=== PATIENT | male | born 1950 | race Caucasian/White ===

== ENCOUNTER 2020-08-08 08:16 | Outpatient (REF) | payer MEDICARE, OTHER, SELFPAY ==
[2020-08-08 09:15] LABS: MANUAL DIFF FLAG NO
[2020-08-08 09:27] LABS: Basophils Absolute Auto 0.1 X10*3/uL (0.0-0.2); Eosinophils Absolute Auto 0.3 X10*3/uL (0.0-0.4); Eosinophils Percent Auto 3.4 % (0-4); Hematocrit 45.5 % (42-52); Hemoglobin 15.2 g/dl (14.0-18.0); Imm Gran Abs Auto 0.03 X10*3/uL (0.00-0.03); Imm Gran Pct Auto 0.4 % (0.0-0.4); Lymphocytes Absolute Auto 1.8 X10*3/uL (1.2-4.9); Lymphocytes Percent Auto 24.3 % (20-40); Mean Corpuscular HGB Conc 33.4 g/dl (31.0-36.0); Mean Corpuscular Hemoglobin 30.3 pg (27.0-33.0); Mean Corpuscular Volume 90.6 fL (80-98); Mean Platelet Volume 10.9 fL (9.4-12.4); Monocytes Absolute Auto 0.7 X10*3/uL (0.1-1.2); Monocytes Percent Auto 9.9 % (2-11); Neutrophils Absolute Auto 4.4 X10*3/uL (2.0-8.3); Platelet Count 177 X10*3/uL (160-400); Red Blood Count 5.02 X10*6/uL (4.60-5.80); Red Cell Distribution Width 13.1 % (11.0-16.0); White Blood Count 7.3 X10*3/uL (4.8-10.8)
[2020-08-08 09:38] LABS: INTERNATIONAL NORM RATIO 1.3 (0.9-1.1); Prothrombin Time 15.1 SEC (10.8-13.0)
[2020-08-08 09:54] LABS: Alanine Aminotransferase 31 U/L (0-40); Albumin Level 4.6 g/dL (3.5-5.0); Alkaline Phosphatase 77 U/L (39-117); Anion Gap 12 (12-20); Aspartate Amino Transferase 18 U/L (5-37); Bilirubin Total 0.7 mg/dL (0.0-1.0); Blood Urea Nitrogen 14 mg/dL (9-16); Calcium 9.5 mg/dL (8.4-10.2); Carbon Dioxide 28 mmol/L (22-29); Chloride 104 mmol/L (96-108); Cholesterol 110 mg/dL; Estimated Glomerular Filt Rate > 60; Glucose Fasting 127 mg/dL (60-99); HDL Cholesterol 33 mg/dL; LDL Cholesterol Calculated 47 mg/dl; Potassium 4.3 mmol/l (3.3-5.1); Sodium 140 mmol/L (135-145); Total Protein 6.9 g/dL (6.5-8.0); Triglycerides 153 mg/dL
[2020-08-08 10:16] LABS: Prostate Specific Antigen 1.14 ng/mL (<0.05-4.0); Thyroid Stimulating Hormone 0.68 mIU/mL (0.32-4.0)
[2020-08-08 10:21] LABS: Microalbum/Creatinine Ratio Ur 39.1 ug/mg cr
[2020-08-08 10:35] LABS: T4 Thyroxine 6.5 ug/dL (4.5-12.0)
[2020-08-08 10:44] LABS: Folate 15.3 ng/mL (> or = 4.0); Vitamin B12 1207 pg/mL (200-900)
== END 2020-08-08 08:17 | disposition home or self-care (01) ==
LOC: HO.LAB 08:16
PROVIDERS: PCP Internal Medicine; Referring Provider Urology; Visit Provider Internal Medicine
DX: I48.19 Other persistent atrial fibrillation (principal); E11.65 Type 2 diabetes mellitus with hyperglycemia; I25.10 Atherosclerotic heart disease of native coronary artery without angina pectoris; R35.1 Nocturia; E66.01 Morbid (severe) obesity due to excess calories; M50.30 Other cervical disc degeneration, unspecified cervical region; K21.9 Gastro-esophageal reflux disease without esophagitis; E78.00 Pure hypercholesterolemia, unspecified; I10 Essential (primary) hypertension; N32.81 Overactive bladder; M48.02 Spinal stenosis, cervical region; Z12.5 Encounter for screening for malignant neoplasm of prostate
CPT/HCPCS: 36415; 80053; 80061; 82043; 82607; 82746; 84153; 84436; 84443; 85025; 85610

== ENCOUNTER → 2020-08-17 09:26 | Outpatient (REF) | payer MEDICARE, OTHER, SELFPAY ==
--- NOTE | 2020-08-17 09:31 | CA_ITS ---
Transthoracic Echocardiogram Amended Patient (Last, First, Middle): Arnie Springer, Gender: Male Date of : 1950 Age: 70 Procedure Date: 08/17/2020 Procedure Type: Transthoracic Echocardiogram Location: OP Height: 175.26 cm Weight: 119.75 kg BSA: 2.32 m2 Heart Rate: bpm BP: 130 / 81 mmHg Purse Seiner: DSDeondre Referring MD: Onesimo Kulkarni MD Symptoms: Z95.5 Stented coronary artery, 148.19 Persistent Atrial Fibrillation Study Quality: Good ECG Rhythm: Atrial Fibrillation Conclusions: - The left ventricular systolic function is normal. The visually estimated ejection fraction is between 65-70%. - No obvious valvular pathology seen on this study. Findings Left Ventricle Normal left ventricular cavity size. There is mildly increased left ventricular wall thickness. The left ventricular systolic function is normal. The visually estimated ejection fraction is between 65-70%. There is no evidence of regional wall motion abnormalities. Diastolic function is indeterminate on the basis of available data. Right Ventricle Normal right ventricular cavity size and systolic function. Atria Both atria are normal in size. Aortic Valve There is a normal trileaflet aortic valve. There is no aortic valve stenosis. There is no aortic valve regurgitation. Mitral Valve The mitral valve appears normal. There is trace mitral valve regurgitation. There is no mitral valve stenosis. Pulmonic Valve The pulmonic valve was not well visualized. Tricuspid Valve Normal tricuspid valve structure. There is trace tricuspid valve regurgitation. The pulmonary artery systolic pressure is normal. Great Vessels The aortic annulus, sinuses of valsalva, and asc aorta are normal in size. Venous The inferior vena cava is normal in size and collapses greater than 50% with inspiration. Pericardium/Pleural There is no evidence of pericardial effusion. Prior Study Comparison No significant change compared to prior study dated: 04/16/2018. Recommendations, Care & Conclusions No obvious valvular pathology seen on this study. Measurements 2D Linear Measurements IVSd: 1.42 0.6-0.9/0.6-1.0 cm LVIDd: 4.83 3.9-5.3/4.2-5.9 cm LVIDs: 3.43 2.0-3.6 cm LVPWd: 1.37 0.7-1.1 cm Ao Root: 3.75 2.1-3.5 cm LV Mass: 341.72 67-162/88-224 g LVOT Diam: 2.45 3.0+(-)1.3 cm 2D Volumes LA Vol: 31.54 2D Systolic Function EF 4C: 61.00 >55% Mitral Valve MV Decel Time: 138.29 Aortic Valve AoV Pk Evangelista: 1.35 AoV Pk Grad: 7.48 LVOT LVOT Pk Evangelista: 1.01 LVOT Mn Evangelista: 0.63 LVOT VTI: 0.17 LVOT Pk Grad: 4.06 LVOT Mn Grad: 1.94 LVOT Diam: 2.45 LVOT Area: 4.70 Tricuspid Valve TR Pk Evangelista: 2.41 TR Pk Grad: 23.27 RA Press: 3.00 RVSP: 26.00 Great Vessels Aorta Ao Root-2D: 3.75 2.0-3.7 cm Ao Asc: 3.49 2.1-3.4 cm Updated in Other Vendor System with Status of Final Onesimo Kulkarni MD electronically signed on 08/18/2020 1:11:33 PM with status of Final
--- NOTE | 2020-08-17 10:30 | ECG_ITS ---
Hook-up date: 2020-08-17 10:32:00 Duration: 25:13:00 Test Indications: PERSISTANT AFIB Medications: 013850 QRS complexes 91 Ventricular ectopics which represent <1 % of total QRS comp. * Supraventricular ectopics which represent % of total QRS comp. * Paced QRS complexs which represent % of total QRS comp. VENTRICULAR ECTOPY 87 Isolated 0 Bigeminal Cycles 2 Couplets 0 Runs 0 Beats in Runs * Beats LONGEST at * BPM at :: -- * Beats FASTEST at * BPM at :: -- SUPRAVENTRICULAR ECTOPY * Isolated * Couplets * Runs * Beats in Runs * Beats LONGEST at * BPM at :: -- * Beats FASTEST at * BPM at :: -- HEART RATES 38 MIN at 03:40:37 2020-08-18 100 AVG 198 MAX at 16:17:24 2020-08-17 LONGEST RR 2.5440 secs at 03:40:32 2020-08-18 S-T LEVELS Channel 1 - 128 mm at 10:32:00 2020-08-17 - 128 mm at 10:32:00 2020-08-17 Channel 2 - 128 mm at 10:32:00 2020-08-17 - 128 mm at 10:32:00 2020-08-17 Channel 3 - 128 mm at 02:95:11 -- - 128 mm at 02:95:11 Underlying rhythm is atrial fibrillation; Average ventricular rate 100/min; range 38-198/min; About 55% of the time, ventricular rate >100/min; nocturnal bradycardia noted; 'shortness of breath' in diary possibly related to atrial fibrillation; other symptoms noted including neck pain, back pain seems unrelated. Referred By: Ida Gaspar Overread By: IDA GASPAR
== END ==
LOC: HO.CARD 09:26
PROVIDERS: PCP Internal Medicine; Visit Provider Internal Medicine
DX: I25.10 Atherosclerotic heart disease of native coronary artery without angina pectoris (principal); I48.19 Other persistent atrial fibrillation; Z95.5 Presence of coronary angioplasty implant and graft
CPT/HCPCS: 93225; 93226; 93306

== ENCOUNTER → 2020-08-31 09:03 | Outpatient (BNVA) | payer MEDICARE, SELFPAY | PROVIDERS: PCP Internal Medicine; Referring Provider Internal Medicine; Visit Provider Internal Medicine | DX: I48.19 Other persistent atrial fibrillation (principal); Z79.01 Long term (current) use of anticoagulants; Z51.81 Encounter for therapeutic drug level monitoring | CPT/HCPCS: 85610; 99211 ==

== ENCOUNTER → 2020-09-05 08:06 | Outpatient (BNVA) | payer MEDICARE, SELFPAY | PROVIDERS: PCP Internal Medicine; Visit Provider Internal Medicine | DX: I25.10 Atherosclerotic heart disease of native coronary artery without angina pectoris (principal); I48.19 Other persistent atrial fibrillation; I10 Essential (primary) hypertension; E11.8 Type 2 diabetes mellitus with unspecified complications; E78.5 Hyperlipidemia, unspecified; G47.33 Obstructive sleep apnea (adult) (pediatric); Z79.01 Long term (current) use of anticoagulants; Z99.89 Dependence on other enabling machines and devices | CPT/HCPCS: 85610; 93005; 99212 ==

== ENCOUNTER → 2020-09-08 08:11 | Outpatient (BNVA) | payer MEDICARE, SELFPAY | PROVIDERS: PCP Internal Medicine; Visit Provider Internal Medicine | DX: I48.19 Other persistent atrial fibrillation (principal); Z51.81 Encounter for therapeutic drug level monitoring; Z79.01 Long term (current) use of anticoagulants | CPT/HCPCS: 85610; 99212 ==

== ENCOUNTER 2020-09-09 06:29 | Outpatient (REF) | payer MEDICARE, SELFPAY ==
[2020-09-09 13:18] LABS: MANUAL DIFF FLAG NO
[2020-09-09 13:28] LABS: Basophils Absolute Auto 0.1 X10*3/uL (0.0-0.2); Basophils Percent Auto 1.3 % (0-2); Eosinophils Absolute Auto 0.4 X10*3/uL (0.0-0.4); Eosinophils Percent Auto 6.6 % (0-4); Hematocrit 44.1 % (42-52); Hemoglobin 14.4 g/dl (14.0-18.0); Imm Gran Abs Auto 0.02 X10*3/uL (0.00-0.03); Imm Gran Pct Auto 0.3 % (0.0-0.4); Lymphocytes Absolute Auto 2.1 X10*3/uL (1.2-4.9); Lymphocytes Percent Auto 34.3 % (20-40); Mean Corpuscular HGB Conc 32.7 g/dl (31.0-36.0); Mean Corpuscular Hemoglobin 30.2 pg (27.0-33.0); Mean Corpuscular Volume 92.5 fL (80-98); Mean Platelet Volume 11.5 fL (9.4-12.4); Monocytes Absolute Auto 0.7 X10*3/uL (0.1-1.2); Monocytes Percent Auto 10.8 % (2-11); Neutrophils Absolute Auto 2.9 X10*3/uL (2.0-8.3); Neutrophils Percent Auto 46.7 % (45-73); Platelet Count 178 X10*3/uL (160-400); Red Blood Count 4.77 X10*6/uL (4.60-5.80); Red Cell Distribution Width 13.1 % (11.0-16.0); White Blood Count 6.2 X10*3/uL (4.8-10.8)
== END 2020-09-09 06:30 | disposition home or self-care (01) ==
LOC: HO.HMGCLDS 06:29
PROVIDERS: PCP Internal Medicine; Visit Provider Internal Medicine
DX: Z20.828 Contact with and (suspected) exposure to other viral communicable diseases (principal); Z79.01 Long term (current) use of anticoagulants
CPT/HCPCS: 36415; 85025; U0003

== ENCOUNTER → 2020-09-12 08:06 | Outpatient (BNVA) | payer MEDICARE, SELFPAY | PROVIDERS: PCP Internal Medicine; Visit Provider Internal Medicine | DX: I48.19 Other persistent atrial fibrillation (principal); Z51.81 Encounter for therapeutic drug level monitoring; Z79.01 Long term (current) use of anticoagulants | CPT/HCPCS: 85610; 99211 ==

== ENCOUNTER → 2020-09-19 08:31 | Outpatient (BNVA) | payer MEDICARE, SELFPAY | PROVIDERS: PCP Internal Medicine; Visit Provider Internal Medicine | DX: I48.19 Other persistent atrial fibrillation (principal); Z51.81 Encounter for therapeutic drug level monitoring; Z79.01 Long term (current) use of anticoagulants | CPT/HCPCS: 85610; 99211 ==

== ENCOUNTER → 2020-09-28 10:23 | Outpatient (BNVA) | payer MEDICARE, SELFPAY | PROVIDERS: PCP Internal Medicine; Referring Provider Internal Medicine; Visit Provider Internal Medicine | DX: I48.19 Other persistent atrial fibrillation (principal); Z51.81 Encounter for therapeutic drug level monitoring; Z79.01 Long term (current) use of anticoagulants | CPT/HCPCS: 85610; 99211 ==

== ENCOUNTER 2020-11-18 10:17 | Outpatient (REF) | payer MEDICARE, SELFPAY ==
--- NOTE | 2020-11-18 10:23 | XR_ITS ---
EXAMINATION: XR CHEST CLINICAL INFORMATION: Covid 19. Shortness of breath. COMPARISON: Chest 02/24/2019 TECHNIQUE: 2 views of the chest were obtained. FINDINGS: The lungs are well-expanded but clear of acute process. The heart size is enlarged with pulmonary vascularity is normal. There is mild spondylosis dorsal spine. No lytic process. XR/XR chest 2V IMPRESSION: Unremarkable chest exam.
== END 2020-11-18 10:18 | disposition home or self-care (01) ==
LOC: HO.HMGCX 10:17
PROVIDERS: PCP Internal Medicine; Visit Provider Internal Medicine
DX: U07.1 COVID-19 (principal); R06.02 Shortness of breath
CPT/HCPCS: 71046

== ENCOUNTER → 2020-12-07 08:07 | Outpatient (BNVA) | payer MEDICARE, OTHER, SELFPAY | PROVIDERS: PCP Internal Medicine; Visit Provider Internal Medicine | DX: I48.19 Other persistent atrial fibrillation (principal); I25.10 Atherosclerotic heart disease of native coronary artery without angina pectoris; I10 Essential (primary) hypertension; E11.8 Type 2 diabetes mellitus with unspecified complications; E78.5 Hyperlipidemia, unspecified; G47.33 Obstructive sleep apnea (adult) (pediatric); Z99.89 Dependence on other enabling machines and devices | CPT/HCPCS: 99212 ==

== ENCOUNTER 2020-12-15 09:57 | Outpatient (REF) | payer MEDICARE, SELFPAY ==
[2020-12-15 11:19] LABS: MANUAL DIFF FLAG NO
[2020-12-15 11:34] LABS: Basophils Absolute Auto 0.1 X10*3/uL (0.0-0.2); Basophils Percent Auto 0.7 % (0-2); Eosinophils Absolute Auto 0.4 X10*3/uL (0.0-0.4); Eosinophils Percent Auto 5.4 % (0-4); Hematocrit 43.7 % (42-52); Hemoglobin 14.7 g/dl (14.0-18.0); Imm Gran Abs Auto 0.02 X10*3/uL (0.00-0.03); Imm Gran Pct Auto 0.3 % (0.0-0.4); Lymphocytes Absolute Auto 1.6 X10*3/uL (1.2-4.9); Lymphocytes Percent Auto 22.7 % (20-40); Mean Corpuscular HGB Conc 33.6 g/dl (31.0-36.0); Mean Corpuscular Hemoglobin 30.2 pg (27.0-33.0); Mean Corpuscular Volume 89.9 fL (80-98); Mean Platelet Volume 11.6 fL (9.4-12.4); Monocytes Absolute Auto 0.8 X10*3/uL (0.1-1.2); Monocytes Percent Auto 11.6 % (2-11); Neutrophils Absolute Auto 4.1 X10*3/uL (2.0-8.3); Neutrophils Percent Auto 59.3 % (45-73); Platelet Count 183 X10*3/uL (160-400); Red Blood Count 4.86 X10*6/uL (4.60-5.80); Red Cell Distribution Width 13.7 % (11.0-16.0); White Blood Count 6.9 X10*3/uL (4.8-10.8)
[2020-12-15 11:36] LABS: Estimated Average Glucose 143 mg/dL; Hemoglobin A1c % 6.6 %
[2020-12-15 12:01] LABS: Alanine Aminotransferase 30 U/L (0-40); Albumin Level 4.4 g/dL (3.5-5.0); Alkaline Phosphatase 88 U/L (39-117); Anion Gap 14 (12-20); Aspartate Amino Transferase 18 U/L (5-37); Bilirubin Total 0.5 mg/dL (0.0-1.0); Blood Urea Nitrogen 15 mg/dL (9-16); Calcium 9.5 mg/dL (8.4-10.2); Carbon Dioxide 28 mmol/L (22-29); Chloride 104 mmol/L (96-108); Estimated Glomerular Filt Rate > 60; Glucose Random 104 mg/dL (60-115); Potassium 4.4 mmol/L (3.3-5.1); Sodium 142 mmol/L (135-145); Total Protein 6.8 g/dL (6.5-8.0)
[2020-12-15 12:24] LABS: Thyroid Stimulating Hormone 0.86 uIU/mL (0.32-4.0)
[2020-12-15 13:31] LABS: Erythrocyte Sedimentation Rate 6 MM/HR (0-15)
== END 2020-12-15 09:58 | disposition home or self-care (01) ==
LOC: HO.HMGCLDS 09:57
PROVIDERS: PCP Internal Medicine; Visit Provider Internal Medicine
DX: I10 Essential (primary) hypertension (principal); R51.9 Headache, unspecified; E11.8 Type 2 diabetes mellitus with unspecified complications
CPT/HCPCS: 36415; 80053; 83036; 84443; 85025; 85652

== ENCOUNTER → 2021-01-09 07:57 | Outpatient (REF) | payer MEDICARE, SELFPAY ==
--- NOTE | ~2021-01-09 | NM_ITS ---
Myocardial perfusion study Indication: Chest pain with prior CAD to evaluate for myocardial ischemia Technique: The patient was brought in for a Lexiscan perfusion study on 01/09/2021. Patient performed low-level exercise and was injected 0.4 mg of Lexiscan intravenously. Within a minute of injection, 40 mCi of sestamibi was given intravenously. Images were obtained using the SPECT gamma camera interlaced with the gating device. Images were obtained in supine position. Resting perfusion study was performed on 01/10/2021. Patient was administered 40 mCi of sestamibi intravenously at rest. Images were then obtained in supine position. Images obtained with and without CT attenuation. Total DLP 128 mGy-cm. Images were processed with the software and compared side to side in short axis, horizontal long axis and vertical long axis views. Findings: The stress perfusion study showed non attenuated images show minimally reduced uptake in the basal inferolateral wall of the LV myocardium. Remainder of the LV myocardium is normally perfused. Attenuation corrected images show normal uptake of radiotracer in all segments of LV myocardium. The gated study shows normal LV systolic function with calculated LVEF of 65%. LV cavity is normal in size. The gated study shows normal systolic wall thickening and contraction of segments. Resting study shows no change in perfusion pattern compared to stress perfusion study. Gating at rest reveals normal systolic wall motion with ejection fraction at 70%. The findings are consistent with normal myocardial perfusion. NM/NM lev perf SPECT rest & str Impression: 1. Myocardial perfusion imaging study shows normal myocardial perfusion 2. Gated LVEF is 65% 3. Transient ischemic dilatation not present EKG is nondiagnostic for ischemia
--- NOTE | 2021-01-09 08:01 | CA_ITS ---
Acquisition Time: 2021-01-09 08:21:27 Total Exercise Time: 00:02:00 Test Indications: Dyspnea Medications: AMLODIPINE ELIQUIS GABAPENTIN METOPROLOL OMEPRAZOLE GLIPIZIDE Protocol: LEXISCAN Max HR: 166 BPM 109% of Pred: 152 BPM Max BP: 136/072 mmHG Max Work Load: 1.0 METS Pharmacological stress test using Pharmacological stress test using Lexiscan while sitting. Chest tightness after Lexiscan 4/10 improved in recovery. Feeling of SOB reversed with Aminophyline 75 mg IV. Nuclear images to follow. Normotensive response to test. Test reviewed with Dr. Krishnamurthy. Referred By: Padmini Hill Overread By: ALIYA
== END ==
LOC: HO.CARD 07:57
PROVIDERS: Visit Provider Nurse Practitioner Family
DX: R07.9 Chest pain, unspecified (principal); I25.10 Atherosclerotic heart disease of native coronary artery without angina pectoris
CPT/HCPCS: 78452; 93017; A9500; J0280; J2785

== ENCOUNTER → 2021-02-09 09:38 | Outpatient (BNVA) | payer MEDICARE, SELFPAY | PROVIDERS: PCP Internal Medicine; Referring Provider Internal Medicine; Visit Provider Student in an Organized Health Care Education/Training Program | DX: M47.815 Spondylosis without myelopathy or radiculopathy, thoracolumbar region (principal) | CPT/HCPCS: 99212 ==

== ENCOUNTER 2021-02-20 11:57 | Outpatient (REF) | payer MEDICARE, SELFPAY ==
--- NOTE | ~2021-02-20 | XR_ITS ---
EXAMINATION: XR KNEE, RIGHT XR KNEE, LEFT CLINICAL INFORMATION: Osteoarthritis. COMPARISON: Right and left knee radiographs dated 10/03/2015. TECHNIQUE: AP and lateral views of the right and left knee. FINDINGS: Right Knee: Severe medial compartment joint space narrowing with mild bony remodeling and subchondral sclerosis. Prominent tricompartmental marginal osteophytes. No fracture or dislocation. Small joint effusion. Left Knee: Severe medial compartment joint space narrowing with mild bony remodeling and subchondral sclerosis. Tricompartmental marginal osteophytes. No fracture or dislocation. Small joint effusion. XR/XR knee LT 2V IMPRESSION: RIGHT KNEE: Prominent tricompartmental osteoarthritis, most severe within the medial compartment. Small joint effusion. Findings have slightly progressed when compared to the prior examination. LEFT KNEE: Prominent tricompartmental osteophytes, most severe within the medial compartment. Small joint effusion. Findings have slightly progressed when compared to the prior examination.
--- NOTE | ~2021-02-20 | XR_ITS ---
EXAMINATION: XR KNEE, RIGHT XR KNEE, LEFT CLINICAL INFORMATION: Osteoarthritis. COMPARISON: Right and left knee radiographs dated 10/03/2015. TECHNIQUE: AP and lateral views of the right and left knee. FINDINGS: Right Knee: Severe medial compartment joint space narrowing with mild bony remodeling and subchondral sclerosis. Prominent tricompartmental marginal osteophytes. No fracture or dislocation. Small joint effusion. Left Knee: Severe medial compartment joint space narrowing with mild bony remodeling and subchondral sclerosis. Tricompartmental marginal osteophytes. No fracture or dislocation. Small joint effusion. XR/XR knee RT 2V IMPRESSION: RIGHT KNEE: Prominent tricompartmental osteoarthritis, most severe within the medial compartment. Small joint effusion. Findings have slightly progressed when compared to the prior examination. LEFT KNEE: Prominent tricompartmental osteophytes, most severe within the medial compartment. Small joint effusion. Findings have slightly progressed when compared to the prior examination.
== END 2021-02-20 11:58 | disposition home or self-care (01) ==
LOC: HO.XRAY 11:57
PROVIDERS: PCP Internal Medicine; Visit Provider Internal Medicine
DX: M17.11 Unilateral primary osteoarthritis, right knee (principal); M17.12 Unilateral primary osteoarthritis, left knee
CPT/HCPCS: 73560

== ENCOUNTER 2021-02-24 09:04 | Outpatient (REF) | payer MEDICARE, SELFPAY ==
--- NOTE | ~2021-02-24 | XR_ITS ---
EXAMINATION: XR KNEE AP STANDING CLINICAL INFORMATION: Knee pain. COMPARISON: None TECHNIQUE: AP bilateral standing view of the knees was obtained. FINDINGS: RIGHT KNEE LIMITED UPRIGHT: Again noted is severe joint space narrowing with a jlsa-pf-arfa appearance in the medial compartment with marginal osteophytes. Widened lateral compartment with marginal osteophytes indicative of a genu varus deformity related to the narrowed medial compartment as well as concomitant arthrosis. LEFT KNEE LIMITED UPRIGHT: Severe joint space narrowing in the medial compartment with subchondral cystic change. Slightly widened lateral compartment likely due to the narrowed medial compartment and genu varus. XR/XR knee standing BI IMPRESSION: Limited AP upright of both knees demonstrate advanced osteoarthritis in both knees as seen previously.
== END 2021-02-24 09:05 | disposition home or self-care (01) ==
LOC: HO.HOSX 09:04
PROVIDERS: Visit Provider Orthopaedic Surgery
DX: M17.0 Bilateral primary osteoarthritis of knee (principal); E66.9 Obesity, unspecified; E11.22 Type 2 diabetes mellitus with diabetic chronic kidney disease; I12.9 Hypertensive chronic kidney disease with stage 1 through stage 4 chronic kidney disease, or unspecified chronic kidney disease; N18.9 Chronic kidney disease, unspecified; Z88.8 Allergy status to other drugs, medicaments and biological substances; Z68.39 Body mass index [BMI] 39.0-39.9, adult; Z79.01 Long term (current) use of anticoagulants
CPT/HCPCS: 20610; 73565; 99202; J1100

== ENCOUNTER → 2021-03-06 08:29 | Outpatient (REF) | payer MEDICARE, SELFPAY ==
--- NOTE | 2021-03-06 09:30 | ECG_ITS ---
Hook-up date: 2021-03-06 08:40:00 Duration: 47:59:00 Test Indications: PERSISTANT AFIB Medications: [id number] QRS complexes 91 Ventricular ectopics which represent <1 % of total QRS comp. * Supraventricular ectopics which represent % of total QRS comp. * Paced QRS complexs which represent % of total QRS comp. VENTRICULAR ECTOPY 89 Isolated 0 Bigeminal Cycles 1 Couplets 0 Runs 0 Beats in Runs * Beats LONGEST at * BPM at :: -- * Beats FASTEST at * BPM at :: -- SUPRAVENTRICULAR ECTOPY * Isolated * Couplets * Runs * Beats in Runs * Beats LONGEST at * BPM at :: -- * Beats FASTEST at * BPM at :: -- HEART RATES 32 MIN at 05:43:01 2021-03-07 73 AVG 151 MAX at 08:51:06 2021-03-06 LONGEST RR 2.5840 secs at 02:29:30 2021-03-07 S-T LEVELS Channel 1 - 128 mm at 08:40:00 2021-03-06 - 128 mm at 08:40:00 2021-03-06 Channel 2 - 128 mm at 08:40:00 2021-03-06 - 128 mm at 08:40:00 2021-03-06 Channel 3 - 128 mm at 02:75:91 -- - 128 mm at 02:75:91 Underlying rhythm is atrial fibrillation; Averge rate 73/min; range 32-151/min; About 14% of the time, rate <100/min; 5% of time, rate>100/min; Rare PVCs; Overall, atrial fibrillation appears reasonably controlled. Referred By: Ida Gaspar Overread By: IDA GASPAR
== END ==
LOC: HO.CARD 08:29
PROVIDERS: PCP Internal Medicine; Visit Provider Internal Medicine
DX: I48.19 Other persistent atrial fibrillation (principal)
CPT/HCPCS: 93226

== ENCOUNTER → 2021-03-10 09:28 | Outpatient (BNVA) | payer MEDICARE, SELFPAY | PROVIDERS: Visit Provider Urology | DX: R35.1 Nocturia (principal) | CPT/HCPCS: 51798; 99212 ==

== ENCOUNTER → 2021-03-20 08:09 | Outpatient (BNVA) | payer MEDICARE, SELFPAY | PROVIDERS: PCP Internal Medicine; Referring Provider Internal Medicine; Visit Provider Internal Medicine | DX: I48.19 Other persistent atrial fibrillation (principal); I25.10 Atherosclerotic heart disease of native coronary artery without angina pectoris; I10 Essential (primary) hypertension; E11.8 Type 2 diabetes mellitus with unspecified complications | CPT/HCPCS: 99212 ==

== ENCOUNTER → 2021-06-01 08:14 | Outpatient (BNVA) | payer MEDICARE, SELFPAY | PROVIDERS: Visit Provider Orthopaedic Surgery | DX: M17.10 Unilateral primary osteoarthritis, unspecified knee (principal); E66.01 Morbid (severe) obesity due to excess calories; E11.8 Type 2 diabetes mellitus with unspecified complications; Z68.36 Body mass index [BMI] 36.0-36.9, adult | CPT/HCPCS: 99212 ==

== ENCOUNTER → 2021-06-22 08:26 | Outpatient (BNVA) | payer MEDICARE, SELFPAY | PROVIDERS: PCP Internal Medicine; Visit Provider Urology | DX: N40.1 Benign prostatic hyperplasia with lower urinary tract symptoms (principal); N13.8 Other obstructive and reflux uropathy; R35.1 Nocturia; R68.82 Decreased libido | CPT/HCPCS: 51798; 99212 ==

== ENCOUNTER → 2021-06-23 09:26 | Outpatient (BNVA) | payer MEDICARE, SELFPAY | PROVIDERS: Visit Provider Orthopaedic Surgery | DX: M17.0 Bilateral primary osteoarthritis of knee (principal) | CPT/HCPCS: 20610; 99212; J7318 ==

== ENCOUNTER 2021-07-14 09:23 | Outpatient (REF) | payer MEDICARE, SELFPAY ==
[2021-07-14 11:13] LABS: MANUAL DIFF FLAG NO
[2021-07-14 11:37] LABS: Basophils Percent Auto 0.5 % (0-2); Eosinophils Absolute Auto 0.2 X10*3/uL (0.0-0.4); Eosinophils Percent Auto 2.8 % (0-4); Hematocrit 45.4 % (42-52); Hemoglobin 15.3 g/dl (14.0-18.0); Imm Gran Abs Auto 0.02 X10*3/uL (0.00-0.03); Imm Gran Pct Auto 0.3 % (0.0-0.4); Lymphocytes Absolute Auto 1.6 X10*3/uL (1.2-4.9); Lymphocytes Percent Auto 22.1 % (20-40); Mean Corpuscular HGB Conc 33.7 g/dl (31.0-36.0); Mean Corpuscular Hemoglobin 30.4 pg (27.0-33.0); Mean Corpuscular Volume 90.1 fL (80-98); Mean Platelet Volume 11.5 fL (9.4-12.4); Monocytes Absolute Auto 0.7 X10*3/uL (0.1-1.2); Monocytes Percent Auto 8.9 % (2-11); Neutrophils Absolute Auto 4.8 X10*3/uL (2.0-8.3); Neutrophils Percent Auto 65.4 % (45-73); Platelet Count 186 X10*3/uL (160-400); Red Blood Count 5.04 X10*6/uL (4.60-5.80); White Blood Count 7.4 X10*3/uL (4.8-10.8)
[2021-07-14 12:03] LABS: Alanine Aminotransferase 26 U/L (0-40); Albumin Level 4.4 g/dL (3.5-5.0); Alkaline Phosphatase 78 U/L (39-117); Anion Gap 14 (12-20); Aspartate Amino Transferase 17 U/L (5-37); Bilirubin Total 0.8 mg/dL (0.0-1.0); Blood Urea Nitrogen 17 mg/dL (9-16); Calcium 9.8 mg/dL (8.4-10.2); Carbon Dioxide 26 mmol/L (22-29); Chloride 103 mmol/L (96-108); Cholesterol 123 mg/dL; Estimated Glomerular Filt Rate > 60; Glucose Random 145 mg/dL (60-115); HDL Cholesterol 37 mg/dL; LDL Cholesterol Calculated 51 mg/dl; Potassium 4.6 mmol/L (3.3-5.1); Sodium 138 mmol/L (135-145); Total Protein 6.6 g/dL (6.5-8.0); Triglycerides 178 mg/dL
[2021-07-14 12:14] LABS: Free T4 (Free Thyroxine) 0.98 ng/dL (0.71-1.85); Prostate Specific Antigen Scr 1.13 ng/mL (<0.05-4.0)
[2021-07-14 12:24] LABS: Creatinine Urine 256.02 mg/dL; Microalbum/Creatinine Ratio Ur 29.2 ug/mg cr
[2021-07-14 12:26] LABS: Prostate Specific Antigen 1.11 ng/mL (<0.05-4.0); Thyroid Stimulating Hormone 0.74 uIU/mL (0.32-4.0)
[2021-07-14 12:30] LABS: Folate 11.8 ng/mL (> or = 4.0); Vitamin B12 341 pg/mL (200-900)
[2021-07-19 15:11] LABS: Testosterone, Total 296 ng/dL (250-1100)
== END 2021-07-14 09:24 | disposition home or self-care (01) ==
LOC: HO.HMGCLDS 09:23
PROVIDERS: PCP Internal Medicine; Visit Provider Urology
DX: Z12.5 Encounter for screening for malignant neoplasm of prostate (principal); N13.8 Other obstructive and reflux uropathy; N40.1 Benign prostatic hyperplasia with lower urinary tract symptoms; R35.1 Nocturia; E11.65 Type 2 diabetes mellitus with hyperglycemia; E78.00 Pure hypercholesterolemia, unspecified; I10 Essential (primary) hypertension
CPT/HCPCS: 36415; 80053; 80061; 82043; 82607; 82746; 84153; 84403; 84439; 84443; 85025

== ENCOUNTER → 2021-07-31 13:32 | Outpatient (BNVA) | payer MEDICARE, SELFPAY | PROVIDERS: PCP Internal Medicine; Referring Provider Internal Medicine; Visit Provider Nurse Practitioner Family | DX: I25.10 Atherosclerotic heart disease of native coronary artery without angina pectoris (principal); I48.19 Other persistent atrial fibrillation; I10 Essential (primary) hypertension; E78.00 Pure hypercholesterolemia, unspecified; R61 Generalized hyperhidrosis; Z79.01 Long term (current) use of anticoagulants | CPT/HCPCS: 99212 ==

== ENCOUNTER 2021-09-08 11:35 | Outpatient (REF) | payer MEDICARE, SELFPAY ==
[2021-09-08 12:25] LABS: Appearance Urine CLEAR; Color Urine YELLOW; Glucose Urine UA NEG (NEG); Leukocyte Esterase Urine NEG (NEG); Nitrite Urine NEG (NEG); PH 5.5 (5.0-8.0); Specific Gravity - Urine >= 1.030 (1.005-1.025); Urine Blood NEG (NEG); Urine Ketones 5 MG/DL (NEG); Urine Protein TRACE MG/DL (NEG-TRACE)
[2021-09-08 12:30] LABS: Mucus Urine 1+ /LPF; RBC Urine 0 /HPF (0); Squamous Epithelial Cell Urine 1+ /LPF; WBC Urine 0 /HPF (0-4)
== END 2021-09-08 11:36 | disposition home or self-care (01) ==
LOC: HO.LAB 11:35
PROVIDERS: PCP Internal Medicine; Visit Provider Urology
DX: N13.8 Other obstructive and reflux uropathy (principal); N40.1 Benign prostatic hyperplasia with lower urinary tract symptoms
CPT/HCPCS: 81001; 87086

== ENCOUNTER → 2021-09-11 09:01 | Outpatient (BNVA) | payer MEDICARE, SELFPAY | PROVIDERS: Visit Provider Orthopaedic Surgery | DX: M17.10 Unilateral primary osteoarthritis, unspecified knee (principal); E11.65 Type 2 diabetes mellitus with hyperglycemia; G47.33 Obstructive sleep apnea (adult) (pediatric); Z79.01 Long term (current) use of anticoagulants | CPT/HCPCS: 99212 ==

== ENCOUNTER → 2021-09-19 08:33 | Outpatient (BNVA) | payer MEDICARE, SELFPAY | PROVIDERS: PCP Internal Medicine; Referring Provider Internal Medicine; Visit Provider Internal Medicine | DX: I48.19 Other persistent atrial fibrillation (principal); I25.10 Atherosclerotic heart disease of native coronary artery without angina pectoris; I10 Essential (primary) hypertension; E11.8 Type 2 diabetes mellitus with unspecified complications | CPT/HCPCS: 93005; 99212 ==

== ENCOUNTER → 2021-10-04 08:20 | Outpatient (BNVA) | payer MEDICARE, SELFPAY | PROVIDERS: PCP Internal Medicine; Visit Provider Internal Medicine | DX: I48.19 Other persistent atrial fibrillation (principal); Z51.81 Encounter for therapeutic drug level monitoring; Z79.01 Long term (current) use of anticoagulants | CPT/HCPCS: 85610; 99211 ==

== ENCOUNTER → 2021-10-06 10:49 | Outpatient (BNVA) | payer MEDICARE, SELFPAY | PROVIDERS: PCP Internal Medicine; Visit Provider Internal Medicine | DX: I48.19 Other persistent atrial fibrillation (principal); Z51.81 Encounter for therapeutic drug level monitoring; Z79.01 Long term (current) use of anticoagulants | CPT/HCPCS: 85610; 99211 ==

== ENCOUNTER 2021-10-11 09:07 | Outpatient (REF) | payer MEDICARE, SELFPAY ==
--- NOTE | ~2021-10-11 | XR_ITS ---
EXAMINATION: XR CERVICAL SPINE CLINICAL INFORMATION: Cervicalgia COMPARISON: 06/15/2020 TECHNIQUE: 3 views of the cervical spine were obtained. FINDINGS: The craniocervical junction is normal. The dens and atlantodental articulation are intact. The cervical vertebra have normal height. Alignment is normal with exception of 0.2 cm degenerative retrolisthesis at C5-C6 and 0.2 cm degenerative anterolisthesis at C7-T1. No fracture or prevertebral soft tissue swelling. There appears to be generally mild multilevel facet arthropathy, including involvement of C2-C3. Mild disc space narrowing and anterior osteophyte formation at C4-C5. Chronic opmhsjlv-pe-sezzxk disc space loss, endplate sclerosis and osteophytosis at C5-C6. Chronic bilateral uncovertebral joint hypertrophy (left worse than right) at C5-C6. Moderate discovertebral degenerative changes are noted at C6-C7 and C7-T1. Chronic mild reversal of lordosis of the degenerated spine. The visualized lung apices are normal. XR/XR cervical spine 2V IMPRESSION: The findings within the degenerated cervical spine are unchanged compared to 06/15/2020. Findings include chronic degenerative disc disease and uncovertebral joint hypertrophy at C5-C6 with 0.2 cm of retrolisthesis of C5 on C6. There is chronic mild reversal of lordosis of the degenerated spine.
== END 2021-10-11 09:08 | disposition home or self-care (01) ==
LOC: HO.LAB 09:07
PROVIDERS: PCP Internal Medicine; Visit Provider Nurse Practitioner Family
DX: M47.815 Spondylosis without myelopathy or radiculopathy, thoracolumbar region (principal); M54.2 Cervicalgia
CPT/HCPCS: 72040; 99212

== ENCOUNTER → 2021-10-13 14:20 | Outpatient (BNVA) | payer MEDICARE, SELFPAY | PROVIDERS: PCP Internal Medicine | DX: N40.1 Benign prostatic hyperplasia with lower urinary tract symptoms (principal); N13.8 Other obstructive and reflux uropathy; R35.1 Nocturia | CPT/HCPCS: 51798; 99212 ==

== ENCOUNTER → 2021-11-16 10:55 | Outpatient (BNVA) | payer MEDICARE, SELFPAY | PROVIDERS: PCP Internal Medicine; Visit Provider Internal Medicine | DX: M17.10 Unilateral primary osteoarthritis, unspecified knee (principal); M47.812 Spondylosis without myelopathy or radiculopathy, cervical region; M54.81 Occipital neuralgia; Z79.01 Long term (current) use of anticoagulants | CPT/HCPCS: 99212 ==

== ENCOUNTER 2022-01-18 11:34 | Outpatient (REF) | payer MEDICARE, SELFPAY ==
[2022-01-18 12:41] LABS: Prothrombin Time 11.5 SEC (9.9-13.0)
== END 2022-01-18 11:35 | disposition home or self-care (01) ==
LOC: HO.LAB 11:34
PROVIDERS: PCP Internal Medicine; Visit Provider Urology
DX: I48.19 Other persistent atrial fibrillation (principal)
CPT/HCPCS: 36415; 85610

== ENCOUNTER 2022-01-22 14:06 | Outpatient (REF) | payer MEDICARE, SELFPAY ==
[2022-01-22 15:41] LABS: Prostate Specific Antigen 1.19 ng/mL (<0.05-4.0)
== END 2022-01-22 14:07 | disposition home or self-care (01) ==
LOC: HO.LAB 14:06
PROVIDERS: Visit Provider Urology
DX: N40.1 Benign prostatic hyperplasia with lower urinary tract symptoms (principal); N13.8 Other obstructive and reflux uropathy; Z12.5 Encounter for screening for malignant neoplasm of prostate
CPT/HCPCS: 36415; 84153

== ENCOUNTER 2022-01-26 10:21 | Outpatient (AMB) | payer MEDICARE, SELFPAY ==
--- NOTE | 2022-01-26 10:24 | A.OFFVIS_ITS ---
Intake Intake Visit Reasons: PSA Follow Up (SET) Intake Note: patient is present for psa follow up Seam Stayer Required: No Accompanied by: Self / Same As Patient Allergies warfarin Allergy (Intermediate, Verified 01/09/24 09:33) sweats, dry mouth,elevated BP naproxen Allergy (Unknown, Verified 01/09/24 09:33) face got red nifedipine [NIFEDIPINE] Allergy (Unknown, Verified 01/09/24 09:33) GI SIDE EFFECTS, stomach upset, GI HPI HPI Comments History of Present Illness Details Arnie BECK is a very pleasant male. They are a patient of Dr Allan. They are seen in the office today for the following urologic conditions. - lower urinary tract symptoms - nocturia Imipramine cause urologic tingling in hands Does have polyuria Plan for 3 day bladder diary Continue with Flomax May benefit from Botox in bladder since previously failed overactive bladder medications Lower Urinary Tract Symptoms: Baseline has diabetic urgency and frequency Reduced stream Cant use Viagra for erections since on isosorbide. Current visit is for further evaluation of, lower urinary tract symptoms, predominate irritative symptoms. Current treatment includes Flomax and imipramine Prior treatments include medication, alpha blockers, flomax/tamsulosin - .Stopped when he came off blood pressure medications - away be meds with dry mouth Prostate Symptom Score Moderate (9-19), Bother 3. Symptoms include 08/20 , incomplete emptying, nocturia (>2), and are progressing 03/21 , incomplete emptying, nocturia (>2), , and are stable. Results from testing include cystoscopy no abnormality seen 09/20 uroflow was performed No transrectal ultrasound No renal/bladder us Yes date 09/10/2017 PVR 20 prostate size 25 PSA 09/21 0.7 08/22 1.0, 07/25 T 300, 1.1 Prostate volume 30-50gm. Associated conditions elevated PSA No renal insufficiency No urge incontinence No diabetes No urinary retention No erectile dysfunction No urinary tract infection No CVA No CAD No hematuria No psychiatric diagnosis No Testing at next visit will include bladder scan [facility] Medical History (Updated 01/09/24 @ 10:04 by Victor M Allan MD) Fibromyalgia Rheumatoid factor positive Knee pain, bilateral Bilateral carpal tunnel syndrome Pancreatic cyst Cervico-occipital neuralgia Cervical spondylosis without myelopathy Obstructive sleep apnea hypopnea, severe Carpal tunnel syndrome Obesity Degenerative disc disease, cervical GERD (gastroesophageal reflux disease) Hypercholesterolemia CKD (chronic kidney disease) Overactive bladder Hypogonadism Pancreatic mass Essential hypertension Atherosclerotic cardiovascular disease Persistent atrial fibrillation Surgical History History of cataract surgery Optional surgery Hx of tonsillectomy H/O lumbar discectomy History of heart artery stent (~04/2018) Family History Father Cancer Mother Diabetes Cardiovascular disease Social History Housing: House Alcohol intake: never Patient Tobacco Use Status: Never used Tobacco e-Cigarette/Vaping Use: Never Used Second Hand Smoke Exposure: No service: No Current occupational status: retired 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 Cognitive needs: No Hearing needs: No Vision needs: Yes Review of Systems Const Denies chills and Denies fever(s) Card Reports no additional complaints and Denies syncope Resp Denies cough GI Denies abdominal pain and Denies heartburn Reports as per HPI and Denies change in libido Neuro Denies syncope Psych Denies change in libido Endo Denies change in libido Physical Exam Const General: cooperative, healthy appearing, comfortable and no acute distress Orientation/consciousness: patient oriented x3 HEENT Face and sinus: Yes normal facial exam Mouth: moist mucous membranes Neck Neck: Yes normal visual inspection, Yes full ROM and Yes trachea midline Chest Chest palpation & inspection: normal inspection of the chest Resp Effort & Inspection: normal respiratory effort, able to speak in complete sentences and no respiratory distress GI Inspection: Yes normal to inspection Back/Spine/Pelvis Cervical Spine: normal cervical lordosis Thoracic/Lumbar Spine: thoracic and lumbar spine normal to inspection Skin General skin exam: no rashes or lesions noted Neuro General: patient oriented x3, gait normal, tone normal and moves all extremities Extrem General: Yes normal to inspection and Yes capillary refill normal Assessment & Plan Assessment & Plan (1) Overactive bladder: Code(s): N32.81 - Overactive bladder Plan Trial Myrbetriq Medications: New mirabegron ER 25 mg PO DAILY 30 tabs 1RF 30 days N3.81 - Overactive bladder Patient Instructions: Imaging studies, laboratory and physical exam results were discussed and reviewed in detail. No major barriers to patient understanding were identified. An opportunity to ask questions regarding the treatment plan was provided. All questions were answered. The patient expressed understanding and agreement with the above treatment plan. The patient is aware they should contact our office by phone for worsening of their current condition or the appearance of new urologic symptoms. Compliance is encouraged with any medications and followup testing that is ordered. It is a privilege to participate in the urologic care of your patient. If you have any questions or concerns regarding treatment for the above conditions, or other urologic issues, please do not hesitate to contact me. The office telephone contact is [phone]. This note is constructed using voice recognition software. While every effort has been made to ensure accuracy manual training teacher errors may have been included. Yours sincerely, Dr Benton Chao MD, J[facility] - Urology Providers of Expert, Compassionate Care for the Genitourinary System Coding Level of Care Code Est Pt Level 3 (40805) Diagnoses Overactive bladder N32.81
== END 2022-01-26 11:16 | disposition home or self-care (01) ==
PROVIDERS: PCP Internal Medicine; Visit Provider Urology
DX: N32.81 Overactive bladder (principal)
CPT/HCPCS: 99499

== ENCOUNTER → 2022-01-26 10:21 | Outpatient (BNVA) | payer MEDICARE, SELFPAY | PROVIDERS: PCP Internal Medicine; Visit Provider Urology | DX: Z13.89 Encounter for screening for other disorder (principal) ==

== ENCOUNTER 2022-02-13 11:19 | Outpatient (REF) | payer MEDICARE, SELFPAY ==
--- NOTE | ~2022-02-13 | US_ITS ---
EXAMINATION: US ABDOMEN COMPLETE CLINICAL INFORMATION: Abdominal pain. COMPARISON: Previous abdominal ultrasound post recent February 2019, CT of the abdomen and pelvis August 2013 and MRI of the abdomen January 2012 TECHNIQUE: Real-time imaging of the abdominal viscera. FINDINGS: PANCREAS: There is a slightly complex cyst seen in the body the pancreas. This measures 3.7 x 3.1 x 3.6 cm and is increased in size from 3.4 x 2.3 x 3.1 cm on most recent abdominal ultrasound February 2019. This is slightly complex with several septations. The remainder of the pancreas is not well visualized. ABDOMINAL AORTA: The proximal abdominal aorta is normal in caliber. The mid and distal abdominal aorta are non-well visualized due to bowel gas. INFERIOR VENA CAVA: Visualized portions are normal. LIVER: Liver echotexture is slightly increased. The liver contour is normal. Parenchymal echogenicity is normal. There are areas of focal fatty sparing. No other focal hepatic lesion. There is no intrahepatic biliary duct dilatation seen. GALLBLADDER: Gallbladder is normal in size. There is ring down artifact suggestive of adenomyomatosis of the gallbladder wall. No gallstones are seen. Gallbladder wall is otherwise normal. COMMON BILE DUCT: Normal in caliber measuring 0.5 cm in diameter. RIGHT KIDNEY: There is a 1.3 x 1.8 x 1.5 cm cyst in the mid to lower pole.. No hydronephrosis. No renal calculi. The kidney measures 13.8 cm in maximum dimension. LEFT KIDNEY: There is a 6 x 3 mm stone in the lower pole. There is an 8.3 x 4.7 x 5.8 cm complex cyst in the upper pole with several septations. This measured 4.4 x 6.3 x 5.1 cm on most recent ultrasound from 2018 and is increased in size. No hydronephrosis. The kidney measures 14.5 cm in maximum dimension. SPLEEN: Normal. The spleen measures 12.2 cm in maximum dimension. FREE FLUID: None. US/US abdomen complete IMPRESSION: Interval increase in size in the complex cyst in the body of the pancreas and upper pole of the left kidney compared to previous exams, most recent February 2019. Follow-up by CT or MRI with and without contrast should be considered. Small left renal stone. Fatty infiltration of the liver. Adenomyomatosis of the gallbladder wall.
== END 2022-02-13 11:20 | disposition home or self-care (01) ==
LOC: HO.US 11:19
PROVIDERS: Visit Provider Nurse Practitioner Acute Care
DX: R10.11 Right upper quadrant pain (principal)
CPT/HCPCS: 76700

== ENCOUNTER → 2022-03-27 08:18 | Outpatient (BNVA) | payer MEDICARE, SELFPAY | PROVIDERS: PCP Internal Medicine; Referring Provider Internal Medicine; Visit Provider Internal Medicine | DX: I48.19 Other persistent atrial fibrillation (principal); I25.10 Atherosclerotic heart disease of native coronary artery without angina pectoris; I10 Essential (primary) hypertension; E11.8 Type 2 diabetes mellitus with unspecified complications | CPT/HCPCS: 93005; 99212 ==

== ENCOUNTER → 2022-04-09 08:46 | Outpatient (BNVA) | payer MEDICARE, SELFPAY | PROVIDERS: PCP Internal Medicine; Visit Provider Surgery | DX: K86.2 Cyst of pancreas (principal) | CPT/HCPCS: 99202 ==

== ENCOUNTER 2022-06-13 11:43 | Outpatient (REF) | payer MEDICARE, SELFPAY ==
--- NOTE | ~2022-06-13 | XR_ITS ---
EXAMINATION: XR CHEST CLINICAL INFORMATION: Shortness of breath COMPARISON: None TECHNIQUE: 2 views of the chest were obtained. FINDINGS: There is mild cardiomegaly with prominent pulmonary vascularity question early mild congestion. No pleural effusion or consolidation seen. Lungs are in moderate inspiration. No gross bony abnormality. XR/XR chest 2V IMPRESSION: Cardiomegaly with suspicion for mild early pulmonary vascular congestion.
--- NOTE | 2022-06-13 11:50 | ECG_ITS ---
Test Reason : sob Blood Pressure : / mmHG Vent. Rate : 090 BPM Atrial Rate : 000 BPM P-R Int : 000 ms QRS Dur : 072 ms QT Int : 346 ms P-R-T Axes : 000 063 024 degrees QTc Int : 423 ms Atrial fibrillation Abnormal ECG When compared with ECG of 07-OCT-2019 11:04, Atrial fibrillation has replaced Sinus rhythm Referred By: Victor M Allan Electronically Signed By:IDA GASPAR
[2022-06-13 12:16] LABS: MANUAL DIFF FLAG NO
[2022-06-13 13:34] LABS: Basophils Absolute Auto 0.1 X10*3/uL (0.0-0.2); Basophils Percent Auto 0.7 % (0-2); Eosinophils Absolute Auto 0.4 X10*3/uL (0.0-0.4); Eosinophils Percent Auto 4.8 % (0-4); Hematocrit 40.4 % (42.0-52.0); Hemoglobin 13.5 g/dl (14.0-18.0); Imm Gran Abs Auto 0.04 X10*3/uL (0.00-0.03); Imm Gran Pct Auto 0.5 % (0.0-0.4); Lymphocytes Absolute Auto 1.5 X10*3/uL (1.2-4.9); Lymphocytes Percent Auto 20.4 % (20-40); Mean Corpuscular HGB Conc 33.4 g/dl (31.0-36.0); Mean Corpuscular Hemoglobin 30.5 pg (27.0-33.0); Mean Corpuscular Volume 91.2 fL (80.0-98.0); Mean Platelet Volume 11.8 fL (9.4-12.4); Monocytes Absolute Auto 0.8 X10*3/uL (0.1-1.2); Monocytes Percent Auto 10.8 % (2-11); Neutrophils Absolute Auto 4.8 x10*3/uL (2.0-8.3); Neutrophils Percent Auto 62.8 % (45-73); Platelet Count 170 X10*3/uL (160-400); Red Blood Count 4.43 X10*6/uL (4.60-5.80); Red Cell Distribution Width 13.1 % (11.0-16.0); White Blood Count 7.6 X10*3/uL (4.8-10.8)
[2022-06-13 14:10] LABS: Estimated Average Glucose 169 mg/dL; Hemoglobin A1c % 7.5 %
[2022-06-13 14:13] LABS: Alanine Aminotransferase 21 U/L (0-40); Albumin Level 4.2 g/dL (3.5-5.0); Alkaline Phosphatase 93 U/L (39-117); Anion Gap 14 (12-20); Aspartate Amino Transferase 14 U/L (5-37); Bilirubin Total 0.4 mg/dL (0.0-1.0); Blood Urea Nitrogen 16 mg/dL (9-16); Calcium 9.5 mg/dL (8.4-10.2); Carbon Dioxide 28 mmol/L (22-29); Chloride 102 mmol/L (96-108); Cholesterol 117 mg/dL; Estimated Glomerular Filt Rate > 60; Glucose Random 129 mg/dL (60-115); HDL Cholesterol 35 mg/dL; LDL Cholesterol Calculated 50 mg/dl; Potassium 4.4 mmol/L (3.3-5.1); Sodium 140 mmol/L (135-145); Total Protein 6.7 g/dL (6.5-8.0); Triglycerides 160 mg/dL
[2022-06-13 14:31] LABS: Creatinine Urine 147.43 mg/dL; Microalbum/Creatinine Ratio Ur 50.8 ug/mg cr
[2022-06-13 14:39] LABS: Prostate Specific Antigen Scr 0.87 ng/mL (<0.05-4.0); Thyroid Stimulating Hormone 0.89 uIU/mL (0.32-4.0)
[2022-06-13 14:47] LABS: Vitamin B12 330 pg/mL (200-900)
[2022-06-13 16:35] LABS: Folate 9.3 ng/mL (> or = 4.0)
== END 2022-06-13 11:44 | disposition home or self-care (01) ==
LOC: HO.LAB 11:43
PROVIDERS: PCP Internal Medicine; Visit Provider Internal Medicine
DX: Z12.5 Encounter for screening for malignant neoplasm of prostate (principal); R06.02 Shortness of breath; E11.65 Type 2 diabetes mellitus with hyperglycemia; E78.00 Pure hypercholesterolemia, unspecified
CPT/HCPCS: 36415; 71046; 80053; 80061; 82043; 82607; 82746; 83036; 84153; 84439; 84443; 85025; 93005

== ENCOUNTER → 2022-06-18 07:48 | Outpatient (BNVA) | payer MEDICARE, OTHER, SELFPAY | PROVIDERS: PCP Internal Medicine; Visit Provider Nurse Practitioner Family | DX: M17.0 Bilateral primary osteoarthritis of knee (principal); M47.815 Spondylosis without myelopathy or radiculopathy, thoracolumbar region; M47.812 Spondylosis without myelopathy or radiculopathy, cervical region; M79.641 Pain in right hand; M79.642 Pain in left hand; Z79.899 Other long term (current) drug therapy; Z79.84 Long term (current) use of oral hypoglycemic drugs; Z79.01 Long term (current) use of anticoagulants | CPT/HCPCS: 99212 ==

== ENCOUNTER → 2022-06-29 10:27 | Outpatient (BNVA) | payer MEDICARE, SELFPAY | PROVIDERS: PCP Internal Medicine; Visit Provider Urology | DX: N32.81 Overactive bladder (principal); N20.0 Calculus of kidney | CPT/HCPCS: Q3014 ==

== ENCOUNTER → 2022-07-02 08:50 | Outpatient (BNVA) | payer MEDICARE, SELFPAY | PROVIDERS: PCP Internal Medicine; Referring Provider Internal Medicine; Visit Provider Internal Medicine | DX: I11.0 Hypertensive heart disease with heart failure (principal); I50.32 Chronic diastolic (congestive) heart failure; I48.19 Other persistent atrial fibrillation; I25.10 Atherosclerotic heart disease of native coronary artery without angina pectoris; G47.33 Obstructive sleep apnea (adult) (pediatric) | CPT/HCPCS: 99212 ==

== ENCOUNTER → 2022-07-19 08:14 | Outpatient (REF) | payer MEDICARE, SELFPAY ==
--- NOTE | ~2022-07-19 | XR_ITS ---
EXAMINATION: XR HAND, RIGHT CLINICAL INFORMATION: Pain COMPARISON: Right hand radiograph 11/01/2017 TECHNIQUE: PA, lateral, and oblique views of the right hand. FINDINGS: No acute fracture or dislocation. Similar chronic deformity of the tuft of the third distal phalanx. Mild to moderate degenerative changes of the distal interphalangeal joints similar to prior. Stable osseous fragment noted dorsal to the third DIP joint may reflect sequelae of degenerative change or remote trauma. XR/XR hand RT min 3V IMPRESSION: Mild to moderate degenerative changes of the distal interphalangeal joints similar to prior. Similar chronic deformity of the tuft of the third distal phalanx.
--- NOTE | ~2022-07-19 | XR_ITS ---
EXAMINATION: XR HAND, LEFT CLINICAL INFORMATION: Pain COMPARISON: None TECHNIQUE: PA, lateral, and oblique views of the left hand. FINDINGS: Mild to moderate degenerative changes of the distal interphalangeal joints and first carpometacarpal joint progressed from prior. Punctate osseous fragment noted dorsal to the third and fifth distal interphalangeal joints may reflect sequelae of degenerative change or age indeterminate avulsion injuries. Soft tissues are unremarkable. XR/XR hand LT min 3V IMPRESSION: Mild to moderate degenerative changes of the hand and wrist slightly progressed from prior. Punctate osseous fragment noted dorsal to the third and fifth distal interphalangeal joints may reflect sequelae of degenerative change or age indeterminate avulsion injuries.
--- NOTE | 2022-07-19 08:21 | CA_ITS ---
Transthoracic Echocardiogram Patient (Last, First, Middle): Arnie Springer, Gender: Male Date of : 1950 Age: 71 Procedure Date: 07/19/2022 Procedure Type: Transthoracic Echocardiogram Location: OP Height: 172.72 cm Weight: 119.75 kg BSA: 2.30 m2 Heart Rate: bpm BP: 132 / 82 mmHg Traffic Rate Computer: SB Referring MD: Onesimo Kulkarni MD Business Operations Consultant: John Krishnamurthy MD Symptoms: I50.32 - Chronic diastolic (congestive) heart failure Study Quality: Adequate ECG Rhythm: Atrial Fibrillation Conclusions: - 1. Low normal LV systolic function with LVEF of 50-55% 2. Mildly dilated left atrium 3. Normal cardiac valvular Doppler with mild mitral calcification 4. Normal RV systolic pressure 5. Trivial pericardial effusion Findings Left Ventricle Normal left ventricular cavity size. There is normal left ventricular wall thickness. The left ventricular systolic function is low normal. The visually estimated ejection fraction is between 50-55%. E/E prime ratio is between 8 and 15 consistent with indeterminate filling pressures. Right Ventricle Normal right ventricular cavity size. There is mildly decreased right ventricular systolic function. Atria The left atrium is mildly dilated. There is no evidence of interatrial shunt. The right atrium is likely dilated. Aortic Valve Normal aortic valve structure and function. There is no aortic valve stenosis. There is no aortic valve regurgitation. Mitral Valve There is mild anterior and posterior mitral leaflet thickening. There is mild mitral annular calcification. There is trace mitral valve regurgitation. There is no mitral valve stenosis. Pulmonic Valve The pulmonic valve was not well visualized. Tricuspid Valve Likely normal tricuspid valve structure and function. There is mild tricuspid valve regurgitation. The right ventricular systolic pressure is normal. The right ventricular systolic pressure is 34 mmHg. Normal right atrial pressure. There is no evidence of pulmonary hypertension. Great Vessels All visible segments of the aorta are normal in size. The pulmonary artery was not well visualized. Venous The inferior vena cava is normal in size and collapses greater than 50% with inspiration. Pericardium/Pleural There is a trivial pericardial effusion. Prior Study Comparison Changes noted compared to prior study dated: 08/17/2020. LV systolic function is low normal on this study Measurements 2D Linear Measurements IVSd: 1.05 0.6-0.9/0.6-1.0 cm LVIDd: 4.89 3.9-5.3/4.2-5.9 cm LVIDd Index: 2.13 2.4-3.2/2.2-3.1 cm/m2 LVIDs: 3.90 2.0-3.6 cm LVPWd: 0.95 0.7-1.1 cm Ao Root: 3.80 2.1-3.5 cm LA Diam: 5.70 2.7-3.8/3.0-4.0 cm LAIDs Index: 2.48 1.5-2.3 cm/m2 LV Mass: 244.52 67-162/88-224 g LV Mass Index: 106.31 43-95/49-115 g/m2 LVOT Diam: 2.30 3.0+(-)1.3 cm 2D Systolic Function EF 4C: 41.50 >55% EF 2C: 56.80 >55% Mitral Valve MV Pk E: 1.09 E'Lateral: 8.85 E'Medial: 7.18 E/E' Med: 15.20 E/E' Lat: 12.30 Aortic Valve AoV Pk Evangelista: 1.20 AoV Mn Evangelista: 0.85 AoV VTI: 0.22 AoV Pk Grad: 6.00 Aov Mn Grad: 3.00 GARCÍA Cont.VTI: 2.82 LVOT LVOT Pk Evangelista: 0.80 LVOT Mn Evangelista: 0.54 LVOT VTI: 0.15 LVOT Pk Grad: 3.00 LVOT Mn Grad: 1.00 LVOT Diam: 2.30 LVOT Area: 4.15 Diastolic Function MV Pk E: 1.09 E'Medial: 7.18 E/E' Med: 15.20 E' Laterial: 8.85 E/E' Lat: 12.30 Right Ventricle TAPSE (mm): 15.20 TVS' Evangelista: 11.20 Tricuspid Valve TR Pk Evangelista: 2.53 TR Pk Grad: 26.00 RA Press: 8.00 RVSP: 34.00 Great Vessels Aorta Ao Root-2D: 3.80 2.0-3.7 cm Sinus of Valsalva: 3.80 2.0-3.5 cm Ao Asc: 3.90 2.1-3.4 cm Pulmonary Valve PV Pk Evangelista: 0.69 Peak PV Grad: 2.00 Updated in Other Vendor System with Status of Final John Krishnamurthy MD electronically signed on 07/20/2022 9:30:38 AM with status of Final
[2022-07-19 09:37] LABS: MANUAL DIFF FLAG NO
[2022-07-19 10:19] LABS: Basophils Absolute Auto 0.1 X10*3/uL (0.0-0.2); Basophils Percent Auto 0.8 % (0-2); Eosinophils Absolute Auto 0.5 X10*3/uL (0.0-0.4); Eosinophils Percent Auto 7.3 % (0-4); Hematocrit 42.4 % (42.0-52.0); Hemoglobin 14.2 g/dl (14.0-18.0); Imm Gran Abs Auto 0.02 X10*3/uL (0.00-0.03); Imm Gran Pct Auto 0.3 % (0.0-0.4); Lymphocytes Absolute Auto 1.5 X10*3/uL (1.2-4.9); Lymphocytes Percent Auto 23.6 % (20-40); Mean Corpuscular HGB Conc 33.5 g/dl (31.0-36.0); Mean Corpuscular Hemoglobin 30.1 pg (27.0-33.0); Mean Corpuscular Volume 89.8 fL (80.0-98.0); Mean Platelet Volume 11.5 fL (9.4-12.4); Monocytes Absolute Auto 0.7 X10*3/uL (0.1-1.2); Monocytes Percent Auto 11.7 % (2-11); Neutrophils Absolute Auto 3.5 x10*3/uL (2.0-8.3); Neutrophils Percent Auto 56.3 % (45-73); Platelet Count 160 X10*3/uL (160-400); Red Blood Count 4.72 X10*6/uL (4.60-5.80); Red Cell Distribution Width 13.2 % (11.0-16.0); White Blood Count 6.2 X10*3/uL (4.8-10.8)
[2022-07-19 10:48] LABS: Alanine Aminotransferase 28 U/L (0-40); Albumin Level 4.6 g/dL (3.5-5.0); Alkaline Phosphatase 96 U/L (39-117); Anion Gap 19 (12-20); Aspartate Amino Transferase 20 U/L (5-37); Bilirubin Total 0.7 mg/dL (0.0-1.0); Blood Urea Nitrogen 17 mg/dL (9-16); Calcium 9.8 mg/dL (8.4-10.2); Carbon Dioxide 25 mmol/L (22-29); Chloride 102 mmol/L (96-108); Estimated Glomerular Filt Rate > 60; Glucose Random 135 mg/dL (60-115); Potassium 4.5 mmol/L (3.3-5.1); Sodium 141 mmol/L (135-145); Total Protein 6.9 g/dL (6.5-8.0)
[2022-07-19 10:49] LABS: B Type Natriuretic Peptide 286 pg/mL (<100)
== END ==
LOC: HO.CARD 08:14
PROVIDERS: Absent Provider Nurse Practitioner Family; PCP Internal Medicine; Visit Provider Internal Medicine
DX: I50.32 Chronic diastolic (congestive) heart failure (principal); R06.02 Shortness of breath; M79.641 Pain in right hand; M79.642 Pain in left hand
CPT/HCPCS: 36415; 73130; 80053; 83880; 85025; 93306

== ENCOUNTER → 2022-09-20 08:22 | Outpatient (BNVA) | payer MEDICARE, SELFPAY | PROVIDERS: PCP Internal Medicine; Referring Provider Internal Medicine; Visit Provider Internal Medicine | DX: I11.0 Hypertensive heart disease with heart failure (principal); I50.32 Chronic diastolic (congestive) heart failure; I48.19 Other persistent atrial fibrillation; I25.10 Atherosclerotic heart disease of native coronary artery without angina pectoris; I10 Essential (primary) hypertension; G47.33 Obstructive sleep apnea (adult) (pediatric) | CPT/HCPCS: 99212 ==

== ENCOUNTER 2022-09-25 08:30 | Outpatient (RCR) | payer MEDICARE, SELFPAY ==
--- NOTE | 2022-08-29 13:33 | MHC.OT.EP ---
[address] [phone] Occupational Therapy Plan of Care Date of Evaluation: 08/29/22 Diagnosis: Bilateral hand osteoarthritis Left 4th digit trigger finger Assessment: Pt. was referred to OT for bilateral hand osteoarthritis. Pt. reports >2 month history of worsening pain, stiffness, and numbness in all fingertips. Additionally, Arnie presents with triggering of left ring finger. Pt. is experiencing difficulty with opening jars, carrying grocery bags, and feels limited in his ADLs/IADL's due to joint pain and generalized weakness in bilateral hands. A 52.3% limitation is reported per the Quick DASH assessment. Pt. was educated in trigger finger condition, tendon glide exercises, and management of symptoms for OA and tenosynovitis. Arnie would benefit from skilled OT services to address noted barriers and assist in return to PLOF. Frequency and Duration: The patient will be seen 2x/wk for 6 weeks Short Term Goals: Decrease bilateral hand pain to <4/10 IND with joint protection techniques and activity modification IND with orthosis wear IND with HEP for stretching/AROM Care Home Goals: Pain free w/ BADL's/IADL's IND with progression of HEP Improve bilateral gross grasp by 10# Quick DASH <20% Treatment Plan: Therapeutic Exercise Therapeutic Activity Home Exercise Program Patient Education ADL Training Paraffin Fluidotherapy MHP Soft Tissue Mobilization Electronically Signed By: Mariza Macdonald MS OTR/L Please Sign and return to therapist. Thank you once again for your referral.
== END 2022-09-25 13:43 | disposition home or self-care (01) ==
LOC: HO.OT 08:30
PROVIDERS: PCP Internal Medicine; Visit Provider Nurse Practitioner Family
DX: M19.041 Primary osteoarthritis, right hand (principal); M19.042 Primary osteoarthritis, left hand
CPT/HCPCS: 29130; 97035; 97110; 97165; 97760

== ENCOUNTER → 2023-01-02 15:22 | Outpatient (BNVA) | payer MEDICARE, SELFPAY | PROVIDERS: PCP Internal Medicine; Visit Provider Nurse Practitioner Family | DX: M47.815 Spondylosis without myelopathy or radiculopathy, thoracolumbar region (principal); M17.0 Bilateral primary osteoarthritis of knee; M47.812 Spondylosis without myelopathy or radiculopathy, cervical region; M79.642 Pain in left hand; M79.641 Pain in right hand; M65.9 Synovitis and tenosynovitis, unspecified; M19.041 Primary osteoarthritis, right hand; M19.042 Primary osteoarthritis, left hand; G56.03 Carpal tunnel syndrome, bilateral upper limbs | CPT/HCPCS: 99212 ==

== ENCOUNTER 2023-01-04 11:37 | Outpatient (REF) | payer MEDICARE, SELFPAY ==
[2023-01-04 14:11] LABS: B Type Natriuretic Peptide 235 pg/mL (<100)
[2023-01-04 14:15] LABS: Alanine Aminotransferase 25 U/L (0-40); Albumin Level 4.7 g/dL (3.5-5.0); Alkaline Phosphatase 91 U/L (39-117); Anion Gap 13 (12-20); Aspartate Amino Transferase 17 U/L (5-37); Bilirubin Total 0.7 mg/dL (0.0-1.0); Blood Urea Nitrogen 19 mg/dL (9-16); Calcium 9.8 mg/dL (8.4-10.2); Carbon Dioxide 31 mmol/L (22-29); Chloride 104 mmol/L (96-108); Estimated Glomerular Filt Rate > 60; Glucose Random 86 mg/dL (60-115); Potassium 4.2 mmol/L (3.3-5.1); Sodium 144 mmol/L (135-145); Total Protein 7.1 g/dL (6.5-8.0)
[2023-01-04 14:26] LABS: Erythrocyte Sedimentation Rate 6 MM/HR (0-15)
== END 2023-01-04 11:38 | disposition home or self-care (01) ==
LOC: HO.LAB 11:37
PROVIDERS: Nurse Practitioner Family; Absent Provider Internal Medicine; PCP Internal Medicine; Visit Provider Urology
DX: I50.32 Chronic diastolic (congestive) heart failure (principal); R76.8 Other specified abnormal immunological findings in serum
CPT/HCPCS: 36415; 51798; 80053; 83880; 85652; 86140; 99212

== ENCOUNTER → 2023-02-12 09:07 | Outpatient (BNVA) | payer MEDICARE, SELFPAY | PROVIDERS: PCP Internal Medicine; Visit Provider Orthopaedic Surgery | DX: M65.342 Trigger finger, left ring finger (principal); G56.03 Carpal tunnel syndrome, bilateral upper limbs | CPT/HCPCS: 99202 ==

== ENCOUNTER 2023-05-23 14:57 | Outpatient (AMB) | payer MEDICARE, SELFPAY ==
[2023-05-23 15:00] VITALS: BP 136/88; PULSE 93; BMI 40.2
--- NOTE | 2023-05-23 15:00 | MHC.OFFVIS ---
Intake Vital Signs 05/23/23 15:00 Height 5 ft 8 in Weight 264 lb 8.875 oz BMI 40.2 BP 136/88 Blood Pressure Location Lt brachial Position Sitting Pulse 93 Intake Visit Reasons: 6 mth f/up Intake Note: 6 month follow up w/ EKG Digital Content Marketing Manager Required: No Accompanied by: Self / Same As Patient Allergies warfarin Allergy (Intermediate, Verified 05/23/23 15:02) sweats, dry mouth,elevated BP naproxen Allergy (Unknown, Verified 05/23/23 15:02) face got red nifedipine [NIFEDIPINE] Allergy (Unknown, Verified 05/23/23 15:02) GI SIDE EFFECTS, stomach upset, GI Medication List - Last Reconciled 05/23/23 by Onesimo Kulkarni MD alprazolam 0.25 mg PO DAILY PRN 30 days amlodipine 10 mg PO DAILY benzonatate 100 mg PO BID-TID PRN betamethasone valerate 0.1% 1 appl topical BID blood sugar diagnostic As directed ciclopirox 1% 5 mL topical 2XW clonidine HCl 0.2 mg PO BID diclofenac sodium 1% (Voltaren Arthritis Pain) 2 grams topical QID empagliflozin 10 mg PO DAILY fluocinonide 0.05% 0 appl topical furosemide 20 mg PO .PRN gabapentin 300 mg PO DAILY glipizide ER Take 2 tablets in the morning and 2 tablet in the evening PO; imipramine HCl 25 mg PO BEDTIME 90 days isosorbide mononitrate ER 60 mg PO QAM ketoconazole 2% topical DAILY lisinopril 40 mg PO DAILY metformin 850 mg PO BID metoprolol succinate ER take 50 mg in am and 100 mg QPM PO; 90 days nitroglycerin 0.4 mg sublingual Q5M PRN 90 days omeprazole 20 mg PO DAILY pramoxine 1% (Sarna Sensitive) 1 appl topical BID pravastatin 40 mg PO DAILY rivaroxaban (Xarelto) 20 mg PO DAILY spironolactone 25 mg PO DAILY tamsulosin (Flomax) 0.4 mg PO BEDTIME 30 days topiramate 25 mg PO DAILY triamcinolone acetonide 0.1% 1 appl topical BID HPI HPI Comments History of Present Illness Details Arnie returns for follow-up regarding coronary disease, hypertension and atrial fibrillation. Overall, no new complaints, but feels somewhat similar to before. Off and on shortness of breath. However, does not take diuretics as he states he urinates too much and too frequently. No clear angina. Otherwise, mostly getting along fine in spite of all his comorbidities. [facility] Medical History Atherosclerotic cardiovascular disease Bilateral carpal tunnel syndrome Carpal tunnel syndrome Cervical spondylosis without myelopathy Cervico-occipital neuralgia CKD (chronic kidney disease) Degenerative disc disease, cervical Essential hypertension GERD (gastroesophageal reflux disease) Hypercholesterolemia Hypogonadism Obesity Obstructive sleep apnea hypopnea, severe Overactive bladder Pancreatic cyst Pancreatic mass Persistent atrial fibrillation Surgical History H/O lumbar discectomy History of cataract surgery History of heart artery stent (~04/2018) Hx of tonsillectomy Optional surgery Family History Father Cancer Mother Diabetes Cardiovascular disease Social History Housing: House Alcohol intake: never Patient Tobacco Use Status: Never used Tobacco e-Cigarette/Vaping Use: Never Used Second Hand Smoke Exposure: No service: No Current occupational status: retired 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 Cognitive needs: No Hearing needs: No Vision needs: Yes Review of Systems Const Denies weakness ENT Denies dizziness Card Denies chest pain, Denies chest pain with activity, Denies syncope, Denies rapid heart rate, Denies pedal edema, Denies edema, Denies leg edema, Denies lightheadedness, Denies palpitations, Denies dyspnea, Denies dyspnea on exertion and Denies orthopnea Resp Denies cough, Denies dyspnea and Denies dyspnea on exertion GI Denies hematochezia and Denies change in stool character Musc Denies abnormal gait, Denies muscle cramps, Denies muscle weakness, Denies numbness, Denies radiating pain into limb and Denies tingling Neuro Denies abnormal gait, Denies dizziness, Denies syncope, Denies numbness, Denies tingling and Denies weakness Endo Denies palpitations Physical Exam Vital Signs: Last Vital Signs Pulse 93 05/23/23 15:00 BP 136/88 05/23/23 15:00 BMI result Body Mass Index 40.2 Const General: comfortable and no acute distress Orientation/consciousness: patient oriented x3 HEENT Other: Unremarkable Head: Yes normal to inspection Neck Neck: Yes normal visual inspection Chest Chest palpation & inspection: normal inspection of the chest Resp Auscultation: clear to auscultation bilaterally Cardio Palpation: normal PMI Heart sounds: S1 normal heart sound present, S2 normal heart sound present, no gallops, no murmurs and no rubs GI Palpation (GI): Soft to palpation Back/Spine/Pelvis Other: unremarkable Skin General skin exam: no rashes or lesions noted Neuro General: patient oriented x3 Extrem General: Yes normal to inspection Psych Mental Status: mental status grossly normal Office Procedures EKG Details: EKG with atrial fibrillation at 93/Min. [id number], Complete Assessment & Plan Assessment & Plan (1) Chronic diastolic (congestive) heart failure: Code(s): I50.32 - Chronic diastolic (congestive) heart failure Plan: In the most recent echocardiogram, LVEF 50-55%. He wants to take diuretics only as needed as he urinates too much. Likely has diastolic heart failure related to obesity, coronary disease, hypertension, untreated sleep apnea. (2) Persistent atrial fibrillation: Code(s): I48.19 - Other persistent atrial fibrillation Plan: Continue metoprolol for rate control. Continue Xarelto. Stable renal function. (3) Atherosclerotic cardiovascular disease: Code(s): I25.10 - Atherosclerotic heart disease of douglas coronary artery without angina pectoris Plan: Last cardiac catheterization with disease in the circumflex, when he underwent drug-eluting stent to 2nd obtuse marginal. Mild disease in the left main. No significant disease in the LAD. About 70% stenosis in the right coronary artery but not intervened. Not willing to take high-dose statins as his had side effects from the same. Hence on lower dose pravastatin. Last LDL 50 mg/dL. Last stress test from January/2021 without any significant perfusion defects. Clinically, no angina or any symptoms in this regard. (4) Essential hypertension: Code(s): I10 - Essential (primary) hypertension Plan: Several medication changes in the past. No changes made today. He also adjusts his medications by himself almost daily. (5) Obstructive sleep apnea hypopnea, severe: Comment: cannot tolerate CPAP Code(s): G47.33 - Obstructive sleep apnea (adult) (pediatric) Plan: Sleep study from 2017-moderately severe obstructive sleep apnea. However he does not want use CPAP. Orders: Orders CA echo transthoracic complete 6 Months I50.32 - Chronic diastolic (congestive) heart failure ECG 3 day holter monitor 6 Months I48.19 - Other persistent atrial fibrillation Medications: Changed From empagliflozin 10 mg PO DAILY 30 tabs 3RF E11.65 - Type 2 diabetes mellitus with hyperglycemia To empagliflozin 10 mg PO DAILY E11.65 - Type 2 diabetes mellitus with hyperglycemia From amlodipine 10 mg PO DAILY 90 tabs 2RF To amlodipine 10 mg PO DAILY From topiramate 25 mg PO DAILY 30 tabs 0RF I50.32 - Chronic diastolic (congestive) heart failure To topiramate 25 mg PO DAILY I50.32 - Chronic diastolic (congestive) heart failure Coding Level of Care Code Est Pt Level 4 (51799) Diagnoses Chronic diastolic (congestive) heart failure I50.32 Persistent atrial fibrillation I48.19 Atherosclerotic cardiovascular disease I25.10 Essential hypertension I10 Obstructive sleep apnea hypopnea, severe G47.33 CPT Codes EKG - CPT: [id number], Complete ([id number])
== END 2023-05-23 15:24 | disposition home or self-care (01) ==
PROVIDERS: Visit Provider Internal Medicine
DX: I50.32 Chronic diastolic (congestive) heart failure (principal); I48.19 Other persistent atrial fibrillation; I25.10 Atherosclerotic heart disease of native coronary artery without angina pectoris; I10 Essential (primary) hypertension; G47.33 Obstructive sleep apnea (adult) (pediatric)
CPT/HCPCS: 93010; 99214

== ENCOUNTER → 2023-05-23 14:57 | Outpatient (BNVA) | payer MEDICARE, SELFPAY | PROVIDERS: Visit Provider Internal Medicine | DX: I11.0 Hypertensive heart disease with heart failure (principal); I50.32 Chronic diastolic (congestive) heart failure; I48.19 Other persistent atrial fibrillation; I25.10 Atherosclerotic heart disease of native coronary artery without angina pectoris; G47.33 Obstructive sleep apnea (adult) (pediatric); Z79.01 Long term (current) use of anticoagulants; Z79.899 Other long term (current) drug therapy | CPT/HCPCS: 93005; 99212 ==

== ENCOUNTER 2023-06-13 13:56 | Outpatient (AMB) | payer MEDICARE, SELFPAY ==
--- NOTE | 2023-06-13 14:00 | A.OFFPC_ITS ---
Vital Signs 06/13/23 14:04 Height 5 ft 8 in Weight 267 lb BMI 40.6 BP 140/76 H Blood Pressure Location Lt brachial Position Sitting Pulse 84 Pulse Source Pulse Oximeter Pulse Oximetry (%) 98 Oxygen Delivery Method Room Air Intake Visit Reasons: Med review Allergies warfarin Allergy (Intermediate, Verified 06/13/23 14:04) sweats, dry mouth,elevated BP naproxen Allergy (Unknown, Verified 06/13/23 14:04) face got red nifedipine [NIFEDIPINE] Allergy (Unknown, Verified 06/13/23 14:04) GI SIDE EFFECTS, stomach upset, GI Tobacco use date assessed: 02/25/23 Fall risk assessment: No Falls in past year Last assessed Fall Risk: 06/13/23 Dental Screening Dental Screen Date: 06/13/23 Did you have a dental visit in the last 12 months?: Yes Did you have a dental problem in the last 6 months where you did not have access to dental care?: No Was dental information given to patient?: Patient has dentist HPI Med review HPI Details 72-year-old obese male with diabetes mellitus hypertension hypercholesterolemia coronary artery disease atrial fibrillation obstructive sleep apnea BPH and congestive heart failure last seen in December 2022. Review of the notes follows up with cardiology 05/23/2023 diuretics being taken as needed last echocardiogram low normal ejection fraction 50-55% diastolic heart failure patient has obstructive sleep apnea but cannot tolerate CPAP. February was seen by the nurse practitioner started on Jardiance patient did see Orthopedics diagnosis of bilateral carpal tunnel syndrome and trigger finger left ring finger which improved on occupational therapy.. Patient did see Urology also on imipramine in tamsulosin. for the CTS- and trigger finger= cannot due procedure due to DM uncotrolled- was advised by neurology to not do anything. cannot(jardiance) buy due financial, [facility] Medical History (Reviewed 02/12/23 @ 09:31 by Rebecca Vaughn [facility]) Atherosclerotic cardiovascular disease Bilateral carpal tunnel syndrome Carpal tunnel syndrome Cervical spondylosis without myelopathy Cervico-occipital neuralgia CKD (chronic kidney disease) Degenerative disc disease, cervical Essential hypertension GERD (gastroesophageal reflux disease) Hypercholesterolemia Hypogonadism Obesity Obstructive sleep apnea hypopnea, severe Overactive bladder Pancreatic cyst Pancreatic mass Persistent atrial fibrillation Surgical History H/O lumbar discectomy History of cataract surgery History of heart artery stent (~04/2018) Hx of tonsillectomy Optional surgery Family History Father Cancer Mother Diabetes Cardiovascular disease Social History Housing: House Alcohol intake: never Patient Tobacco Use Status: Never used Tobacco e-Cigarette/Vaping Use: Never Used Second Hand Smoke Exposure: No service: No Current occupational status: retired 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 Cognitive needs: No Hearing needs: No Vision needs: Yes Questionnaire PHQ-9 Over the last 2 weeks, how often have you been bothered by any of the following problems? 1. Little interest or pleasure in doing things: not at all 2. Feeling down, depressed, or hopeless: not at all 3. Trouble falling or staying asleep, or sleeping too much: not at all 4. Feeling tired or having little energy: not at all 5. Poor appetite or overeating: not at all 6. Feeling bad about yourself - or that you are a failure or have let yourself or your family down: not at all 7. Trouble concentrating on things, such as reading the newspaper or watching television: not at all 8. Moving or speaking so slowly that other people could have noticed. Or the opposite - being so fidgety or restless that you have been moving around a lot more than usual: not at all 9. Thoughts that you would be better off or of hurting yourself in some way: not at all Total score: 0 Depression Screening Interpretation: Negative Source: Developed by Drs. Karan Davidson, Crista Nguyen, Sunday Ashley and colleagues, with an educational sukhi from [email or web address]. Thrive Questionnaire Date Thrive assessed: 02/25/23 AUDIT C Alcohol Use Questionnaire (AUDIT-C) 1. How often do you have a drink containing alcohol?: Never 3. How often do you have six or more drinks on one occasion?: Never Total Score: 0 AYAN-7 AMB Questionnaire AYAN-7 Date AYAN - 7 assessed: 02/25/23 Source: Developed by Drs. Karan Davidson, Crista Nguyen, Sunday Ashley and colleagues, with an educational sukhi from [email or web address]. Physical exam (Primary Care) Vital Signs: Last Vital Signs Pulse 84 06/13/23 14:04 BP 140/76 H 06/13/23 14:04 Pulse Ox 98 06/13/23 14:04 Oxygen Delivery Method Room Air 06/13/23 14:04 BMI result Body Mass Index 40.6 Tobacco/Smoking Status: Tobacco use Status Tobacco use date assessed 02/25/23 06/13/23 14:00 Patient Tobacco Use Status Never used Tobacco 06/13/23 14:00 e-Cigarette/Vaping Use Never Used 06/13/23 14:00 PHQ-9: PHQ-9 Score PHQ-9: Total score 0 06/13/23 14:17 Depression Screening Interpretation: Negative Thrive Assessment: Date of Thrive Assessment Date Thrive assessed 02/25/23 06/13/23 14:00 Const General: alert; No acute distress Eyes Conjunctivae: conjunctivae normal Resp Auscultation: clear to auscultation bilaterally Cardio Rate: regular rate Rhythm: regular rhythm GI Inspection: Yes normal to inspection Extrem General: Yes normal to inspection and No edema Results AMB Hemoglobin A1c AMB Hemoglobin A1c 7.5 % Last Edit by Jennie Boykin CMA on 06/13/23 14 :20 Results Reviewed Results Reviewed: Laboratory Last Values Hgb A1c (Clinic) 7.5 % (4.0-6.0) H 06/13/23 14:03 Assessment and Plan Assessment & Plan (1) Type 2 diabetes mellitus with hyperglycemia: Comment: EYE Dr. ARMANDO (2021) Code(s): E11.65 - Type 2 diabetes mellitus with hyperglycemia Plan: Decrease the amount of carbohydrate intake, pasta, bread, rice and potatoes are all sugar and that is aside from all the sweet stuff, remember that fruits are good but they are Sweet also. Hemoglobin A1c goal of less than 7.0 (2) Bilateral carpal tunnel syndrome: Code(s): G56.03 - Carpal tunnel syndrome, bilateral upper limbs Plan: Patient has followed up with Orthopedics (3) Osteoarthritis of hands, bilateral: Code(s): M19.041 - Primary osteoarthritis, right hand; M19.042 - Primary osteoarthritis, left hand Plan: Patient follows up with Rheumatology (4) Chronic diastolic (congestive) heart failure: Code(s): I50.32 - Chronic diastolic (congestive) heart failure Plan: Weigh daily and diuretic as per patient (5) BPH w urinary obs/LUTS: Code(s): N40.1 - Benign prostatic hyperplasia with lower urinary tract symptoms; N13.8 - Other obstructive and reflux uropathy Plan: Continue to follow-up with urology and continue with imipramine and tamsulosin (6) Obstructive sleep apnea hypopnea, severe: Comment: cannot tolerate CPAP Code(s): G47.33 - Obstructive sleep apnea (adult) (pediatric) Plan: Discussed importance of treating obstructive sleep apnea (7) Obesity: Code(s): E66.9 - Obesity, unspecified Qualifiers: Obesity type: due to excess calories Obesity classification: adult class 2 (BMI 35 - 39.9) Serious obesity comorbidity presence: with serious comorbidity Body mass index: BMI 36.0-36.9 Qualified Code(s): E66.01 - Morbid (severe) obesity due to excess calories; Z68.36 - Body mass index [BMI] 36.0- 36.9, adult Plan: Diet and exercise (8) Hypercholesterolemia: Code(s): E78.00 - Pure hypercholesterolemia, unspecified Plan: Avoid fried foods, chicken skin, eggs, butter margarine, pastries and meat. Be it pork or beef they have a lot of cholesterol LDL goal of less than 70 and triglyceride of less than 150 (9) Essential hypertension: Code(s): I10 - Essential (primary) hypertension Plan: Continue with blood pressure medication. Decrease salt intake and exercise p atient is on lisinopril amlodipine metoprolol spironolactone Lasix (10) Atherosclerotic cardiovascular disease: Code(s): I25.10 - Atherosclerotic heart disease of [place] coronary artery without angina pectoris Plan: Control the cholesterol, weight, blood pressure, diabetes (11) Persistent atrial fibrillation: Code(s): I48.19 - Other persistent atrial fibrillation Plan: Continue with anticoagulation Xarelto Orders: Orders AMB Hemoglobin A1c Today Z13.9 - Encounter for screening, unspecified Medications: Changed From metformin 850 mg PO BID 180 tabs 2RF E11.65 - Type 2 diabetes mellitus with hyperglycemia To metformin 1,000 mg PO BID 90 days 180 tabs 2RF E11.65 - Type 2 diabetes mellitus with hyperglycemia Refilled nitroglycerin 0.4 mg sublingual Q5M 90 days PRN 25 tabs 0RF for angina Coding Level of Care Code Est Pt Level 4 (42196) Diagnoses Type 2 diabetes mellitus with hyperglycemia E11.65 Bilateral carpal tunnel syndrome G56.03 Osteoarthritis of hands, bilateral M19.041; M19.042 Chronic diastolic (congestive) heart failure I50.32 BPH w urinary obs/LUTS N40.1; N13.8 Obstructive sleep apnea hypopnea, severe G47.33 Obesity E66.01; Z68.36 Obesity type: due to excess calories Obesity classification: adult class 2 (BMI 35 - 39.9) Serious obesity comorbidity presence: with serious comorbidity Body mass index: BMI 36.0-36.9 Hypercholesterolemia E78.00 Essential hypertension I10 Atherosclerotic cardiovascular disease I25.10 Persistent atrial fibrillation I48.19
[2023-06-13 14:04] VITALS: BP 140/76; PULSE 84; O2SAT 98; BMI 40.6
== END 2023-06-13 14:53 | disposition home or self-care (01) ==
PROVIDERS: PCP Nurse Practitioner Family; Visit Provider Internal Medicine
DX: E11.65 Type 2 diabetes mellitus with hyperglycemia (principal)
CPT/HCPCS: 83036; 99214

== ENCOUNTER 2023-06-25 10:18 | Outpatient (REF) | payer MEDICARE, SELFPAY ==
--- NOTE | ~2023-06-25 | XR_ITS ---
EXAMINATION: XR ABDOMEN KUB CLINICAL INDICATION: Calculus of kidney. COMPARISON: Ultrasound abdomen 02/13/2022. X-ray abdomen 10/29/2018. TECHNIQUE: 3 AP views of the abdomen. FINDINGS: Nonobstructive bowel gas pattern. Moderate amount of stool in the colon. Visualization of the bilateral kidneys is limited due to overlying bowel. Redemonstration of scattered calcifications in the left midabdomen, some felt to possibly be related to mesenteric lymph nodes on prior exam. Dense 7 mm calcification projecting to the left of the L2-L3 level was not appreciated on prior x-ray of 10/27/2018 and may correlate with mesenteric calcifications versus possible left ureteral calcification. Possible faint 3-4 mm calcifications overlying lower pole left kidney. Degenerative changes in the lumbar spine. Tiny pelvic calcifications are likely vascular. XR/XR KUB IMPRESSION: Redemonstration of scattered calcifications in the left midabdomen, some felt to possibly be related to mesenteric lymph nodes on prior exam. Dense 7 mm calcification projecting to the left of the L2-L3 level was not appreciated on prior x-ray of 10/27/2018 and may correlate with mesenteric calcifications versus possible left ureteral calcification. Possible faint 3-4 mm calcifications overlying lower pole left kidney. CT scan should be considered for further evaluation.
[2023-06-25 11:37] LABS: PSA,Total (Free>4and<10) 1.54 ng/mL (0.00-4.00)
== END 2023-06-25 10:19 | disposition home or self-care (01) ==
LOC: HO.XRAY 10:18
PROVIDERS: PCP Internal Medicine; Visit Provider Urology
DX: Z12.5 Encounter for screening for malignant neoplasm of prostate (principal); N40.1 Benign prostatic hyperplasia with lower urinary tract symptoms; N13.8 Other obstructive and reflux uropathy; N20.0 Calculus of kidney
CPT/HCPCS: 36415; 74018; 84153

== ENCOUNTER 2023-07-01 12:52 | Outpatient (AMB) | payer MEDICARE, SELFPAY ==
--- NOTE | 2023-07-01 13:05 | MHC.OFFVIS ---
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 Intake Note: follow up Vision Rehabilitation Therapist Required: No Accompanied by: Self / Same As Patient Allergies warfarin Allergy (Intermediate, Verified 07/01/23 13:06) sweats, dry mouth,elevated BP naproxen Allergy (Unknown, Verified 07/01/23 13:06) face got red nifedipine [NIFEDIPINE] Allergy (Unknown, Verified 07/01/23 13:06) GI SIDE EFFECTS, stomach upset, GI Medication List - Last Reconciled 07/01/23 by Onesimo Kulkarni MD alprazolam 0.25 mg PO DAILY PRN 30 days amlodipine 10 mg PO DAILY benzonatate 100 mg PO BID-TID PRN blood sugar diagnostic As directed clonidine HCl 0.2 mg PO BID diclofenac sodium 1% (Voltaren Arthritis Pain) 2 grams topical QID fluocinonide 0.05% 0 appl topical gabapentin 300 mg PO DAILY glipizide ER Take 2 tablets in the morning and 2 tablet in the evening PO; hydralazine 25 mg PO TID 90 days imipramine HCl 25 mg PO BEDTIME 90 days isosorbide mononitrate ER 60 mg PO QAM lisinopril 40 mg PO DAILY metformin 1,000 mg PO BID 90 days metoprolol succinate ER take 50 mg in am and 100 mg QPM PO; 90 days nitroglycerin 0.4 mg sublingual Q5M PRN 90 days omeprazole 20 mg PO DAILY pramoxine 1% (Sarna Sensitive) 1 appl topical BID pravastatin 40 mg PO DAILY rivaroxaban (Xarelto) 20 mg PO DAILY topiramate 25 mg PO DAILY triamcinolone acetonide 0.1% 1 appl topical BID HPI HPI Comments History of Present Illness Details Arnie returns for follow-up regarding coronary disease, hypertension and atrial fibrillation. I spoke to him on Saturday by telephone. Patient stated that he was told he had a 'popped' blood was ill in his eyes leading to some redness and he also had headache. His eye doctor had told him it is all from high blood pressure. Hence we discussed about his care couple of days ago. He was already on several antihypertensives but in addition to that we also added hydralazine. He started taking 25 mg 3 times a day. After, blood pressure seems substantially improved. Today is on the higher side but other readings are only the 120s at home. Other complaints like feeling sweaty at times but not clear if it is because of blood sugar going up or down. Some back pain which could be related to kidney stones. Frequent urination type complaints but that has been longstanding. Nothing specifically cardiac otherwise. No angina. [facility] Medical History (Reviewed 02/12/23 @ 09:31 by Rebecca Vaughn [facility]) Atherosclerotic cardiovascular disease Bilateral carpal tunnel syndrome Carpal tunnel syndrome Cervical spondylosis without myelopathy Cervico-occipital neuralgia CKD (chronic kidney disease) Degenerative disc disease, cervical Essential hypertension GERD (gastroesophageal reflux disease) Hypercholesterolemia Hypogonadism Obesity Obstructive sleep apnea hypopnea, severe Overactive bladder Pancreatic cyst Pancreatic mass Persistent atrial fibrillation Surgical History H/O lumbar discectomy History of cataract surgery History of heart artery stent (~04/2018) Hx of tonsillectomy Optional surgery Family History Father Cancer Mother Diabetes Cardiovascular disease Social History Housing: House Alcohol intake: never Patient Tobacco Use Status: Never used Tobacco e-Cigarette/Vaping Use: Never Used Second Hand Smoke Exposure: No service: No Current occupational status: retired 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 Cognitive needs: No Hearing needs: No Vision needs: Yes Review of Systems Const Denies weakness ENT Denies dizziness Card Denies chest pain, Denies chest pain with activity, Denies syncope, Denies rapid heart rate, Denies pedal edema, Denies edema, Denies leg edema, Denies lightheadedness, Denies palpitations, Denies dyspnea, Denies dyspnea on exertion and Denies orthopnea Resp Denies cough, Denies dyspnea and Denies dyspnea on exertion GI Denies hematochezia and Denies change in stool character Musc Denies abnormal gait, Denies muscle cramps, Denies muscle weakness, Denies numbness, Denies radiating pain into limb and Denies tingling Neuro Denies abnormal gait, Denies dizziness, Denies syncope, Denies numbness, Denies tingling and Denies weakness Endo Denies palpitations Physical Exam Vital Signs: Last Vital Signs Pulse 77 07/01/23 13:06 BP 150/90 H 07/01/23 13:06 BMI result Body Mass Index 40.9 Const General: comfortable and no acute distress Orientation/consciousness: patient oriented x3 HEENT Other: Unremarkable Head: Yes normal to inspection Neck Neck: Yes normal visual inspection Chest Chest palpation & inspection: normal inspection of the chest Resp Auscultation: clear to auscultation bilaterally Cardio Palpation: normal PMI Heart sounds: S1 normal heart sound present, S2 normal heart sound present, no gallops, no murmurs and no rubs GI Palpation (GI): Soft to palpation Back/Spine/Pelvis Other: unremarkable Skin General skin exam: no rashes or lesions noted Neuro General: patient oriented x3 Extrem General: Yes normal to inspection Psych Mental Status: mental status grossly normal Assessment & Plan Assessment & Plan (1) Essential hypertension: Code(s): I10 - Essential (primary) hypertension Plan: Already on numerous antihypertensives including amlodipine, clonidine, isosorbide mononitrate, lisinopril, metoprolol. Most recently started hydralazine couple of days ago. Home readings are much better. Today's reading is slightly high but OK to keep the same dose as it was just started. He will continue to monitor them at home. (2) Chronic diastolic (congestive) heart failure: Code(s): I50.32 - Chronic diastolic (congestive) heart failure Plan: In the most recent echocardiogram, LVEF 50-55%. He wants to take diuretics only as needed as he urinates too much. Likely has diastolic heart failure related to obesity, coronary disease, hypertension, untreated sleep apnea. (3) Persistent atrial fibrillation: Code(s): I48.19 - Other persistent atrial fibrillation Plan: Continue metoprolol and Xarelto. No further changes. Holter before next visit. Stable renal function. (4) Atherosclerotic cardiovascular disease: Code(s): I25.10 - Atherosclerotic heart disease of [place] coronary artery without angina pectoris Plan: Last cardiac catheterization with disease in the circumflex, when he underwent drug-eluting stent to 2nd obtuse marginal. Mild disease in the left main. No significant disease in the LAD. About 70% stenosis in the right coronary artery but not intervened. Not willing to take high-dose statins as his had side effects from the same. Hence on lower dose pravastatin. Last LDL 50 mg/dL. Last stress test from January/2021 without any significant perfusion defects. He does not really have any angina. (5) Obstructive sleep apnea hypopnea, severe: Comment: cannot tolerate CPAP Code(s): G47.33 - Obstructive sleep apnea (adult) (pediatric) Plan: Sleep study from 2017-moderately severe obstructive sleep apnea. However he does not want use CPAP. Discussed today as well. Coding Level of Care Code Est Pt Level 4 (45592) Diagnoses Essential hypertension I10 Chronic diastolic (congestive) heart failure I50.32 Persistent atrial fibrillation I48.19 Atherosclerotic cardiovascular disease I25.10 Obstructive sleep apnea hypopnea, severe G47.33
[2023-07-01 13:06] VITALS: BP 150/90; PULSE 77; BMI 40.9
== END 2023-07-01 13:24 | disposition home or self-care (01) ==
PROVIDERS: PCP Internal Medicine; Referring Provider Internal Medicine; Visit Provider Internal Medicine
DX: I10 Essential (primary) hypertension (principal); I50.32 Chronic diastolic (congestive) heart failure; I48.19 Other persistent atrial fibrillation; I25.10 Atherosclerotic heart disease of native coronary artery without angina pectoris; G47.33 Obstructive sleep apnea (adult) (pediatric)
CPT/HCPCS: 99214

== ENCOUNTER → 2023-07-01 12:52 | Outpatient (BNVA) | payer MEDICARE, SELFPAY | PROVIDERS: PCP Internal Medicine; Referring Provider Internal Medicine; Visit Provider Internal Medicine | DX: I11.0 Hypertensive heart disease with heart failure (principal); I50.32 Chronic diastolic (congestive) heart failure; I48.19 Other persistent atrial fibrillation; I25.10 Atherosclerotic heart disease of native coronary artery without angina pectoris; G47.33 Obstructive sleep apnea (adult) (pediatric); Z79.01 Long term (current) use of anticoagulants; Z79.899 Other long term (current) drug therapy | CPT/HCPCS: 99212 ==

== ENCOUNTER 2023-07-10 07:41 | Outpatient (AMB) | payer MEDICARE, SELFPAY ==
--- NOTE | 2023-07-10 07:57 | A.OFFVIS_ITS ---
Intake Vital Signs 07/10/23 07:59 Height 5 ft 8 in Weight 267 lb 10.259 oz BMI 40.7 BP 124/62 Blood Pressure Location Lt brachial Position Sitting Pulse 95 Pulse Source Pulse Oximeter Temp 97.1 F Temp Source Skin Pulse Oximetry (%) 96 Oxygen Delivery Method Room Air Intake Visit Reasons: OA Intake Note: Here for OA follow up. 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 The OA has been noted in his cervical spine, lumbar spine, hands, and knees. The knees are most symptomatic for him. He has difficulty walking. He does use a cane most of the time. He has had corticosteroid injections with transient benefit. There was a trial with gel injections for both knees. This did not work out with increased pain the day after the injection and then not that much improvement a few weeks later. He says his son is a licensed physical therapist assistant has has suggested PT but the patient does not want to proceed. He has been swimming in his pool this summer so that does help. He takes gabapentin in the morning 300 mg and that seems to be somewhat helpful for pain. He is also on acetaminophen 650 twice a day and topical diclofenac gel when needed. He also had symptoms of triggering in his fingers but that improved. He has known occasional hand paresthesias that on EMG showed carpal tunnel syndrome but the numbness is not very prominent so he never push for surgery. He is on Xarelto because he has atrial fibrillation so NSAIDs are avoided. He denies any daytime sedation with the gabapentin. [facility] Medical History (Updated 07/09/23 @ 16:47 by Noel Downey MD) Atherosclerotic cardiovascular disease Bilateral carpal tunnel syndrome Carpal tunnel syndrome Cervical spondylosis without myelopathy Cervico-occipital neuralgia CKD (chronic kidney disease) Degenerative disc disease, cervical Essential hypertension GERD (gastroesophageal reflux disease) Hypercholesterolemia Hypogonadism Obesity Obstructive sleep apnea hypopnea, severe Overactive bladder Pancreatic cyst Pancreatic mass Persistent atrial fibrillation Surgical History H/O lumbar discectomy History of cataract surgery History of heart artery stent (~04/2018) Hx of tonsillectomy Optional surgery Family History Father Cancer Mother Diabetes Cardiovascular disease Social History Housing: House Alcohol intake: never Patient Tobacco Use Status: Never used Tobacco e-Cigarette/Vaping Use: Never Used Second Hand Smoke Exposure: No service: No Current occupational status: retired 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 Cognitive needs: No Hearing needs: No Vision needs: Yes Review of Systems Const Details: Some fluctuation in his weight. Negative for appetite change, fever, chills, malaise and fatigue Eyes Details: Negative for vision change, dry eyes,headaches and dizziness Card Details: Negative chest pain, edema and syncope Resp Details: Negative for SOB, cough and wheezing GI Details: Negative indigestion/heartburn, nausea, abdominal pain, bowel changes, diarrhea, constipation and bloody stool. Neuro Details: Occasional hand paresthesias. Negative for epilepsy, palsy, stroke, changes in speech, tingling and weakness Endo Details: Negative for polyuria and polydypsia Gabino/Lymph Details: Negative for excessive bruising or bleeding. Physical Exam Vital Signs: Last Vital Signs Temp 97.1 F 07/10/23 07:59 Pulse 95 07/10/23 07:59 BP 124/62 07/10/23 07:59 Pulse Ox 96 07/10/23 07:59 Oxygen Delivery Method Room Air 07/10/23 07:59 BMI result Body Mass Index 40.7 APPEARANCE: Patient in no acute distress EYES no redness, pupils equal and reactive to light, eyelids normal. No temporal artery tenderness, redness or swelling. EXTREMITIES: No edema, no calf tenderness, normal peripheral pulses. JOINT EXAM: Cervical Spine: Mild pain with lateral flexion at 10 degrees or rotation to 40 degrees. There is some slight cervical muscle tenderness. Thoracic Spine:? No scoliosis.? No tenderness on palpation. Lumbar Spine:? Alignment normal.? Mild pain with extremes of normal range of motion. No tenderness. Hands:LEFT:? Normal pain-free range of motion without soft tissue swelling or tenderness. No increased warmth or erythema.? There is minimal bony enlargement at the thumb IP and the 2nd 3rd PIP joints. Similarly there is some nontender bony enlargement at the 2nd, 3rd and 5th distal IP joints. No flexor tendon triggering or tenderness. No sensory loss or thenar atrophy. Left: Normal ken n-free range of motion with slight nontender bony enlargement at the thumb IP and the 2nd, 3rd, and 5th distal IP joints. No soft tissue swelling, flexor tendon triggering, flexor tendon tenderness, thenar atrophy or sensory loss. Wrists: Normal pain-free range of motion to 75 degrees flexion or extension. There is no tenderness, swelling, increased warmth or erythema. Elbows: Normal pain-free range of motion without tenderness, swelling, increased warmth or erythema. Shoulders:?? Full range of motion without pain. No tenderness, weakness, swelling, increased warmth or erythema. Hip bursa:? No tenderness. Knees:?? Right: Slight varus deformity, mild patellofemoral crepitus and pain at the extremes of flexion or extension. Mild medial tenderness with minimal effusion but no redness or warmth. No popliteal swelling or tenderness. Left: Mild patellofemoral crepitus and slight discomfort at full extension. There is some minimal medial tenderness without effusion, soft tissue swelling, redness or warmth. Ankles:? Normal pain-free range of motion without tenderness, swelling, increased warmth or erythema. Feet:? Normal pain-free range of motion with some slight 1st MTP bony enlargement bilaterally. The 1st toe rise over the 2nd toe in the left foot. There is no break in the skin envelope, soft tissue swelling, increased warmth or erythema. 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 Treatment options have been pursued here although we are limited because he does have diabetes and some atrial fib necessitating the use of anticoagulant and out the possibility of NSAIDs. He thinks the gabapentin is helpful in the mornings and not sedating so I think it can be continued. Presently he feels that the carpal tunnel, hand OA, and flexor tenosynovitis in the hand are not symptomatic enough to pursue a surgical treatment. He does massages neck and that seems to help with his neck pain due to cervical osteoarthritis. He wants a copy of his cervical spine x-ray reports so I did give him that. He tried a knee brace on the right knee in the past but it wore out. That brace he says was somewhat helpful but the general in recent years he has not been able to find a brace that fits his knee. I told him him to go to a surgical supply store was someone might be able to fit him with an [id number] brace. We will refill the gabapentin although if his primary doctor wants to take over that prescribing I think we would have no objection to that. Otherwise we would see him back in about 6 months. He could call us in the future if he wants to pursue a course of physical therapy for the knees. 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
[2023-07-10 07:59] VITALS: BP 124/62; PULSE 95; TEMP 36.2; O2SAT 96; BMI 40.7
== END 2023-07-10 08:30 | disposition home or self-care (01) ==
PROVIDERS: PCP Nurse Practitioner Family; Visit Provider Internal Medicine Rheumatology
DX: M17.10 Unilateral primary osteoarthritis, unspecified knee (principal); M47.815 Spondylosis without myelopathy or radiculopathy, thoracolumbar region; M50.30 Other cervical disc degeneration, unspecified cervical region
CPT/HCPCS: 99213

== ENCOUNTER → 2023-07-10 07:41 | Outpatient (BNVA) | payer MEDICARE, SELFPAY | PROVIDERS: PCP Nurse Practitioner Family; Visit Provider Internal Medicine Rheumatology | DX: M17.0 Bilateral primary osteoarthritis of knee (principal); M47.815 Spondylosis without myelopathy or radiculopathy, thoracolumbar region; M50.30 Other cervical disc degeneration, unspecified cervical region | CPT/HCPCS: 99212 ==

== ENCOUNTER 2023-08-23 08:33 | Outpatient (AMB) | payer MEDICARE, SELFPAY ==
--- NOTE | 2023-08-23 08:36 | MHC.OFFVIS ---
Intake Intake Visit Reasons: 6m follow up/PVR Intake Note: Patient is Present for Follow Up Urology Medication: Tamsulosin, Antibiotic Allergies: None Blood Thinners: Xarelto Pharmacy:[facility] PVR: 0 Compliants: Gunjan states medication is not working. He has currently kidney stones, he has strong urges with frequent urination every 15 minutes Allergies warfarin Allergy (Intermediate, Verified 08/23/23 08:46) sweats, dry mouth,elevated BP naproxen Allergy (Unknown, Verified 08/23/23 08:46) face got red nifedipine [NIFEDIPINE] Allergy (Unknown, Verified 08/23/23 08:46) GI SIDE EFFECTS, stomach upset, GI HPI HPI Comments History of Present Illness Details Arnie BECK is a very pleasant male. They are a patient of Dr Allan. They are seen in the office today for the following urologic conditions. - lower urinary tract symptoms - nocturia - nephrolithiasis Is emptying bladder Waking multiple times at night on multiple medications for blood pressure Discussed trial of Botox for bladder control Also feeling discomfort on left side KUB with possible stone Repeat ultrasound Lower Urinary Tract Symptoms: Detrusor hyperactivity with impaired contractility Baseline has diabetic urgency and frequency Reduced stream Cant use Viagra for erections since on isosorbide. Current visit is for further evaluation of, lower urinary tract symptoms, predominate irritative symptoms. Current treatment includes Flomax and imipramine Prior treatments include medication, alpha blockers, flomax/tamsulosin - .Stopped when he came off blood pressure medications - away be meds with dry mouth - imipramine caused tingling in hands Prostate Symptom Score Moderate (9-19), Bother 3. Symptoms include 08/20 , incomplete emptying, nocturia (>2), and are progressing 03/21 , incomplete emptying, nocturia (>2), , and are stable. Results from testing include cystoscopy no abnormality seen 09/20 uroflow was performed No transrectal ultrasound No renal/bladder us Yes date 09/10/2017 PVR 20 prostate size 25 PSA 09/21 0.7 08/22 1.0, 07/25 T 300, 1.1 Prostate volume 30-50gm. Testing at next visit will include bladder scan [facility] Medical History (Updated 07/09/23 @ 16:47 by Noel Downey MD) Bilateral carpal tunnel syndrome Pancreatic cyst Cervico-occipital neuralgia Cervical spondylosis without myelopathy Obstructive sleep apnea hypopnea, severe Carpal tunnel syndrome Obesity Degenerative disc disease, cervical GERD (gastroesophageal reflux disease) Hypercholesterolemia CKD (chronic kidney disease) Overactive bladder Hypogonadism Pancreatic mass Essential hypertension Atherosclerotic cardiovascular disease Persistent atrial fibrillation Surgical History H/O lumbar discectomy History of cataract surgery History of heart artery stent (~04/2018) Hx of tonsillectomy Optional surgery Family History Father Cancer Mother Diabetes Cardiovascular disease Social History Housing: House Alcohol intake: never Patient Tobacco Use Status: Never used Tobacco e-Cigarette/Vaping Use: Never Used Second Hand Smoke Exposure: No service: No Current occupational status: retired 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 Cognitive needs: No Hearing needs: No Vision needs: Yes Review of Systems Const Denies chills and Denies fever(s) Card Reports no additional complaints and Denies syncope Resp Denies cough GI Denies abdominal pain and Denies heartburn Reports as per HPI and Denies change in libido Neuro Denies syncope Psych Denies change in libido Endo Denies change in libido Physical Exam Const General: cooperative, healthy appearing, comfortable and no acute distress Orientation/consciousness: patient oriented x3 HEENT Face and sinus: Yes normal facial exam Mouth: moist mucous membranes Neck Neck: Yes normal visual inspection, Yes full ROM and Yes trachea midline Chest Chest palpation & inspection: normal inspection of the chest Resp Effort & Inspection: normal respiratory effort, able to speak in complete sentences and no respiratory distress GI Inspection: Yes normal to inspection Back/Spine/Pelvis Cervical Spine: normal cervical lordosis Thoracic/Lumbar Spine: thoracic and lumbar spine normal to inspection Skin General skin exam: no rashes or lesions noted Neuro General: patient oriented x3, gait normal, tone normal and moves all extremities Extrem General: Yes normal to inspection and Yes capillary refill normal Office Procedures Post Void Residual Post Residual Void Post Void Residual (PVR): 0 [id number] Void Residual by ultrasound Assessment & Plan Assessment & Plan (1) Left renal stone: Comment: 02/2022 US Code(s): N20.0 - Calculus of kidney (2) Overactive bladder: Code(s): N32.81 - Overactive bladder Plan Risks, benefits and alternatives to therapy were discussed. These include but are not limited to infection, bleeding, damage to local organs and tissues, need for further interventions. Anesthetic risks regarding cardiac arrhythmia, blood clots, and potential mortality were discussed. The patient understands the typical recovery time and the outpatient nature of the procedure. After consideration of these risks the patient gives full informed consent and they wish to move ahead with the procedure. Botox to bladder Orders: Orders US renal BI Today N20.0 - Calculus of kidney AMB Post Void Residual by ultrasound Today N32.81 - Overactive bladder Patient Instructions: Imaging studies, laboratory and physical exam results were discussed and reviewed in detail. No major barriers to patient understanding were identified. An opportunity to ask questions regarding the treatment plan was provided. All questions were answered. The patient expressed understanding and agreement with the above treatment plan. The patient is aware they should contact our office by phone for worsening of their current condition or the appearance of new urologic symptoms. Compliance is encouraged with any medications and followup testing that is ordered. It is a privilege to participate in the urologic care of your patient. If you have any questions or concerns regarding treatment for the above conditions, or other urologic issues, please do not hesitate to contact me. The office telephone contact is [phone]. This note is constructed using voice recognition software. While every effort has been made to ensure accuracy building guard deputy sheriff errors may have been included. Yours sincerely, Dr Benton Chao MD, [facility] - Urology Providers of Expert, Compassionate Care for the Genitourinary System Coding Level of Care Code Est Pt Level 4 (91071) Diagnoses Left renal stone N20.0 Overactive bladder N32.81 CPT Codes Post Residual Void - PVR CPT Code: 40399-Vtae Void Residual by ultrasound ([id number])
== END 2023-08-23 09:41 | disposition home or self-care (01) ==
PROVIDERS: Visit Provider Urology
DX: N20.0 Calculus of kidney (principal); N32.81 Overactive bladder
CPT/HCPCS: 99214

== ENCOUNTER → 2023-08-23 08:33 | Outpatient (BNVA) | payer MEDICARE, SELFPAY | PROVIDERS: Visit Provider Urology | DX: N40.1 Benign prostatic hyperplasia with lower urinary tract symptoms (principal); N13.8 Other obstructive and reflux uropathy; N32.81 Overactive bladder; N20.0 Calculus of kidney; E29.1 Testicular hypofunction; Z79.01 Long term (current) use of anticoagulants; Z79.899 Other long term (current) drug therapy | CPT/HCPCS: 51798; 99212 ==

== ENCOUNTER 2023-08-28 15:21 | Outpatient (REF) | payer MEDICARE, SELFPAY ==
--- NOTE | ~2023-08-28 | US_ITS ---
EXAMINATION: US RETROPERITONEAL LIMITED (RENAL ONLY) CLINICAL INFORMATION: Calculus of kidney. COMPARISON: X-ray abdomen 06/25/2023. Ultrasound abdomen complete 02/13/2022. X-ray abdomen 10/27/2018. Ultrasound retroperitoneal complete 09/03/2017. CT abdomen without and with contrast 08/04/2013. TECHNIQUE: Real-time imaging of the kidneys. FINDINGS: RIGHT KIDNEY: 13.0 x 6.2 x 6.7 cm (SAG x AP x TRV). The kidney is normal in size, contour, and echogenicity. Renal cortical thickness is normal. No renal calculi or hydronephrosis. There is an exophytic 1.6 x 1.5 x 2.0 cm cyst in lateral aspect of the interpolar cortex. LEFT KIDNEY: 13.1 x 7.3 x 5.3 cm (SAG x AP x TRV). The kidney is normal in size, contour, and echogenicity. Renal cortical thickness is normal. No hydronephrosis. There is septated upper pole, lobulated cyst measured 7.7 x 5.8 x 6.0 cm with questionable vascularity in the septum. There is nonobstructing 0.5 x 0.4 x 0.5 cm stone in interpolar cortex. US/US renal BI IMPRESSION: Complicated cyst in left kidney and nonobstructing calculus. Correlate with CT scan.
== END 2023-08-28 15:22 | disposition home or self-care (01) ==
LOC: HO.HMGCX 15:21
PROVIDERS: PCP Nurse Practitioner Family; Visit Provider Urology
DX: N20.0 Calculus of kidney (principal)
CPT/HCPCS: 76775

== ENCOUNTER 2023-09-11 09:48 | Outpatient (AMB) | payer MEDICARE, SELFPAY ==
--- NOTE | 2023-09-11 11:30 | MHC.OFFWIV ---
Intake Vital Signs 09/11/23 11:32 Height 5 ft 8 in Weight 268 lb BMI 40.7 BP 132/74 Blood Pressure Location Rt brachial Position Sitting Pulse 110 H Pulse Source Pulse Oximeter Temp 98.4 F Temp Source Temporal Artery Scan Pulse Oximetry (%) 98 Oxygen Delivery Method Room Air Intake Visit Reasons: EP,fever,knee pain, urgency with urination(masked) Intake Note: Pt is here c/o fever for the past 4 days. Pt states fever's are consistent. Pt also has c/o right knee pain. Pt states he is also having frequent urination. Patient Tobacco Use Status: Never used Tobacco Allergies warfarin Allergy (Intermediate, Verified 09/11/23 11:50) sweats, dry mouth,elevated BP naproxen Allergy (Unknown, Verified 09/11/23 11:50) face got red nifedipine [NIFEDIPINE] Allergy (Unknown, Verified 09/11/23 11:50) GI SIDE EFFECTS, stomach upset, GI Medication List - Last Reconciled 09/11/23 by Binh Mejia MD alprazolam 0.25 mg PO DAILY PRN 30 days amlodipine 10 mg PO DAILY benzonatate 100 mg PO BID-TID PRN blood sugar diagnostic As directed clonidine HCl 0.2 mg PO BID diclofenac sodium 1% (Voltaren Arthritis Pain) 2 grams topical QID gabapentin 300 mg PO DAILY glipizide ER Take 2 tablets in the morning and 2 tablet in the evening PO; hydralazine 25 mg PO TID 90 days isosorbide mononitrate ER 60 mg PO QAM lisinopril 40 mg PO DAILY metformin 1,000 mg PO BID 90 days metoprolol succinate ER take 50 mg in am and 100 mg QPM PO; 90 days nitroglycerin 0.4 mg sublingual Q5M PRN 90 days omeprazole 20 mg PO DAILY pravastatin 40 mg PO DAILY rivaroxaban (Xarelto) 20 mg PO DAILY tamsulosin 0.4 mg PO QDAY topiramate 25 mg PO DAILY Do you need a note to return to daycare/school/sports/work: No HPI EP,fever,knee pain, urgency with urination(masked) HPI Details 73-year-old male presents to the office for a sick visit. Patient was trying to mow the lawn, Saturday last when he has right knee gave out. Severe pain in the right knee and was difficult to ambulate. The pain became constant over the next few days. He is using crutches that belonged to his to finish remover own. Started having a low-grade fever last night. No chills. Increased frequency of urination that is also worsened in the past 2 days. [facility] Medical History (Updated 07/09/23 @ 16:47 by Noel Downey MD) Bilateral carpal tunnel syndrome Pancreatic cyst Cervico-occipital neuralgia Cervical spondylosis without myelopathy Obstructive sleep apnea hypopnea, severe Carpal tunnel syndrome Obesity Degenerative disc disease, cervical GERD (gastroesophageal reflux disease) Hypercholesterolemia CKD (chronic kidney disease) Overactive bladder Hypogonadism Pancreatic mass Essential hypertension Atherosclerotic cardiovascular disease Persistent atrial fibrillation Surgical History H/O lumbar discectomy History of cataract surgery History of heart artery stent (~04/2018) Hx of tonsillectomy Optional surgery Family History Father Cancer Mother Diabetes Cardiovascular disease Social History Housing: House Alcohol intake: never Patient Tobacco Use Status: Never used Tobacco e-Cigarette/Vaping Use: Never Used Second Hand Smoke Exposure: No service: No Current occupational status: retired 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 Cognitive needs: No Hearing needs: No Vision needs: Yes Physical Exam Vital Signs: Last Vital Signs Temp 98.4 F 09/11/23 11:32 Pulse 110 H 09/11/23 11:32 BP 132/74 09/11/23 11:32 Pulse Ox 98 09/11/23 11:32 Oxygen Delivery Method Room Air 09/11/23 11:32 BMI result Body Mass Index 40.7 Const General: cooperative and healthy appearing Nutritional Appearance: well nourished Orientation/consciousness: patient oriented x3 Limitations: no limitations HEENT Head: Yes normal to inspection Eyes General: appearance normal, both eyes and all related structures Neck Neck: Yes normal visual inspection Chest Chest palpation & inspection: normal palpation of entire chest wall Resp Effort & Inspection: normal respiratory effort Neuro General: patient oriented x3 Extrem Other: Right knee: Prepatellar and suprapatellar swelling. Joint line tenderness present. Crepitus on passive motion. Pain on flexion of the knee. Results AMB Urinalysis, Automated UA Leukoctes 0 Bev/uL Last Edit by Edwige Mast CMA on 09/11/23 11:40 UA Nitrite Negative Last Edit by Edwige Mast CMA on 09/11/23 11:40 UA Urobilinogen 0.2 mg/dL Last Edit by Edwige Mast CMA on 09/11/23 11:40 UA Protein 30 mg/dL Last Edit by Edwige Mast CMA on 09/11/23 11:40 UA pH 6.0 Last Edit by Edwige Mast CMA on 09/11/23 11:40 UA Blood 0 Leo/uL Last Edit by Edwige Mast CMA on 09/11/23 11:40 UA Specific [place] 1.030 Last Edit by Edwige Mast CMA on 09/11/23 11:40 UA Ketone Negative Last Edit by Edwige Mast CMA on 09/11/23 11:40 UA Bilirubin 1 mg/dL Last Edit by Edwige Mast CMA on 09/11/23 11:40 UA Glucose 0 mg/dL Last Edit by Edwige Mast CMA on 09/11/23 11:40 Results Reviewed Results Reviewed: Laboratory Last Values Urine pH (Auto) 6.0 09/11/23 11:39 Specific [place] (Auto) 1.030 09/11/23 11:39 Urine Protein (Auto) 30 mg/dL 09/11/23 11:39 Glucose (UA)(Auto) 0 mg/dL 09/11/23 11:39 Urine Ketones (Auto) Negative 09/11/23 11:39 Urine Blood (Auto) 0 Leo/uL 09/11/23 11:39 Urine Nitrite (Auto) Negative 09/11/23 11:39 Urine Bilirubin (Auto) 1 mg/dL 09/11/23 11:39 Urine Urobilinogen (Auto) 0.2 mg/dL 09/11/23 11:39 Leukocyte Esterase (Auto) 0 Bev/uL 09/11/23 11:39 Assessment & Plan Assessment & Plan (1) Sprain of right knee: Code(s): S83.91XA - Sprain of unspecified site of right knee, initial encounter Plan: Patient is on oral anticoagulant and therefore NSAIDs should be used cautiously. Patient was advised rest. Urinalysis done was unremarkable for infection. Blood work has been ordered. Will call with the results. X-rays of the knee show severe DJD with almost no joint space. (2) Fever: Code(s): R50.9 - Fever, unspecified Plan: Urinalysis is negative. Blood work will be ordered. Will call with the results. Orders: Orders AMB Urinalysis Automated Today Z13.9 - Encounter for screening, unspecified Coding Level of Care Code Est Pt Level 4 (49844) Diagnoses Sprain of right knee S83.91XA Fever R50.9
[2023-09-11 11:32] VITALS: BP 132/74; PULSE 110; TEMP 36.9; O2SAT 98; BMI 40.7
== END 2023-09-11 12:28 | disposition home or self-care (01) ==
PROVIDERS: PCP Nurse Practitioner Family; Visit Provider Internal Medicine
DX: S83.91XA Sprain of unspecified site of right knee, initial encounter (principal); R50.9 Fever, unspecified; R35.0 Frequency of micturition
CPT/HCPCS: 81003; 99214

== ENCOUNTER 2023-09-11 11:55 | Outpatient (REF) | payer MEDICARE, SELFPAY ==
--- NOTE | ~2023-09-11 | XR_ITS ---
EXAMINATION: XR KNEE, RIGHT CLINICAL INFORMATION: Sprain COMPARISON: Previous x-ray most recent February 2020 TECHNIQUE: Four views of the right knee. FINDINGS: Bone alignment is normal. No fracture or dislocation. There is arthritis at the femoral tibial and patellofemoral joints with joint space narrowing and osteophyte formation. There is a moderate to large joint effusion. XR/XR knee RT 4V IMPRESSION: Arthritis and joint effusion
== END 2023-09-11 11:56 | disposition home or self-care (01) ==
LOC: HO.HMGCX 11:55
PROVIDERS: Visit Provider Internal Medicine
DX: S83.91XA Sprain of unspecified site of right knee, initial encounter (principal); X58.XXXA Exposure to other specified factors, initial encounter; Y93.9 Activity, unspecified; Y92.9 Unspecified place or not applicable; Y99.9 Unspecified external cause status
CPT/HCPCS: 73564

== ENCOUNTER 2023-09-12 07:45 | Outpatient (REF) | payer MEDICARE, SELFPAY ==
[2023-09-12 11:41] LABS: Hematocrit 45.5 % (42.0-52.0); Hemoglobin 14.8 g/dl (14.0-18.0); Mean Corpuscular HGB Conc 32.5 g/dl (31.0-36.0); Mean Corpuscular Hemoglobin 30.3 pg (27.0-33.0); Platelet Count 211 X10*3/uL (160-400); Red Blood Count 4.89 X10*6/uL (4.60-5.80); Red Cell Distribution Width 13.4 % (11.0-16.0); White Blood Count 9.3 X10*3/uL (4.8-10.8)
[2023-09-12 12:03] LABS: Alanine Aminotransferase 183 U/L (0-40); Albumin Level 4.5 g/dL (3.5-5.0); Alkaline Phosphatase 104 U/L (39-117); Anion Gap 16 (12-20); Aspartate Amino Transferase 91 U/L (5-37); Bilirubin Direct 0.3 mg/dL (0.0-0.5); Bilirubin Total 0.9 mg/dL (0.0-1.0); Blood Urea Nitrogen 15 mg/dL (9-16); Calcium 10.1 mg/dL (8.4-10.2); Carbon Dioxide 30 mmol/L (22-29); Chloride 99 mmol/L (96-108); Cholesterol 133 mg/dL (<200); Estimated Glomerular Filt Rate > 60; Glucose Random 134 mg/dL (60-115); HDL Cholesterol 36 mg/dL (>40); LDL Cholesterol Calculated 77 mg/dL (<100); Potassium 4.1 mmol/L (3.3-5.1); Sodium 141 mmol/L (135-145); Total Protein 7.9 g/dL (6.5-8.0); Triglycerides 102 mg/dL (<150)
[2023-09-12 12:55] LABS: Erythrocyte Sedimentation Rate 54 MM/HR (0-15)
== END 2023-09-12 07:46 | disposition home or self-care (01) ==
LOC: HO.HMGCLDS 07:45
PROVIDERS: PCP Internal Medicine; Visit Provider Internal Medicine
DX: R05.9 Cough, unspecified (principal); E78.00 Pure hypercholesterolemia, unspecified
CPT/HCPCS: 36415; 80048; 80061; 80076; 84443; 85027; 85652

== ENCOUNTER 2023-10-02 08:22 | Outpatient (AMB) | payer MEDICARE, SELFPAY ==
[2023-10-02 08:24] VITALS: BP 144/76; PULSE 92; O2SAT 96; BMI 38.9
--- NOTE | 2023-10-02 08:24 | A.OFFPC_ITS ---
Vital Signs 10/02/23 08:24 Height 5 ft 8 in Weight 256 lb BMI 38.9 BP 144/76 H Blood Pressure Location Lt brachial Position Sitting Pulse 92 Pulse Source Pulse Oximeter Pulse Oximetry (%) 96 Oxygen Delivery Method Room Air Intake Visit Reasons: DM, HTN, hyperperchoelsterol Allergies warfarin Allergy (Intermediate, Verified 10/02/23 08:25) sweats, dry mouth,elevated BP naproxen Allergy (Unknown, Verified 10/02/23 08:25) face got red nifedipine [NIFEDIPINE] Allergy (Unknown, Verified 10/02/23 08:25) GI SIDE EFFECTS, stomach upset, GI Medication List - Last Reconciled 10/02/23 by Victor M Allan MD alprazolam 0.25 mg PO DAILY PRN 30 days amlodipine 10 mg PO DAILY benzonatate 100 mg PO BID-TID PRN blood sugar diagnostic As directed clonidine HCl 0.1 mg PO BID diclofenac sodium 1% (Voltaren Arthritis Pain) 2 grams topical QID gabapentin 300 mg PO DAILY glipizide ER Take 2 tablets in the morning and 2 tablet in the evening PO; isosorbide mononitrate ER 60 mg PO QAM lisinopril 40 mg PO DAILY metformin 1,000 mg PO BID 90 days metoprolol succinate ER take 50 mg in am and 100 mg QPM PO; 90 days nitroglycerin 0.4 mg sublingual Q5M PRN 90 days omeprazole 20 mg PO DAILY pravastatin 40 mg PO DAILY rivaroxaban (Xarelto) 20 mg PO DAILY tamsulosin 0.4 mg PO QDAY topiramate 25 mg PO DAILY Tobacco use date assessed: 02/25/23 Fall risk assessment: No Falls in past year Last assessed Fall Risk: 10/02/23 Dental Screening Dental Screen Date: 10/02/23 Did you have a dental visit in the last 12 months?: Yes Did you have a dental problem in the last 6 months where you did not have access to dental care?: No Was dental information given to patient?: Patient has dentist HPI DM, HTN, hyperperchoelsterol HPI Details 73-year-old obese male with multiple med ical problems diabetes mellitus diastolic heart failure BPH obstructive sleep apnea hypercholesterolemia hypertension coronary artery disease atrial fibrillation last seen in June 2023. Patient's colonoscopy is up-to-date. Review of the notes was seen by the [facility] for urgency on urination with fever had some right knee pain also. Patient also follows up with urology on tamsulosin patient had Botox to the bladder. Patient has also seen rheumatology July 2023 diagnosis of knee osteoarthritis spondylosis of the thoracolumbar region cervical degenerative disc disease uses gabapentin. Patient also has seen Cardiology for the blood pressure on amlodipine clonidine isosorbide mononitrate lisinopril metoprolol and hydralazine. recenly mowed lawn which he does not do- and the knee gave out- urgent center xray and blood work. noted elevated LFT. For the urology- was advised botox but decline and wants a second opinion - seen Dr. Gunter-workup advised.and will see Dr. Sullivan. BP med changed clonidine to 0.1 mg BID. stopped hydralazine maintained on others - was advised aspirin but was taken off due to anticoagulation. [facility] Medical History (Updated 10/02/23 @ 08:51 by Victor M Allan MD) Bilateral carpal tunnel syndrome Pancreatic cyst Cervico-occipital neuralgia Cervical spondylosis without myelopathy Obstructive sleep apnea hypopnea, severe Carpal tunnel syndrome Obesity Degenerative disc disease, cervical GERD (gastroesophageal reflux disease) Hypercholesterolemia CKD (chronic kidney disease) Overactive bladder Hypogonadism Pancreatic mass Essential hypertension Atherosclerotic cardiovascular disease Persistent atrial fibrillation Surgical History H/O lumbar discectomy History of cataract surgery History of heart artery stent (~04/2018) Hx of tonsillectomy Optional surgery Family History Father Cancer Mother Diabetes Cardiovascular disease Social History Housing: House Alcohol intake: never Patient Tobacco Use Status: Never used Tobacco e-Cigarette/Vaping Use: Never Used Second Hand Smoke Exposure: No service: No Current occupational status: retired 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 Cognitive needs: No Hearing needs: No Vision needs: Yes Questionnaire PHQ-9 Over the last 2 weeks, how often have you been bothered by any of the following problems? 1. Little interest or pleasure in doing things: not at all 2. Feeling down, depressed, or hopeless: not at all 3. Trouble falling or staying asleep, or sleeping too much: not at all 4. Feeling tired or having little energy: not at all 5. Poor appetite or overeating: not at all 6. Feeling bad about yourself - or that you are a failure or have let yourself or your family down: not at all 7. Trouble concentrating on things, such as reading the newspaper or watching television: not at all 8. Moving or speaking so slowly that other people could have noticed. Or the opposite - being so fidgety or restless that you have been moving around a lot more than usual: not at all 9. Thoughts that you would be better off or of hurting yourself in some way: not at all Total score: 0 Depression Screening Interpretation: Negative Depression Screening Done: Yes Source: Developed by Drs. Karan Davidson, Crista Nguyen, Sunday Ashley and colleagues, with an educational sukhi from [employer]. Thrive Questionnaire Date Thrive assessed: 02/25/23 AUDIT C Alcohol Use Questionnaire (AUDIT-C) 1. How often do you have a drink containing alcohol?: Never 3. How often do you have six or more drinks on one occasion?: Never Total Score: 0 AYAN-7 AMB Questionnaire AYAN-7 Date AYAN - 7 assessed: 02/25/23 Source: Developed by Drs. Karan Davidson, Crista Nguyen, Sunday Ashley and colleagues, with an educational sukhi from [employer]. Physical exam (Primary Care) Vital Signs: Last Vital Signs Pulse 92 10/02/23 08:24 BP 144/76 H 10/02/23 08:24 Pulse Ox 96 10/02/23 08:24 Oxygen Delivery Method Room Air 10/02/23 08:24 BMI result Body Mass Index 38.9 Tobacco/Smoking Status: Tobacco use Status Tobacco use date assessed 02/25/23 10/02/23 08:25 Patient Tobacco Use Status Never used Tobacco 10/02/23 08:25 e-Cigarette/Vaping Use Never Used 10/02/23 08:25 PHQ-9: PHQ-9 Score PHQ-9: Total score 0 10/02/23 08:42 Depression Screening Interpretation: Negative Thrive Assessment: Date of Thrive Assessment Date Thrive assessed 02/25/23 10/02/23 08:25 Const General: alert; No acute distress Eyes Conjunctivae: conjunctivae normal Resp Auscultation: clear to auscultation bilaterally Cardio Rate: regular rate Rhythm: regular rhythm GI Inspection: Yes normal to inspection Extrem General: Yes normal to inspection and No edema Results AMB Hemoglobin A1c AMB Hemoglobin A1c 7.4 % Last Edit by Jennie Boykin CMA on 10/02/23 08 :43 Results Reviewed Results Reviewed: Laboratory Last Values Hgb A1c (Clinic) 7.4 % (4.0-6.0) H 10/02/23 08:26 Assessment and Plan Assessment & Plan (1) Left renal stone: Comment: 02/2022 Code(s): N20.0 - Calculus of kidney Plan: Patient continues to follow-up with Urology (2) Chronic diastolic (congestive) heart failure: Code(s): I50.32 - Chronic diastolic (congestive) heart failure Plan: Continue with the diuretic and weigh daily (3) Type 2 diabetes mellitus with hyperglycemia: Comment: EYE Dr. ARMANDO (2021) Code(s): E11.65 - Type 2 diabetes mellitus with hyperglycemia Plan: Decrease the amount of carbohydrate intake, pasta, bread, rice and potatoes are all sugar and that is aside from all the sweet stuff, remember that fruits are good but they are Sweet also. Hemoglobin A1c goal of less than 7.0 patient is on glipizide from metformin (4) Knee osteoarthritis: Code(s): M17.10 - Unilateral primary osteoarthritis, unspecified knee Plan: Keep active lose the weight (5) Essential hypertension: Code(s): I10 - Essential (primary) hypertension Plan: Continue with blood pressure medication. Decrease salt intake and exercise patient on metoprolol lisinopril clonidine amlodipine (6) Atherosclerotic cardiovascular disease: Code(s): I25.10 - Atherosclerotic heart disease of [place] coronary artery without angina pectoris Plan: Control the cholesterol, weight, blood pressure, diabetes continue with anticoagulation (7) Persistent atrial fibrillation: Code(s): I48.19 - Other persistent atrial fibrillation Plan: Continue with anticoagulate (8) Hypercholesterolemia: Code(s): E78.00 - Pure hypercholesterolemia, unspecified Plan: Avoid fried foods, chicken skin, eggs, butter margarine, pastries and meat. Be it pork or beef they have a lot of cholesterol on pravastatin 40 mg once a day (9) Obesity: Code(s): E66.9 - Obesity, unspecified Qualifiers: Obesity type: due to excess calories Obesity classification: adult class 2 (BMI 35 - 39.9) Serious obesity comorbidity presence: with serious comorbidity Body mass index: BMI 36.0-36.9 Qualified Code(s): E66.01 - Morbid (severe) obesity due to excess calories; Z68.36 - Body mass index [BMI] 36.0- 36.9, adult Plan: Diet and exercise (10) Obstructive sleep apnea hypopnea, severe: Comment: cannot tolerate CPAP Code(s): G47.33 - Obstructive sleep apnea (adult) (pediatric) Plan: Patient cannot tolerate CPAP. (11) LFT elevation: Code(s): R79.89 - Other specified abnormal findings of blood chemistry Orders: Orders Liver Panel Today R79.89 - Other specified abnormal findings of blood chemistry AMB Hemoglobin A1c Today Z13.9 - Encounter for screening, unspecified US abdomen complete Today R7. - Other specified abnormal findings of blood chemistry Hepatitis B,C Profile Today R79.89 - Other specified abnormal findings of blood chemistry Medications: New blood sugar diagnostic (OneTouch Ultra Test strips) As directed check the blood sugar once a day 100 ea 3RF E11.65 - Type 2 diabetes mellitus with hyperglycemia metoprolol succinate ER 50 mg PO QAM 90 tabs 3RF I10 - Essential (primary) hypertension spironolactone (Aldactone) 25 mg PO DAILY 90 days 90 tabs 0RF I10 - Essential (primary) hypertension blood sugar diagnostic (OneTouch Ultra Test strips) As directed check the blood sugar once a day 100 ea 3RF E11.65 - Type 2 diabetes mellitus with hyperglycemia Changed From metoprolol succinate ER take 50 mg in am and 100 mg QPM PO; 90 days 135 tabs 3RF I10 - Essential (primary) hypertension To metoprolol succinate ER 100 mg PO QPM 90 days 90 tabs 3RF I10 - Essential (primary) hypertension Coding Level of Care Code Est Pt Level 4 (28561) Diagnoses Left renal stone N20.0 Chronic diastolic (congestive) heart failure I50.32 Type 2 diabetes mellitus with hyperglycemia E11.65 Knee osteoarthritis M17.10 Essential hypertension I10 Atherosclerotic cardiovascular disease I25.10 Persistent atrial fibrillation I48.19 Hypercholesterolemia E78.00 Class 2 severe obesity due to excess calories with serious comorbidity and body mass index (BMI) of 36.0 to 36.9 in adult E66.01; Z68.36 Obesity type: due to excess calories Obesity classification: adult class 2 (BMI 35 - 39.9) Serious obesity comorbidity presence: with serious comorbidity Body mass index: BMI 36.0-36.9 Obstructive sleep apnea hypopnea, severe G47.33 LFT elevation R79.89
== END 2023-10-02 09:17 | disposition home or self-care (01) ==
PROVIDERS: PCP Nurse Practitioner Family; Visit Provider Internal Medicine
DX: E11.65 Type 2 diabetes mellitus with hyperglycemia (principal)
CPT/HCPCS: 83036; 99214

== ENCOUNTER 2023-10-17 08:23 | Outpatient (REF) | payer MEDICARE, SELFPAY ==
--- NOTE | ~2023-10-17 | US_ITS ---
EXAMINATION: US ABDOMEN COMPLETE CLINICAL INFORMATION: Other specified abnormal findings of blood chemistry. COMPARISON: Renal ultrasound 08/28/2023. Ultrasound abdomen complete 02/13/2022. 01/17/2012 TECHNIQUE: Real-time imaging of the abdominal viscera. FINDINGS: PANCREAS: A 4.8 x 3.5 x 5.3 cm septated cyst in the pancreatic body. This previously measured 3.7 x 3.1 x 3.5 cm. ABDOMINAL AORTA: The proximal, mid, and distal segments are normal in caliber. INFERIOR VENA CAVA: Visualized portions are normal. LIVER: The liver is normal in size. The liver contour is normal. Increased hepatic echogenicity which can be seen in the setting of hepatic steatosis or underlying liver disease. No focal hepatic lesion. There is no intrahepatic biliary duct dilatation seen. GALLBLADDER: Foci of ringdown artifact in the fundus suggesting fundal adenomyomatosis. The gallbladder is physiologically distended without evidence of stones, sludge, polyps, wall thickening or pericholecystic fluid. COMMON BILE DUCT: Normal in caliber measuring 0.45 cm in diameter. RIGHT KIDNEY: A 1.7 cm cystic lesion in the right lower pole with a question of a possible tiny internal nodule. No hydronephrosis or renal calculi. The kidney measures 13.3 cm in maximum dimension. LEFT KIDNEY: Likely benign renal cyst measuring 7.7 cm with a single thin internal septation. Nonobstructing renal stone measuring 0.8 cm, previously 0.5 cm. No follow up imaging is recommended. No hydronephrosis. The kidney measures 14.6 cm in maximum dimension. Nonobstructing renal stone measuring 0.8 cm. SPLEEN: Normal. The spleen measures 11.5 cm in maximum dimension. FREE FLUID: None. US/US abdomen complete IMPRESSION: 1. A 5.3 cm septated cystic lesion in the pancreatic body, increased in size from prior. Given size and growth, recommend GI referral for consideration of endoscopic ultrasound and tissue sampling and MR/MRCP with and without contrast can be considered for further imaging evaluation. 2. A 1.7 cm cystic lesion in the right lower pole with a question of a possible tiny internal nodule. Recommend further characterization with contrast-enhanced CT or MR renal mass protocol. 3. Nonobstructing renal stone on the left increased in size from prior measuring 0.8 cm. 4. Increased hepatic echogenicity which can be seen in the setting of hepatic steatosis or underlying liver disease. 5. Foci of ringdown artifact in the gallbladder fundus suggesting fundal adenomyomatosis.
[2023-10-17 12:31] LABS: Alanine Aminotransferase 24 U/L (0-40); Albumin Level 4.1 g/dL (3.5-5.0); Alkaline Phosphatase 91 U/L (39-117); Aspartate Amino Transferase 17 U/L (5-37); Bilirubin Direct 0.2 mg/dL (0.0-0.5); Bilirubin Total 0.6 mg/dL (0.0-1.0); Total Protein 6.7 g/dL (6.5-8.0)
[2023-10-18 07:42] LABS: HBS Num1 0.63 mIU/mL (0-7.99); HBsAGNum1 0.26 S/CO (0.00-0.99); Hepatitis B Core Antibody Nonreactive (Nonreactive); Hepatitis B Surface Antigen Negative (Negative); ~HepC Num1 0.21 S/CO (0.00-0.79); ~Hepatitis B Surface Antibody NONREACTIVE (Nonreactive); ~Hepatitis C Antibody Nonreactive (Nonreactive)
== END 2023-10-17 08:24 | disposition home or self-care (01) ==
LOC: HO.HMGCX 08:23
PROVIDERS: PCP Internal Medicine; Visit Provider Internal Medicine
DX: R79.89 Other specified abnormal findings of blood chemistry (principal); Z11.59 Encounter for screening for other viral diseases; Z72.89 Other problems related to lifestyle
CPT/HCPCS: 36415; 76700; 80076; 86704; 86706; 86803; 87340

== ENCOUNTER → 2023-11-11 07:47 | Outpatient (REF) | payer MEDICARE, SELFPAY ==
--- NOTE | 2023-11-11 07:50 | HM_ITS ---
* Total monitoring time 3 days. * Underlying rhythm is atrial fibrillation with an average ventricular rate of 89/Min. Range 49-177/Min. * About 16% of the time, rate greater than 100/Min. * Rare ventricular ectopy. 3 couplets. * Sleep time pause about 3 seconds but otherwise, no significant pauses or AV blocks. * No patient markers or diary events. MTDD
--- NOTE | 2023-11-11 07:50 | CA_ITS ---
Transthoracic Echocardiogram Patient (Last, First, Middle): Arnie Springer, Gender: Male Date of : 1950 Age: 73 Procedure Date: 11/11/2023 Procedure Type: Transthoracic Echocardiogram Location: OP Height: 172. cm Weight: 116.12 kg BSA: 2.26 m2 Heart Rate: 88 bpm BP: 138 / 80 mmHg Engineering Teacher: DEVIN Mishra MD: Onesimo Kulkarni MD Java Software Developer: John Krishnamurthy MD Symptoms: I50.32 - Chronic diastolic (congestive) heart failure Study Quality: Fair ECG Rhythm: Atrial Fibrillation Conclusions: - 1. Normal LV ejection fraction of 60 65% with mild LVH 2. Moderately dilated left atrium 3. Normal cardiac valvular Dopplers 4. Normal RV systolic pressure Findings Left Ventricle Normal left ventricular size and systolic function. There is mildly increased left ventricular wall thickness. The visually estimated ejection fraction is between 60-65%. Regional wall motion abnormalities can not be excluded due to suboptimal endocardial definition. Diastolic function is indeterminate on the basis of available data. Right Ventricle The right ventricle was not well visualized. Atria The left atrium is moderately dilated. Interatrial shunt cannot be excluded. The right atrium is mildly dilated. Aortic Valve There is mild calcification of the aortic valve. There is no aortic valve stenosis. There is no aortic valve regurgitation. Mitral Valve The mitral valve was not well visualized. There is mild mitral annular calcification. There is trace mitral valve regurgitation. There is no mitral valve stenosis. Pulmonic Valve The pulmonic valve was not well visualized. Tricuspid Valve Likely normal tricuspid valve structure and function. There is trace tricuspid valve regurgitation. The right ventricular systolic pressure is normal. The right ventricular systolic pressure is 16 mmHg. Normal right atrial pressure. There is no evidence of pulmonary hypertension. Great Vessels The pulmonary artery was not well visualized. There is mild dilatation of the ascending aorta measuring 3.80 cm. Venous The inferior vena cava is normal in size and collapses greater than 50% with inspiration. Pericardium/Pleural The pericardium was not well visualized. Recommendations, Care & Conclusions Recommend contrast in the future to improve endocardial definition. Measurements 2D Linear Measurements IVSd: 1.31 0.6-0.9/0.6-1.0 cm LVIDd: 4.48 3.9-5.3/4.2-5.9 cm LVIDd Index: 1.98 2.4-3.2/2.2-3.1 cm/m2 LVIDs: 2.76 2.0-3.6 cm LVPWd: 1.31 0.7-1.1 cm LA Diam: 5.30 2.7-3.8/3.0-4.0 cm LAIDs Index: 2.35 1.5-2.3 cm/m2 LV Mass: 278.72 67-162/88-224 g LV Mass Index: 123.33 43-95/49-115 g/m2 LVOT Diam: 2.20 3.0+(-)1.3 cm Mitral Valve MV Pk E: 0.82 MV Decel Time: 219.00 E'Lateral: 4.46 E'Medial: 5.33 E/E' Med: 15.40 E/E' Lat: 18.50 PHT: 64.00 MVA PHT: 3.44 Decel [place]: 3.75 Aortic Valve AoV Pk Evangelista: 1.17 AoV Mn Evangelista: 0.89 AoV VTI: 0.20 AoV Pk Grad: 5.00 Aov Mn Grad: 4.00 GARCÍA Cont.VTI: 2.60 LVOT LVOT Pk Evangelista: 0.82 LVOT Mn Evangelista: 0.59 LVOT VTI: 0.14 LVOT Pk Grad: 3.00 LVOT Mn Grad: 2.00 LVOT Diam: 2.20 LVOT Area: 3.80 Diastolic Function MV Pk E: 0.82 E'Medial: 5.33 E/E' Med: 15.40 E' Laterial: 4.46 E/E' Lat: 18.50 Right Ventricle TAPSE (mm): 23.60 TVS' Evangelista: 12.10 Tricuspid Valve TR Pk Evangelista: 1.43 TR Pk Grad: 8.00 RA Press: 8.00 RVSP: 16.00 Great Vessels Aorta Sinus of Valsalva: 4.00 2.0-3.5 cm Ao Asc: 3.80 2.1-3.4 cm Pulmonary Valve PV Pk Evangelista: 0.94 Peak PV Grad: 4.00 Updated in Other Vendor System with Status of Final John Krishnamurthy MD electronically signed on 11/11/2023 5:41:04 PM with status of Final
== END ==
LOC: HO.CARD 07:47
PROVIDERS: PCP Internal Medicine; Visit Provider Internal Medicine
DX: I48.19 Other persistent atrial fibrillation (principal); I50.32 Chronic diastolic (congestive) heart failure
CPT/HCPCS: 93242; 93306

== ENCOUNTER → 2023-11-11 07:50 | Outpatient (BNV) | payer MEDICARE, SELFPAY | PROVIDERS: PCP Internal Medicine; Visit Provider Internal Medicine Cardiovascular Disease | DX: I48.19 Other persistent atrial fibrillation (principal) | CPT/HCPCS: 93244; 93306 ==

== ENCOUNTER 2023-11-28 08:51 | Outpatient (AMB) | payer MEDICARE, SELFPAY ==
[2023-11-28 09:22] VITALS: BP 140/80; PULSE 83; BMI 40.4
--- NOTE | 2023-11-28 09:22 | A.OFFVIS_ITS ---
Intake Vital Signs 11/28/23 09:22 Height 5 ft 8 in Weight 265 lb 14.04 oz BMI 40.4 BP 140/80 H Blood Pressure Location Lt brachial Position Sitting Pulse 83 Pulse Source Pulse Oximeter Intake Visit Reasons: 6 month follow up Intake Note: 6 mnth f/up pt its feeling fine having excessive sweating at night, long walk with shortness of breath. 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 Accompanied by: Self / Same As Patient Allergies warfarin Allergy (Intermediate, Verified 10/02/23 08:25) sweats, dry mouth,elevated BP naproxen Allergy (Unknown, Verified 10/02/23 08:25) face got red nifedipine [NIFEDIPINE] Allergy (Unknown, Verified 10/02/23 08:25) GI SIDE EFFECTS, stomach upset, GI Medication List - Last Reconciled 11/28/23 by Onesimo Kulkarni MD alprazolam 0.25 mg PO DAILY PRN 30 days amlodipine 10 mg PO DAILY benzonatate 100 mg PO BID-TID PRN blood sugar diagnostic As directed blood sugar diagnostic ([employer] Ultra Test strips) As directed check the blood sugar once a day clonidine HCl 0.1 mg PO BID diclofenac sodium 1% (Voltaren Arthritis Pain) 2 grams topical QID gabapentin 300 mg PO DAILY glipizide ER Take 2 tablets in the morning and 2 tablet in the evening PO; imipramine HCl 25 mg PO BEDTIME 90 days isosorbide mononitrate ER 60 mg PO QAM lisinopril 40 mg PO DAILY metoprolol succinate ER 100 mg PO QPM 90 days metoprolol succinate ER 50 mg PO QAM nitroglycerin 0.4 mg sublingual Q5M PRN 90 days omeprazole 20 mg PO DAILY pravastatin 40 mg PO DAILY rivaroxaban (Xarelto) 20 mg PO DAILY spironolactone (Aldactone) 25 mg PO DAILY 90 days tamsulosin 0.4 mg PO QDAY topiramate 25 mg PO DAILY HPI HPI Comments History of Present Illness Details Arnie returns for follow-up regarding coronary disease, hypertension and atrial fibrillation. Overall, he states he is feeling good. No new complaints. He has had night sweats which have been an ongoing issue for a long time but nothing new. No other cardiac complaints at this time. [facility] Medical History (Updated 10/02/23 @ 08:51 by Victor M Allan MD) Bilateral carpal tunnel syndrome Pancreatic cyst Cervico-occipital neuralgia Cervical spondylosis without myelopathy Obstructive sleep apnea hypopnea, severe Carpal tunnel syndrome Obesity Degenerative disc disease, cervical GERD (gastroesophageal reflux disease) Hypercholesterolemia CKD (chronic kidney disease) Overactive bladder Hypogonadism Pancreatic mass Essential hypertension Atherosclerotic cardiovascular disease Persistent atrial fibrillation Surgical History History of cataract surgery Optional surgery Hx of tonsillectomy H/O lumbar discectomy History of heart artery stent (~04/2018) Family History Father Cancer Mother Diabetes Cardiovascular disease Social History Housing: House Alcohol intake: never Patient Tobacco Use Status: Never used Tobacco e-Cigarette/Vaping Use: Never Used Second Hand Smoke Exposure: No service: No Current occupational status: retired 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 Cognitive needs: No Hearing needs: No Vision needs: Yes Review of Systems Const Reports chills, Reports fatigue, Reports fever(s), Reports frequent falls, Reports weakness, Reports weight gain and Reports weight loss ENT Reports dizziness Card Reports chest pain, Reports leg edema, Reports lightheadedness, Reports palpitations, Reports dyspnea and Reports dyspnea on exertion Resp Reports cough, Reports dyspnea and Reports dyspnea on exertion GI Reports hematochezia Musc Reports abnormal gait, Reports muscle weakness, Reports numbness, Reports radiating pain into limb and Reports tingling Neuro Reports abnormal gait, Reports dizziness, Reports frequent falls, Reports numbness, Reports tingling and Reports weakness Endo Reports fatigue and Reports palpitations Physical Exam Vital Signs: Last Vital Signs Pulse 83 11/28/23 09:22 BP 140/80 H 11/28/23 09:22 BMI result Body Mass Index 40.4 Const General: comfortable and no acute distress Orientation/consciousness: patient oriented x3 HEENT Other: Unremarkable Head: Yes normal to inspection Neck Neck: Yes normal visual inspection Chest Chest palpation & inspection: normal inspection of the chest Resp Auscultation: clear to auscultation bilaterally Cardio Palpation: normal PMI Heart sounds: S1 normal heart sound present, S2 normal heart sound present, no gallops, no murmurs and no rubs GI Palpation (GI): Soft to palpation Back/Spine/Pelvis Other: unremarkable Skin General skin exam: no rashes or lesions noted Neuro General: patient oriented x3 Extrem General: Yes normal to inspection Psych Mental Status: mental status grossly normal Assessment & Plan Assessment & Plan (1) Essential hypertension: Code(s): I10 - Essential (primary) hypertension Plan: On a big list of medications including amlodipine, clonidine, isosorbide, lisinopril, metoprolol, spironolactone. Recent side effects from hydralazine as well as in the past. No further changes at this time. (2) Chronic diastolic (congestive) heart failure: Code(s): I50.32 - Chronic diastolic (congestive) heart failure Plan: Likely has diastolic heart failure related to obesity, coronary disease, hypertension, untreated sleep apnea. Stable. He wants to take only diuretics as needed due to frequent urination. No changes. (3) Persistent atrial fibrillation: Code(s): I48.19 - Other persistent atrial fibrillation Plan: In the recent Holter, mostly controlled atrial fibrillation but with some rapid episodes. He is on beta-blockers. We discussed about increasing the dose but he states he is already on too much and hence rather not make changes. Continue anticoagulation without changes. (4) Atherosclerotic cardiovascular disease: Code(s): I25.10 - Atherosclerotic heart disease of [place] coronary artery without angina pectoris Plan: Last cardiac catheterization with disease in the circumflex, when he underwent drug-eluting stent to 2nd obtuse marginal. Mild disease in the left main. No significant disease in the LAD. About 70% stenosis in the right coronary artery but not intervened. Not willing to take high-dose statins as his had side effects from the same. Hence on lower dose pravastatin. Last LDL 77mg/dL. Last stress test from January/2021 without any significant perfusion defects. Clinically, no angina. (5) Obstructive sleep apnea hypopnea, severe: Comment: cannot tolerate CPAP Code(s): G47.33 - Obstructive sleep apnea (adult) (pediatric) Plan: Sleep study from 2017-moderately severe obstructive sleep apnea. However he does not want use CPAP. It has been discussed numerous times. Coding Level of Care Code Est Pt Level 4 (73405) Diagnoses Essential hypertension I10 Chronic diastolic (congestive) heart failure I50.32 Persistent atrial fibrillation I48.19 Atherosclerotic cardiovascular disease I25.10 Obstructive sleep apnea hypopnea, severe G47.33
== END 2023-11-28 09:51 | disposition home or self-care (01) ==
PROVIDERS: PCP Nurse Practitioner Family; Visit Provider Internal Medicine
DX: I10 Essential (primary) hypertension (principal); I50.32 Chronic diastolic (congestive) heart failure; I48.19 Other persistent atrial fibrillation; I25.10 Atherosclerotic heart disease of native coronary artery without angina pectoris; G47.33 Obstructive sleep apnea (adult) (pediatric)
CPT/HCPCS: 99214

== ENCOUNTER → 2023-11-28 08:51 | Outpatient (BNVA) | payer MEDICARE, SELFPAY | PROVIDERS: PCP Nurse Practitioner Family; Visit Provider Internal Medicine | DX: I11.0 Hypertensive heart disease with heart failure (principal); I50.32 Chronic diastolic (congestive) heart failure; I48.19 Other persistent atrial fibrillation; I25.10 Atherosclerotic heart disease of native coronary artery without angina pectoris; G47.33 Obstructive sleep apnea (adult) (pediatric) | CPT/HCPCS: 99212 ==

== ENCOUNTER 2024-01-08 08:54 | Outpatient (AMB) | payer MEDICARE, SELFPAY ==
--- NOTE | 2024-01-08 09:41 | A.OFFVIS_ITS ---
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 Downey, presents today for follow up. Would like to discuss gabapentin rx. 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 Springer 73-year-old male returns for evaluation of his osteoarthritis. The OA has been noted in his cervical spine, lumbar spine, hands, and knees. The knees are most symptomatic for him. He has difficulty walking. He does use a cane most of the time. He has had corticosteroid injections with transient benefit. There was a trial with gel injections for both knees. This did not work out with increased pain the day after the injection and then not that much improvement a few weeks later. He still does not want to do PT. He takes gabapentin in the morning 300 mg and that seems to be somewhat helpful for pain. He said he was doing better when he was getting gabapentin 300 mg b.i.d.. But was told by the pharmacy there has is a limit on how much he can get and so he said the pharmacy reduced his dosing to 300 mg a d ay. He is also on acetaminophen 650 twice a day but also had to stop taking Tylenol because of significant increases in his transaminases. He does use topical diclofenac gel when needed. He also had symptoms of triggering in his fingers but that improved. He has known occasional hand paresthesias that on EMG showed carpal tunnel syndrome but the numbness is not very prominent so he never push for surgery. He is on Xarelto because he has atrial fibrillation so NSAIDs are avoided. He denies any daytime sedation with the gabapentin. [facility] Medical History (Updated 01/09/24 @ 10:04 by Victor M Allan MD) Fibromyalgia Rheumatoid factor positive Knee pain, bilateral Bilateral carpal tunnel syndrome Pancreatic cyst Cervico-occipital neuralgia Cervical spondylosis without myelopathy Obstructive sleep apnea hypopnea, severe Carpal tunnel syndrome Obesity Degenerative disc disease, cervical GERD (gastroesophageal reflux disease) Hypercholesterolemia CKD (chronic kidney disease) Overactive bladder Hypogonadism Pancreatic mass Essential hypertension Atherosclerotic cardiovascular disease Persistent atrial fibrillation Surgical History History of cataract surgery Optional surgery Hx of tonsillectomy H/O lumbar discectomy History of heart artery stent (~04/2018) Family History Father Cancer Mother Diabetes Cardiovascular disease Social History Housing: House Alcohol intake: never Patient Tobacco Use Status: Never used Tobacco e-Cigarette/Vaping Use: Never Used Second Hand Smoke Exposure: No service: No Current occupational status: retired 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 HEART:? Regular rhythm, S1-S2 heard, no murmurs, rubs or gallops. LUNG:? Clear to percussion and auscultation EXTREMITIES: Nonpitting edema, no calf tenderness, normal peripheral pulses. JOINT EXAM: Cervical Spine: Mild pain with lateral flexion at 10 degrees or rotation to 40 degrees. There is some slight cervical muscle tenderness. Thoracic Spine:? No scoliosis.? No tenderness on palpation. Lumbar Spine:? Alignment normal.? Mild pain with extremes of normal range of motion. No tenderness. Hands:LEFT:? Normal pain-free range of motion without soft tissue swelling or tenderness. No increased warmth or erythema.? There is minimal bony enlargement at the thumb IP and the 2nd 3rd PIP joints. Similarly there is some nontender bony enlargement at the 2nd, 3rd and 5th distal IP joints. No flexor tendon triggering or tenderness. No sensory loss or thenar atrophy. Left: Normal pain-free range of motion with slight nontender bony enlargement at the thumb IP and the 2nd, 3rd, and 5th distal IP joints. No soft tissue swelling, flexor tendon triggering, flexor tendon tenderness, thenar atrophy or sensory loss. Wrists: Normal pain-free range of motion to 75 degrees flexion or extension. There is no tenderness, swelling, increased warmth or erythema. Elbows: Normal pain-free range of motion without tenderness, swelling, increased warmth or erythema. Shoulders:?? Full range of motion without pain. No tenderness, weakness, swelling, increased warmth or erythema. Hip bursa:? No tenderness. Knees:?? Right: Slight varus deformity, mild patellofemoral crepitus and pain at the extremes of flexion or extension. Mild medial tenderness with minimal effusion but no redness or warmth. No popliteal swelling or tenderness. Left: Mild patellofemoral crepitus and slight discomfort at full extension. There is some minimal medial tenderness without effusion, soft tissue swelling, redness or warmth. Ankles:? Normal pain-free range of motion without tenderness, swelling, increased warmth or erythema. Feet:? Normal pain-free range of motion with some slight 1st MTP bony enlargement bilaterally. The 1st toe rise over the 2nd toe in the left foot. There is no break in the skin envelope, soft tissue swelling, increased warmth or erythema. 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 Treatment options have been pursued here although we are limited because he does have diabetes and some atrial fib necessitating the use of anticoagulant and out the possibility of NSAIDs. He thinks the gabapentin is helpful in the mornings and not sedating so I think it can be continued. He does massages neck and that seems to help with his neck pain due to cervical osteoarthritis. The patient is also concerned about his gabapentin being reduced and think that he was better managed with his pain on 600 mg per day. I will increase his gabapentin back to 600 mg a day. We will refill the gabapentin although if his primary doctor wants to take over that prescribing I think we would have no objection to that. Otherwise we would see him back in about 6 months. He could call us in the future if he wants to pursue a course of physical therapy for the knees. 30 minute was spent evaluating physician history and documenting Follow-up in Orders: Orders Uric Acid 01/08/24 M25.561 - Pain in right knee, M25.562 - Pain in left knee, R76.8 - Other specified abnormal immunological findings in serum Rheumatoid Factor 01/08/24 M25.561 - Pain in right knee, M25.562 - Pain in left knee, R76.8 - Other specified abnormal immunological findings in serum Immunoglobulins,IgG IgA IgM 01/08/24 M25.561 - Pain in right knee, M25.562 - Pain in left knee, R76.8 - Other specified abnormal immunological findings in serum Creatine Kinase Total 01/08/24 M25.561 - Pain in right knee, M25.562 - Pain in left knee, R76.8 - Other specified abnormal immunological findings in serum C Reactive Protein 01/08/24 M25.561 - Pain in right knee, M25.562 - Pain in left knee, R76.8 - Other specified abnormal immunological findings in serum Comprehensive Met. Panel 01/08/24 M25.561 - Pain in right knee, M25.562 - Pain in left knee, R76.8 - Other specified abnormal immunological findings in serum Complete Blood Count Auto Diff 01/08/24 M25.561 - Pain in right knee, M25.562 - Pain in left knee, R76.8 - Other specified abnormal immunological findings in serum Erythrocyte Sedimentation Rate 01/08/24 M25.561 - Pain in right knee, M25.562 - Pain in left knee, R76.8 - Other specified abnormal immunological findings in serum GORDY Reflex Titer and Pattern 01/08/24 M25.561 - Pain in right knee, M25.562 - Pain in left knee, R76.8 - Other specified abnormal immunological findings in serum Cyclic Citrullinated Peptide 01/08/24 M25.561 - Pain in right knee, M25.562 - Pain in left knee, R76.8 - Other specified abnormal immunological findings in serum Medications: Changed From gabapentin 300 mg PO DAILY 30 caps 3RF M79.7 - Fibromyalgia To gabapentin 300 mg PO BID 60 caps 3RF M79.7 - Fibromyalgia Coding Level of Care Code Est Pt Level 4 (64170) Diagnoses Primary osteoarthritis of both knees M17.0 Laterality: bilateral Osteoarthritis type: primary 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
[2024-01-08 09:42] VITALS: BP 148/82; PULSE 89; TEMP 35.9; O2SAT 98; BMI 41.7
== END 2024-01-08 10:29 | disposition home or self-care (01) ==
PROVIDERS: PCP Nurse Practitioner Family; Visit Provider Nurse Practitioner Family
DX: M17.0 Bilateral primary osteoarthritis of knee (principal); M47.815 Spondylosis without myelopathy or radiculopathy, thoracolumbar region; M50.30 Other cervical disc degeneration, unspecified cervical region
CPT/HCPCS: 99214

== ENCOUNTER → 2024-01-08 08:54 | Outpatient (BNVA) | payer MEDICARE, SELFPAY | PROVIDERS: PCP Nurse Practitioner Family; Visit Provider Nurse Practitioner Family | DX: M17.0 Bilateral primary osteoarthritis of knee (principal); M47.815 Spondylosis without myelopathy or radiculopathy, thoracolumbar region; M50.30 Other cervical disc degeneration, unspecified cervical region | CPT/HCPCS: 99212 ==

== ENCOUNTER 2024-01-09 09:31 | Outpatient (AMB) | payer MEDICARE, SELFPAY ==
--- NOTE | 2024-01-09 09:32 | A.OFFPC_ITS ---
Vital Signs 01/09/24 09:33 Height 5 ft 8 in Weight 269 lb 0.6 oz BMI 40.9 BP 132/94 H Blood Pressure Location Lt brachial Position Sitting Pulse 91 Pulse Source Pulse Oximeter Pulse Oximetry (%) 96 Oxygen Delivery Method Room Air Intake Visit Reasons: Diabetes mellitus, hypertension, urgency Chemical Compounder Required: No Allergies warfarin Allergy (Intermediate, Verified 01/09/24 09:33) sweats, dry mouth,elevated BP naproxen Allergy (Unknown, Verified 01/09/24 09:33) face got red nifedipine [NIFEDIPINE] Allergy (Unknown, Verified 01/09/24 09:33) GI SIDE EFFECTS, stomach upset, GI Tobacco use date assessed: 01/09/24 Fall risk assessment: No Falls in past year Last assessed Fall Risk: 01/09/24 Dental Screening Dental Screen Date: 01/09/24 Did you have a dental visit in the last 12 months?: No Did you have a dental problem in the last 6 months where you did not have access to dental care?: No HPI Diabetes mellitus, hypertension, urgency HPI Details 73-year-old morbidly obese male with mul tiple medical problems noted weight loss of 5 lb. Has nephrolithiasis left diastolic congestive heart failure uncontrolled diabetes mellitus hypertension atherosclerotic cardiovascular disease atrial fibrillation hypercholesterolemia sleep apnea coming in for follow-up last seen in September 2023. Review of the notes follows up with Rheumatology for the osteoarthritis lumbar spondylosis cervical degenerative disc disease on gabapentin. Patient also follows up with Cardiology congestive heart failure related to obesity coronary artery disease hypertension and sleep apnea on beta blockers for atrial fibrillation declined any changes in medication last stress test January 2021 no significant perfusion defects: Echocardiogram November 2023Normal LV ejection fraction of 60 65% with mild LVH 2. Moderately dilated left atrium 3. Normal cardiac valvular Dopplers 4. Normal RV systolic pressure Holter showing atrial fibrillation. Patient also follows up with urology for the BPH on imipramine advised urodynamic testing 2 mm calculus also seen on that test is the 4 mm pancreatic cyst. patient continuously deny any work up [facility] Medical History (Updated 01/09/24 @ 10:04 by Victor M Allan MD) Fibromyalgia Rheumatoid factor positive Knee pain, bilateral Bilateral carpal tunnel syndrome Pancreatic cyst Cervico-occipital neuralgia Cervical spondylosis without myelopathy Obstructive sleep apnea hypopnea, severe Carpal tunnel syndrome Obesity Degenerative disc disease, cervical GERD (gastroesophageal reflux disease) Hypercholesterolemia CKD (chronic kidney disease) Overactive bladder Hypogonadism Pancreatic mass Essential hypertension Atherosclerotic cardiovascular disease Persistent atrial fibrillation Surgical History History of cataract surgery Optional surgery Hx of tonsillectomy H/O lumbar discectomy History of heart artery stent (~04/2018) Family History Father Cancer Mother Diabetes Cardiovascular disease Social History Housing: House Alcohol intake: never Patient Tobacco Use Status: Never used Tobacco e-Cigarette/Vaping Use: Never Used Second Hand Smoke Exposure: No service: No Current occupational status: retired 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 Cognitive needs: No Hearing needs: No Vision needs: Yes Questionnaire Thrive Questionnaire Date Thrive assessed: 01/09/24 I am a: Patient What is your living situation today?: I have a steady place to live Within the past 12 months, did the food you bought not last and you didn't have the money to get more?: Never true Within the past 12 months, did you worry whether your food would run out before you got money to buy more?: Never true Do you have trouble paying for medicines?: No Do you have trouble getting transportation to medical appointments?: No Do you have trouble paying your heating and electricity bill?: No Do you have trouble taking care of your child, family member or friend?: No Do you have trouble with day-to-day activities such as bathing, preparing meals, shopping, managing finances, etc.?: No Are you currently unemployed and looking for a job?: No Are you interested in more education?: No Please select the resources that you would like help with: None THRIVE Score: 0 AUDIT C Alcohol Use Questionnaire (AUDIT-C) 1. How often do you have a drink containing alcohol?: Never 3. How often do you have six or more drinks on one occasion?: Never Total Score: 0 AYAN-7 AMB Questionnaire AYAN-7 Date AYAN - 7 assessed: 01/09/24 Source: Developed by Drs. Karan Davidson, Crista Nguyen, Sunday Ashley and colleagues, with an educational sukhi from [employer]. Physical exam (Primary Care) Vital Signs: Last Vital Signs Pulse 91 01/09/24 09:33 BP 132/94 H 01/09/24 09:33 Pulse Ox 96 01/09/24 09:33 Oxygen Delivery Method Room Air 01/09/24 09:33 BMI result Body Mass Index 40.9 Tobacco/Smoking Status: Tobacco use Status Tobacco use date assessed 01/09/24 01/09/24 09:34 Patient Tobacco Use Status Never used Tobacco 01/09/24 09:34 e-Cigarette/Vaping Use Never Used 01/09/24 09:34 Thrive Assessment: Date of Thrive Assessment Date Thrive assessed 01/09/24 01/09/24 09:34 Const General: alert; No acute distress Eyes Conjunctivae: conjunctivae normal Resp Auscultation: clear to auscultation bilaterally Cardio Rate: regular rate Rhythm: regular rhythm GI Inspection: Yes normal to inspection Extrem General: Yes normal to inspection and No edema Results AMB Hemoglobin A1c AMB Hemoglobin A1c 8.6 % Last Edit by ROSA Levy on 01/09/24 09:47 Results Reviewed Results Reviewed: Laboratory Last Values Hgb A1c (Clinic) 8.6 % (4.0-6.0) H 01/09/24 09:34 Assessment and Plan Assessment & Plan (1) Type 2 diabetes mellitus with hyperglycemia: Comment: EYE Dr. ARMANDO (2021) Code(s): E11.65 - Type 2 diabetes mellitus with hyperglycemia Plan: Decrease the amount of carbohydrate intake, pasta, bread, rice and potatoes are all sugar and that is aside from all the sweet stuff, remember that fruits are good but they are Sweet also. Hemoglobin A1c goal of less than 7.0. Discussed with the patient that the numbers elevated on glipizide metformin (2) BPH w urinary obs/LUTS: Code(s): N40.1 - Benign prostatic hyperplasia with lower urinary tract symptoms; N13.8 - Other obstructive and reflux uropathy Plan: Patient continues to follow-up with urology aware of the left renal stone question of imipramine use. Workup advised on tamsulosin (3) Knee osteoarthritis: Code(s): M17.10 - Unilateral primary osteoarthritis, unspecified knee Qualifiers: Osteoarthritis type: primary Laterality: bilateral Qualified Code(s): M17.0 - Bilateral primary osteoarthritis of knee Plan: Keep active seen rheumatology placed on gabapentin (4) Obstructive sleep apnea hypopnea, severe: Comment: cannot tolerate CPAP Code(s): G47.33 - Obstructive sleep apnea (adult) (pediatric) Plan: Patient can not tolerate CPAP (5) Obesity: Code(s): E66.9 - Obesity, unspecified Qualifiers: Obesity type: due to excess calories Obesity classification: adult class 2 (BMI 35 - 39.9) Serious obesity comorbidity presence: with serious comorbidity Body mass index: BMI 36.0-36.9 Qualified Code(s): E66.01 - Morbid (severe) obesity due to excess calories; Z68.36 - Body mass index [BMI] 36.0- 36.9, adult Plan: Diet and exercise (6) Hypercholesterolemia: Code(s): E78.00 - Pure hypercholesterolemia, unspecified Plan: Avoid fried foods, chicken skin, eggs, butter margarine, pastries and meat. Be it pork or beef they have a lot of cholesterol LDL goal of less than 70 and triglyceride of less than 150 declined any changes in cholesterol medication continues to be on pravastatin (7) Essential hypertension: Code(s): I10 - Essential (primary) hypertension Plan: Continue with blood pressure medication. Decrease salt intake and exercise on spironolactone metoprolol lisinopril isosorbide mononitrate and amlodipine (8) Atherosclerotic cardiovascular disease: Code(s): I25.10 - Atherosclerotic heart disease of [place] coronary artery without angina pectoris Plan: Control the cholesterol, weight, blood pressure, diabetes patient on Xarelto (9) Persistent atrial fibrillation: Code(s): I48.19 - Other persistent atrial fibrillation Plan: Continue with anticoagulation (10) Chronic diastolic (congestive) heart failure: Code(s): I50.32 - Chronic diastolic (congestive) heart failure Plan: Continues to be monitored (11) Left renal stone: Comment: 02/2022 Code(s): N20.0 - Calculus of kidney Plan: Increase oral fluids follows up with urology (12) Pancreatic mass: Code(s): K86.89 - Other specified diseases of pancreas Plan: Discussed with patient but declined any further workup. Orders: Orders AMB Hemoglobin A1c Today E11.65 - Type 2 diabetes mellitus with hyperglycemia Medications: New sitagliptin phosphate (Januvia) 100 mg PO DAILY 30 tabs 2RF E11.65 - Type 2 diabetes mellitus with hyperglycemia clonidine HCl 0.1 mg PO BID 180 tabs 3RF R79.89 - Other specified abnormal findings of blood chemistry Changed From metformin 850 mg PO BID 180 tabs 2RF E11.65 - Type 2 diabetes mellitus with hyperglycemia To metformin 1,000 mg PO BID 90 days 180 tabs 2RF E11.65 - Type 2 diabetes mellitus with hyperglycemia Refilled glipizide ER Take 2 tablets in the morning and 2 tablet in the evening PO; 360 tabs 0RF E11.65 - Type 2 diabetes mellitus with hyperglycemia Coding Level of Care Code Est Pt Level 4 (04532) Diagnoses Type 2 diabetes mellitus with hyperglycemia E11.65 BPH w urinary obs/LUTS N40.1; N13.8 Primary osteoarthritis of both knees M17.0 Osteoarthritis type: primary Laterality: bilateral Obstructive sleep apnea hypopnea, severe G47.33 Class 2 severe obesity due to excess calories with serious comorbidity and body mass index (BMI) of 36.0 to 36.9 in adult E66.01; Z68.36 Obesity type: due to excess calories Obesity classification: adult class 2 (BMI 35 - 39.9) Serious obesity comorbidity presence: with serious comorbidity Body mass index: BMI 36.0-36.9 Hypercholesterolemia E78.00 Essential hypertension I10 Atherosclerotic cardiovascular disease I25.10 Persistent atrial fibrillation I48.19 Chronic diastolic (congestive) heart failure I50.32 Left renal stone N20.0 Pancreatic mass K86.89
[2024-01-09 09:33] VITALS: BP 132/94; PULSE 91; O2SAT 96; BMI 40.9
== END 2024-01-09 10:26 | disposition home or self-care (01) ==
PROVIDERS: PCP Internal Medicine; Visit Provider Internal Medicine
DX: E11.65 Type 2 diabetes mellitus with hyperglycemia (principal)
CPT/HCPCS: 83036; 99214

== ENCOUNTER 2024-01-20 08:50 | Outpatient (REF) | payer MEDICARE, SELFPAY ==
[2024-01-20 09:25] LABS: MANUAL DIFF FLAG NO
[2024-01-20 09:48] LABS: Basophils Absolute Auto 0.1 X10*3/uL (0.0-0.2); Eosinophils Absolute Auto 0.6 X10*3/uL (0.0-0.4); Eosinophils Percent Auto 7.1 % (0-4); Hematocrit 43.8 % (42.0-52.0); Imm Gran Abs Auto 0.05 X10*3/uL (0.00-0.03); Imm Gran Pct Auto 0.6 % (0.0-0.4); Lymphocytes Absolute Auto 1.7 X10*3/uL (1.2-4.9); Lymphocytes Percent Auto 20.3 % (20-40); Mean Corpuscular HGB Conc 34.2 g/dl (31.0-36.0); Mean Corpuscular Hemoglobin 30.9 pg (27.0-33.0); Mean Corpuscular Volume 90.1 fL (80.0-98.0); Mean Platelet Volume 11.5 fL (9.4-12.4); Monocytes Absolute Auto 0.9 X10*3/uL (0.1-1.2); Monocytes Percent Auto 10.8 % (2-11); Neutrophils Percent Auto 60.2 % (45-73); Platelet Count 157 X10*3/uL (160-400); Red Blood Count 4.86 X10*6/uL (4.60-5.80); Red Cell Distribution Width 13.4 % (11.0-16.0); White Blood Count 8.3 X10*3/uL (4.8-10.8)
[2024-01-20 10:26] LABS: Erythrocyte Sedimentation Rate 5 MM/HR (0-15)
[2024-01-20 10:42] LABS: Alanine Aminotransferase 26 U/L (0-40); Albumin Level 4.4 g/dL (3.5-5.0); Alkaline Phosphatase 92 U/L (39-117); Anion Gap 12 (12-20); Aspartate Amino Transferase 20 U/L (5-37); Bilirubin Total 0.5 mg/dL (0.0-1.0); Blood Urea Nitrogen 19 mg/dL (9-16); C Reactive Protein 0.11 mg/dL (< or = 0.50); Calcium 9.7 mg/dL (8.4-10.2); Carbon Dioxide 28 mmol/L (22-29); Chloride 105 mmol/L (96-108); Estimated Glomerular Filt Rate > 60; Glucose Random 124 mg/dL (60-115); Potassium 4.2 mmol/L (3.3-5.1); Sodium 141 mmol/L (135-145); Total Protein 7.3 g/dL (6.5-8.0); Uric Acid 7.7 mg/dL (3.4-7.0)
[2024-01-20 10:50] LABS: Anion Gap 13 (12-20); Blood Urea Nitrogen 19 mg/dL (9-16); Calcium 9.7 mg/dL (8.4-10.2); Carbon Dioxide 28 mmol/L (22-29); Chloride 104 mmol/L (96-108); Estimated Glomerular Filt Rate > 60; Iron 100 mcg/dL (45-160); Magnesium 1.7 mg/dL (1.6-2.6); Percent Iron Saturation 30 % (15-50); Potassium 4.3 mmol/L (3.3-5.1); Sodium 141 mmol/L (135-145); Total Iron Binding Capacity 334 mcg/dL (228-428); Unsaturated Iron Binding 234 ug/dL
[2024-01-20 10:52] LABS: Rheumatoid Factor < 13.0 IU/mL (<15.0)
[2024-01-20 11:05] LABS: Vitamin D 25-OH Total 26.8 ng/mL (>30)
[2024-01-20 11:31] LABS: Microalbum/Creatinine Ratio Ur 74.9 ug/mg cr (<30)
[2024-01-21 17:53] LABS: IgA 138 mg/dL (70-320); IgG 869 mg/dL (600-1540); IgM 42 mg/dL (50-300)
[2024-01-22 15:13] LABS: Cyclic Citrullinated Peptide <16 UNITS
[2024-01-27 09:19] LABS: Anti Nuclear Antibody Pattern Nuclear, Homogeneous; Anti Nuclear Antibody Screen POSITIVE (NEGATIVE)
== END 2024-01-20 08:51 | disposition home or self-care (01) ==
LOC: HO.LAB 08:50
PROVIDERS: Absent Provider Internal Medicine Nephrology; PCP Internal Medicine; Visit Provider Nurse Practitioner Family
DX: M25.561 Pain in right knee (principal); M25.562 Pain in left knee; R76.8 Other specified abnormal immunological findings in serum
CPT/HCPCS: 36415; 80051; 80053; 82043; 82306; 82310; 82550; 82565; 82570; 82784; 83540; 83735; 84520; 84550; 85025; 85652; 86038; 86039; 86140; 86200; 86431

== ENCOUNTER 2024-04-29 09:42 | Outpatient (AMB) | payer MEDICARE, SELFPAY ==
[2024-04-29 09:46] VITALS: BP 130/72; PULSE 73; O2SAT 98; BMI 40.3
--- NOTE | 2024-04-29 09:46 | MHC.PC.OV ---
Vital Signs 04/29/24 09:46 Height 5 ft 8 in Weight 265 lb BMI 40.3 BP 130/72 Blood Pressure Location Lt brachial Position Sitting Pulse 73 Pulse Source Pulse Oximeter Pulse Oximetry (%) 98 Oxygen Delivery Method Room Air Intake Visit Reasons: [employer] Chair: Not Required per policy Accompanied by: Self / Same As Patient Allergies warfarin Allergy (Intermediate, Verified 01/09/24 09:33) sweats, dry mouth,elevated BP naproxen Allergy (Unknown, Verified 01/09/24 09:33) face got red nifedipine [NIFEDIPINE] Allergy (Unknown, Verified 01/09/24 09:33) GI SIDE EFFECTS, stomach upset, GI Tobacco use date assessed: 01/09/24 Fall risk assessment: No Falls in past year Last assessed Fall Risk: 04/29/24 Dental Screening Dental Screen Date: 01/09/24 HPI DM HPI Details 73-year-old morbidly obese male with multiple medical problems diabetes mellitus BPH knee osteoarthritis sleep apnea severe but can not tolerate CPAP hypercholesterolemia hypertension coronary artery disease atrial fibrillation with congestive heart failure diastolic and pancreatic mass coming in for follow-up. Last seen in 01/22/2024. Review of the notes has seen Dermatology in March 2024 for psoriasis given calcipotriene, eczema CeraVe moisturizers urticaria on allergy medication patient also has followed up with Nephrology urology having CT scan done in 04/23/2023 showing punctate nonobstructing calculus mid left kidney and as for the pancreatic cyst 4 cm low risk features. Advised retesting every [address] scan. LDL-than 09/23/2023 77 DM still not at goal. complains of pain on the leg L intermittently. pain isthe same w=for walking and sitting. complain of sleeping during the day again told patient about sleep apnea. . Patient is not getting good sugar control with Januvia but is complaining about the expensive medication. [facility] Medical History (Updated 04/29/24 @ 10:16 by Victor M Allan MD) Fibromyalgia Rheumatoid factor positive Knee pain, bilateral Bilateral carpal tunnel syndrome Pancreatic cyst Cervico-occipital neuralgia Cervical spondylosis without myelopathy Obstructive sleep apnea hypopnea, severe Carpal tunnel syndrome Obesity Degenerative disc disease, cervical GERD (gastroesophageal reflux disease) Hypercholesterolemia CKD (chronic kidney disease) Overactive bladder Hypogonadism Pancreatic mass Essential hypertension Atherosclerotic cardiovascular disease Persistent atrial fibrillation Surgical History History of cataract surgery Optional surgery Hx of tonsillectomy H/O lumbar discectomy History of heart artery stent (~04/2018) Family History Father Cancer Mother Diabetes Cardiovascular disease Social History Housing: House Alcohol intake: never Patient Tobacco Use Status: Never used Tobacco e-Cigarette/Vaping Use: Never Used Second Hand Smoke Exposure: No service: No Current occupational status: retired 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 Cognitive needs: No Hearing needs: No Vision needs: Yes Questionnaire PHQ-9 Over the last 2 weeks, how often have you been bothered by any of the following problems? 1. Little interest or pleasure in doing things: not at all 2. Feeling down, depressed, or hopeless: not at all 3. Trouble falling or staying asleep, or sleeping too much: not at all 4. Feeling tired or having little energy: not at all 5. Poor appetite or overeating: not at all 6. Feeling bad about yourself - or that you are a failure or have let yourself or your family down: not at all 7. Trouble concentrating on things, such as reading the newspaper or watching television: not at all 8. Moving or speaking so slowly that other people could have noticed. Or the opposite - being so fidgety or restless that you have been moving around a lot more than usual: not at all 9. Thoughts that you would be better off or of hurting yourself in some way: not at all Total score: 0 Depression Screening Interpretation: Negative Depression Screening Done: Yes Source: Developed by Drs. Karan Davidson, Crista Nguyen, Sunday Ashley and colleagues, with an educational sukhi from [employer]. Thrive Questionnaire Date Thrive assessed: 01/09/24 AYAN-7 AMB Questionnaire AYAN-7 Date AYAN - 7 assessed: 01/09/24 Source: Developed by Drs. Karan Davidson, Crista Nguyen, Sunday Ashley and colleagues, with an educational sukhi from [employer]. Physical exam (Primary Care) Vital Signs: Last Vital Signs Pulse 73 04/29/24 09:46 BP 130/72 04/29/24 09:46 Pulse Ox 98 04/29/24 09:46 Oxygen Delivery Method Room Air 04/29/24 09:46 BMI result Body Mass Index 40.3 Tobacco/Smoking Status: Tobacco use Status Tobacco use date assessed 01/09/24 04/29/24 09:47 Patient Tobacco Use Status Never used Tobacco 04/29/24 09:47 e-Cigarette/Vaping Use Never Used 04/29/24 09:47 PHQ-9: PHQ-9 Score PHQ-9: Total score 0 04/29/24 09:57 Depression Screening Interpretation: Negative Thrive Assessment: Date of Thrive Assessment Date Thrive assessed 01/09/24 04/29/24 09:47 Const General: alert; No acute distress Eyes Conjunctivae: conjunctivae normal Resp Auscultation: clear to auscultation bilaterally Cardio Rate: regular rate Rhythm: regular rhythm GI Inspection: Yes normal to inspection Extrem General: Yes normal to inspection and No edema Results AMB Hemoglobin A1c AMB Hemoglobin A1c 7.5 % Last Edit by ROSA Langford on 04/29/24 09:58 Results Reviewed Results Reviewed: Laboratory Last Values Hgb A1c (Clinic) 7.5 % (4.0-6.0) H 04/29/24 09:47 Assessment and Plan Assessment & Plan (1) Type 2 diabetes mellitus with hyperglycemia: Comment: EYE Dr. ARMANDO (2021) Code(s): E11.65 - Type 2 diabetes mellitus with hyperglycemia Plan: Decrease the amount of carbohydrate intake, pasta, bread, rice and potatoes are all sugar and that is aside from all the sweet stuff, remember that fruits are good but they are Sweet also. Hemoglobin A1c goal of less than 7.0. Patient takes glipizide metformin Januvia (2) Left renal stone: Comment: 02/2022 [place], 10/23/2023 Code(s): N20.0 - Calculus of kidney Plan: Increase oral fluids (3) Persistent atrial fibrillation: Comment: mlitusel Code(s): I48.19 - Other persistent atrial fibrillation Plan: Continue with Xarelto anticoagulation (4) Essential hypertension: Code(s): I10 - Essential (primary) hypertension Plan: Continue with blood pressure medication. Decrease salt intake and exercise on spironolactone 25 mg once a day metoprolol 100 mg in the evening and 50 mg in the morning lisinopril 40 mg once a day isosorbide mononitrate 60 mg once a day clonidine 0.1 mg twice a day and amlodipine 10 mg once a day (5) Hypercholesterolemia: Code(s): E78.00 - Pure hypercholesterolemia, unspecified Plan: Avoid fried foods, chicken skin, eggs, butter margarine, pastries and meat. Be it pork or beef they have a lot of cholesterol LDL goal of less than 70 and triglyceride of less than 150 on pravastatin 40 mg once a day (6) Obesity: Code(s): E66.9 - Obesity, unspecified Qualifiers: Obesity type: due to excess calories Obesity classification: adult class 2 (BMI 35 - 39.9) Serious obesity comorbidity presence: with serious comorbidity Body mass index: BMI 36.0-36.9 Qualified Code(s): E66.01 - Morbid (severe) obesity due to excess calories; Z68.36 - Body mass index [BMI] 36.0-36.9, adult Plan: Diet and exercise (7) Obstructive sleep apnea hypopnea, severe: Comment: cannot tolerate CPAP Code(s): G47.33 - Obstructive sleep apnea (adult) (pediatric) Plan: cannot tolerate CPAP discussed the consequences of not getting this treated. Orders: Orders AMB Hemoglobin A1c Today E11.65 - Type 2 diabetes mellitus with hyperglycemia Medications: New empagliflozin (Jardiance) 10 mg PO DAILY 30 tabs 4RF E11.65 - Type 2 diabetes mellitus with hyperglycemia Discontinued sitagliptin phosphate (Januvia) Discontinued Reason: Doctor's Order 100 mg PO DAILY 30 tabs 2RF E11.65 - Type 2 diabetes mellitus with hyperglycemia Coding Level of Care Code Est Pt Level 4 (27455) Complex EM visit Add On G2211 Diagnoses Type 2 diabetes mellitus with hyperglycemia E11.65 Left renal stone N20.0 Persistent atrial fibrillation I48.19 Essential hypertension I10 Hypercholesterolemia E78.00 Class 2 severe obesity due to excess calories with serious comorbidity and body mass index (BMI) of 36.0 to 36.9 in adult E66.01; Z68.36 Obesity type: due to excess calories Obesity classification: adult class 2 (BMI 35 - 39.9) Serious obesity comorbidity presence: with serious comorbidity Body mass index: BMI 36.0-36.9 Obstructive sleep apnea hypopnea, severe G47.33
== END 2024-04-29 10:46 | disposition home or self-care (01) ==
PROVIDERS: PCP Internal Medicine; Visit Provider Internal Medicine
DX: E11.65 Type 2 diabetes mellitus with hyperglycemia (principal); I48.19 Other persistent atrial fibrillation; E66.01 Morbid (severe) obesity due to excess calories; Z68.36 Body mass index [BMI] 36.0-36.9, adult; N20.0 Calculus of kidney; E78.00 Pure hypercholesterolemia, unspecified; I10 Essential (primary) hypertension; G47.33 Obstructive sleep apnea (adult) (pediatric)
CPT/HCPCS: 83036; 99214; G2211

== ENCOUNTER 2024-05-20 08:56 | Outpatient (AMB) | payer MEDICARE, SELFPAY ==
[2024-05-20 09:10] VITALS: BP 126/64; PULSE 88; BMI 40.0
--- NOTE | 2024-05-20 09:10 | MHC.OFFVIS ---
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 Accompanied by: Self / Same As Patient Allergies warfarin Allergy (Intermediate, Verified 01/09/24 09:33) sweats, dry mouth,elevated BP naproxen Allergy (Unknown, Verified 01/09/24 09:33) face got red nifedipine [NIFEDIPINE] Allergy (Unknown, Verified 01/09/24 09:33) GI SIDE EFFECTS, stomach upset, GI Medication List - Last Reconciled 05/20/24 by Onesimo Kulkarni MD alprazolam 1 mg PO DAILY PRN amlodipine 10 mg PO DAILY benzonatate 100 mg PO BID-TID PRN blood sugar diagnostic As directed blood sugar diagnostic ([employer] Ultra Test strips) As directed check the blood sugar once a day clonidine HCl 0.1 mg PO BID diclofenac sodium 1% (Voltaren Arthritis Pain) 2 grams topical QID empagliflozin (Jardiance) 10 mg PO DAILY gabapentin 300 mg PO BID glipizide ER Take 2 tablets in the morning and 2 tablet in the evening PO; imipramine HCl 25 mg PO BEDTIME 90 days isosorbide mononitrate ER 60 mg PO QAM lisinopril 40 mg PO DAILY metformin 1,000 mg PO BID 90 days metoprolol succinate ER 100 mg PO QPM 90 days metoprolol succinate ER 50 mg PO QAM nitroglycerin 0.4 mg sublingual Q5M PRN 90 days omeprazole 20 mg PO DAILY pravastatin 40 mg PO DAILY rivaroxaban (Xarelto) 20 mg PO DAILY spironolactone (Aldactone) 25 mg PO DAILY 90 days tamsulosin 0.4 mg PO QDAY topiramate 25 mg PO DAILY HPI Comments Details: Arnie returns for follow-up regarding coronary disease, hypertension and atrial fibrillation. For the most part, he is doing fine. He was recently at [facility] and stated that he was fine. Apparently, started on Jardiance and after that, he had an episode where he could not move his left arm and there was also pain but sounds like rather cervical radiculopathy. Then it resolved after some time. He did notice some palpitations just at the same time, but then also returned back to normal. After that, feels completely normal. [facility] Medical History (Updated 05/20/24 @ 10:08 by Onesimo Kulkarni MD) Fibromyalgia Rheumatoid factor positive Knee pain, bilateral Bilateral carpal tunnel syndrome Pancreatic cyst Cervico-occipital neuralgia Cervical spondylosis without myelopathy Obstructive sleep apnea hypopnea, severe Carpal tunnel syndrome Obesity Degenerative disc disease, cervical GERD (gastroesophageal reflux disease) Hypercholesterolemia CKD (chronic kidney disease) Overactive bladder Hypogonadism Pancreatic mass Essential hypertension Atherosclerotic cardiovascular disease Persistent atrial fibrillation Surgical History History of cataract surgery Optional surgery Hx of tonsillectomy H/O lumbar discectomy History of heart artery stent (~04/2018) Family History Father Cancer Mother Diabetes Cardiovascular disease Social History Housing: House Alcohol intake: never Patient Tobacco Use Status: Never used Tobacco e-Cigarette/Vaping Use: Never Used Second Hand Smoke Exposure: No service: No Current occupational status: retired 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 Cognitive needs: No Hearing needs: No Vision needs: Yes Review of Systems Const Denies chills, Denies fatigue, Denies fever(s), Denies weight gain and Denies weight loss ENT Denies dizziness Card Denies chest pain, Denies leg edema, Denies lightheadedness, Denies palpitations, Denies dyspnea on exertion, Denies orthopnea and Denies other Resp Denies cough and Denies dyspnea on exertion GI Denies hematochezia and Denies change in stool character Musc Denies abnormal gait, Denies muscle weakness, Denies numbness, Denies radiating pain into limb and Denies tingling Neuro Denies abnormal gait, Denies dizziness, Denies numbness and Denies tingling Endo Denies fatigue and Denies palpitations Physical Exam Vital Signs: Last Vital Signs Pulse 88 05/20/24 09:10 BP 126/64 05/20/24 09:10 BMI result Body Mass Index 40.0 Const General: comfortable and no acute distress Orientation/consciousness: patient oriented x3 HEENT Other: Unremarkable Head: Yes normal to inspection Neck Neck: Yes normal visual inspection Chest Chest palpation & inspection: normal inspection of the chest Resp Auscultation: clear to auscultation bilaterally Cardio Palpation: normal PMI Heart sounds: S1 normal heart sound present, S2 normal heart sound present, no gallops, no murmurs and no rubs GI Palpation (GI): Soft to palpation Back/Spine/Pelvis Other: unremarkable Skin General skin exam: no rashes or lesions noted Neuro General: patient oriented x3 Extrem General: Yes normal to inspection Psych Mental Status: mental status grossly normal Office Procedures EKG Details: EKG with atrial fibrillation at 88/Min; no significant ST-T changes and otherwise unremarkable. [id number], Complete Assessment & Plan Assessment & Plan (1) Essential hypertension: Code(s): I10 - Essential (primary) hypertension Category: Medical Plan: Has been stable. He has tried numerous medications and the current list is extensive, but has been working. No changes. Current list includes amlodipine, clonidine, isosorbide, lisinopril, metoprolol, spironolactone. He has had some issues with Hydralazine as well in the past. (2) Persistent atrial fibrillation: Code(s): I48.19 - Other persistent atrial fibrillation Category: Medical Plan: Remains on beta-blockers. Due to recent episode of brief palpitations, we discussed about repeating Holter but he would like to hold off at this time unless recurrent issues. Continue anticoagulation for changes. On EKG today, well controlled atrial fibrillation. (3) Atherosclerotic cardiovascular disease: Code(s): I25.10 - Atherosclerotic heart disease of [place] coronary artery without angina pectoris Category: Medical Plan: Last cardiac catheterization with disease in the circumflex, when he underwent drug-eluting stent to 2nd obtuse marginal. Mild disease in the left main. No significant disease in the LAD. About 70% stenosis in the right coronary artery but not intervened. Not willing to take high-dose statins as his had side effects from the same. Hence on lower dose pravastatin. Last LDL 77mg/dL. Prior to that, in the 40s/50s. Last stress test from January/2021 without any significant perfusion defects. Clinically, absolutely no angina. (4) Chronic diastolic (congestive) heart failure: Code(s): I50.32 - Chronic diastolic (congestive) heart failure Category: Medical Plan: Suspected diastolic heart failure related to obesity, coronary disease, hypertension, untreated sleep apnea. Stable. He wants to take only diuretics as needed due to frequent urination. No changes. (5) Obstructive sleep apnea hypopnea, severe: Code(s): G47.33 - Obstructive sleep apnea (adult) (pediatric) Category: Medical Plan: Sleep study from 2017-moderately severe obstructive sleep apnea. However he does not want use CPAP. It has been discussed almost every single time including today. Medications: Changed From alprazolam 0.25 mg PO DAILY 30 days PRN 90 tabs 5RF anxiety To alprazolam 1 mg PO DAILY PRN Coding Level of Care Code Est Pt Level 4 (44388) Diagnoses Essential hypertension I10 Persistent atrial fibrillation I48.19 Atherosclerotic cardiovascular disease I25.10 Chronic diastolic (congestive) heart failure I50.32 Obstructive sleep apnea hypopnea, severe G47.33 CPT Codes EKG - CPT: 65757-[id number], Complete ([id number])
== END 2024-05-20 09:47 | disposition home or self-care (01) ==
PROVIDERS: PCP Nurse Practitioner Family; Visit Provider Internal Medicine
DX: I10 Essential (primary) hypertension (principal); I48.19 Other persistent atrial fibrillation; I25.10 Atherosclerotic heart disease of native coronary artery without angina pectoris; I50.32 Chronic diastolic (congestive) heart failure; G47.33 Obstructive sleep apnea (adult) (pediatric)
CPT/HCPCS: 93010; 99214

== ENCOUNTER → 2024-05-20 08:56 | Outpatient (BNVA) | payer MEDICARE, SELFPAY | PROVIDERS: PCP Nurse Practitioner Family; Visit Provider Internal Medicine | DX: I11.0 Hypertensive heart disease with heart failure (principal); I50.32 Chronic diastolic (congestive) heart failure; I25.10 Atherosclerotic heart disease of native coronary artery without angina pectoris; I48.19 Other persistent atrial fibrillation; G47.33 Obstructive sleep apnea (adult) (pediatric) | CPT/HCPCS: 93005; 99212 ==

== ENCOUNTER 2024-08-11 10:54 | Outpatient (AMB) | payer MEDICARE, SELFPAY ==
[2024-08-11 11:04] VITALS: BP 124/78; PULSE 63; O2SAT 97; BMI 40.3
--- NOTE | 2024-08-11 11:04 | A.OFFVIS_ITS ---
Vital Signs 08/11/24 11:04 Height 5 ft 8 in Weight 264 lb 12.403 oz BMI 40.3 BP 124/78 Blood Pressure Location Lt brachial Position Sitting Pulse 63 Pulse Source Pulse Oximeter Pulse Oximetry (%) 97 Oxygen Delivery Method Room Air Intake Visit Reasons: OA Intake Note: Patient is here for follow up on OA and lab review. Allergies warfarin Allergy (Intermediate, Verified 08/11/24 11:07) sweats, dry mouth,elevated BP naproxen Allergy (Unknown, Verified 08/11/24 11:07) face got red nifedipine [NIFEDIPINE] Allergy (Unknown, Verified 08/11/24 11:07) GI SIDE EFFECTS, stomach upset, GI Medication List - Last Reconciled 08/11/24 by Zully Orosco MD acetaminophen ER (Tylenol Arthritis Pain) 650 mg PO Q12H alprazolam 1 mg PO DAILY PRN amlodipine 10 mg PO DAILY benzonatate 100 mg PO BID-TID PRN blood sugar diagnostic As directed blood sugar diagnostic ([employer] Ultra Test strips) As directed check the blood sugar once a day clonidine HCl 0.1 mg PO BID diclofenac sodium 1% (Voltaren Arthritis Pain) 2 grams topical QID gabapentin 300 mg PO BID glipizide ER Take 2 tablets in the morning and 2 tablet in the evening PO; imipramine HCl 25 mg PO BEDTIME 90 days isosorbide mononitrate ER 60 mg PO QAM lisinopril 40 mg PO DAILY metformin 1,000 mg PO BID 90 days metoprolol succinate ER 100 mg PO QPM 90 days metoprolol succinate ER 50 mg PO QAM nitroglycerin 0.4 mg sublingual Q5M PRN 90 days omeprazole 20 mg PO DAILY pravastatin 40 mg PO DAILY rivaroxaban (Xarelto) 20 mg PO DAILY sitagliptin phosphate (Januvia) 100 mg PO DAILY spironolactone (Aldactone) 25 mg PO DAILY 90 days tamsulosin 0.4 mg PO QDAY topiramate 25 mg PO DAILY HPI Comments Details: Patient is a 74-year-old male with osteoarthritis involving cervical spine, lumbar spine, hands and knees. Interval History: Last seen with Elizabeth Hopson 01/08/2024. At that time patient was complaining of symptomatic knee OA. Reported feeling better relief when he was on 600 mg (300 mg b.i.d.) of gabapentin. His gabapentin was increased at that time. Today patient reports feeling well overall. Still with some bilateral knee pain but is able to perform his acts of daily living. Notes he had some shoulder pain for which she received intra-articular steroids with improvement. Denies prolonged morning stiffness. Denies any history of monoarticular arthritis Rheumatologic History: He has had corticosteroid injections with transient benefit in the knees. There was a trial with gel injections for both knees. This did not work out with increased pain the day after the injection and then not that much improvement a few weeks later. He still does not want to do PT. He takes gabapentin in the morning 300 mg and that seems to be somewhat helpful for pain Current Rheumatology Medication(s): Gabapentin 300mg bid Topical diclofenac PFSH Medical History (Updated 05/20/24 @ 10:08 by Onesimo Kulkarni MD) Fibromyalgia Rheumatoid factor positive Knee pain, bilateral Bilateral carpal tunnel syndrome Pancreatic cyst Cervico-occipital neuralgia Cervical spondylosis without myelopathy Obstructive sleep apnea hypopnea, severe Carpal tunnel syndrome Obesity Degenerative disc disease, cervical GERD (gastroesophageal reflux disease) Hypercholesterolemia CKD (chronic kidney disease) Overactive bladder Hypogonadism Pancreatic mass Essential hypertension Atherosclerotic cardiovascular disease Persistent atrial fibrillation Surgical History History of cataract surgery Optional surgery Hx of tonsillectomy H/O lumbar discectomy History of heart artery stent (~04/2018) Family History Father Cancer Mother Diabetes Cardiovascular disease Social History Housing: House Alcohol intake: never Patient Tobacco Use Status: Never used Tobacco e-Cigarette/Vaping Use: Never Used Second Hand Smoke Exposure: No service: No Current occupational status: retired 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 Cognitive needs: No Hearing needs: No Vision needs: Yes Review of Systems Const Details: Review of Systems Constitutional: Denies fever, chills, weight loss ENT: Denies vision changes, eye pain or eye redness, dental caries, dry mouth GI: Denies nausea, vomiting, diarrhea, abdominal pain, change in BM Pulm: Denies SOB, MACE, hemoptysis, wheezing Cards: Denies chest pain, palpitations Skin: Denies Raynaud's, rash, nail changes, photosensitivity, GRAD INTERN: Denies headaches, weakness, paresthesias, recurrent falls MSK: Complains of joint pain and joint stiffness. Denies joint swelling, muscle weakness, bone pain All other systems reviewed and are unremarkable except noted above Physical Exam Vital Signs: Last Vital Signs Pulse 63 08/11/24 11:04 BP 124/78 08/11/24 11:04 Pulse Ox 97 08/11/24 11:04 Oxygen Delivery Method Room Air 08/11/24 11:04 BMI result Body Mass Index 40.3 Const Other: Physical Examination Patient well appearing and in no apparent painful distress Able to rise from chair without support. ?Gait normal. Constitutional: ?Mucous membranes pink and moist patient alert and cooperative HEENT: ?Conjunctiva and sclera clear. ?Pupils equal round and reactive to light. ?No lymphadenopathy. ?Normal dentition. Resp: ?Normal respiratory effort and able to speak in complete sentences. ?Clear to auscultation bilaterally. ?No crackles, rales, rhonchi, wheezes heard. Cards: ?Regular rate and rhythm. ?S1 and S2 heard no murmurs. ?Radial pulses intact bilaterally MSK: ?Large hands. Heberden's nodes noted throughout. No pain with palpation of his joints. Good range of motion of his joints except his shoulders shoulders had limited range of motion to extension. But no pinpoint tenderness. Results Reviewed Results Reviewed: Laboratory Tests 09/12/23 01/20/24 07:49 09:23 WBC 9.3 8.3 RBC 4.89 4.86 Hgb 14.8 15.0 Hct 45.5 43.8 Plt Count 211 D 157 L D ESR 5 Sodium 141 Potassium 4.3 Chloride 104 Carbon Dioxide 28 BUN 19 H Creatinine 1.19 Estimated GFR > 60 Uric Acid 7.7 H Results reviewed Reviewed. Knee x-ray 09/11/2023 ordered by Jacqui Troy reviewed. Kellgren Lawr ence grade 4 with significant medial joint space narrowing and osteophytes. (my read) Assessment & Plan Assessment & Plan (1) Osteoarthritis: Code(s): M19.90 - Unspecified osteoarthritis, unspecified site Qualifiers: Osteoarthritis location: multiple joints Osteoarthritis type: primary Qualified Code(s): M15.0 - Primary generalized (osteo)arthritis Plan: #Polyarticular OA Patient with polyarticular osteoarthritis. Today patient is stable. We will continue with his gabapentin 300 mg twice a day. Recommended trial of glucosamine/chondroitin for 3-6 to see if there is any benefit. He is to continue diclofenac topical gel. Also encouraged weight-bearing exercises. 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 Patient does have CKD so we will monitor for signs and symptoms of gout developing. 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
== END 2024-08-11 12:03 | disposition home or self-care (01) ==
PROVIDERS: PCP Nurse Practitioner Family; Visit Provider Student in an Organized Health Care Education/Training Program
DX: M15.0 Primary generalized (osteo)arthritis (principal); E79.0 Hyperuricemia without signs of inflammatory arthritis and tophaceous disease
CPT/HCPCS: 99213

== ENCOUNTER → 2024-08-11 10:54 | Outpatient (BNVA) | payer MEDICARE, SELFPAY | PROVIDERS: PCP Nurse Practitioner Family; Visit Provider Student in an Organized Health Care Education/Training Program | DX: M15.0 Primary generalized (osteo)arthritis (principal); E79.0 Hyperuricemia without signs of inflammatory arthritis and tophaceous disease | CPT/HCPCS: 99212 ==

== ENCOUNTER 2024-09-04 08:15 | Outpatient (REF) | payer MEDICARE, SELFPAY ==
[2024-09-04 08:29] LABS: MANUAL DIFF FLAG NO
[2024-09-04 08:50] LABS: Basophils Absolute Auto 0.1 X10*3/uL (0.0-0.2); Basophils Percent Auto 0.8 % (0-2); Eosinophils Absolute Auto 0.6 X10*3/uL (0.0-0.4); Eosinophils Percent Auto 6.7 % (0-4); Hematocrit 42.4 % (42.0-52.0); Hemoglobin 14.6 g/dl (14.0-18.0); Imm Gran Abs Auto 0.05 X10*3/uL (0.00-0.03); Imm Gran Pct Auto 0.6 % (0.0-0.4); Lymphocytes Absolute Auto 1.7 X10*3/uL (1.2-4.9); Lymphocytes Percent Auto 19.6 % (20-40); Mean Corpuscular HGB Conc 34.4 g/dl (31.0-36.0); Mean Corpuscular Hemoglobin 30.7 pg (27.0-33.0); Mean Corpuscular Volume 89.1 fL (80.0-98.0); Mean Platelet Volume 10.8 fL (9.4-12.4); Monocytes Absolute Auto 0.9 X10*3/uL (0.1-1.2); Monocytes Percent Auto 10.5 % (2-11); Neutrophils Absolute Auto 5.2 x10*3/uL (2.0-8.3); Neutrophils Percent Auto 61.8 % (45-73); Platelet Count 171 X10*3/uL (160-400); Red Blood Count 4.76 X10*6/uL (4.60-5.80); Red Cell Distribution Width 13.4 % (11.0-16.0); White Blood Count 8.4 X10*3/uL (4.8-10.8)
[2024-09-04 08:59] LABS: Estimated Average Glucose 160 mg/dL; Hemoglobin A1C 207.2979 umol/L; Hemoglobin A1c % 7.2 % (<6.0); Total Hemoglobin (HGBA1C) 3782.3154 umol/L
[2024-09-04 09:24] LABS: Albumin Level 4.5 g/dL (3.5-5.0); Alkaline Phosphatase 96 U/L (39-117); Anion Gap 13 (12-20); Aspartate Amino Transferase 26 U/L (5-37); Bilirubin Total 0.5 mg/dL (0.0-1.0); Blood Urea Nitrogen 15 mg/dL (9-16); Calcium 9.9 mg/dL (8.4-10.2); Carbon Dioxide 31 mmol/L (22-29); Chloride 103 mmol/L (96-108); Cholesterol 132 mg/dL (<200); Estimated Glomerular Filt Rate > 60; Glucose Random 131 mg/dL (60-115); HDL Cholesterol 38 mg/dL (>40); LDL Cholesterol Calculated 64 mg/dL (<100); Potassium 4.7 mmol/L (3.3-5.1); Sodium 142 mmol/L (135-145); Total Protein 7.3 g/dL (6.5-8.0); Triglycerides 153 mg/dL (<150)
[2024-09-04 09:29] LABS: Alanine Aminotransferase 30 U/L (0-40)
[2024-09-04 09:50] LABS: Folate 11.9 ng/mL (> or = 4.0); Vitamin B12 260 pg/mL (200-900)
[2024-09-04 09:56] LABS: Free T4 (Free Thyroxine) 0.84 ng/dL (0.71-1.85); Thyroid Stimulating Hormone 1.63 uIU/mL (0.32-4.0)
== END 2024-09-04 08:16 | disposition home or self-care (01) ==
LOC: HO.LAB 08:15
PROVIDERS: PCP Internal Medicine; Visit Provider Internal Medicine
DX: E11.65 Type 2 diabetes mellitus with hyperglycemia (principal); E78.00 Pure hypercholesterolemia, unspecified
CPT/HCPCS: 36415; 80053; 80061; 82607; 82746; 83036; 84439; 84443; 85025

== ENCOUNTER 2024-09-09 08:23 | Outpatient (AMB) | payer MEDICARE, SELFPAY ==
[2024-09-09 08:30] VITALS: BP 120/62; PULSE 82; O2SAT 96; BMI 39.8
--- NOTE | 2024-09-09 08:30 | A.OFFPC_ITS ---
Vital Signs 09/09/24 08:30 Height 5 ft 8 in Weight 118.841 kg BMI 39.8 BP 120/62 Blood Pressure Location Lt brachial Position Sitting Pulse 82 Pulse Source Pulse Oximeter Pulse Oximetry (%) 96 Oxygen Delivery Method Room Air Intake Visit Reasons: 3 Month Follow Up Allergies warfarin Allergy (Intermediate, Verified 09/09/24 08:31) sweats, dry mouth,elevated BP naproxen Allergy (Unknown, Verified 09/09/24 08:31) face got red nifedipine [NIFEDIPINE] Allergy (Unknown, Verified 09/09/24 08:31) GI SIDE EFFECTS, stomach upset, GI empagliflozin [From Jardiance] Adverse Reaction (Intermediate, Verified 09/09/24 08:31) testicular swelling Tobacco use date assessed: 09/09/24 Fall risk assessment: 1 Fall in past year Last assessed Fall Risk: 09/09/24 Dental Screening Dental Screen Date: 01/09/24 HPI 3 Month Follow Up HPI Details 74-year-old morbidly obese male with unc ontrolled diabetes mellitus atrial fibrillation hypertension hypercholesterolemia obstructive sleep apnea coming in for follow-up. Last seen in April 2024. Patient has seen Nephrology problem with Jardiance due to testicular swelling this was discontinued patient has also seen Cardiology atherosclerotic heart disease patient declined taking stronger cholesterol medication. Patient also has chronic diastolic heart failure secondary to obesity coronary artery disease hypertension and untreated sleep apnea. Choose 2 be left with diuretics. Seen urology and was told 2.5 cm but this is not confirmed- planned lithotripsy but not done - will ff up with urology. derm epidermal cyst on the thoracic back scabbed ulcer [facility] Medical History (Updated 09/09/24 @ 08:51 by Victor M Allan MD) Gastritis Low libido Nocturia more than twice per night Verruca COVID-19 virus infection Trigger finger, left ring finger Flexor tenosynovitis of finger SOB (shortness of breath) Fibromyalgia Rheumatoid factor positive Knee pain, bilateral Bilateral carpal tunnel syndrome Pancreatic cyst Cervico-occipital neuralgia Cervical spondylosis without myelopathy Obstructive sleep apnea hypopnea, severe Carpal tunnel syndrome Degenerative disc disease, cervical GERD (gastroesophageal reflux disease) Hypercholesterolemia CKD (chronic kidney disease) Overactive bladder Hypogonadism Pancreatic mass Essential hypertension Atherosclerotic cardiovascular disease Persistent atrial fibrillation Surgical History History of cataract surgery Optional surgery Hx of tonsillectomy H/O lumbar discectomy History of heart artery stent (~04/2018) Family History Father Cancer Mother Diabetes Cardiovascular disease Social History Housing: House Alcohol intake: never Patient Tobacco Use Status: Never used Tobacco Tobacco use type: Cigarette e-Cigarette/Vaping Use: Never Used Second Hand Smoke Exposure: No service: No Current occupational status: retired 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 Cognitive needs: No Hearing needs: No Vision needs: Yes Questionnaire PHQ-9 Over the last 2 weeks, how often have you been bothered by any of the following problems? 1. Little interest or pleasure in doing things: not at all 2. Feeling down, depressed, or hopeless: not at all 3. Trouble falling or staying asleep, or sleeping too much: not at all 4. Feeling tired or having little energy: not at all 5. Poor appetite or overeating: not at all 6. Feeling bad about yourself - or that you are a failure or have let yourself or your family down: not at all 7. Trouble concentrating on things, such as reading the newspaper or watching television: not at all 8. Moving or speaking so slowly that other people could have noticed. Or the opposite - being so fidgety or restless that you have been moving around a lot more than usual: not at all 9. Thoughts that you would be better off or of hurting yourself in some way: not at all Total score: 0 Depression Screening Interpretation: Negative Depression Screening Done: Yes Source: Developed by Drs. Karan Davidson, Crista Nguyen, Sunday Ashley and colleagues, with an educational sukhi from [employer]. Thrive Questionnaire Date Thrive assessed: 09/09/24 I am a: Patient What is your living situation today?: I have a steady place to live Within the past 12 months, did the food you bought not last and you didn't have the money to get more?: Never true Within the past 12 months, did you worry whether your food would run out before you got money to buy more?: Never true Do you have trouble paying for medicines?: No Do you have trouble getting transportation to medical appointments?: No Do you have trouble paying your heating and electricity bill?: No Do you have trouble taking care of your child, family member or friend?: No Do you have trouble with day-to-day activities such as bathing, preparing meals, shopping, managing finances, etc.?: No Are you currently unemployed and looking for a job?: No Are you interested in more education?: No Please select the resources that you would like help with: None Currently or been in a relationship where the following occur: No concerns reported THRIVE Score: 0 AUDIT C Alcohol Use Questionnaire (AUDIT-C) 1. How often do you have a drink containing alcohol?: Never 3. How often do you have six or more drinks on one occasion?: Never Total Score: 0 AYAN-7 AMB Questionnaire AYAN-7 Date AYAN - 7 assessed: 09/09/24 Feeling nervous, anxious, or on edge: 0 = Not at all Not being able to stop or control worryin = Not at all Worrying too much about different things: 0 = Not at all Trouble relaxin = Not at all Being so restless that it is hard to sit still: 0 = Not at all Becoming easily annoyed or irritable: 0 = Not at all Feeling afraid as if something awful might happen: 0 = Not at all Total AYAN-7 score (0-4 normal; 5-9 mild; 10-14 moderate; 15-21 severe): 0 Source: Developed by Drs. Karan Davidson, Crista Nguyen, Sunday Ashley and colleagues, with an educational sukhi from [employer]. Physical exam (Primary Care) Vital Signs: Last Vital Signs Pulse 82 09/09/24 08:30 BP 120/62 09/09/24 08:30 Pulse Ox 96 09/09/24 08:30 Oxygen Delivery Method Room Air 09/09/24 08:30 BMI result Body Mass Index 39.8 Tobacco/Smoking Status: Tobacco use Status Tobacco use date assessed 09/09/24 09/09/24 08:36 Patient Tobacco Use Status Never used Tobacco 09/09/24 08:36 Tobacco use type Cigarette 09/09/24 08:36 e-Cigarette/Vaping Use Never Used 09/09/24 08:36 PHQ-9: PHQ-9 Score PHQ-9: Total score 0 09/09/24 09:01 Depression Screening Interpretation: Negative Thrive Assessment: Date of Thrive Assessment Date Thrive assessed 09/09/24 09/09/24 08:36 Currently or been in a relationship where the following occur: No concerns reported Const General: alert; No acute distress Eyes Conjunctivae: conjunctivae normal Resp Auscultation: clear to auscultation bilaterally Cardio Rate: regular rate Rhythm: regular rhythm GI Inspection: Yes normal to inspection Extrem General: Yes normal to inspection and No edema Immunizations tetanus-diphtheria toxoids-Td 2 Lf unit-2 Lf unit/0.5 mL IM suspension Performing Provider: Victor M Allan MD Performing Location: [facility] [place] [facility] Administered by: Jennie Boykin CMA on 09/09/24 09:01 Dose Route Admin Location Dispensed Lot Number Expiration Date NDC [employer] 0.5 mL IM Right Deltoid 0.5 mL [id number] 12/14/24 [address]-1 [employer] VIS Given Date VIS Provided VIS Publication Date 09/09/24 Single Vaccine 21 Eligibility Eligibility Date Funding Source Not [facility] Eligible 09/09/24 [facility] Coding Level of Care Code Est Pt Level 4 (55037) Complex EM visit Add On G2211 Diagnoses Type 2 diabetes mellitus with hyperglycemia, without long-term current use of insulin E11.65 Diabetes mellitus alf insulin use: without alf use Chronic diastolic (congestive) heart failure I50.32 Obstructive sleep apnea hypopnea, severe G47.33 Morbid obesity E66.01 Atherosclerotic cardiovascular disease I25.10 Persistent atrial fibrillation I48.19 Chronic kidney disease, unspecified CKD stage N18.9 Chronic kidney disease stage: unspecified stage Hypercholesterolemia E78.00 Essential hypertension I10 Left renal stone N20.0 Assessment & Plan Assessment & Plan (1) Type 2 diabetes mellitus with hyperglycemia: Comment: EYE Dr. ARMANDO (2021) Toma sam Code(s): E11.65 - Type 2 diabetes mellitus with hyperglycemia Category: Medical Qualifiers: Diabetes mellitus superintendent terminal insulin use: without superintendent terminal use Qualified Code(s): E11.65 - Type 2 diabetes mellitus with hyperglycemia Plan: Decrease the amount of carbohydrate intake, pasta, bread, rice and potatoes are all sugar and that is aside from all the sweet stuff, remember that fruits are good but they are Sweet also. Hemoglobin A1c goal of less than 7.0. Patient is taking glipizide metformin Januvia. Not able to take Jardiance to 2 side effects (2) Chronic diastolic (congestive) heart failure: Code(s): I50.32 - Chronic diastolic (congestive) heart failure Category: Medical Plan: Patient follows up with Cardiology on Aldactone beta blockers. (3) Obstructive sleep apnea hypopnea, severe: Comment: Can not tolerate CPAP Code(s): G47.33 - Obstructive sleep apnea (adult) (pediatric) Category: Medical Plan: Patient is not able to tolerate CPAP (4) Morbid obesity: Code(s): E66.01 - Morbid (severe) obesity due to excess calories Category: Medical Plan: Diet and exercise (5) Atherosclerotic cardiovascular disease: Code(s): I25.10 - Atherosclerotic heart disease of [place] coronary artery without angina pectoris Category: Medical Plan: Control the cholesterol, weight, blood pressure, diabetes on Xarelto anticoagulation (6) Persistent atrial fibrillation: Code(s): I48.19 - Other persistent atrial fibrillation Category: Medical Plan: Continuing to monitor, on Xarelto continuing with metoprolol (7) CKD (chronic kidney disease): Code(s): N18.9 - Chronic kidney disease, unspecified Category: Medical Qualifiers: Chronic kidney disease stage: unspecified stage Qualified Code(s): N18.9 - Chronic kidney disease, unspecified Plan: Keep well hydrated avoid NSAIDs. (8) Hypercholesterolemia: Code(s): E78.00 - Pure hypercholesterolemia, unspecified Category: Medical Plan: Avoid fried foods, chicken skin, eggs, butter margarine, pastries and meat. Be it pork or beef they have a lot of cholesterol LDL goal of less than 70 and triglyceride of less than 150 patient is not able to tolerate the stronger cholesterol medication maintained on pravastatin 40 mg once a day. (9) Essential hypertension: Code(s): I10 - Essential (primary) hypertension Category: Medical Plan: Continue with blood pressure medication. Decrease salt intake and exercise on amlodipine 10 mg once a day clonidine 0.1 mg twice a day lisinopril 40 mg once a day metoprolol 150 mg per day. (10) Left renal stone: Comment: 02/2022 [place], 10/23/2023 Code(s): N20.0 - Calculus of kidney Category: Medical Plan: nephrology notes showing 2.5 mm L [place] renal , increase oral fluids Orders: Orders Td State Immunization Today Z23 - Encounter for immunization
== END 2024-09-09 09:07 | disposition home or self-care (01) ==
LOC: HO.HMCH 08:24
PROVIDERS: PCP Nurse Practitioner Family; Visit Provider Internal Medicine
DX: I12.9 Hypertensive chronic kidney disease with stage 1 through stage 4 chronic kidney disease, or unspecified chronic kidney disease (principal); E11.65 Type 2 diabetes mellitus with hyperglycemia; I50.32 Chronic diastolic (congestive) heart failure; E66.01 Morbid (severe) obesity due to excess calories; I48.19 Other persistent atrial fibrillation; Z68.39 Body mass index [BMI] 39.0-39.9, adult; G47.33 Obstructive sleep apnea (adult) (pediatric); I25.10 Atherosclerotic heart disease of native coronary artery without angina pectoris; N18.9 Chronic kidney disease, unspecified; E78.00 Pure hypercholesterolemia, unspecified; N20.0 Calculus of kidney; Z23 Encounter for immunization

== ENCOUNTER → 2024-09-09 08:23 | Outpatient (BNVA) | payer MEDICARE, SELFPAY | PROVIDERS: PCP Nurse Practitioner Family; Visit Provider Internal Medicine | DX: Z23 Encounter for immunization (principal); I13.0 Hypertensive heart and chronic kidney disease with heart failure and stage 1 through stage 4 chronic kidney disease, or unspecified chronic kidney disease; E11.22 Type 2 diabetes mellitus with diabetic chronic kidney disease; N18.9 Chronic kidney disease, unspecified; I50.32 Chronic diastolic (congestive) heart failure; E11.65 Type 2 diabetes mellitus with hyperglycemia; G47.33 Obstructive sleep apnea (adult) (pediatric); E66.01 Morbid (severe) obesity due to excess calories; I25.10 Atherosclerotic heart disease of native coronary artery without angina pectoris; I48.19 Other persistent atrial fibrillation; E78.00 Pure hypercholesterolemia, unspecified; N20.0 Calculus of kidney | CPT/HCPCS: 90471; 90714; 99212 ==

== ENCOUNTER 2024-11-18 09:50 | Outpatient (AMB) | payer MEDICARE, SELFPAY ==
[2024-11-18 10:10] VITALS: BP 124/74; PULSE 86; BMI 40.0
--- NOTE | 2024-11-18 10:10 | MHC.OFFVIS ---
Vital Signs 11/18/24 10:10 Height 5 ft 8 in Weight 262 lb 12.656 oz BMI 40.0 BP 124/74 Blood Pressure Location Lt brachial Position Sitting Pulse 86 Pulse Source Pulse Oximeter Intake Visit Reasons: 6 mth f/up Branch Library Clerk Required: No Accompanied by: Self / Same As Patient Allergies warfarin Allergy (Intermediate, Verified 09/09/24 08:31) sweats, dry mouth,elevated BP naproxen Allergy (Unknown, Verified 09/09/24 08:31) face got red nifedipine [NIFEDIPINE] Allergy (Unknown, Verified 09/09/24 08:31) GI SIDE EFFECTS, stomach upset, GI empagliflozin [From Jardiance] Adverse Reaction (Intermediate, Verified 09/09/24 08:31) testicular swelling Medication List - Last Reconciled 11/18/24 by Onesimo Kulkarni MD acetaminophen ER (Tylenol Arthritis Pain) 650 mg PO Q12H alprazolam 1 mg (4 x 0.25 mg) PO DAILY PRN amlodipine 10 mg PO DAILY benzonatate 100 mg PO BID-TID PRN blood sugar diagnostic As directed blood sugar diagnostic ([employer] Ultra Test strips) As directed check the blood sugar once a day clonidine HCl 0.1 mg PO BID diclofenac sodium 1% (Voltaren Arthritis Pain) 2 grams topical QID gabapentin 300 mg PO BID glipizide ER Take 2 tablets in the morning and 2 tablet in the evening PO; imipramine HCl 25 mg PO BEDTIME 90 days isosorbide mononitrate ER 60 mg PO QAM lisinopril 40 mg PO DAILY metformin 1,000 mg PO BID 90 days metoprolol succinate ER 50 mg PO QAM metoprolol succinate ER 100 mg PO QPM 90 days nitroglycerin 0.4 mg sublingual Q5M PRN 90 days omeprazole 20 mg PO DAILY pravastatin 40 mg PO DAILY rivaroxaban (Xarelto) 20 mg PO DAILY sitagliptin phosphate (Januvia) 100 mg PO DAILY spironolactone (Aldactone) 25 mg PO DAILY 90 days tamsulosin 0.4 mg PO QDAY topiramate 25 mg PO DAILY HPI Comments Details: Arnie returns for follow-up regarding coronary disease, hypertension and atrial fibrillation. From the cardiac standpoint, he does not have any clear-cut symptoms. Seems to be doing well. No angina or shortness of breath or in fact anything cardiac sounding. [facility] Medical History (Updated 09/09/24 @ 08:51 by Victor M Allan MD) Gastritis Low libido Nocturia more than twice per night Verruca COVID-19 virus infection Trigger finger, left ring finger Flexor tenosynovitis of finger SOB (shortness of breath) Fibromyalgia Rheumatoid factor positive Knee pain, bilateral Bilateral carpal tunnel syndrome Pancreatic cyst Cervico-occipital neuralgia Cervical spondylosis without myelopathy Obstructive sleep apnea hypopnea, severe Carpal tunnel syndrome Degenerative disc disease, cervical GERD (gastroesophageal reflux disease) Hypercholesterolemia CKD (chronic kidney disease) Overactive bladder Hypogonadism Pancreatic mass Essential hypertension Atherosclerotic cardiovascular disease Persistent atrial fibrillation Surgical History History of cataract surgery Optional surgery Hx of tonsillectomy H/O lumbar discectomy History of heart artery stent (~04/2018) Family History Father Cancer Mother Diabetes Cardiovascular disease Social History Housing: House Alcohol intake: never Patient Tobacco Use Status: Never used Tobacco Tobacco use type: Cigarette e-Cigarette/Vaping Use: Never Used Second Hand Smoke Exposure: No service: No Current occupational status: retired 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 Cognitive needs: No Hearing needs: No Vision needs: Yes Review of Systems Const Denies chills, Denies fatigue, Denies fever(s), Reports night sweats, Denies weight gain and Denies weight loss ENT Denies dizziness Card Denies chest pain, Denies leg edema, Denies lightheadedness, Denies palpitations, Denies dyspnea on exertion, Denies orthopnea and Denies other Resp Denies cough and Denies dyspnea on exertion GI Denies hematochezia and Denies change in stool character Musc Denies abnormal gait, Denies muscle weakness, Denies numbness, Denies radiating pain into limb and Denies tingling Neuro Denies abnormal gait, Denies dizziness, Denies numbness and Denies tingling Endo Denies fatigue and Denies palpitations Physical Exam Vital Signs: Last Vital Signs Pulse 86 11/18/24 10:10 BP 124/74 11/18/24 10:10 BMI result Body Mass Index 40.0 Const General: comfortable and no acute distress Orientation/consciousness: patient oriented x3 HEENT Other: Unremarkable Head: Yes normal to inspection Neck Neck: Yes normal visual inspection Chest Chest palpation & inspection: normal inspection of the chest Resp Auscultation: clear to auscultation bilaterally Cardio Palpation: normal PMI Heart sounds: S1 normal heart sound present, S2 normal heart sound present, no gallops, no murmurs and no rubs GI Palpation (GI): Soft to palpation Back/Spine/Pelvis Other: unremarkable Skin General skin exam: no rashes or lesions noted Neuro General: patient oriented x3 Extrem General: Yes normal to inspection Psych Mental Status: mental status grossly normal Assessment & Plan Assessment & Plan (1) Essential hypertension: Code(s): I10 - Essential (primary) hypertension Category: Medical Plan: Current list includes amlodipine, clonidine, isosorbide, lisinopril, metoprolol, spironolactone. Many changes in the past but none recently. He has had some issues with Hydralazine as well in the past. (2) Persistent atrial fibrillation: Code(s): I48.19 - Other persistent atrial fibrillation Category: Medical Plan: Remains on beta-blockers. Continue anticoagulation. (3) Atherosclerotic cardiovascular disease: Code(s): I25.10 - Atherosclerotic heart disease of paimiut coronary artery without angina pectoris Category: Medical Plan: Last cardiac catheterization with disease in the circumflex, when he underwent drug-eluting stent to 2nd obtuse marginal. Mild disease in the left main. No significant disease in the LAD. About 70% stenosis in the right coronary artery but not intervened. Not willing to take high-dose statins as his had side effects from the same. Hence on lower dose pravastatin. Last LDL 64 mg/dL. Last stress test from January/2021 without any significant perfusion defects. Clinically, absolutely no angina. (4) Chronic diastolic (congestive) heart failure: Code(s): I50.32 - Chronic diastolic (congestive) heart failure Category: Medical Plan: Suspected diastolic heart failure related to obesity, coronary disease, hypertension, untreated sleep apnea. Stable. He wants to take only diuretics as needed due to frequent urination. No changes. (5) Obstructive sleep apnea hypopnea, severe: Comment: Can not tolerate CPAP Code(s): G47.33 - Obstructive sleep apnea (adult) (pediatric) Category: Medical Plan: Sleep study from 2017-moderately severe obstructive sleep apnea. However he does not want use CPAP. Has been discussed many times. Coding Level of Care Code Est Pt Level 4 (26543) Diagnoses Essential hypertension I10 Persistent atrial fibrillation I48.19 Atherosclerotic cardiovascular disease I25.10 Chronic diastolic (congestive) heart failure I50.32 Obstructive sleep apnea hypopnea, severe G47.33
== END 2024-11-18 10:33 | disposition home or self-care (01) ==
PROVIDERS: PCP Nurse Practitioner Family; Visit Provider Internal Medicine
DX: I10 Essential (primary) hypertension (principal); I48.19 Other persistent atrial fibrillation; I25.10 Atherosclerotic heart disease of native coronary artery without angina pectoris; I50.32 Chronic diastolic (congestive) heart failure; G47.33 Obstructive sleep apnea (adult) (pediatric)
CPT/HCPCS: 99214

== ENCOUNTER → 2024-11-18 09:50 | Outpatient (BNVA) | payer MEDICARE, SELFPAY | PROVIDERS: PCP Nurse Practitioner Family; Visit Provider Internal Medicine | DX: I11.0 Hypertensive heart disease with heart failure (principal); I50.32 Chronic diastolic (congestive) heart failure; I48.91 Unspecified atrial fibrillation; I25.10 Atherosclerotic heart disease of native coronary artery without angina pectoris; G47.33 Obstructive sleep apnea (adult) (pediatric); Z99.89 Dependence on other enabling machines and devices | CPT/HCPCS: 99212 ==

== ENCOUNTER 2024-12-29 08:30 | Outpatient (AMB) | payer MEDICARE, SELFPAY ==
--- NOTE | 2024-12-29 08:41 | MHC.PC.OV ---
Vital Signs 12/29/24 08:43 Height 5 ft 8 in Weight 262 lb 8 oz BMI 39.9 BP 122/68 Blood Pressure Location Lt brachial Position Sitting Pulse 96 Pulse Source Pulse Oximeter Temp 97.1 F Temp Source Temporal Artery Scan Pulse Oximetry (%) 97 Oxygen Delivery Method Room Air Intake Visit Reasons: DM Intake Note: Patient is here to follow up on DM. Disaster Recovery Consultant Required: No Club Lounge Attendant: Not Required per policy Accompanied by: Self / Same As Patient Allergies warfarin Allergy (Intermediate, Verified 12/29/24 08:42) sweats, dry mouth,elevated BP naproxen Allergy (Unknown, Verified 12/29/24 08:42) face got red nifedipine [NIFEDIPINE] Allergy (Unknown, Verified 12/29/24 08:42) GI SIDE EFFECTS, stomach upset, GI empagliflozin [From Jardiance] Adverse Reaction (Intermediate, Verified 12/29/24 08:42) testicular swelling Medication List - Last Reconciled 12/29/24 by Victor M Allan MD acetaminophen ER (Tylenol Arthritis Pain) 650 mg PO Q12H alprazolam 1 mg (4 x 0.25 mg) PO DAILY PRN amlodipine 10 mg PO DAILY blood sugar diagnostic As directed blood sugar diagnostic (Particleuch Ultra Test strips) As directed check the blood sugar once a day clonidine HCl 0.1 mg PO BID diclofenac sodium 1% (Voltaren Arthritis Pain) 2 grams topical QID gabapentin 300 mg PO BID glipizide ER Take 2 tablets in the morning and 2 tablet in the evening PO; imipramine HCl 25 mg PO BEDTIME 90 days isosorbide mononitrate ER 60 mg PO QAM lisinopril 40 mg PO DAILY metformin 1,000 mg PO BID 90 days metoprolol succinate ER 50 mg PO QAM metoprolol succinate ER 100 mg PO QPM 90 days nitroglycerin 0.4 mg sublingual Q5M PRN 90 days omeprazole 20 mg PO DAILY pravastatin 40 mg PO DAILY rivaroxaban (Xarelto) 20 mg PO DAILY spironolactone (Aldactone) 25 mg PO DAILY 90 days tamsulosin 0.4 mg PO QDAY tirzepatide (Mounjaro) 2.5 mg (0.5 mL) subcut QWEEK topiramate 25 mg PO DAILY Tobacco use date assessed: 12/29/24 Fall risk assessment: No Falls in past year Last assessed Fall Risk: 12/29/24 Dental Screening Dental Screen Date: 12/29/24 Did you have a dental visit in the last 12 months?: Yes Did you have a dental problem in the last 6 months where you did not have access to dental care?: No Was dental information given to patient?: Patient has dentist [facility] Medical History (Updated 09/09/24 @ 08:51 by Victor M Allan MD) Gastritis Low libido Nocturia more than twice per night Verruca COVID-19 virus infection Trigger finger, left ring finger Flexor tenosynovitis of finger SOB (shortness of breath) Fibromyalgia Rheumatoid factor positive Knee pain, bilateral Bilateral carpal tunnel syndrome Pancreatic cyst Cervico-occipital neuralgia Cervical spondylosis without myelopathy Obstructive sleep apnea hypopnea, severe Carpal tunnel syndrome Degenerative disc disease, cervical GERD (gastroesophageal reflux disease) Hypercholesterolemia CKD (chronic kidney disease) Overactive bladder Hypogonadism Pancreatic mass Essential hypertension Atherosclerotic cardiovascular disease Persistent atrial fibrillation Surgical History History of cataract surgery Optional surgery Hx of tonsillectomy H/O lumbar discectomy History of heart artery stent (~04/2018) Family History Father Cancer Mother Diabetes Cardiovascular disease Social History Housing: House Alcohol intake: never Patient Tobacco Use Status: Never used Tobacco Tobacco use type: Cigarette e-Cigarette/Vaping Use: Never Used Second Hand Smoke Exposure: No service: No Current occupational status: retired 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 Cognitive needs: No Hearing needs: No Vision needs: Yes Questionnaire PHQ-9 Over the last 2 weeks, how often have you been bothered by any of the following problems? 1. Little interest or pleasure in doing things: not at all 2. Feeling down, depressed, or hopeless: not at all 3. Trouble falling or staying asleep, or sleeping too much: not at all 4. Feeling tired or having little energy: not at all 5. Poor appetite or overeating: not at all 6. Feeling bad about yourself - or that you are a failure or have let yourself or your family down: not at all 7. Trouble concentrating on things, such as reading the newspaper or watching television: not at all 8. Moving or speaking so slowly that other people could have noticed. Or the opposite - being so fidgety or restless that you have been moving around a lot more than usual: not at all 9. Thoughts that you would be better off or of hurting yourself in some way: not at all Total score: 0 Depression Screening Interpretation: Negative Depression Screening Done: Yes Source: Developed by Drs. Karan Davidson, Crista Nguyen, Sunday Ashley and colleagues, with an educational sukhi from [employer]. Thrive Questionnaire Date Thrive assessed: 12/29/24 I am a: Patient What is your living situation today?: I have a steady place to live Within the past 12 months, did the food you bought not last and you didn't have the money to get more?: Never true Within the past 12 months, did you worry whether your food would run out before you got money to buy more?: Never true Do you have trouble paying for medicines?: No Do you have trouble getting transportation to medical appointments?: No Do you have trouble paying your heating and electricity bill?: No Do you have trouble taking care of your child, family member or friend?: No Do you have trouble with day-to-day activities such as bathing, preparing meals, shopping, managing finances, etc.?: No Are you currently unemployed and looking for a job?: No Are you interested in more education?: No Please select the resources that you would like help with: None Currently or been in a relationship where the following occur: No concerns reported THRIVE Score: 0 AUDIT C Alcohol Use Questionnaire (AUDIT-C) 1. How often do you have a drink containing alcohol?: Never Total Score: 0 AYAN-7 AMB Questionnaire AYAN-7 Date AYAN - 7 assessed: 12/29/24 Feeling nervous, anxious, or on edge: 0 = Not at all Not being able to stop or control worryin = Not at all Worrying too much about different things: 0 = Not at all Trouble relaxin = Not at all Being so restless that it is hard to sit still: 0 = Not at all Becoming easily annoyed or irritable: 0 = Not at all Feeling afraid as if something awful might happen: 0 = Not at all Total AYAN-7 score (0-4 normal; 5-9 mild; 10-14 moderate; 15-21 severe): 0 Source: Developed by Drs. Karan Davidson, Crista Nguyen, Sunday Ashley and colleagues, with an educational sukhi from [employer]. Physical exam (Primary Care) Vital Signs: Last Vital Signs Temp 97.1 F 12/29/24 08:43 Pulse 96 12/29/24 08:43 BP 122/68 12/29/24 08:43 Pulse Ox 97 12/29/24 08:43 Oxygen Delivery Method Room Air 12/29/24 08:43 BMI result Body Mass Index 39.9 Tobacco/Smoking Status: Tobacco use Status Tobacco use date assessed 12/29/24 12/29/24 08:53 Patient Tobacco Use Status Never used Tobacco 12/29/24 08:53 Tobacco use type Cigarette 12/29/24 08:53 e-Cigarette/Vaping Use Never Used 12/29/24 08:53 PHQ-9: PHQ-9 Score PHQ-9: Total score 0 12/29/24 09:19 Depression Screening Interpretation: Negative Thrive Assessment: Date of Thrive Assessment Date Thrive assessed 12/29/24 12/29/24 08:53 Currently or been in a relationship where the following occur: No concerns reported Const General: alert; No acute distress Eyes Conjunctivae: conjunctivae normal Resp Auscultation: clear to auscultation bilaterally Cardio Rate: regular rate Rhythm: regular rhythm GI Inspection: Yes normal to inspection Extrem General: Yes normal to inspection and No edema Results AMB Hemoglobin A1c AMB Hemoglobin A1c 7.7 % Last Edit by ROSA Bustamante on 12/29/24 09:05 Results Reviewed Results Reviewed: Laboratory Last Values Hgb A1c (Clinic) 7.7 % (4.0-6.0) H 12/29/24 08:41 Coding Level of Care Code Est Pt Level 4 (81709) Complex EM visit Add On G2211 Diagnoses Type 2 diabetes mellitus with hyperglycemia, without long-term current use of insulin E11.65 Diabetes mellitus senior living insulin use: without senior living use Hypercholesterolemia E78.00 Essential hypertension I10 Atherosclerotic cardiovascular disease I25.10 Persistent atrial fibrillation I48.19 Class 2 severe obesity due to excess calories with serious comorbidity and body mass index (BMI) of 36.0 to 36.9 in adult E66.01; Z68.36 Body mass index: BMI 36.0-36.9 Obesity classification: adult class 2 (BMI 35 - 39.9) Obesity type: due to excess calories Serious obesity comorbidity presence: with serious comorbidity BPH w urinary obs/LUTS N40.1; N13.8 Assessment & Plan Assessment & Plan (1) Type 2 diabetes mellitus with hyperglycemia: Comment: EYE Dr. ARMANDO (2021) [place] now Code(s): E11.65 - Type 2 diabetes mellitus with hyperglycemia Category: Medical Qualifiers: Diabetes mellitus parts counterman insulin use: without senior living use Qualified Code(s): E11.65 - Type 2 diabetes mellitus with hyperglycemia Plan: Decrease the amount of carbohydrate intake, pasta, bread, rice and potatoes are all sugar and that is aside from all the sweet stuff, remember that fruits are good but they are Sweet also. Hemoglobin A1c goal of less than 7.0 patient is on glipizide metformin Januvia. (2) Hypercholesterolemia: Code(s): E78.00 - Pure hypercholesterolemia, unspecified Category: Medical Plan: Avoid fried foods, chicken skin, eggs, butter margarine, pastries and meat. Be it pork or beef they have a lot of cholesterol 09/23/2024 last blood work at goal with pravastatin (3) Essential hypertension: Code(s): I10 - Essential (primary) hypertension Category: Medical Plan: Continue with blood pressure medication. Decrease salt intake and exercise on metoprolol isosorbide mononitrate clonidine amlodipine. And spironolactone (4) Atherosclerotic cardiovascular disease: Code(s): I25.10 - Atherosclerotic heart disease of [place] coronary artery without angina pectoris Category: Medical Plan: Control the cholesterol, weight, blood pressure, diabetes on anticoagulation. (5) Persistent atrial fibrillation: Code(s): I48.19 - Other persistent atrial fibrillation Category: Medical Plan: Continue with beta genoveva and anticoagulation (6) Obesity: Code(s): E66.9 - Obesity, unspecified Category: Medical Qualifiers: Body mass index: BMI 36.0-36.9 Obesity classification: adult class 2 (BMI 35 - 39.9) Obesity type: due to excess calories Serious obesity comorbidity presence: with serious comorbidity Qualified Code(s): E66.01 - Morbid (severe) obesity due to excess calories; Z68.36 - Body mass index [BMI] 36.0-36.9, adult Plan: Diet and exercise (7) BPH w urinary obs/LUTS: Code(s): N40.1 - Benign prostatic hyperplasia with lower urinary tract symptoms; N13.8 - Other obstructive and reflux uropathy Category: Medical Plan History of Present Illness The patient is a 74-year-old male presenting with a medical history that includes atrial fibrillation managed with anticoagulation therapy, coronary artery disease with noted 70% stenosis in the right coronary artery, essential hypertension, chronic kidney disease, and hypercholesterolemia managed with pravastatin. Despite CPAP intolerance, obstructive sleep apnea is part of the patient's chronic conditions. The patient also has benign prostatic hyperplasia and presents with symptoms of urinary frequency, particularly nocturia. There is a history of uncontrolled diabetes mellitus with a noted hemoglobin A1c of 7.7, which has been challenging to manage with current medications, including glipizide, metformin, and Januvia. Diabetes management discussions highlighted challenges with previous medication (Jardiance) causing side effects. Congestive heart failure is monitored, in context with the patient's cardiovascular profile. The patient has also been noted to have a history of a left kidney stone and desires further management for recurrent issues with nocturia at night. Diagnostic testing for prior issues included a blood workup with LDL goals achieved and regular monitoring of kidney function. Recent concerns include a worsening glycemic control attributed in part to dietary and lifestyle factors, with patient acknowledgment of dietary indulgence during the holidays impacting health. Plan - For Atrial Fibrillation and Coronary Artery Disease: Continue current anticoagulation therapy. Monitor for any exacerbation of symptoms and adjust treatment as necessary. - Control Hypertension: Continue current antihypertensive therapy with medications including metoprolol, isosorbide mononitrate, clonidine, amlodipine, and spironolactone. Regular monitoring of blood pressure. - Monitor Kidney Function: Routine annual check on kidney function and electrolytes to be maintained, next scheduled evaluation required. - Manage Hypercholesterolemia: Continue pravastatin therapy with current goals achieved. Regular lipid profile checks recommended to ensure continued management. - Obstructive Sleep Apnea: Patient displays intolerance to CPAP; continue exploring alternatives, which may include lifestyle modifications. - Address Diabetes Mellitus: Initiate once-weekly injection SGLT2 inhibitor) pending insurance approval to enhance glycemic control. Monitor response and adjust dosage as per patient tolerance and compliance, removing Januvia upon starting the injectable. - Benign Prostatic Hyperplasia: Evaluated with urology for altered management, especially for nocturia symptoms. - Congestive Heart Failure: Adjustments to diuretics as needed, considering overall fluid balance and patient-specific factors. - History of Kidney Stones: Follow up with urology for consideration of imaging studies like CT scan to evaluate for possible intervention strategies like lithotripsy. - Shortness of Breath: Continue using metoprolol for heart rate management with monitoring and follow-up on symptoms potentially associated with atrial fibrillation or heart failure. Further evaluation if persistent. - Discussed lifestyle interventions, including dietary modifications to manage diabetes and cardiovascular risk factors, emphasized increased physical activity where possible. Patient was informed and verbally consented to the use of an ambient scribe for clinic note documentation during this visit. Orders: Orders B Type Natriuretic Peptide 3 Months E11.65 - Type 2 diabetes mellitus with hyperglycemia AMB Hemoglobin A1c Today E11.65 - Type 2 diabetes mellitus with hyperglycemia Comprehensive Met. Panel 3 Months E11.65 - Type 2 diabetes mellitus with hyperglycemia Complete Blood Count Auto Diff 3 Months E11.65 - Type 2 diabetes mellitus with hyperglycemia Hemoglobin A1c 3 Months E11.65 - Type 2 diabetes mellitus with hyperglycemia Medications: New tirzepatide (Mounjaro) for 4 weeks 2.5 mg (0.5 mL) subcut QWEEK 2 mL 2RF E11.65 - Type 2 diabetes mellitus with hyperglycemia Discontinued sitagliptin phosphate (Januvia) Discontinued Reason: Doctor's Order 100 mg PO DAILY 30 tabs 2RF E11.65 - Type 2 diabetes mellitus with hyperglycemia
[2024-12-29 08:43] VITALS: BP 122/68; PULSE 96; TEMP 36.2; O2SAT 97; BMI 39.9
--- OUTSIDE RECORDS SUMMARY | 2024-12-29 09:01 | XMS_ITS | Patient Health Record ---
Author Organization [facility] Address [address] [place] [address] Care Team Providers Care Shake Cutter Name Role Phone Victor M Allan Primary Care Provider UnavailNat Adkins Unavailable [phone] Reed Mccabe Unavailable [phone] Carlos Irwin Unavailable [phone] Allergies Allergen (clinical drug ingredient) Drug/Non Drug Allergy documented on EMR Reaction Allergy Type Onset Date Status empagliflozin Jardiance Bad reaction Drug Allergy Active nifedipine Nifedipine constipation Drug Allergy Ac tive warfarin Warfarin sweats Drug Allergy Active Results Component Value Reference Range Notes HEMOGLOBIN A1C (GLYCOHEMOGLO BIN) Reviewed date:01/03/2024 08:27:55 AM Interpretation: Performing Lab: Notes/Report: HEMOGLOBIN A1C % (HH) 7.4 HEMOGLOBIN A1C (GLYCOHEMOGLO BIN) Reviewed date:06/26/2024 08:26:18 AM Interpretation: Performing Lab: Notes/Report: HEMOGLOBIN A1C % (HH) 7.5 HEMOGLOBIN A1C (GLYCOHEMOGLO BIN) Reviewed date:09/18/2024 01:11:20 PM Interpretation: Performing Lab: Notes/Report: TOTAL HEMOGLOBIN (HGBA1C) 7.2 HEMOGLOBIN A1C (GLYCOHEMOGLO BIN) Reviewed date:12/10/2024 09:28:36 AM Interpretation: Performing Lab: Notes/Report: HEMOGLOBIN A1C % (HH) 7.2 Reason For Referral No Information Medications Medication SIG (Take, Route, Frequency, Duration) Notes Start Date End Date Status ALPRAZolam 0.25 MG 1 tablet Orally Twic e a day Active Pravastatin Sodium 40 MG 1 tablet Orally Once a day for 30 day(s) Active amLODIPine Besylate 10 MG 1 tablet Orall y Once a day for 30 day(s) Active Spironolactone 25 MG 1 tablet Orally for 30 day(s) Active cloNIDine HCl 0.1 MG 1 tablet Orally Onc e a day for 30 day(s) Active Tamsulosin HCl 0.4 MG as directed Orally Active Nitroglycerin 0.4 MG as directed Sublingual Active Omeprazole 20 MG 1 capsule 30 minutes before morning meal Orally Once a day for 30 day(s) Active Lisinopril 40 MG 1 tablet Orally Once a day for 30 day(s) Active metFORMIN HCl 850 MG 1 tablet with a jose l Orally Once a day for 30 day(s) Active Isosorbide Mononitrate 60 MG 1 tablet in the morning Orally Once a day for 30 day(s) Active Xarelto 20 MG 1 tablet with food Orally Once a day for 30 day(s) Active Januvia 100 MG 1 tablet Orally Once a day Active Gabapentin 300 MG 1 capsule Orally Onc e a day for 30 day(s) Active Tylenol Active glipiZIDE 5 MG 2 tablets Orally twi ce daily Active Voltaren 1 % as directed Externally Active Social History Tobacco Use: Social History Observation Description Date Details (start date - stop date) Never Smoker NA - NA Tobacco use other than smoking: Question Answer Notes Are you an other tobacco user? No Tobacco Control (Standard) Question Answer Notes Tobacco use: Nonsmoker Additional Findings: Tobacco non-user Current no nsmoker AUDIT-C (Standard) Question Answer Notes Did you have a drink containing alcohol in the p ast year? No Points 0 Interpretation Negative Problems Problem Type SNOMED Code ICD Code Onset Dates Problem Status W/U Status Risk Notes Problem Acquired hammer toe of right foot (2703801674322684 ) Other hammer toe(s) (acquired), right foot (M20.41) Active confirmed Problem Acquired hammer toe of left foot ([id number] ) Other hammer toe(s) (acquired), left foot (M20.42) Active confirmed Problem Polyneuropathy due to type 2 diabetes mellitus (383795492) Type 2 diabetes mellitus with diabetic polyneuropathy (E11.42) Active confirmed Vital Signs Blood pressure diastolic 80 mm Hg 12/10/2024 Height 5ft8in in 12/10/2024 Blood pressure systolic 140 mm Hg 12/10/2024 Weight 262 lbs 12/10/2024 BMI 39.83 kg/m2 12/10/2024 Procedures Procedure Date Ordered Date Performed Result Body Sit e 02587-DSQF SKIN LESIONS, 2 TO 4 01/03/2024 N/A 76738-FBIC SKIN LESIONS, 2 TO 4 04/03/2024 N/A 23841-EJTUQPF NAIL, 6 OR MORE 09/18/2024 N/A 28338-YLNL SKIN LESIONS, 2 TO 4 09/18/2024 N/A 92603-YDFDTDG NAIL, 6 OR MORE 12/10/2024 N/A 07061-HIIM SKIN LESIONS, 2 TO 4 12/10/2024 N/A Encounters Encounter Location Date Provider Diagnosis [address] [address] 01/03/2024 Reed Mccabe Type 2 diabetes mellitus with diabetic polyneuropathy E11.42 ; Pain in right toe(s) M79.674 ; Tinea unguium B35.1 ; Pain in left toe(s) M79.675 ; Metatarsalgia, left foot M77.42 and Primary osteoarthritis, left ankle and foot M19.[address] [address] 04/03/2024 Reed Mccabe Type 2 diabetes mellitus with diabetic polyneuropathy E11.42 ; Pain in right toe(s) M79.674 ; Pain in left toe(s) M79.675 ; Tinea unguium B35.1 ; Metatarsalgia, left foot M77.42 and Primary osteoarthritis, left ankle and foot M19.[address] [address] 06/26/2024 Reed Mccabe Type 2 diabetes mellitus with diabetic polyneuropathy E11.42 ; Pain in right toe(s) M79.674 ; Pain in left toe(s) M79.675 ; Tinea unguium B35.1 ; Metatarsalgia, left foot M77.42 and Primary osteoarthritis, left ankle and foot M19.[address] [address] 09/18/2024 Nat Beard Type 2 diabetes mellitus with diabetic polyneuropathy E11.42 and Tinea unguium B35.1 [facility] [place] [address] [address] 12/10/2024 Carlos Irwin Type 2 diabetes mellitus with diabetic polyneuropathy E11.42 ; Tinea unguium B35.1 ; Other hammer toe(s) (acquired), right foot M20.41 and Other hammer toe(s) (acquired), left foot M20.42 Assessments Encounter Date Diagnosis (ICD Code) Assessment Notes Treatment Notes Treatment Clinical Notes Section Notes 01/03/2024 Type 2 diabetes mellitus with diabetic polyneuropathy (ICD-10 - E11.42) Patient Educated with: DIABETIC FOOT CARE INSTRUCTIONS. pdf (DIABETIC FOOT CARE INSTRUCTIONS. pdf) 04/03/2024 Type 2 diabetes mellitus with diabetic polyneuropathy (ICD-10 - E11.42) 06/26/2024 Type 2 diabetes mellitus with diabetic polyneuropathy (ICD-10 - E11.42) 09/18/2024 Type 2 diabetes mellitus with diabetic polyneuropathy (ICD-10 - E11.42) 09/18/2024 Tinea unguium (ICD-10 - B35.1) 12/10/2024 Type 2 diabetes mellitus with diabetic polyneuropathy (ICD-10 - E11.42) 12/10/2024 Tinea unguium (ICD-10 - B35.1) 12/10/2024 Other hammer toe(s) (acquired), right foot (ICD-10 - M20.41) Patient Educated with: DIABETIC FOOT CARE INSTRUCTIONS. pdf (DIABETIC FOOT CARE INSTRUCTIONS. pdf) 06/26/2024 Pain in right toe(s) (ICD-10 - M79.674) 04/03/2024 Pain in right toe(s) (ICD-10 - M79.674) 01/03/2024 Pain in right toe(s) (ICD-10 - M79.674) 01/03/2024 Pain in left toe(s) (ICD-10 - M79.675) 01/03/2024 Tinea unguium (ICD-10 - B35.1) 04/03/2024 Pain in left toe(s) (ICD-10 - M79.675) 04/03/2024 Tinea unguium (ICD-10 - B35.1) 06/26/2024 Pain in left toe(s) (ICD-10 - M79.675) 12/10/2024 Other hammer toe(s) (acquired), left foot (ICD-10 - M20.42) 06/26/2024 Tinea unguium (ICD-10 - B35.1) 01/03/2024 Metatarsalgia, left foot (ICD-10 - M77.42) 04/03/2024 Metatarsalgia, left foot (ICD-10 - M77.42) 06/26/2024 Metatarsalgia, left foot (ICD-10 - M77.42) 01/03/2024 Primary osteoarthritis, left ankle and foot (ICD-10 - M19.072) 04/03/2024 Primary osteoarthritis, left ankle and foot (ICD-10 - M19.072) 06/26/2024 Primary osteoarthritis, left ankle and foot (ICD-10 - M19.072) Plan Of Treatment Pending Test Test Name Order Date X ray : Foot, left 3V 01/03/2024 52155-[id number] NAIL, 6 OR MORE 09/18/2024 55374-XSWNXVZ NAIL, 6 OR MORE 12/10/2024 03170-UAYX SKIN LESIONS, 2 TO 4 12/10/19 25 69898-SIDO SKIN LESIONS, 2 TO 4 09/18/20 24 65922-SILV SKIN LESIONS, 2 TO 4 01/03/20 24 56871-CDSC SKIN LESIONS, 2 TO 4 04/03/20 24 Next Appt Details Provider Name:Nat Nova cat, 03/19/2025 09:15:00 AM, [address], [address], [place], [address], Insurance Providers Payer Name Payer Address Payer Phone Subscriber Number Group Number Insured Name Patient Relationship to Insured Coverage Start Date Coverage End Date Medicare [facility] [address] [place] [address] [id number] Pipo Springer Self - patient is the insured [employer] [address] [place] [address] [phone] [id number] Pipo Springer Self - patient is the insured Medical (General) History Medical History History ICD Code Arthritis Back,Hip,and Knee pain covid-19 Diabetic Headaches/Migraines Heart disease High blood pressure Kidney disease Psoriasis/eczema Reflux Surgical History Surgery Date(Month/Year) back surgery 1984
--- OUTSIDE RECORDS SUMMARY | 2024-12-29 09:01 | XMS_ITS | Clinical Summary ---
Author Organization [facility] Address [address] [facility] [address] [place] [address] Phone Care Team Providers Care Direct Marketing Manager Name Role Phone Victor M Allan MD Primary Care Provider Allergies Active Allergy Reactions Criticality Noted Date Comments Nifedipine 09/25/2023 Warfarin 09/25/2023 Medications ALPRAZolam (XANAX) 0.25 MG tablet Take 1 tablet by mouth every night Active cloNIDine (CATAPRES) 0.1 MG tablet Take 1 tablet by mouth in the morning and 1 tablet in the evening. Active isosorbide mononitrate (IMDUR) 30 MG 24 hr tablet Take 60 mg by mouth 1 (one) time each day Active metFORMIN (GLUCOPHAGE) 850 MG tablet Take 1 tablet by mouth 1 (one) time each day Active pravastatin (PRAVACHOL) 40 MG tablet Take 1 tablet by mouth 1 (one) time each day Active spironolactone (ALDACTONE) 25 MG tablet Take 1 tablet by mouth 1 (one) time each day 8 Active rivaroxaban (Xarelto) 20 MG tablet Take 20 mg by mouth 1 (one) time each day with dinner Active metoprolol succinate XL (TOPROL-XL) 100 MG 24 hr tablet Take 150 mg by mouth 1 (one) time each day Take 50 mg in am, and 100 mg qhs Active cloNIDine (Catapres) 0.1 MG tablet Take 1 tablet (0.1 mg total) by mouth in the morning and 1 tablet (0.1 mg total) in the evening. 60 tablet 11 3 Active glipiZIDE (GLUCOTROL XL) 5 MG 24 hr tablet Take 5 mg by mouth 1 (one) time each day Do not crush, chew, or split. Active benzonatate (TESSALON) 100 MG capsule Take 100 mg by mouth 3 (three) times a day if needed for cough Do not crush or chew. Active tamsulosin (FLOMAX) 0.4 MG 24 hr capsule Take 0.4 mg by mouth 1 (one) time each day Active nitroglycerin (Nitrostat) 0.[address] 0.4 mg under the tongue every 5 (five) minutes if needed for chest pain Active gabapentin (NEURONTIN) 300 MG capsule Take 300 mg by mouth in the morning and 300 mg in the evening and 300 mg before bedtime. Active amLODIPine (NORVASC) 10 MG tablet Take 10 mg by mouth 1 (one) time each day Active omeprazole OTC (PriLOSEC OTC) 20 MG EC tablet Take 20 mg by mouth 1 (one) time each day Do not crush, chew, or split. Active ketoconazole (NIZORAL) 2 % shampoo Apply topically 2 (two) times a week Apply to damp skin, lather, leave on 5 minutes, and rinse Active fluocinonide (LIDEX) 0.05 % cream Apply topically 2 (two) times a day Active clobetasol (TEMOVATE) 0.05 % cream Apply topically 2 (two) times a day Active capsaicin (ZOSTRIX) 0.025 % cream Apply topically 2 (two) times a day Active Diclofenac Sodium 1 % gel Apply topically Active betamethasone valerate (VALISONE) 0.1 % lotion Apply topically 2 (two) times a day Active imipramine (TOFRANIL) 25 MG tablet Take 25 mg by mouth every night Active acetaminophen (TYLENOL 8 HOUR) 650 MG 8 hr tablet Take 650 mg by mouth every 8 (eight) hours if needed for mild pain Do not crush, chew, or split. Active topiramate (TOPAMAX) 25 MG tablet Take 25 mg by mouth in the morning and 25 mg in the evening. Active lisinopril 40 MG tablet Take 40 mg by mouth 1 (one) time each day Active Januvia 100 MG tablet Take 100 mg by mouth 1 (one) time each day Active Cholecalciferol (Vitamin D3) 50 MCG (2000 UT) tabletIndication s:Vitamin D deficiency, not otherwise specified Take 2,000 Units by mouth 1 (one) time each day 90 tablet 3 4 06/02/20 25 Active Active Problems Problem Noted Date Diagnosed Date Obstructive sleep apnea of adult 09/24/2023 09/24/2023 Essential hypertension 09/24/2023 3 Morbid obesity 09/24/2023 09/24/2023 Type 2 diabetes mellitus 09/24/2023 023 Family History Medical History Relation Comments Diabetes Mother Stroke Mother Relation Status Comments Father Mother Social History Tobacco Use Types Packs/Day Years Used Date Smoking Tobacco: Never Smokeless Tobacco: Never Tobacco Cessation:Counseling Given: Not Answered Alcohol Use Standard Drinks/Week Comments No 0 (1 standard drink = 0.6 oz pur e alcohol) Sex and Gender Information Value Date Recorded Sex Assigned at Not on file Legal Sex Male 4:42 PM EST Gender Identity Not on file Sexual Orientation Not on file Last Filed Vital Signs Vital Sign Reading Time Taken Comments Blood Pressure 102/70 06/02/2024 9:36 AM EDT Pulse 51 06/02/2024 9:36 AM EDT Temperature - - Respiratory Rate - - Oxygen Saturation 97% 12/03/2023 10:03 AM EST Inhaled Oxygen Concentration - - Weight 129 kg (285 lb) 06/02/2024 9:36 AM EDT Height 172.7 cm (5' 8 ) 09/25/2023 2:36 PM EST Body Mass Index 43.33 09/25/2023 2:36 PM EST Plan of Treatment Upcoming Encounters Date Type Department Care Team (Late st Contact Info) Description 01/04/2025 9:30 AM EST Office Visit [facility] [address] [phone] Monica Canela ARNP [address] [phone] Health Maintenance Due Date Last Done Comments Pneumococcal Vaccine: 65+ Ye ars (1 of 2 - PCV) 1958 Colorectal Cancer Screening: Annual FOBT 2001 Colorectal Cancer Screening: Colonoscopy 2001 Colorectal Cancer Screening: Sigmoidoscopy 2001 Diabetes: Hemoglobin A1C 12/04/2020 Diabetes: Ophthalmology Exam 12/04/2020 Diabetes: Pedal Pulse Checked 12/04/2020 Diabetes: Sensory Foot Exam 12/04/2020 Diabetes: Visual Foot Exam 12/04/2020 Influenza Vaccine (#1) 2024 Hepatitis B Vaccine Aged Out No longe r eligible based on patient's age to complete this topic Insurance MEDICARE [facility] MEDICARE [facility] Care Teams Direct Marketing Manager Relationship Specialty Start Date End Date Victor M Allan MD [address] [place], [place] PCP - General 11/14/20
--- OUTSIDE RECORDS SUMMARY | 2024-12-29 09:02 | XMS_ITS | Clinical Summary ---
Author Organization [employer] Address [address] [facility] [address] [place] [address] Care Team Providers Care Paid Search Marketing Strategist Name Role Phone Unavailable Primary Care Provider Unavailabl e Allergies Active Allergy Reactions Criticality Noted Date Comments Empagliflozin Unknown 07/31/2024 Nifedipine 09/25/2023 Other Reaction(s): constipation Warfarin 09/25/2023 Other Reaction(s): sweats Medications amLODIPine (Norvasc) 10 MG tablet Take 10 mg by mouth Once per day. Active ALPRAZolam (Xanax) 0.25 MG tablet Take 1 tablet by mouth at bedtime. Active benzonatate (Tessalon) 100 MG capsule Take 100 mg by mouth if needed in the morning, at noon, and at bedtime. Active betamethasone valerate (Valisone) 0.1 % lotion Apply topically 2 times daily. Active lisinopril 40 MG tablet 40 mg in the morning. Active metFORMIN (Glucophage) 1000 MG tablet Take 1,000 mg by mouth 2 times daily. Active cloNIDine (Catapres) 0.1 MG tablet 1 tablet in the morning. Active gabapentin (Neurontin) 300 MG capsule Take 300 mg by mouth 3 times daily. Active glipiZIDE (Glucotrol) 5 MG tablet 5 mg. Active metoprolol succinate XL (Toprol-XL) 100 MG 24 hr tablet Take 150 mg by mouth Once per day. Active omeprazole (PriLOSEC) [address] capsule 20 mg in the morning. Active pravastatin (Pravachol) 40 MG tablet Take 1 tablet by mouth Once per day. Active SITagliptin (Januvia) 100 MG tablet Take 100 mg by mouth Once per day. Active rivaroxaban (Xarelto) 20 MG tablet Take 20 mg by mouth with evening meal. Active acetaminophen (Tylenol 8 Hour) 650 MG ER tablet Take 650 mg by mouth every 8 (eight) hours if needed. Active cephalexin (Keflex) 500 MG capsule Take 500 mg by mouth 2 times daily. 4 Active cholecalciferol (Vitamin D-3) 50 MCG (2000 UT) tablet Take 2,000 Units by mouth Once per day. 4 06/02/20 25 Active Diclofenac Sodium 1 % gel Apply topically. Active OneTouch Ultra Test test strip USE 1 STRIP TO CHECK GLUCOSE ONCE DAILY DIRECTED Active imipramine (Tofranil) 25 MG tablet Take 25 mg by mouth at bedtime. Active isosorbide mononitrate ER (Imdur) 60 MG 24 hr tablet Take 60 mg by mouth in the morning. Active ketoconazole (NIZOral) 2 % shampoo Apply topically 2 (two) times a week. Active nitroglycerin (Nitrostat) 0.4 MG SL tablet DISSOLVE 1 TABLET UNDER THE TONGUE EVERY 5 MINUTES NEEDED FOR CHEST PAIN. DO NOT EXCEED A TOTAL OF 3 DOSES IN 15 MINUTES. Active Sod Fluoride-Potassi um Nitrate 1.1-5 % pasteIndications :Dental caries [place] teeth for 2 minutes, morning and night. Spit, do not rinse. Do not eat or drink anything for 30 minutes following brushing. 112 g 3 4 Active Active Problems Problem Noted Date Diagnosed Date Apnea, sleep 10/06/2024 Chronic low back pain 10/06/2024 Hypercholesterolemia 10/06/2024 Osteoarthritis (arthritis due to wear and tear o f joints) 10/06/2024 Polyneuropathy due to type 1 diabetes mellitus 1 12/07/2023 Essential hypertension 09/24/2023 Morbid obesity 09/24/2023 Obstructive sleep apnea of adult 09/24/2023 Type 2 diabetes mellitus 09/24/2023 Pancreatic cyst 04/28/2012 Encounters Date Type Department Care Team Description 11/06/2024 9:30 AM EST Office Visit [facility] [address] [place] [address] Hayder Velasquez DMD Secondary dental caries associated with failed or defective dental rastafari (Primary Dx) 11/03/2024 10:00 AM EST Office Visit [facility] [address] [place] [address] Ron Hayder, ALVARADO Fractured dental rastafari with loss of material (Primary Dx) 10/30/2024 2:00 PM EST Office Visit [facility] [address] [place] [address] Ron Hayder, DMD Secondary dental caries associated with failed or defective dental rastafari (Primary Dx) 10/06/2024 10:30 AM EST Office Visit [facility] [address] [place] [address] Ron Hayder, DMD Secondary dental caries associated with failed or defective dental rastafari (Primary Dx); Full coverage crown needed for tooth at risk for fracture; Tooth sensitivity from Last 3 Months Social History Tobacco Use Types Packs/Day Years Used Date Smoking Tobacco: Never Smokeless Tobacco: Never Tobacco Cessation:Counseling Given: Not Answered Alcohol Use Standard Drinks/Week Comments Not Currently 0 (1 standard drink = 0.6 oz pur e alcohol) Sex and Gender Information Value Date Recorded Sex Assigned at Male 09/03/2022 10:18 AM EDT Legal Sex Male 10:18 AM EDT Gender Identity Male 01/10/2024 2:06 PM EST Sexual Orientation Straight 01/10/2024 2: 06 PM EST Last Filed Vital Signs Vital Sign Reading Time Taken Comments Blood Pressure 128/62 11/06/2024 9:32 AM EST Pulse 60 08/03/2024 9:12 AM EDT Temperature - - Respiratory Rate - - Oxygen Saturation - - Inhaled Oxygen Concentration - - Weight - - Height - - Body Mass Index - - Plan of Treatment Health Maintenance Due Date Last Done Comments CT Colonography 1952 Colonoscopy 1952 Colorectal Cancer Screening 1952 Depression Screening 1952 Diabetes: Hemoglobin A1C 1952 FIT DNA/Cologuard 1952 FIT 1952 FOBT 1952 Lipid Panel 1952 SDOH Screening 1952 Sigmoidoscopy 1952 Diabetes: Foot Exam 1962 Eye Exam 1962 Alcohol/Substance Use Screening 1964 Hepatitis C Screening 1970 Diabetes: Urine Protein Screening 1971 Zoster Vaccines (1 of 2) 2002 COVID-19 Vaccine (3 - season) 2024 03/20/2021, 02/20/2021 DTaP/Tdap/Td Vaccines (1 - Tdap) 09/10/2024 09/09/2024 Dental Oral Exam 02/01/2025 08/03/2024, 05/2017, 05/25/2016, Additional history exists Dental Prophylaxis 02/01/2025 08/03/2024, 0 12/04/2016, 05/16/2016, Additional history exists Dental X-Ray: Bitewings 08/04/2025 08/03/20 24, 01/08/2017, 05/16/2016, Additional history exists Tobacco Screening 11/06/2025 11/06/2024 RSV Patients and Patients Aged 60 years or older (1 - 1-dose 75+ series) 2027 Dental X-Ray: Full Mouth 08/04/2027 08/03/2024, 12/06 Pneumococcal Vaccine: 50+ Years Completed 08/07/2021, 10/17/2018, 09/16/2016 Influenza Vaccine Completed 09/07/2024, , 08/27/2022, Additional history exists HIB Vaccines Aged Out No longer eligi ble based on patient's age to complete this topic HPV Vaccines Aged Out No longer eligi ble based on patient's age to complete this topic Hepatitis A Vaccines Aged Out No long er eligible based on patient's age to complete this topic Hepatitis B Vaccines Aged Out No long er eligible based on patient's age to complete this topic IPV Vaccines Aged Out No longer eligi ble based on patient's age to complete this topic Meningococcal Vaccine Aged Out No richi serenity eligible based on patient's age to complete this topic RSV under 20 months Aged Out No longe r eligible based on patient's age to complete this topic Rotavirus Vaccines Aged Out No longer eligible based on patient's age to complete this topic Procedures Procedure Name Priority Date/Time Associated Diagnosis Comments CASE PRESENTATION, DETAILED AND EXTENSIVE TREATMENT PLANNING Routine 11/06/2024 9:30 AM EST Secondary dental caries associated with failed or defective dental rastafari 9 CA RESIN-BASED COMPOSITE - 2 SURF, ANTERIOR Routine 11/06/2024 9:30 AM EST Secondary dental caries associated with failed or defective dental rastafari CASE PRESENTATION, DETAILED AND EXTENSIVE TREATMENT PLANNING Routine 11/03/2024 10:00 AM EST Fractured dental rastafari with loss of material LIMITED ORAL EVALUATION - PROBLEM FOCUSED Routine 11/03/2024 10:00 AM EST Fractured dental rastafari with loss of material 14 DOLL(V) RESIN-BASED COMPOSITE - 3 SURF, POSTERIOR Routine 10/30/2024 2:00 PM EST Secondary dental caries associated with failed or defective dental rastafari CASE PRESENTATION, DETAILED AND EXTENSIVE TREATMENT PLANNING Routine 10/30/2024 2:00 PM EST Secondary dental caries associated with failed or defective dental rastafari LIMITED ORAL EVALUATION - PROBLEM FOCUSED Routine 10/06/2024 10:30 AM EST Secondary dental caries associated with failed or defective dental rastafari Full coverage crown needed for tooth at risk for fracture Tooth sensitivity CASE PRESENTATION, DETAILED AND EXTENSIVE TREATMENT PLANNING Routine 10/06/2024 10:30 AM EST Secondary dental caries associated with failed or defective dental rastafari Full coverage crown needed for tooth at risk for fracture Tooth sensitivity 3 CORE BUILDUP, INCL ANY PINS WHEN REQ Routine 10/06/2024 10:30 AM EST Secondary dental caries associated with failed or defective dental rastafari Full coverage crown needed for tooth at risk for fracture Tooth sensitivity PROPHYLAXIS - ADULT Routine 08/03/2024 9 :00 AM EDT Dental calculus Dental caries Defective dental rastafari with open interproximal contact INTRAORAL - COMPLETE SERIES OF RADIOGRAPHIC IMAGES Routine 08/03/2024 9:00 AM EDT Dental calculus Dental caries Defective dental rastafari with open interproximal contact PERIODIC ORAL EVALUATION - ESTABLISHED PATIENT Routine 08/03/2024 9:00 AM EDT Dental calculus Dental caries Defective dental rastafari with open interproximal contact from Last 3 Months or Most Recently Relevant to Health Maintenance Insurance DENTAL - [facility] FULL (MEDICAID)
--- OUTSIDE RECORDS SUMMARY | 2024-12-29 09:02 | XMS_ITS ---
Author Organization [facility] Address [address] [place] [place] [address] Care Team Providers Care Telephone Mechanic Name Role Phone Victor M Allan Primary Care Provider Nat Diehl [phone] Allergies Allergen (clinical drug ingredient) Drug/Non Drug Allergy documented on EMR Reaction Allergy Type Onset Date Status empagliflozin Jardiance Bad reaction Drug Allergy Active nifedipine Nifedipine constipation Drug Allergy Ac tive warfarin Warfarin sweats Drug Allergy Active REASON FOR VISIT Pcp-09/07/24, At Risk Footcare Medications Medication SIG (Take, Route, Frequency, Duration) Notes Start Date End Date Status Spironolactone 25 MG 1 tablet Orally for 30 day(s) Active Pravastatin Sodium 40 MG 1 tablet Orally Once a day for 30 day(s) Active Tylenol Active Tamsulosin HCl 0.4 MG as directed Orally Active Voltaren 1 % as directed Externally Active Lisinopril 40 MG 1 tablet Orally Once a day for 30 day(s) Active Januvia 100 MG 1 tablet Orally Once a day Active metFORMIN HCl 850 MG 1 tablet with a jose l Orally Once a day for 30 day(s) Active Omeprazole 20 MG 1 capsule 30 minutes before morning meal Orally Once a day for 30 day(s) Active Nitroglycerin 0.4 MG as directed Sublingual Active amLODIPine Besylate 10 MG 1 tablet Orall y Once a day for 30 day(s) Active Gabapentin 300 MG 1 capsule Orally Onc e a day for 30 day(s) Active cloNIDine HCl 0.1 MG 1 tablet Orally Onc e a day for 30 day(s) Active Isosorbide Mononitrate 60 MG 1 tablet in the morning Orally Once a day for 30 day(s) Active glipiZIDE 5 MG 2 tablets Orally twi ce daily Active ALPRAZolam 0.25 MG 1 tablet Orally Twic e a day Active Xarelto 20 MG 1 tablet with food Orally Once a day for 30 day(s) Active Extra Depth Diabetic Shoes with 3 Pair Custom heat-molded multi-density innersoles for 1 year Dx: 01/03/2024 Active Social History Tobacco Use: Social History Observation Description Date Details (start date - stop date) Never Smoker NA - NA Tobacco Use/Smoking Question Answer Notes Are you a: nonsmoker Tobacco use other than smoking: Question Answer Notes Are you an other tobacco user? No Vital Signs Height 5ft8in in 09/18/2024 Weight 262 lbs 09/18/2024 BMI 39.83 kg/m2 09/18/2024 Blood pressure systolic 143 mm Hg 09/18/20 24 Blood pressure diastolic 92 mm Hg 024 Procedures Procedure Date Ordered Date Performed Result Body Sit e 97916-JZFIBYE NAIL, 6 OR MORE 09/18/2024 N/A 74763-MCUB SKIN LESIONS, 2 TO 4 09/18/2024 N/A Encounters Encounter Location Date Provider Diagnosis [facility] [address] [place] [id number] 09/18/2024 Nat Beard Type 2 diabetes mellitus with diabetic polyneuropathy E11.42 and Tinea unguium B35.1 Assessments Encounter Date Diagnosis (ICD Code) Assessment Notes Treatment Notes Treatment Clinical Notes Section Notes 09/18/2024 Type 2 diabetes mellitus with diabetic polyneuropathy (ICD-10 - E11.42) 09/18/2024 Tinea unguium (ICD-10 - B35.1) Plan Of Treatment Pending Test Test Name Order Date 73591-[id number] NAIL, 6 OR MORE 09/18/2024 65793-QTTL SKIN LESIONS, 2 TO 4 09/18/20 24 Next Appt Details Follow Up: 3 Months, Reason: Provider Name:Nat shelton, 03/19/2025 09:15:00 AM, [address] [address], [place], [address], Procedure Notes * Category Sub-Category Detail Notes Debride Nail 6-10 Nail debridement Performance o f this nail treatment by a nonprofessional would put this patients foot and overall health at risk. Therefore, debridement to affected nail(s), as described in exam, was performed extensively to reduce/remove overall nail length, girth, thickness, subungual debris, and necrotic tissue, by manual and/or electrical means through the use of a nail nipper and/or dremel-type salvage grinder, to a more viable healthy nail plate or bed tissue 6-10. Silver nitrate used for any petechial bleeding as necessary. Definitive antifungal treatment options have been reviewed and discussed with the patient. The patient chooses, no pharmaceutical tx - 58739 Keratoma Treatment Parring or Cutting o f Benign Hyperkeratotic Lesion(s) (-56) 2-4 Lesions - The Benign hyperkeratotic lesions, as described in exam, were pared, and/or cut utilizing a sterile 15 blade, tissue nippers, and/or dremel - 24318 Progress Notes * Pipo BECKDOB: 2 (74 yo M)Acc No.[id number]:09/18/2024 Progress Note Patient:?Pipo BECK Provider:?Nat Beard DPM :1950???Age:74 Y???Sex:Male Jonathan e:09/18/2024 Address:[address] [place], [place] [id number] Pcp:Victor M Allan Subjective: * Chief Complaints: * ???Pcp-09/07/24At Risk Footc are * HPI: ???At Risk footcare:?Pt States Last PCP Visit:?Date?09/07/2024 * ROS:?General/Constitutional:?Nausea?denies.?Vomiting?denies.?Hunger Thirst?denies.?Loss appetite?denies.?Chills?denies.?Fatigue?admits.?Fever?denies.?Night Sweats?admits.?Unexplained weight loss?denies.?Unexplained weight gain?denies.?HEENTM:?Dentures?denies.?Dizziness?denies.?Glasses/contacts?admits.?Retinopathy?de nies.?Blurred/double vision?denies.?TMJ?denies.?Discharge/drainage?denies.?Implants?denies.?Sore throat?denies.?Dental implants?denies.?Hard of hearing ?denies.?Difficulty chewing/swallowing/speaking?denies.?Nose bleeds?denies.?Sore mouth?denies.?Respiratory:?On Oxygen?denies.?Pneumonia/pleurisy?denies.?Bronchitis?denies.?Emphysema?denies.?C oughing?denies.?Cough blood?denies.?Shortness of breath?denies.?Wheezing?denies.?Cardiovascular:?Pacemaker?denies.?MVP?denies.?WPW?denies.?CHF?denies.?Heart attack?denies.?Septal defect?denies.?Rapid beat?denies.?Chest pain ?denies.?Atrial Fib.?admits.?Murmur/Palpitations?denies.?Gastrointestinal:?Hemorrhoids?denies.?Stomach/Abdominal pain?denies.?Dark blood stool?denies.?Irritable bowel ?denies.?Constipation?denies.?Diarrhea?denies.?Hematology:?Swelling?denies.?Clots?denies.?Varicose Veins?denies.?Bruising?denies.?Bleeding problem?denies.?Genitourinary:?Blood urine?denies.?Frequent/Painfu/urination/bladder control?admits.?Kidney stones?denies.?Infection (UTI)?denies.?Nephropathy?denies.?sex trans dis (STD)?denies.?Prostate?denies.?Musculoskeletal:?Hammertoes?denies.?Bunions?denies.?Back Pain?admits.?Muscle Cramps/ Resting?admits.?Muscle cramps / walking?denies.?Generalized aches and pains?denies.?Weakness?denies.?Integ.:?Lira?denies.?Scars?denies.?Corns/calluses?denies.?Ingrown nails?denies.?Painful nails?denies.?Open Sores?denies.?Rashes?denies.?Neurologic:?Difficulty sleeping?admits.?Brain disorder?denies.?Numbness?denies.?Balance trouble?admits.?Confusion?denies.?Fainting/blackouts?denies.?Tingling?denies.?Tr emors?denies.? * Medical History:? * Surgical History:?back surge ry 1984 * Hospitalization/Major Diagno stic Procedure:?Denies Past Hospitalization * Family History:?Mother: dece ased, poor circulation, foot problems, diagnosed with Diabetic - NIDDM, Unspecified essential hypertension, Unspecified heart disease, Family history of arthritis.?Father: .? * Social History:?Tobacco Use:?Tobacco Use/Smoking?Are you a:?nonsmoker ?Tobacco use other than smoking?Are you an other tobacco user??No * Medications:?TakingALPRAZola m 0.25 MG Tablet 1 tablet Orally Twice a day amLODIPine Besylate 10 MG Tablet 1 tablet Orally Once a day cloNIDine HCl 0.1 MG Tablet 1 tablet Orally Once a day Gabapentin 300 MG Capsule 1 capsule Orally Once a day glipiZIDE 5 MG Tablet 2 tablets Orally twice daily Isosorbide Mononitrate 60 MG Tablet Extended Release 24 Hour 1 tablet in the morning Orally Once a day Januvia 100 MG Tablet 1 tablet Orally Once a day Lisinopril 40 MG Tablet 1 tablet Orally Once a day metFORMIN HCl 850 MG Tablet 1 tablet with a meal Orally Once a day Nitroglycerin 0.4 MG Tablet Sublingual as directed Sublingual Omeprazole 20 MG Capsule Delayed Release 1 capsule 30 minutes before morning meal Orally Once a day Pravastatin Sodium 40 MG Tablet 1 tablet Orally Once a day Spironolactone 25 MG Tablet 1 tablet Orally Tamsulosin HCl 0.4 MG Capsule Extended Release as directed Orally Tylenol Voltaren 1 % Gel as directed Externally Xarelto 20 MG Tablet 1 tablet with food Orally Once a day Extra Depth Diabetic Shoes with 3 Pair Custom heat-molded multi-density innersoles for 1 year Dx: Medication List reviewed and reconciled with the patientTaking ALPRAZolam 0.25 MG Tablet 1 tablet Orally Twice a day Taking amLODIPine Besylate 10 MG Tablet 1 tablet Orally Once a day Taking cloNIDine HCl 0.1 MG Tablet 1 tablet Orally Once a day Taking Gabapentin 300 MG Capsule 1 capsule Orally Once a day Taking glipiZIDE 5 MG Tablet 2 tablets Orally twice daily Taking Isosorbide Mononitrate 60 MG Tablet Extended Release 24 Hour 1 tablet in the morning Orally Once a day Taking Januvia 100 MG Tablet 1 tablet Orally Once a day Taking Lisinopril 40 MG Tablet 1 tablet Orally Once a day Taking metFORMIN HCl 850 MG Tablet 1 tablet with a meal Orally Once a day Taking Nitroglycerin 0.4 MG Tablet Sublingual as directed Sublingual Taking Omeprazole 20 MG Capsule Delayed Release 1 capsule 30 minutes before morning meal Orally Once a day Taking Pravastatin Sodium 40 MG Tablet 1 tablet Orally Once a day Taking Spironolactone 25 MG Tablet 1 tablet Orally Taking Tamsulosin HCl 0.4 MG Capsule Extended Release as directed Orally Taking Tylenol Taking Voltaren 1 % Gel as directed Externally Taking Xarelto 20 MG Tablet 1 tablet with food Orally Once a day Taking Extra Depth Diabetic Shoes with 3 Pair Custom heat-molded multi-density innersoles for 1 year Dx: Medication List reviewed and reconciled with the patient * Allergies:?Nifedipine: const ipationWarfarin: sweatsJardiance: Bad reactionyes[Allergies Verified] Objective: * Vitals:?Ht: 5ft8in, Wt:262, BMI:39.83, Shoe size: 11, BP:143/92mm Hg, BS: 129, Ht-cm: 172.72 cm, Wt-k.84 kg. * ???Past Orders: ???Lab:HEMOGLOBIN A1C (GLYCO HEMOGLOBIN) (Order Date - 09/07/2024) (Collection Date & Time - 09/07/2024 01:10 PM) ? Value Reference Range ?TOTAL HEMOGLOBIN (HGBA1C) 7.2 * Examination: ???Neurological: ?SENSORY:?Neurological exam demonstrates reduced sharp/dull pin prick discrimination reduced light touch sensation reduced vibration sensation reduced proprioception sensation in a stocking fashion 5.07 monofilament test performed at plantar aspects of 5 varied sites per foot shows sensation plantar aspects absent at Forefoot B/L.?Vascular: ?DP PULSES(B):? 12/08, B/L.?PT PULSES(B):? 11/07, B/L.?CAPILLARY FILL TIME:?3 secs. per digit, B/L.?TROPHIC CONDITION-TEXTURE/ELASTICITY/TURGOR/HAIR GROWTH(B):? decreased, B/L.?TEMPERTURE GRADIENT(C):?warm to cool, proximal to distal, B/L.?EDEMA(C):? 11/07, B/L, Foot, Ankle(s), Leg(s).?TELANGECTASIA:?absent.?VARICOSITIES:?absent.?Nails: ?NAILS are:? Elongated, overgrown, dystrophic, lytic, greater than 3mm thick, discolored and friable with crumbly malodorous subungual debris, with dull to no pain on palpation due to neuropathy, TA, T1, 1-5 Right foot.?Dermatologic: ?SKIN FINDINGS:? Skin exam reveals Keratotic lesion(s) located at, Plantar, Heel(s), B/L.? Assessment: * Assessment: 1.?Type 2 diabetes mellitus with diabetic polyneuropathy - E11.42 (Primary)???2.?Tinea unguium - B35.1??? Plan: * Treatment: * Procedures:?Debride Nail 6-10:?Nail debridement?Performance of this nail treatment by a nonprofessional would put this patients foot and overall health at risk. Therefore, debridement to affected nail(s), as described in exam, was performed extensively to reduce/remove overall nail length, girth, thickness, subungual debris, and necrotic tissue, by manual and/or electrical means through the use of a nail nipper and/or dremel-type salvage grinder, to a more viable healthy nail plate or bed tissue 6-10. Silver nitrate used for any petechial bleeding as necessary. Definitive antifungal treatment options have been reviewed and discussed with the patient. The patient chooses, no pharmaceutical tx - 35564.?Keratoma Treatment:?Parring or Cutting of Benign Hyperkeratotic Lesion(s)?(-56) 2-4 Lesions - The Benign hyperkeratotic lesions, as described in exam, were pared, and/or cut utilizing a sterile 15 blade, tissue nippers, and/or dremel - 95621.? * Procedure Codes:?72213 DEBRI DE NAIL, 6 OR MORE, Modifiers: XS 53609 TRIM SKIN LESIONS, 2 TO 4, Modifiers: XS * Follow Up:?3 Months * Images: * Sign off status: Completed true * Provider:?Nat Beard DPM Date:?11/18/2023 Generated for Rolly crook/Martine/Amadeo on:?12/29/2024 09:01 AM EST History and Physical Notes * HPI (History of Present Illness) Category Sub-Category Detail Notes Category Not es At Risk footcare Pt States Last PCP Visit: Date: 4 Examination Category Sub-Category Detail Notes Category Not es Neurological SENSORY: Neurological exa m demonstrates reduced sharp/dull pin prick discrimination reduced light touch sensation reduced vibration sensation reduced proprioception sensation in a stocking fashion 5.07 monofilament test performed at plantar aspects of 5 varied sites per foot shows sensation plantar aspects absent at Forefoot B/L Dermatologic SKIN FINDINGS: Skin exam reveal s Keratotic lesion(s) located at, Plantar, Heel(s), B/L Vascular DP PULSES (B): 2/4, B/L PT PULSES (B): 1/4, B/L CAPILLARY FILL TIME: 3 secs. per digit, B/L TEMPERTURE GRADIENT (C): warm to cool, p roximal to distal, B/L TROPHIC CONDITION-TEXTURE/ELASTICITY/TURGOR/HAIR GROWTH (B): decreased, B/L EDEMA (C): 11/07, B/L, Foot, Ankl e(s), Leg(s) TELANGECTASIA: absent VARICOSITIES: absent Nails NAILS are: Elongated, overg rown, dystrophic, lytic, greater than 3mm thick, discolored and friable with crumbly malodorous subungual debris, with dull to no pain on palpation due to neuropathy, TA, T1, 1-5 Right foot
--- OUTSIDE RECORDS SUMMARY | 2024-12-29 09:02 | XMS_ITS ---
Author Organization [facility] Address [address] [facility] [address] [address] Care Team Providers Care Testboard Operator Name Role Phone Victor M Allan Primary Care Provider Nat Diehl Unavailable [phone] Encounters Encounter Location Date Provider Diagnosis [address] [address] 12/11/2024 Nat Beard Plan Of Treatment Next Appt Details Provider Name:Nat shelton, 03/19/2025 09:15:00 AM, [address] [place] [address], [phone], Progress Notes * Pipo BECKDOB: [birth year] (74 yo M)Acc No.[id number]:12/11/2024 Progress Note Patient:?Pipo BECK Provider:?Nat Beard DPM :1950???Age:74 Y???Sex:Male Jonathan e:12/11/2024 Address:[address], [phone] Pcp:Victor M Allan Subjective: * Chief Complaints: * ??? * Medical History:? Objective: * Vitals:? Assessment: Plan: * Treatment: * Images: * The named appointment provid er may or may not be the originator of this progress note, and it is not deemed complete until electronically signed by the appointment provider. Sign off status: Pending * Provider:?Nat Beard DPM Date:?0 12/11/2024 Generated for Rolly crook/Martine/Amadeo on:?12/29/2024 09:01 AM EST
--- OUTSIDE RECORDS SUMMARY | 2024-12-29 09:02 | XMS_ITS ---
Author Organization [facility] Address [address] [place] [address] Care Team Providers Care Routing Equipment Tender Name Role Phone Victor M Allan Primary Care Provider Nat Diehl Unavailable [phone] Carlos Irwin Unavailable [phone] Allergies Allergen (clinical drug ingredient) Drug/Non Drug Allergy documented on EMR Reaction Allergy Type Onset Date Status empagliflozin Jardiance Bad reaction Drug Allergy Active nifedipine Nifedipine constipation Drug Allergy Ac tive warfarin Warfarin sweats Drug Allergy Active REASON FOR VISIT At Risk Footcare, Toe Irritation Medications Medication SIG (Take, Route, Frequency, Duration) Notes Start Date End Date Status cloNIDine HCl 0.1 MG 1 tablet Orally Onc e a day for 30 day(s) Active ALPRAZolam 0.25 MG 1 tablet Orally Twic e a day Active amLODIPine Besylate 10 MG 1 tablet Orall y Once a day for 30 day(s) Active Xarelto 20 MG 1 tablet with food Orally Once a day for 30 day(s) Active Voltaren 1 % as directed Externally Active Spironolactone 25 MG 1 tablet Orally for 30 day(s) Active Tamsulosin HCl 0.4 MG as directed Orally Active Pravastatin Sodium 40 MG 1 tablet Orally Once a day for 30 day(s) Active Omeprazole 20 MG 1 capsule 30 minutes before morning meal Orally Once a day for 30 day(s) Active Tylenol Active Nitroglycerin 0.4 MG as directed Sublingual Active Lisinopril 40 MG 1 tablet Orally [...] e a day for 30 day(s) Active glipiZIDE 5 MG 2 tablets Orally twi ce daily Active Social History Tobacco Use: Social History [...] Problem Acquired hammer toe of right foot (0745498769079 105) Other hammer toe(s) (acquired), right foot (M20.41) Active confirmed Problem Acquired hammer toe of left foot (1004762190858 103) Other hammer toe(s) (acquired), left foot (M20.42) Active confirmed Vital Signs Height 5ft8in in 12/10/2024 Weight 262 lbs 12/10/2024 BMI 39.83 kg/m2 12/10/2024 Blood pressure systolic 140 mm Hg 12/10/19 25 Blood pressure diastolic 80 mm Hg 025 Procedures Procedure Date Ordered Date Performed Result Body Sit e 62380-NFFJYEZ NAIL, 6 OR MORE 12/10/2024 N/A 23986-OFTG SKIN LESIONS, 2 TO 4 12/10/2024 N/A Encounters Encounter Location Date Provider Diagnosis [facility] [address] [address] 12/10/2024 Carlos Irwin Type 2 diabetes mellitus with diabetic polyneuropathy E11.42 ; Tinea unguium B35.1 ; Other hammer toe(s) (acquired), right foot M20.41 and Other hammer toe(s) (acquired), left foot M20.42 Assessments Encounter Date Diagnosis (ICD Code) Assessment Notes Treatment Notes Treatment Clinical Notes Section Notes 12/10/2024 Type 2 diabetes mellitus with diabetic polyneuropathy (ICD-10 - E11.42) 12/10/2024 Tinea unguium (ICD-10 - B35.1) 12/10/2024 Other hammer toe(s) (acquired), right foot (ICD-10 - M20.41) Patient Educated with: DIABETIC FOOT CARE INSTRUCTIONS. pdf (DIABETIC FOOT CARE INSTRUCTIONS. pdf) 12/10/2024 Other hammer toe(s) (acquired), left foot (ICD-10 - M20.42) Plan Of Treatment Treatment Notes Assessment Notes Other hammer toe(s) (acquired), right fo ot Patient Educated with: DIABETIC FOOT CARE INSTRUCTIONS.pdf (DIABETIC FOOT CARE INSTRUCTIONS.pdf) Pending Test Test Name Order Date 66419-SFJZMHZ NAIL, 6 OR MORE 12/10/2024 75459-QLKT SKIN LESIONS, 2 TO 4 12/10/19 25 Next Appt Details Follow Up: prn, Reason: Provider Name:Nat shelton, 03/19/2025 09:15:00 AM, [address] [facility], [address], [place], [address], Procedure Notes * Category Sub-Category Detail Notes Debride Nail 6-10 Nail debridement Due to the cl inical pathology outlined in the exam findings, performance of this nail treatment is medically necessary as its management by an unskilled/untrained nonprofessional would put this patients foot and overall health at risk. Therefore, debridement to affected nail(s), as described in exam ( TA, T1, T5, T6, T7, T8, T9 ), was performed exclusively by the physician of record to reduce/remove overall nail length, girth, thickness, subungual debris, and necrotic tissue, by manual and/or electrical means through the use of a nail nipper and/or dremel-type outer diameter grinder, to a more viable healthy nail plate or bed tissue 6-10 nails in total. Silver nitrate was used for any petechial bleeding as necessary. Definitive antifungal treatment options, both pharmaceutical and surgical, have been reviewed and discussed with the patient. The patient solely prefers the use of intermittent/as needed professional debridement services for their nail condition and understands the need for additional periodic treatments to maintain effectiveness in symptomatic relief - 92045 Keratoma Treatment Parring or Cutting o f Benign Hyperkeratotic Lesion(s) (-56) 2-4 Lesions - Due to the at risk nature of the patients medical condition as documented in the exam findings, performance of this keratoderma treatment is medically necessary as its management by an unskilled/untrained nonprofessional would put this patients foot and overall health at risk. Therefore, the benign hyperkeratotic lesions, ( 2 ) in total, locations as stated and described in the exam ( Plantar Heel(s), B/L ), were pared, and/or cut utilizing a sterile 15 blade, tissue nippers, and/or power dremel instrumentation by the physician of record - 19327 Progress Notes * Pipo BECKDOB: [birth year] (74 yo M)Acc No.[id number]:12/10/2024 Progress Note Patient:?Pipo BECK Provider:?Carlos Irwin DPM :1950???Age:74 Y???Sex:Male Jonathan e:12/10/2024 Address:[address] [place] [address], [phone] Pcp:Victor M Allan Subjective: * Chief Complaints: * ???At Risk FootcareToe Irrit ation * HPI: ???At Risk footcare:?Pt States Last PCP Visit:?Date?09/07/2024 ???Toe pain:?Location:?B/L feet.?Duration:?several years.?Course:?worse.?Aggravated by:?shoes, any pressure.?Treatments:?change in shoes.? * ROS:?General/Constitutional:?Nausea?denies.?Vomiting?denies.?Hunger Thirst?denies.?Loss appetite?denies.?Chills?denies.?Fatigue?admits.?Fever?denies.?Night Sweats?admits.?Unexplained weight loss?denies.?Unexplained weight gain?denies.?HEENTM:?Dentures?denies.?Dizziness?denies.?Glasses/contacts?admits.?Retinopathy?den ies.?Blurred/double vision?denies.?TMJ?denies.?Discharge/drainage?denies.?Implants?denies.?Sore throat?denies.?Dental implants?denies.?Hard of hearing ?denies.?Difficulty chewing/swallowing/speaking?denies.?Nose bleeds?denies.?Sore mouth?denies.?Respiratory:?On O xygen?denies.?Pneumonia/pleurisy?denies.?Bronchitis?denies.?Emphysema?denies.?Co ughing?denies.?Cough blood?denies.?Shortness of breath?denies.?Wheezing?denies.?Cardiovascular:?Pacemaker?denies.?MVP?denies.?WPW?denies.?CHF?denies.?Heart attack?denies.?Septal defect?denies.?Rapid beat?denies.?Chest pain ?denies.?Atrial Fib.?admits.?Murmur/Palpitations?denies.?Gastrointestinal:?Hemorrhoids?denies.?Stomach/Abdominal pain?denies.?Dark blood stool?denies.?Irritable bowel ?denies.?Constipation?denies.?Diarrhea?denies.?Hematology:?Swelling?denies.?Clots?denies.?Varicose Veins?denies.?Bruising?denies.?Bleeding problem?denies.?Genitourinary:?Blood urine?denies.?Frequent/Painfu/urination/bladder control?admits.?Kidney stones?denies.?Infection (UTI)?denies.?Nephropathy?denies.?sex trans dis (STD)?denies.?Prostate?denies.?Musculoskeletal:?Hammertoes?admits.?Bunions?denies.?Back Pain?admits.?Muscle Cramps/ Resting?admits.?Muscle cramps / walking?denies.?Generalized aches and pains?denies.?Weakness?denies.?Integ.:?Lira?denies.?Scars?denies.?Corns/calluses?admits.?Ingrown nails?admits.?Painful nails?denies.?Open Sores?denies.?Rashes?denies.?Neurologic:?Difficulty sleeping?admits.?Brain disorder?denies.?Numbness?denies.?Balance t rouble?admits.?Confusion?denies.?Fainting/blackouts?denies.?Tingling?denies.?Tree mors?denies.? * Medical History:? * Surgical History:?back surge ry 1984 * Hospitalization/Major Diagno stic Procedure:?Denies Past Hospitalization * Family History:?Mother: dece ased, poor circulation, foot problems, diagnosed with Diabetic - NIDDM, Unspecified essential hypertension, Unspecified heart disease, Family history of arthritis.?Father: .? * Social History:?Tobacco Use:?Tobacco use other than smoking?Are you an other tobacco user??No ?Tobacco Control (Standard)?Tobacco use:?Nonsmoker ?Additional Findings: Tobacco non-user?Current nonsmoker ???Drugs/Alcohol:?Drugs?Have you used drugs other than those for medical reasons in the past 12 months??No ???Miscellaneous:?Caffeine: yes, 1-2 cups per day. ?Exercise: not much. ?Marital status: . ?Occupation: Retired. ???Drug/Alcohol:?AUDIT-C (Standard)?Did you have a drink containing alcohol in the past year??No ?Points?0 ?Interpretation?Negative * Medications:?TakingALPRAZola m 0.25 MG Tablet 1 [...] tablet with food Orally Once a day Medication List reviewed and reconciled with the [...] tablet with food Orally Once a day Medication List reviewed and reconciled with the patient * Allergies:?Nifedipine: const ipationWarfarin: sweatsJardiance: Bad reactionyes[Allergies Verified] Objective: * Vitals:?Ht:5ft8in, Wt:262, B OK:39.83, Shoe size:11, BP:140/80mm Hg, BS:133, Ht- cm: 172.72 cm, Wt-k.84 kg. * ???Past Orders: ???Lab:HEMOGLOBIN A1C (GLYCO HEMOGLOBIN) (Order Date - 10/05/2024) (Collection Date & Time - 11/05/2024 09:27 AM) ? Value Reference Range ?HEMOGLOBIN A1C % (HH) 7.2 * Examination: ???Ophthalmology Referral: ?DIABETES EYE EXAM?Neurological: ?SENSORY:? Neurological exam demonstrates, reduced light touch sensation, reduced sharp/dull pin prick discrimination , B/L, 5.07 monofilament test performed at plantar aspects of 5 varied sites per foot shows sensation, reduced , B/L.?Nails: ?NAILS are:?Elongated, overgrown, dystrophic, lytic, greater than 3mm thick, discolored and friable with crumbly malodorous subungual debris , TA, T1, T5, T6, T7, T8, T9, all other nails not described with characteristics as possessing mycosis are elongated, overgrown, and dystrophic.?Dermatologic: ?SKIN FINDINGS:?Skin exam reveals Keratotic lesion(s) located at, Plantar Heel(s), B/L.?Vascular: ?DP PULSES (B):?2/4, B/L.?PT PULSES (B):? 1/4, B/L.?CAPILLARY FILL TIME:?3 secs. per digit, B/L.?TROPHIC CONDITION-TEXTURE/ELASTICITY/TURGOR/HAIR GROWTH (B):? decreased, B/L.?TEMPERTURE GRADIENT (C):?warm to cool, proximal to distal, B/L.?PIGMENTATION:?rubrous, B/L.?EDEMA (C):?absent, B/L.?CLAUDICATION (C):?denies, B/L.?REST PAIN:?denies, B/L.?TELANGECTASIA:?absent.?VARICOSITIES:?absent.?Orthopedic: ?MUSCLE STRENGTH:?5/5 all groups in a symmetrical fashion, B/L.?DIGITAL DEFORMITIES:?Digital contracture, PIPJ, 2-5 B/L, incompl-reducible to push-up test, no over, nor underlapping,?there is?evidence of shoe producing skin irritation.?FOOTWEAR:?worn, non-supportive, shoe gear properties exacerbate patient's foot/toe deformity.?General Examination: ?GENERAL APPEARANCE:?Reveals a pleasant, alert, well nourished, well- developed, well hydrated individual, who demonstrates proper attention to hygiene/body habitus, and is in no acute distress, Pt serves as own historian for office visit today.?ORIENTED:?person, place, and time.?FOOT EXAM:?Footwear Evaluation? Assessment: * Assessment: 1.?Type 2 diabetes mellitus with diabetic polyneuropathy - E11.42 (Primary)???2.?Tinea unguium - B35.1???3.?Other hammer toe(s) (acquired), right foot - M20.41???Specify :Chronic problem, Worse (4)???4.?Other hammer toe(s) (acquired), left foot - M20.42???Specify :Chronic problem, Worse (4)??? Plan: * Treatment: 2.?Other hammer toe(s) (acqu ired), right foot? Notes: Patient Educated with: DIABETIC FOOT CARE INSTRUCTIONS.pdf (DIABETIC FOOT CARE INSTRUCTIONS.pdf)?? * Procedures:?Debride Nail 6-10:?Nail debridement?Due to the clinical pathology outlined in the exam findings, performance of this nail treatment is medically necessary as its management by an unskilled/untrained nonprofessional would put this patients foot and overall health at risk. Therefore, debridement to affected nail(s), as described in exam (??TA,?T1,?T5, T6, T7, T8, T9?), was performed exclusively by the physician of record to reduce/remove overall nail length, girth, thickness, subungual debris, and necrotic tissue, by manual and/or electrical means through the use of a nail nipper and/or dremel-type outer diameter grinder, to a more viable healthy nail plate or bed tissue 6- 10 nails in total. Silver nitrate was used for any petechial bleeding as necessary. Definitive antifungal treatment options, both pharmaceutical and surgical, have been reviewed and discussed with the patient. The patient solely prefers the use of intermittent/as needed professional debridement services for their nail condition and understands the need for additional periodic treatments to maintain effectiveness in symptomatic relief - 74549.?Keratoma Treatment:?Parring or Cutting of Benign Hyperkeratotic Lesion(s)?(-56) 2-4 Lesions - Due to the at risk nature of the patients medical condition as documented in the exam findings, performance of this keratoderma treatment is medically necessary as its management by an unskilled/untrained nonprofessional would put this patients foot and overall health at risk. Therefore, the benign hyperkeratotic lesions, ( 2 ) in total, locations as stated and described in the exam (?Plantar Heel(s),?B/L?), were pared, and/or cut utilizing a sterile 15 blade, tissue nippers, and/or power dremel instrumentation by the physician of record - 19928.? * Procedure Codes:?79177 DEBRI DE NAIL, 6 OR MORE, Modifiers: XS 33711 TRIM SKIN LESIONS, 2 TO 4, Modifiers: XS * Preventive Medicine:? ??Counseling:?Discussion:?-13: Office or other outpatient visit for the evaluation and management of an established patient, which required a medically appropriate history and/or examination and LOW level of DECISION MAKING for: 1 STABLE ACUTE UNCOMPLICATED PROBLEM, 2 OR MORE MINOR PROBLEMS, OR 1 STABLE CHRONIC PROBLEM, THAT POSE(S) A LOW RISK FOR MORBIDITY/MORTALITY. The visit on the day of the encounter encompassed interpreting the data and educating the patient as to the nature of their condition, treatment options available according to their individual PMH, meds, allergies, and overall health/living conditions, as well as any potential risks or complications that may occur from a failure to adhere to, and participate in, the recommended course of therapy. The discussion included a complete verbal, and/or written explanation of the examination results, any x-rays taken, the proposed diagnosis, and outline of the treatment plan. A schedule for future care needs was also explained. The patient verbalized an understanding of the instructions at this time and agreed to be an active participant in their treatment. If the patient should think of any questions or concerns after the visit, I have encouraged the patient to call the office.?Digital Surgery:?Digital surgery was discussed with the patient, We elected to try conservative treatment at the present time, due to the patients medical history and increased asssociated post-operative risks.?Digital Treatment:?HT- I explained to the patient the possible etiologies of Hammertoes, including genetics/foot type/shoegear/activity level/exercise routine and the risks/benefits of all the different treatment options for their pain including: No treatment at all, Rest, Ice, New/supportive/wider/deeper Shoegear, Digital Padding/Strapping/Taping/Bracing/Gel protective sleeves, Foot/Ankle AFO Bracing, Stretching exercises, Deep Tissue Massage, Arch support/shoe inserts with splay metatarsal padding, and Custom orthoses. I insisted that any digital devices be removed daily and not worn overnight for safety. The patient is to carefully examine the toes daily for any skin irritation while using any splinting or padding device. The advantages and disadvantages of each option were discussed and the patients questions re: shoegear, padding, custom vs prefabricated inserts, activity level, and consistency in home treatment regimens for optimal success were answered to their verbally confirmed satisfaction.?Shoe Gear Counseling:?SHOE Rx - The patient was counseled in great detail on their muscoloskeletal foot and toe deformities which coincided with the dermatological presentations visualized on exam. We discussed how their deformities put the integrity of their feet at risk for potential pedal complications which makes the accomidative diabetic shoes and cutomizable inserts medically necessary. We discussed the different shoe and insert treatment types and options, as well as the important advantages for adhering to regularly wearing these accomidative devices daily. The patient was made aware of the fact that a failure to abide by these recommedations may be deleterious to their foot health as they are able to prevent many pedal complications such as skin irritation, skin ulceration, infection, and even loss of toe/foot/leg/or life. Time was also spent with the patient dispensing and discussing proper diabetic footcare techniques including daily skin moisturization, daily foot inspection for any interruption in skin integrity including open lesions, or sign of infection such as redness/malodor/drainage/swelling. Also discussed and recommended were procedures regarding daily shoe inspection for the presence of internal foreign bodies as well as any visualized irregular shoe or insert wear. Patient questions re: shoes, inserts, and self foot inspections were answered to their satisfaction as the patient verbally confirmed a full understanding of the above information, Patient DEFERS recommended Extra Depth Orthopedic pressure-accommodative shoes against medical advice.? ??Screening/Special Tests:?Fall Risk?Screening:?No falls in the past year ?FALLS: Screening for Future Fall Risk?Have you had any falls with injury in the past year??No * Follow Up:?prn * Images: * Sign off status: Completed true * Provider:?Carlos Irwin DPM Date:?2024 Generated for Rolly crook/Martine/Amadeo on:?12/29/2024 09:02 AM EST History and Physical Notes * HPI (History of Present Illness) Category Sub-Category Detail Notes Category Not es Toe pain Location: B/L feet Duration: several years Course: worse Aggravated by: shoes, any pressure Treatments: change in shoes At Risk footcare Pt States Last PCP Visit: Date: Examination Category Sub-Category Detail Notes Category Not es Neurological SENSORY: Neurological exa m demonstrates, reduced light touch sensation, reduced sharp/dull pin prick discrimination , B/L, 5.07 monofilament test performed at plantar aspects of 5 varied sites per foot shows sensation, reduced , B/L Dermatologic SKIN FINDINGS: Skin exam reveal s Keratotic lesion(s) located at, Plantar Heel(s), B/L Orthopedic FOOTWEAR: worn, non-suppor tive, shoe gear properties exacerbate patient's foot/toe deformity DIGITAL DEFORMITIES: Digital contracture , PIPJ, 2-5 B/L, incompl-reducible to push-up test, no over, nor underlapping, there is evidence of shoe producing skin irritation MUSCLE STRENGTH: 5/5 all groups in a symmetrical fashion, B/L General Examination GENERAL APPEARANCE: Reveals a pleasant, alert, well nourished, well-developed, well hydrated individual, who demonstrates proper attention to hygiene/body habitus, and is in no acute distress, Pt serves as own historian for office visit today FOOT EXAM: Lower Extremity Neurological Exa m performed:: Yes Date Visual exam of foot performed:: Yes Date: 12/10/2024 ORIENTED: person, place, and t holly Footwear Evaluation Footwear Evaluation performe d:: Yes Ophthalmology Referral DIABETES EYE EXAM Procedure Perform ed:: Yes ?Date of Exam Performed: 10/05/2024 Diabetic Retinopathy Screening:: Yes Retinal Screening Performed:: Yes Findings of Diabetic Eye Exam:: no retin opathy Vascular DP PULSES (B): 2/4, B/L PT PULSES (B): 1/4, B/L CAPILLARY FILL TIME: 3 secs. per digit, B/L TEMPERTURE GRADIENT (C): warm to cool, p roximal to distal, B/L TROPHIC CONDITION-TEXTURE/ELASTICITY/TURGOR/HAIR GROWTH (B): decreased, B/L EDEMA (C): absent, B/L TELANGECTASIA: absent VARICOSITIES: absent CLAUDICATION (C): denies, B/L REST PAIN: denies, B/L PIGMENTATION: rubrous, B/L Nails NAILS are: Elongated, overg rown, dystrophic, lytic, greater than 3mm thick, discolored and friable with crumbly malodorous subungual debris , TA, T1, T5, T6, T7, T8, T9, all other nails not described with characteristics as possessing mycosis are elongated, overgrown, and dystrophic
== END 2024-12-29 09:43 | disposition home or self-care (01) ==
PROVIDERS: PCP Nurse Practitioner Family; Visit Provider Internal Medicine
DX: E11.65 Type 2 diabetes mellitus with hyperglycemia (principal); I48.19 Other persistent atrial fibrillation; E66.01 Morbid (severe) obesity due to excess calories; Z68.36 Body mass index [BMI] 36.0-36.9, adult; E78.00 Pure hypercholesterolemia, unspecified; I10 Essential (primary) hypertension; I25.10 Atherosclerotic heart disease of native coronary artery without angina pectoris; N40.1 Benign prostatic hyperplasia with lower urinary tract symptoms; N13.8 Other obstructive and reflux uropathy

== ENCOUNTER 2024-12-29 08:30 | Outpatient (REF) | payer MEDICARE, SELFPAY ==
[2024-12-29 12:19] LABS: Anion Gap 15 (12-20); Blood Urea Nitrogen 18 mg/dL (9-16); Calcium 9.4 mg/dL (8.4-10.2); Carbon Dioxide 26 mmol/L (22-29); Chloride 104 mmol/L (96-108); Estimated Glomerular Filt Rate > 60; Potassium 4.4 mmol/L (3.3-5.1); Sodium 141 mmol/L (135-145)
[2024-12-29 12:27] LABS: Vitamin D 25-OH Total 33.4 ng/mL (>30)
--- OUTSIDE RECORDS SUMMARY | 2024-12-29 12:59 | XMS_ITS | Clinical Summary ---
Author Organization [facility] Address [address] [facility] [address] [address] [place] [address] Phone Care Team Providers Care Bargeman Name Role Phone Victor M Allan MD Primary Care Provider [phone] Allergies Active Allergy Reactions Criticality Noted Date [...] Visit [facility] [address] [phone] Monica Canela ARNP [address] [phone] Health Maintenance Due Date Last Done Comments [...] age to complete this topic Insurance MEDICARE [facility] MEDICARE [facility] Care Teams Bargeman Relationship Specialty Start Date End Date Victor M Allan MD [address] [place], [place] PCP - General 11/14/20
--- OUTSIDE RECORDS SUMMARY | 2024-12-29 12:59 | XMS_ITS | Clinical Summary ---
Author Organization [employer] Address [address] [facility] [address] [place] [address] Care Team Providers Care Second Vp Hr Assessment Name Role Phone Unavailable Primary Care Provider [...] um Nitrate 1.1-5 % pasteIndications :Dental caries Antonito teeth for 2 minutes, morning and night. [...] Description 11/06/2024 9:30 AM EST Office Visit [facility] [address] [place] [address] Hayder Velasquez DMD Secondary dental caries associated with failed or defective dental taoism (Primary Dx) 11/03/2024 10:00 AM EST Office Visit [facility] [address] [place] [address] Ron Hayder, ALVARADO Fractured dental taoism with loss of material (Primary Dx) 10/30/2024 2:00 PM EST Office Visit [facility] [address] [place] [address] Ron Hayder, DMD Secondary dental caries associated with failed or defective dental taoism (Primary Dx) 10/06/2024 10:30 AM EST Office Visit [facility] [address] [place] [address] Ron Hayder, DMD Secondary dental caries associated with failed or defective dental taoism (Primary Dx); Full coverage crown needed for [...] caries associated with failed or defective dental taoism 9 CA RESIN-BASED COMPOSITE - 2 SURF, ANTERIOR Routine 11/06/2024 9:30 AM EST Secondary dental caries associated with failed or defective dental taoism CASE PRESENTATION, DETAILED AND EXTENSIVE TREATMENT PLANNING Routine 11/03/2024 10:00 AM EST Fractured dental taoism with loss of material LIMITED ORAL EVALUATION - PROBLEM FOCUSED Routine 11/03/2024 10:00 AM EST Fractured dental taoism with loss of material 14 DOLL(V) RESIN-BASED COMPOSITE - 3 SURF, POSTERIOR Routine 10/30/2024 2:00 PM EST Secondary dental caries associated with failed or defective dental taoism CASE PRESENTATION, DETAILED AND EXTENSIVE TREATMENT PLANNING Routine 10/30/2024 2:00 PM EST Secondary dental caries associated with failed or defective dental taoism LIMITED ORAL EVALUATION - PROBLEM FOCUSED Routine 10/06/2024 10:30 AM EST Secondary dental caries associated with failed or defective dental taoism Full coverage crown needed for tooth at risk for fracture Tooth sensitivity CASE PRESENTATION, DETAILED AND EXTENSIVE TREATMENT PLANNING Routine 10/06/2024 10:30 AM EST Secondary dental caries associated with failed or defective dental taoism Full coverage crown needed for tooth at risk for fracture Tooth sensitivity 3 CORE BUILDUP, INCL ANY PINS WHEN REQ Routine 10/06/2024 10:30 AM EST Secondary dental caries associated with failed or defective dental taoism Full coverage crown needed for tooth at risk for fracture Tooth sensitivity PROPHYLAXIS - ADULT Routine 08/03/2024 9 :00 AM EDT Dental calculus Dental caries Defective dental taoism with open interproximal contact INTRAORAL - COMPLETE SERIES OF RADIOGRAPHIC IMAGES Routine 08/03/2024 9:00 AM EDT Dental calculus Dental caries Defective dental taoism with open interproximal contact PERIODIC ORAL EVALUATION - ESTABLISHED PATIENT Routine 08/03/2024 9:00 AM EDT Dental calculus Dental caries Defective dental taoism with open interproximal contact from Last 3 Months or Most Recently Relevant to Health Maintenance Insurance DENTAL - HSN FULL (MEDICAID)
[2024-12-29 16:04] LABS: Protein/Creatinine Ratio, Ur 0.12 (<0.2); Total Protein Urine Random 41 mg/dL (<12)
== END 2024-12-29 08:31 | disposition home or self-care (01) ==
LOC: HO.LAB 08:30
PROVIDERS: Absent Provider Internal Medicine Nephrology; PCP Nurse Practitioner Family; Visit Provider Internal Medicine
DX: E11.65 Type 2 diabetes mellitus with hyperglycemia (principal); E78.00 Pure hypercholesterolemia, unspecified; I10 Essential (primary) hypertension; I25.10 Atherosclerotic heart disease of native coronary artery without angina pectoris; I48.19 Other persistent atrial fibrillation; E66.01 Morbid (severe) obesity due to excess calories; Z68.36 Body mass index [BMI] 36.0-36.9, adult; N40.1 Benign prostatic hyperplasia with lower urinary tract symptoms; N13.8 Other obstructive and reflux uropathy; Z79.01 Long term (current) use of anticoagulants; Z79.84 Long term (current) use of oral hypoglycemic drugs; Z79.85 Long-term (current) use of injectable non-insulin antidiabetic drugs; Z79.899 Other long term (current) drug therapy
CPT/HCPCS: 36415; 80051; 82306; 82310; 82565; 82570; 83036; 84156; 84520; 96127; 99212

== ENCOUNTER 2025-02-02 13:01 | Outpatient (AMB) | payer MEDICARE, SELFPAY ==
--- NOTE | 2025-02-02 13:06 | A.OFFVIS_ITS ---
Vital Signs 02/02/25 13:12 Height 5 ft 8 in Weight 267 lb 13.786 oz BMI 40.7 BP 134/72 Blood Pressure Location Rt brachial Position Sitting Pulse 80 Pulse Source Pulse Oximeter Pulse Oximetry (%) 96 Oxygen Delivery Method Room Air Intake Visit Reasons: OA Intake Note: Patient presents today for OA. Allergies warfarin Allergy (Intermediate, Verified 02/02/25 13:11) sweats, dry mouth,elevated BP naproxen Allergy (Unknown, Verified 02/02/25 13:11) face got red nifedipine [NIFEDIPINE] Allergy (Unknown, Verified 02/02/25 13:11) GI SIDE EFFECTS, stomach upset, GI empagliflozin [From Jardiance] Adverse Reaction (Intermediate, Verified 02/02/25 13:11) testicular swelling Medication List - Last Reconciled 02/02/25 by Zully Orosco MD acetaminophen ER (Tylenol Arthritis Pain) 650 mg PO Q12H alprazolam 1 mg (4 x 0.25 mg) PO DAILY PRN amlodipine 10 mg PO DAILY blood sugar diagnostic As directed blood sugar diagnostic (Super Derivativesuch Ultra Test strips) As directed check the blood sugar once a day clonidine HCl 0.1 mg PO BID diclofenac sodium 1% (Voltaren Arthritis Pain) 2 grams topical QID gabapentin 300 mg PO BID glipizide ER Take 2 tablets in the morning and 2 tablet in the evening PO; imipramine HCl 25 mg PO BEDTIME 90 days isosorbide mononitrate ER 60 mg PO QAM lisinopril 40 mg PO DAILY metformin 1,000 mg PO BID 90 days metoprolol succinate ER 50 mg PO QAM metoprolol succinate ER 100 mg PO QPM 90 days nitroglycerin 0.4 mg sublingual Q5M PRN 90 days omeprazole 20 mg PO DAILY pravastatin 40 mg PO DAILY rivaroxaban (Xarelto) 20 mg PO DAILY sitagliptin phosphate (Januvia) 100 mg PO DAILY spironolactone (Aldactone) 25 mg PO DAILY 90 days tamsulosin 0.4 mg PO QDAY tirzepatide (Mounjaro) 2.5 mg (0.5 mL) subcut QWEEK topiramate 25 mg PO DAILY HPI Comments Details: Patient is a 74-year-old male with osteoarthritis involving cervical spine, lumbar spine, hands and knees. Interval History: Last seen with 08/11/24 with me. At that time patient was complaining of symptomatic knee OA. Today patient reports feeling well overall. Still with some bilateral knee pain but is able to perform his acts of daily living. Notes he had some shoulder pain for which she received intra-articular steroids with improvement. Denies prolonged morning stiffness. Denies any history of monoarticular arthritis Since that visit patient has been stable. Did not try the glucosamine or chondroitin that we discussed at the last visit Rheumatologic History: He has had corticosteroid injections with transient benefit in the knees. There was a trial with gel injections for both knees. This did not work out with increased pain the day after the injection and then not that much improvement a few weeks later. He still does not want to do PT. He takes gabapentin in the morning 300 mg and that seems to be somewhat helpful for pain Current Rheumatology Medication(s): Gabapentin 300mg bid Topical diclofenac PFSH Medical History (Updated 09/09/24 @ 08:51 by Victor M Allan MD) Gastritis Low libido Nocturia more than twice per night Verruca COVID-19 virus infection Trigger finger, left ring finger Flexor tenosynovitis of finger SOB (shortness of breath) Fibromyalgia Rheumatoid factor positive Knee pain, bilateral Bilateral carpal tunnel syndrome Pancreatic cyst Cervico-occipital neuralgia Cervical spondylosis without myelopathy Obstructive sleep apnea hypopnea, severe Carpal tunnel syndrome Degenerative disc disease, cervical GERD (gastroesophageal reflux disease) Hypercholesterolemia CKD (chronic kidney disease) Overactive bladder Hypogonadism Pancreatic mass Essential hypertension Atherosclerotic cardiovascular disease Persistent atrial fibrillation Surgical History History of cataract surgery Optional surgery Hx of tonsillectomy H/O lumbar discectomy History of heart artery stent (~04/2018) Family History Father Cancer Mother Diabetes Cardiovascular disease Social History Housing: House Alcohol intake: never Patient Tobacco Use Status: Never used Tobacco Tobacco use type: Cigarette e-Cigarette/Vaping Use: Never Used Second Hand Smoke Exposure: No service: No Current occupational status: retired 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 Cognitive needs: No Hearing needs: No Vision needs: Yes Review of Systems Const Details: Review of Systems Constitutional: Denies fever, chills, weight loss ENT: Denies vision changes, eye pain or eye redness, dental caries, dry mouth GI: Denies nausea, vomiting, diarrhea, abdominal pain, change in BM Pulm: Denies SOB, MACE, hemoptysis, wheezing Cards: Denies chest pain, palpitations Skin: Denies Raynaud's, rash, nail changes, photosensitivity, GLOST TILE SHADER: Denies headaches, weakness, paresthesias, recurrent falls MSK: Complains of joint pain and joint stiffness. Denies joint swelling, muscle weakness, bone pain All other systems reviewed and are unremarkable except noted above Physical Exam Vital Signs: Last Vital Signs Pulse 80 02/02/25 13:12 BP 134/72 02/02/25 13:12 Pulse Ox 96 02/02/25 13:12 Oxygen Delivery Method Room Air 02/02/25 13:12 BMI result Body Mass Index 40.7 Vital signs reviewed Physical Examination CONSTITUITIONAL Patient alert and cooperative. Well appearing and in no apparent painful distress HEENT Conjunctiva and sclera clear. ?Pupils equal round and reactive to light. ?No lymphadenopathy. ? CHEST/RESPIRATORY SYSTEM Normal respiratory effort and able to speak in complete sentences. ?Clear to auscultation bilaterally. ?No crackles, rales, rhonchi, wheezes heard. CARDIAC SYSTEM Regular rate and rhythm. ?S1 and S2 heard no murmurs. ?Radial pulses intact bilaterally MSK Hands: ?Good director geophysical laboratory strength bilaterally. No deformities noted. ?Large hands. Heberden's nodes noted throughout. No pain with palpation of his joints. Wrists: ?Full range of motion at the wrists without pain. ?No tenderness to palpation or synovitis noted to the wrists. Elbows: Full range of motion without pain. No tenderness, weakness, swelling, increased warmth or erythema. Shoulders: Bilateral shoulders with limited range of motion but no tenderness to palpation Knees: ?Full range of motion. ?No tenderness, swelling, increased warmth or erythema.? Crepitations felt Ankles: Full range of motion. ?No tenderness, swelling, increased warmth or erythema.? Feet: ?Negative squeeze test. ?No tenderness to palpation or swelling of the MTPs. Tender points:?No tenderness to palpation of the bilateral trapezius, supraspinatus, greater trochanters, anterior costochondral junctions, bilateral gluteal areas, bilateral suboccipital muscle insertions SKIN Skin intact without rashes. Results Reviewed Results Reviewed: Laboratory Tests 01/20/24 09/04/24 12/29/24 09:23 08:27 11:07 WBC 8.4 RBC 4.76 Hgb 14.6 Hct 42.4 ESR 5 Sodium 141 Potassium 4.4 Chloride 104 Carbon Dioxide 26 BUN 18 H Creatinine 1.17 Calcium 9.4 25-OH Vitamin D Total 33.4 Assessment & Plan Assessment & Plan (1) Osteoarthritis: Code(s): M19.90 - Unspecified osteoarthritis, unspecified site Qualifiers: Osteoarthritis location: multiple joints Osteoarthritis type: primary Qualified Code(s): M15.0 - Primary generalized (osteo)arthritis Plan: #Polyarticular OA Patient is a 74-year-old male with polyarticular osteoarthritis here today for follow up. Today patient is stable. We will continue with his gabapentin 300 mg twice a day. Recommended trial of glucosamine/chondroitin for 3-6 to see if there is any benefit. He is to continue diclofenac topical gel. Also encouraged weight-bearing exercises. Plan - Gabapentin 300mg bid - Topical diclofenac 1% - Glucosamine/Chondroitin for 6 months - RTC 6 months - Labs before visit: CBC, CMP, ESR, CRP (2) Hyperuricemia without signs inflammatory arthritis/tophaceous disease: Code(s): E79.0 - Hyperuricemia without signs of inflammatory arthritis and tophaceous disease Plan: #Hyperuricemia Patient with hyperuricemia without signs or symptoms of gout. Patient does have CKD so we will monitor for signs and symptoms of gout developing. Plan - check uric acid at the next lab draw Plan I spent 20 minutes reviewing the record and labs, seeing the patient, discussing the treatment plan and documenting in the medical record Orders: Orders C Reactive Protein 6 Months M15.9 - Polyosteoarthritis, unspecified Erythrocyte Sedimentation Rate 6 Months M15.9 - Polyosteoarthritis, unspecified Complete Blood Count Auto Diff 6 Months M15.9 - Polyosteoarthritis, unspecified Comprehensive Met. Panel 6 Months M15.9 - Polyosteoarthritis, unspecified Uric Acid 6 Months M15.9 - Polyosteoarthritis, unspecified Coding Level of Care Code Est Pt Level 3 (73876) Complex EM visit Add On G2211 Diagnoses Primary osteoarthritis involving multiple joints M15.0 Osteoarthritis location: multiple joints Osteoarthritis type: primary Hyperuricemia without signs inflammatory arthritis/tophaceous disease E79.0
[2025-02-02 13:12] VITALS: BP 134/72; PULSE 80; O2SAT 96; BMI 40.7
--- OUTSIDE RECORDS SUMMARY | 2025-02-02 15:15 | XMS_ITS | Clinical Summary ---
Author Organization [employer] Address [address] [facility] [address] [place] [address] Care Team Providers Care Fibrous Plasterer Name Role Phone Unavailable Primary Care Provider [...] STRIP TO CHECK GLUCOSE ONCE DAILY DIRECTED 4 Active imipramine (Tofranil) 25 MG tablet Take [...] um Nitrate 1.1-5 % pasteIndications :Dental caries Hamilton teeth for 2 minutes, morning and night. [...] Encounters Date Type Department Care Team Description 12/31/2024 Orders Only [facility] ADULT DENTAL [address] [place] [address] Hayder Velasquez DMD 11/06/2024 9:30 AM EST Office Visit [facility] ADULT [facility] [address] [place] [address] Hayder Velasquez, ALVARADO Secondary dental caries associated with failed or defective dental anabaptist (Primary Dx) from Last 3 Months Social History Tobacco [...] Mass Index - - Plan of Treatment Upcoming Encounters Date Type Department Care Team (Late st Contact Info) Description 02/04/2025 9:00 AM EDT Office Visit [facility] ADULT D[facility] [address] [place] [address] Milli Jacobs Health Maintenance Due Date Last Done Comments [...] caries associated with failed or defective dental anabaptist 9 NV RESIN-BASED COMPOSITE - 2 SURF, ANTERIOR Routine 11/06/2024 9:30 AM EST Secondary dental caries associated with failed or defective dental anabaptist PROPHYLAXIS - ADULT Routine 08/03/2024 9 :00 AM EDT Dental calculus Dental caries Defective dental anabaptist with open interproximal contact INTRAORAL - COMPLETE SERIES OF RADIOGRAPHIC IMAGES Routine 08/03/2024 9:00 AM EDT Dental calculus Dental caries Defective dental anabaptist with open interproximal contact PERIODIC ORAL EVALUATION - ESTABLISHED PATIENT Routine 08/03/2024 9:00 AM EDT Dental calculus Dental caries Defective dental anabaptist with open interproximal contact from Last 3 Months or Most Recently Relevant to Health Maintenance Insurance DENTAL - HSN FULL (MEDICAID)
--- OUTSIDE RECORDS SUMMARY | 2025-02-02 15:15 | XMS_ITS ---
Author Organization [facility] Address [address] [facility] [place] [address] Care Team Providers Care Materials Scheduler Name Role Phone Victor M Allan Primary Care Provider Nat Diehl [phone] REASON FOR VISIT bill Encounters Encounter Location Date Provider Diagnosis [address] [place] [address] 01/28/2025 Nat Beard Plan Of Treatment Next Appt Details Provider Name:Nat shelton, 03/19/2025 09:15:00 AM, [address], [address], Progress Notes * Pipo BECKDOB: 2 (74 yo M)Acc No.[id number]:01/28/2025 Patient:?Pipo BECK :1950???Age:74 Y???Sex:Male Address:[address] [place] [address] * true * Date:? Generated for Printi ng/Faxing/eTransmitting on:?02/02/2025 03:15 PM EDT
--- OUTSIDE RECORDS SUMMARY | 2025-02-02 15:15 | XMS_ITS ---
Author Organization [facility] Address [address] [place] [address] Care Team Providers Care Emu Farm Worker Name Role Phone Victor M Allan Primary Care Provider Nat Diehl Unavailable [phone] Carlos Irwin Unavailable [phone] Allergies Allergen (clinical drug ingredient) Drug/Non Drug [...] Problem Acquired hammer toe of right foot (2804735710819 105) Other hammer toe(s) (acquired), right foot (M20.41) Active confirmed Problem Acquired hammer toe of left foot (3213425591104 103) Other hammer toe(s) (acquired), left foot (M20.42) Active confirmed Vital Signs Blood pressure systolic 140 mm Hg 12/10/19 25 Blood pressure diastolic 80 mm Hg 025 Height 5ft8in in 12/10/2024 Weight 262 lbs 12/10/2024 BMI 39.83 kg/m2 12/10/2024 Procedures Procedure Date Ordered Date Performed Result Body Sit e 57031-YBWFEMF NAIL, 6 OR MORE 12/10/2024 N/A 57424-YZRS SKIN LESIONS, 2 TO 4 12/10/2024 N/A Encounters Encounter Location Date Provider Diagnosis [facility] [address] [address] 12/10/2024 Carols Irwin Type 2 diabetes mellitus with diabetic [...] INSTRUCTIONS.pdf) Pending Test Test Name Order Date 40211-YSXXKGN NAIL, 6 OR MORE 12/10/2024 66504-TTAY SKIN LESIONS, 2 TO 4 12/10/19 25 Next Appt Details Follow Up: prn, Reason: Provider Name:Nat shelton, 03/19/2025 09:15:00 AM, [address] [facility], [address], [place], [address], Procedure Notes * Category Sub-Category Detail Notes [...] use of a nail nipper and/or dremel-type loader magazine grinder, to a more viable healthy nail [...] to maintain effectiveness in symptomatic relief - 11103 Keratoma Treatment Parring or Cutting o f [...] instrumentation by the physician of record - 05964 Progress Notes * Pipo BECKDOB: 2 (74 yo M)Acc No.[id number]:12/10/2024 Progress Note Patient:?Pipo BECK Provider:?Carlos Irwin DPM :1950???Age:74 Y???Sex:Male Jonathan e:12/10/2024 Address:[address] [place] [address], [id number] Pcp:Victor M Allan Subjective: * Chief Complaints: [...] 7.2 * Examination: ???Ophthalmology Referral: ?DIABETES EYE EXAM?Procedure Performed:?Yes ?Date of Exam Performed?10/05/2024 ?Diabetic Retinopathy Screening:?Yes ?Retinal Screening Performed:?Yes ?Findings of Diabetic Eye Exam:?no retinopathy?Neurological: ?SENSORY:? Neurological exam demonstrates, reduced light touch [...] for office visit today.?ORIENTED:?person, place, and time.?FOOT EXAM:?Lower Extremity Neurological Exam performed:?Yes Date ?Visual exam of foot performed:?Yes ?Date?12/10/2024 ?Footwear Evaluation?Footwear Evaluation performed:?Yes??? Assessment: * Assessment: 1.?Type 2 diabetes mellitus [...] use of a nail nipper and/or dremel-type loader magazine grinder, to a more viable healthy nail [...] to maintain effectiveness in symptomatic relief - 55000.?Keratoma Treatment:?Parring or Cutting of Benign Hyperkeratotic Lesion(s)?(-56) [...] instrumentation by the physician of record - 90604.? * Procedure Codes:?51504 DEBRI DE NAIL, 6 OR MORE, Modifiers: XS 65006 TRIM SKIN LESIONS, 2 TO 4, Modifiers: [...] Irwin DPM Date:?2024 Generated for Rolly crook/Martine/Amadeo on:?02/02/2025 03:15 PM EDT History and Physical Notes * HPI (History [...] lesion(s) located at, Plantar Heel(s), B/L Orthopedic FOOTWEAR EVALUATION: worn, non-s upportive, shoe gear properties exacerbate patient's foot/toe deformity [...]
--- OUTSIDE RECORDS SUMMARY | 2025-02-02 15:15 | XMS_ITS | Clinical Summary ---
Author Organization [facility] Address [address] [address] Phone Care Team Providers Care Automotive Teacher Name Role Phone Victor M Allan MD Primary Care Provider [phone] Allergies Active Allergy Reactions Criticality Noted Date Comments Empagliflozin Dermatitis High 01/04/2025 Nifedipine 09/25/2023 Warfarin 09/25/2023 Medications ALPRAZolam (XANAX) [...] Do not crush, chew, or split. Active tamsulosin (FLOMAX) 0.4 MG 24 hr [...] day Active Cholecalciferol (Vitamin D3) 50 MCG (1999 UT) tabletIndicatio ns:Vitamin D deficiency, not otherwise specified Take 2,000 Units by mouth 1 (one) time each day 90 tablet 3 4 06/02/20 25 Active omeprazole (PriLOSEC) [address] capsule Take 20 mg by mouth 1 (one) time each day Active benzonatate (TESSALON) 100 MG capsule Take 100 mg by mouth 3 (three) times a day if needed for cough Do not crush or chew. 01/05/20 25 Discontinu ed(Med List Maintenanc e) capsaicin (ZOSTRIX) 0.025 % cream Apply topically 2 (two) times a day 01/05/20 25 Discontinu ed(Med List Maintenanc e) Active Problems Problem Noted Date Diagnosed Date Nephrolithiasis 01/04/2025 Vitamin D deficiency, not otherwise specified Obstructive sleep apnea of adult 09/24/2023 09/24/2023 Hypertension 09/24/2023 09/24/2023 Morbid obesity 09/24/2023 09/24/2023 Type 2 diabetes mellitus 09/24/2023 023 Encounters Date Type Department Care Team Description 01/04/2025 9:30 AM EST Office Visit [facility] [address] [id number] Monica Canela ARNP Hypertension (Primary Dx); Nephrolithiasis; Vitamin D deficiency, not otherwise specified from Last 3 Months Family History Medical History Relation Comments Diabetes [...] Sign Reading Time Taken Comments Blood Pressure 124/80 01/04/2025 10:08 AM EST Pulse 84 01/04/2025 9:38 AM EST Temperature - - Respiratory Rate - - Oxygen Saturation 97% 01/04/2025 9:38 AM EST Inhaled Oxygen Concentration - - Weight 120 kg (265 lb) 01/04/2025 9:38 AM EST Height 172.7 cm (5' 8 ) 09/25/2023 2:36 PM EST Body Mass Index 40.29 09/25/2023 2:36 PM EST Plan of Treatment Upcoming Encounters Date Type Department Care Team ([facility] st Contact Info) Description 01/04/2026 9:15 AM EST Office Visit [facility] [address] [facility] [address] [place] [address] Monica CanelaANDREZ [address] [facility] [address] [place] [address] Health Maintenance Due Date Last Done Comments [...] Procedure Name Priority Date/Time Associated Diagnosis Comments EXT RESULT ENTRY Routine 12/29/2024 from Last 3 Months Results * EXT RESULT ENTRY (12/29/2024) Sodium 141 137 - 147 Potassium 4.4 3.4 - 5.5 Carbon Dioxide 26 mmol/L Anion Gap 15 <=30 MMOL/L BUN 18 4 - 21 mg/dL Creatinine 1.17 0.60 - 1.30 mg/dL Calcium 9.4 8.7 - 10.7 mg/dL eGFR Non-Afr [place] >60 Vitamin D, 1,25-Dihydroxy 33.4 pg/mL Protein Urine Random 41 Creatinine, Urine Random 345.11 mg/dL Urine Protein/Creatin ine Ratio 0.12 mg/g creat 12/29/2024 us Historical Provider LAB BLOOD ORDERABLES Gauri l Result from Last 3 Months Insurance MEDICARE [facility] MEDICARE [facility] Care Teams Automotive Teacher Relationship Specialty Start Date End Date Victor M Allan MD [address] [place], [place] PCP - General 11/14/20
--- OUTSIDE RECORDS SUMMARY | 2025-02-02 15:15 | XMS_ITS | Patient Health Record ---
Author Organization [facility] Address [address] [facility] [place] [address] Care Team Providers Care E Learning Developer Name Role Phone Victor M Allan Primary Care Provider UnavailNat Adkins Unavailable [phone] Reed Mccabe Unavailable [phone] Carlos Irwin Unavailable [phone] Allergies Allergen (clinical drug ingredient) Drug/Non Drug Allergy documented on EMR Reaction Allergy Type Onset Date Status empagliflozin Jardiance Bad reaction Drug Allergy Active nifedipine Nifedipine constipation Drug Allergy Ac tive warfarin Warfarin sweats Drug Allergy Active Results Component Value Reference Range Notes HEMOGLOBIN A1C (GLYCOHEMOGLO BIN) Reviewed date:06/26/2024 08:26:18 [...] Problem Acquired hammer toe of right foot (8428149288421966 ) Other hammer toe(s) (acquired), right foot (M20.41) Active confirmed Problem Acquired hammer toe of left foot (9430950897802646 ) Other hammer toe(s) (acquired), left foot (M20.42) Active confirmed Problem Polyneuropathy due to type 2 diabetes mellitus (739272835) Type 2 diabetes mellitus with diabetic polyneuropathy (E11.42) Active confirmed Vital Signs Blood pressure diastolic 80 mm Hg 12/10/2024 Height 5ft8in in 12/10/2024 Blood pressure systolic 140 mm Hg 12/10/2024 Weight 262 lbs 12/10/2024 BMI 39.83 kg/m2 12/10/2024 Procedures Procedure Date Ordered Date Performed Result Body Sit e 83013-OSKH SKIN LESIONS, 2 TO 4 04/03/2024 N/A 94605-GQMLITN NAIL, 6 OR MORE 09/18/2024 N/A 61440-CDAM SKIN LESIONS, 2 TO 4 09/18/2024 N/A 38943-GUSPOVL NAIL, 6 OR MORE 12/10/2024 N/A 86750-GIKB SKIN LESIONS, 2 TO 4 12/10/2024 N/A Encounters Encounter Location Date Provider Diagnosis [address] [address] 04/03/2024 Reed Mccabe Type 2 diabetes mellitus with diabetic polyneuropathy E11.42 ; Pain in right toe(s) M79.674 ; Pain in left toe(s) M79.675 ; Tinea unguium B35.1 ; Metatarsalgia, left foot M77.42 and Primary osteoarthritis, left ankle and foot M19.[address] [address] 06/26/2024 Reed Mccabe Type 2 diabetes mellitus with diabetic polyneuropathy E11.42 ; Pain in right toe(s) M79.674 ; Pain in left toe(s) M79.675 ; Tinea unguium B35.1 ; Metatarsalgia, left foot M77.42 and Primary osteoarthritis, left ankle and foot M19.[address] [address] 09/18/2024 Nat Beard Type 2 diabetes mellitus with diabetic polyneuropathy E11.42 and Tinea unguium B35.[address] [address] 12/10/2024 Carlos Irwin Type 2 diabetes mellitus with diabetic polyneuropathy E11.42 ; Tinea unguium B35.1 ; Other hammer toe(s) (acquired), right foot M20.41 and Other hammer toe(s) (acquired), left foot M20.[address] [place] [id number] 01/28/2025 Nat Beard Assessments Encounter Date Diagnosis (ICD Code) Assessment Notes Treatment Notes Treatment Clinical Notes Section Notes 04/03/2024 Type 2 diabetes mellitus with diabetic [...] toe(s) (ICD-10 - M79.674) 04/03/2024 Pain in left toe(s) (ICD-10 - M79.675) 04/03/2024 Tinea unguium (ICD-10 - B35.1) 06/26/2024 Pain in left toe(s) (ICD-10 - M79.675) 12/10/2024 Other hammer toe(s) (acquired), left foot (ICD-10 - M20.42) 06/26/2024 Tinea unguium (ICD-10 - B35.1) 04/03/2024 Metatarsalgia, left foot (ICD-10 - M77.42) 06/26/2024 Metatarsalgia, left foot (ICD-10 - M77.42) 04/03/2024 Primary osteoarthritis, left ankle and foot (ICD-10 - M19.072) 06/26/2024 Primary osteoarthritis, left ankle and foot (ICD-10 - M19.072) Plan Of Treatment Pending Test Test Name Order Date X ray : Foot, left 3V 01/03/2024 84775-BFRMOCT NAIL, 6 OR MORE 09/18/2024 68963-MNKUZVV NAIL, 6 OR MORE 12/10/2024 84709-YDZZ SKIN LESIONS, 2 TO 4 12/10/19 25 80049-HVRR SKIN LESIONS, 2 TO 4 09/18/20 24 06455-TJWI SKIN LESIONS, 2 TO 4 01/03/20 24 30776-MCRN SKIN LESIONS, 2 TO 4 04/03/20 24 Next Appt Details Provider Name:Nat shelton, 03/19/2025 09:15:00 AM, [address] [facility], [facility] [address], [place], [address], Insurance Providers Payer Name Payer Address Payer Phone Subscriber Number Group Number Insured Name Patient Relationship to Insured Coverage Start Date Coverage End Date Medicare National [facility] [address] [place] [address] [id number] Pipo Springer Self - patient is the insured [employer] [address] [place] [address] [id number] Pipo Springer Self - patient is the insured Medical (General) History Medical History History ICD Code Arthritis Back,Hip,and Knee pain covid-19 Diabetic Headaches/Migraines Heart disease High blood pressure Kidney disease Psoriasis/eczema Reflux Surgical History Surgery Date(Month/Year) back surgery 1984
--- OUTSIDE RECORDS SUMMARY | 2025-02-02 15:15 | XMS_ITS ---
Author Organization [facility] Address [address] [facility] [place] [address] Care Team Providers Care Human Resources Administrator Name Role Phone Victor M Allan Primary Care Provider Nat Diehl Unavailable [phone] Encounters Encounter Location Date Provider Diagnosis [address] [address] 12/11/2024 Nat Beard Plan Of Treatment Next Appt Details Provider Name:Nat shelton, 03/19/2025 09:15:00 AM, [address] [place] [address], [phone], Progress Notes * Pipo BECKDOB: [birth year] (74 yo M)Acc No.[id number]:12/11/2024 Progress Note Patient:?iPpo BECK Provider:?Nat Beard DPM :1950???Age:74 Y???Sex:Male Jonathan [...] DPM Date:?0 12/11/2024 Generated for Rolly crook/Martine/Amadeo on:?02/02/2025 03:15 PM EDT
== END 2025-02-02 13:45 | disposition home or self-care (01) ==
LOC: HO.RHE 13:02
PROVIDERS: PCP Nurse Practitioner Family; Visit Provider Student in an Organized Health Care Education/Training Program
DX: M15.0 Primary generalized (osteo)arthritis (principal); E79.0 Hyperuricemia without signs of inflammatory arthritis and tophaceous disease
CPT/HCPCS: 99213; G2211

== ENCOUNTER → 2025-02-02 13:01 | Outpatient (BNVA) | payer MEDICARE, SELFPAY | PROVIDERS: PCP Nurse Practitioner Family; Visit Provider Student in an Organized Health Care Education/Training Program | DX: M15.0 Primary generalized (osteo)arthritis (principal); E79.0 Hyperuricemia without signs of inflammatory arthritis and tophaceous disease | CPT/HCPCS: 99212 ==

== ENCOUNTER 2025-03-26 07:39 | Outpatient (REF) | payer MEDICARE, SELFPAY ==
[2025-03-26 08:06] LABS: MANUAL DIFF FLAG NO
[2025-03-26 08:23] LABS: Basophils Absolute Auto 0.1 X10*3/uL (0.0-0.2); Basophils Percent Auto 1.1 % (0-2); Eosinophils Absolute Auto 0.4 X10*3/uL (0.0-0.4); Eosinophils Percent Auto 6.3 % (0-4); Hematocrit 43.3 % (42.0-52.0); Hemoglobin 14.6 g/dl (14.0-18.0); Imm Gran Abs Auto 0.03 X10*3/uL (0.00-0.03); Imm Gran Pct Auto 0.5 % (0.0-0.4); Lymphocytes Absolute Auto 1.3 X10*3/uL (1.2-4.9); Lymphocytes Percent Auto 20.2 % (20-40); Mean Corpuscular HGB Conc 33.7 g/dl (31.0-36.0); Mean Corpuscular Hemoglobin 30.1 pg (27.0-33.0); Mean Corpuscular Volume 89.3 fL (80.0-98.0); Mean Platelet Volume 11.1 fL (9.4-12.4); Monocytes Absolute Auto 0.7 X10*3/uL (0.1-1.2); Monocytes Percent Auto 10.3 % (2-11); Neutrophils Absolute Auto 3.9 x10*3/uL (2.0-8.3); Neutrophils Percent Auto 61.6 % (45-73); Platelet Count 161 X10*3/uL (160-400); Red Blood Count 4.85 X10*6/uL (4.60-5.80); Red Cell Distribution Width 13.8 % (11.0-16.0); White Blood Count 6.4 X10*3/uL (4.8-10.8)
[2025-03-26 08:30] LABS: Estimated Average Glucose 154 mg/dL
[2025-03-26 08:57] LABS: B Type Natriuretic Peptide 163 pg/mL (<100)
[2025-03-26 09:14] LABS: Alanine Aminotransferase 31 U/L (0-40); Albumin Level 4.6 g/dL (3.5-5.0); Alkaline Phosphatase 98 U/L (39-117); Anion Gap 14 (12-20); Aspartate Amino Transferase 26 U/L (5-37); Bilirubin Total 0.5 mg/dL (0.0-1.0); Blood Urea Nitrogen 18 mg/dL (9-16); Calcium 9.7 mg/dL (8.4-10.2); Carbon Dioxide 30 mmol/L (22-29); Chloride 104 mmol/L (96-108); Cholesterol 114 mg/dL (<200); Estimated Glomerular Filt Rate > 60; Glucose Random 133 mg/dL (60-115); HDL Cholesterol 35 mg/dL (>40); LDL Cholesterol Calculated 55 mg/dL (<100); Potassium 4.6 mmol/L (3.3-5.1); Sodium 143 mmol/L (135-145); Total Protein 7.1 g/dL (6.5-8.0); Triglycerides 122 mg/dL (<150)
[2025-03-26 09:19] LABS: Free T4 (Free Thyroxine) 1.03 ng/dL (0.71-1.85); Thyroid Stimulating Hormone 1.14 uIU/mL (0.32-4.0); Vitamin D 25-OH Total 38.5 ng/mL (>30)
[2025-03-26 09:34] LABS: Folate 10.9 ng/mL (> or = 4.0); Vitamin B12 246 pg/mL (200-900)
== END 2025-03-26 07:40 | disposition home or self-care (01) ==
LOC: HO.LAB 07:39
PROVIDERS: PCP Internal Medicine; Visit Provider Internal Medicine
DX: E11.65 Type 2 diabetes mellitus with hyperglycemia (principal); E78.00 Pure hypercholesterolemia, unspecified; I10 Essential (primary) hypertension; N18.9 Chronic kidney disease, unspecified
CPT/HCPCS: 36415; 80053; 80061; 82306; 82607; 82746; 83036; 83880; 84439; 84443; 85025; 99202

== ENCOUNTER 2025-03-26 08:19 | Outpatient (AMB) | payer MEDICARE, SELFPAY ==
--- NOTE | 2025-03-26 08:22 | A.OFFVIS_ITS ---
Vital Signs 03/26/25 08:26 Height 5 ft 8 in Weight 262 lb 5.601 oz BMI 39.9 BP 110/72 Blood Pressure Location Rt brachial Position Sitting Pulse 96 Pulse Source Pulse Oximeter Pulse Oximetry (%) 95 Oxygen Delivery Method Room Air Intake Visit Reasons: Type 2 diabetes mellitus with hyperglycemia Intake Note: Patient present today for Type 2 Diabetes Mellitus Last Diabetic eye exam:October 2024 Last Podiatry Visit: Last week Random Glucose: Done at [facility] lab, blood work pending. Provider notified. Patient prefers to wait for this lab instead of finger stick in office. HgA1C: 7.0% 03/26/2025 done at [facility] lab. Zoo Caretaker Required: No Accompanied by: Self / Same As Patient Allergies warfarin Allergy (Intermediate, Verified 03/26/25 08:27) sweats, dry mouth,elevated BP naproxen Allergy (Unknown, Verified 03/26/25 08:27) face got red nifedipine [NIFEDIPINE] Allergy (Unknown, Verified 03/26/25 08:27) GI SIDE EFFECTS, stomach upset, GI empagliflozin [From Jardiance] Adverse Reaction (Intermediate, Verified 03/26/25 08:27) testicular swelling Medication List - Last Reconciled 03/26/25 by Nataly Tai PA-C acetaminophen ER (Tylenol Arthritis Pain) 650 mg PO Q12H alprazolam 1 mg (4 x 0.25 mg) PO DAILY PRN amlodipine 10 mg PO DAILY betamethasone, augmented 0.05 % 1 appl topical BID blood sugar diagnostic As directed blood sugar diagnostic ([employer] Ultra Test strips) As directed check the blood sugar once a day clonidine HCl 0.1 mg PO BID diclofenac sodium 1% (Voltaren Arthritis Pain) 2 grams topical QID gabapentin 300 mg PO BID glipizide ER Take 2 tablets in the morning and 2 tablet in the evening PO; imipramine HCl 25 mg PO BEDTIME 90 days isosorbide mononitrate ER 60 mg PO QAM lisinopril 40 mg PO DAILY metformin 1,000 mg PO BID 90 days metoprolol succinate ER 50 mg PO QAM metoprolol succinate ER 100 mg PO QPM 90 days nitroglycerin 0.4 mg sublingual Q5M PRN 90 days omeprazole 20 mg PO DAILY pravastatin 40 mg PO DAILY rivaroxaban (Xarelto) 20 mg PO DAILY sitagliptin phosphate (Januvia) 100 mg PO DAILY spironolactone (Aldactone) 25 mg PO DAILY 90 days tamsulosin 0.4 mg PO QDAY HPI HPI Type 2 diabetes mellitus with hyperglycemia: Details: Patient is a 74-year-old male with a significant past medical history of AFib, hypertension, chronic kidney disease, CAD, complex pancreatic cyst, hyperlipidemia and type 2 diabetes presenting today for consultation regarding his diabetes. Endo: Dm-he was diagnosed with type 2 diabetes around 2014. He previously followed with [facility] endocrinology. He is currently managed on Januvia 100 mg, metformin 1000 mg twice a day, Glipizide 5-10 mg BID and recently his PCP tried to order him Mounjaro 2.5 mg weekly. -Januvia is very expensive -Wants off of metformin because sister told him that is what destroyed her kidneys -Does not want any injections (refuses insulin) -does not want any GPL1s -Jardiance caused testicular swelling, nonstop urination -reports extensive dm education but has never seen a business services administrator and would like to see someone here for this. CV: Blood pressure today in the office is 110/72. He is currently on metoprolol 150 mg daily, lisinopril 40 mg daily, isosorbide 60 mg daily, amlod ipine 10 mg daily, spironolactone 25 mg, clonidine 0.1 mg twice a day. He is on Xarelto daily. Cholesterol is managed with pravastatin 40 mg. Last LDL 64 and lfts wnl. GI: Diagnosed with pancreatic cyst/mass in 2021. He did have consultation with General surgery and at the time decided to hold on a further workup and excision. It was imaged in 10/26 and recommended GI eval and he states he thinks this was done but ultimately does not want to do anything with this. Nephro: follows with renal [facility] transplant associates. Pysch: Sister is in ICU and states that they are going to discuss ending life support. [facility] Medical History (Updated 09/09/24 @ 08:51 by Victor M Allan MD) Gastritis Low libido Nocturia more than twice per night Verruca COVID-19 virus infection Trigger finger, left ring finger Flexor tenosynovitis of finger SOB (shortness of breath) Fibromyalgia Rheumatoid factor positive Knee pain, bilateral Bilateral carpal tunnel syndrome Pancreatic cyst Cervico-occipital neuralgia Cervical spondylosis without myelopathy Obstructive sleep apnea hypopnea, severe Carpal tunnel syndrome Degenerative disc disease, cervical GERD (gastroesophageal reflux disease) Hypercholesterolemia CKD (chronic kidney disease) Overactive bladder Hypogonadism Pancreatic mass Essential hypertension Atherosclerotic cardiovascular disease Persistent atrial fibrillation Surgical History History of cataract surgery Optional surgery Hx of tonsillectomy H/O lumbar discectomy History of heart artery stent (~04/2018) Family History Father Cancer Mother Diabetes Cardiovascular disease Social History Housing: House Alcohol intake: never Patient Tobacco Use Status: Never used Tobacco Tobacco use type: Cigarette e-Cigarette/Vaping Use: Never Used Second Hand Smoke Exposure: No service: No Current occupational status: retired 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 Cognitive needs: No Hearing needs: No Vision needs: Yes Physical Exam Vital Signs: Last Vital Signs Pulse 96 03/26/25 08:26 BP 110/72 03/26/25 08:26 Pulse Ox 95 03/26/25 08:26 Oxygen Delivery Method Room Air 03/26/25 08:26 BMI result Body Mass Index 39.9 Const Orientation/consciousness: patient oriented x3 HEENT Ears: hearing grossly normal bilaterally Neck Thyroid: Thyroid normal Lymphatic: no lymphadenopathy noted Resp Auscultation: clear to auscultation bilaterally Cardio Rate: regular rate Rhythm: regular rhythm Skin General skin exam: no rashes or lesions noted Neuro General: patient oriented x3, gait normal and no focal motor deficits Results Reviewed Results Reviewed: Laboratory Tests 12/29/24 12/29/24 03/26/25 08:41 11:07 08:03 Creatinine 1.17 Estimated GFR > 60 Hgb A1c (Clinic) 7.7 H Hemoglobin A1c % 7.0 H Laboratory Tests 09/04/24 08:27 Triglycerides 153 H Cholesterol 132 LDL Cholesterol, Calc 64 HDL Cholesterol 38 L Assessment & Plan Assessment & Plan (1) Type 2 diabetes mellitus with hyperglycemia: Comment: EYE Dr. ARMANDO (2021) T[place] now Code(s): E11.65 - Type 2 diabetes mellitus with hyperglycemia Category: Medical Qualifiers: Diabetes mellitus director of workforce development insulin use: without skilled nursing use Qualified Code(s): E11.65 - Type 2 diabetes mellitus with hyperglycemia Plan: We spent 60 mins in face to face time discussing the differences between t1dm and t2dm, , complications associated with diabetes including but not limited to kidney disease, blindness, amputations, heart attack, stroke etc.. signs and symptoms of hyper and hypoglycemia that would require emergent medical treatment were discussed. continue current treatment plan. We did discuss that if he can change his diet and lose weight perhaps we could cut back a little bit on medication at his follow up as that it is his main goal and he refuses any additional drugs or changes as he does not want to do any injections. wants to make diet changes. we spent extensive time discussing carbohydrates and processed foods. I have referred him to a dietitian. [place] [employer] 3 sensor provided today so he may monitor his diet and see how foods affect his blood sugar. Three-month follow up. Labs prior to appointment. (2) Hypercholesterolemia: Code(s): E78.00 - Pure hypercholesterolemia, unspecified Category: Medical Plan: wnl continue current plan (3) Essential hypertension: Code(s): I10 - Essential (primary) hypertension Category: Medical Plan: wnl continue current plan (4) CKD (chronic kidney disease): Code(s): N18.9 - Chronic kidney disease, unspecified Category: Medical Qualifiers: Chronic kidney disease stage: unspecified stage Qualified Code(s): N18.9 - Chronic kidney disease, unspecified Plan: follows with nephrology last gfr wnl Orders: Orders Basic Metabolic Panel 3 Months E11.65 - Type 2 diabetes mellitus with hyperglycemia, E78.00 - Pure hypercholesterolemia, unspecified, I10 - Essential (primary) hypertension, N18.9 - Chronic kidney disease, unspecified Microalbumin, Random (w Creat) 3 Months E11.65 - Type 2 diabetes mellitus with hyperglycemia, E78.00 - Pure hypercholesterolemia, unspecified, I10 - Essential (primary) hypertension, N18.9 - Chronic kidney disease, unspecified Hemoglobin A1c 3 Months E11.65 - Type 2 diabetes mellitus with hyperglycemia, E78.00 - Pure hypercholesterolemia, unspecified, I10 - Essential (primary) hyp ertension, N18.9 - Chronic kidney disease, unspecified, R73.01 - Impaired fasting glucose Referrals Manager Pediatric Nutrition Referral E11.65 - Type 2 diabetes mellitus with hyperglycemia Coding Level of Care Code New Pt Level 5 (79729) Complex EM visit Add On G2211 Diagnoses Type 2 diabetes mellitus with hyperglycemia, without long-term current use of insulin E11.65 Diabetes mellitus skilled nursing insulin use: without director of workforce development use Hypercholesterolemia E78.00 Essential hypertension I10 Chronic kidney disease, unspecified CKD stage N18.9 Chronic kidney disease stage: unspecified stage
[2025-03-26 08:26] VITALS: BP 110/72; PULSE 96; O2SAT 95; BMI 39.9
== END 2025-03-26 09:20 | disposition home or self-care (01) ==
LOC: HO.ENCR 08:19
PROVIDERS: PCP Internal Medicine; Visit Provider Physician Assistant
DX: E11.65 Type 2 diabetes mellitus with hyperglycemia (principal); E78.00 Pure hypercholesterolemia, unspecified; I12.9 Hypertensive chronic kidney disease with stage 1 through stage 4 chronic kidney disease, or unspecified chronic kidney disease; N18.9 Chronic kidney disease, unspecified

== ENCOUNTER 2025-04-09 09:17 | Outpatient (AMB) | payer MEDICARE, SELFPAY ==
[2025-04-09 09:18] VITALS: BP 130/88; PULSE 81; O2SAT 96; BMI 38.7
--- NOTE | 2025-04-09 09:18 | A.OFFPC_ITS ---
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: No Accompanied by: Self / Same As Patient Allergies warfarin Allergy (Intermediate, Verified 04/09/25 09:29) sweats, dry mouth,elevated BP naproxen Allergy (Unknown, Verified 04/09/25 09:29) face got red nifedipine [NIFEDIPINE] Allergy (Unknown, Verified 04/09/25 09:29) GI SIDE EFFECTS, stomach upset, GI empagliflozin [From Jardiance] Adverse Reaction (Intermediate, Verified 04/09/25 09:29) testicular swelling Medication List - Last Reconciled 04/09/25 by Victor M Allan MD acetaminophen ER (Tylenol Arthritis Pain) 650 mg PO Q12H alprazolam 1 mg (4 x 0.25 mg) PO DAILY PRN amlodipine 10 mg PO DAILY betamethasone, augmented 0.05 % 1 appl topical BID blood sugar diagnostic As directed blood sugar diagnostic ([employer] Ultra Test strips) As directed check the blood sugar once a day clonidine HCl 0.2 mg PO BID diclofenac sodium 1% (Voltaren Arthritis Pain) 2 grams topical QID gabapentin 300 mg PO BID glipizide ER Take 2 tablets in the morning and 2 tablet in the evening PO; imipramine HCl 25 mg PO BEDTIME 90 days isosorbide mononitrate ER 60 mg PO QAM lisinopril 40 mg PO DAILY metformin 1,000 mg PO BID 90 days metoprolol succinate ER 50 mg PO QAM metoprolol succinate ER 100 mg PO QPM 90 days nitroglycerin 0.4 mg sublingual Q5M PRN 90 days omeprazole 20 mg PO DAILY pravastatin 40 mg PO DAILY rivaroxaban (Xarelto) 20 mg PO DAILY sitagliptin phosphate (Januvia) 100 mg PO DAILY spironolactone (Aldactone) 25 mg PO DAILY 90 days tamsulosin 0.4 mg PO QDAY Tobacco use date assessed: 04/09/25 Fall risk assessment: 2 + Falls in past year Last assessed Fall Risk: 04/09/25 Dental Screening Dental Screen Date: 04/09/25 Did you have a dental visit in the last 12 months?: Yes Did you have a dental problem in the last 6 months where you did not have access to dental care?: No Was dental information given to patient?: Patient has dentist [facility] Medical History (Updated 09/09/24 @ 08:51 by Victor M Allan MD) Gastritis Low libido Nocturia more than twice per night Verruca COVID-19 virus infection Trigger finger, left ring finger Flexor tenosynovitis of finger SOB (shortness of breath) Fibromyalgia Rheumatoid factor positive Knee pain, bilateral Bilateral carpal tunnel syndrome Pancreatic cyst Cervico-occipital neuralgia Cervical spondylosis without myelopathy Obstructive sleep apnea hypopnea, severe Carpal tunnel syndrome Degenerative disc disease, cervical GERD (gastroesophageal reflux disease) Hypercholesterolemia CKD (chronic kidney disease) Overactive bladder Hypogonadism Pancreatic mass Essential hypertension Atherosclerotic cardiovascular disease Persistent atrial fibrillation Surgical History History of cataract surgery Optional surgery Hx of tonsillectomy H/O lumbar discectomy History of heart artery stent (~04/2018) Family History Father Cancer Mother Diabetes Cardiovascular disease Social History Housing: House Alcohol intake: never Patient Tobacco Use Status: Never used Tobacco Tobacco use type: Cigarette e-Cigarette/Vaping Use: Never Used Second Hand Smoke Exposure: No service: No Current occupational status: retired 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 Cognitive needs: No Hearing needs: No Vision needs: Yes Questionnaire PHQ-9 Over the last 2 weeks, how often have you been bothered by any of the following problems? 1. Little interest or pleasure in doing things: not at all 2. Feeling down, depressed, or hopeless: not at all 3. Trouble falling or staying asleep, or sleeping too much: not at all 4. Feeling tired or having little energy: not at all 5. Poor appetite or overeating: not at all 6. Feeling bad about yourself - or that you are a failure or have let yourself or your family down: not at all 7. Trouble concentrating on things, such as reading the newspaper or watching television: not at all 8. Moving or speaking so slowly that other people could have noticed. Or the opposite - being so fidgety or restless that you have been moving around a lot more than usual: not at all 9. Thoughts that you would be better off or of hurting yourself in some way: not at all Total score: 0 Depression Screening Interpretation: Negative Depression Screening Done: Yes Source: Developed by Drs. Karan Davidson, Crista Nguyen, Sunday Ashley and colleagues, with an educational sukhi from [employer]. Thrive Questionnaire Date Thrive assessed: 04/09/25 I am a: Patient What is your living situation today?: I have a steady place to live Within the past 12 months, did the food you bought not last and you didn't have the money to get more?: Never true Within the past 12 months, did you worry whether your food would run out before you got money to buy more?: Never true Do you have trouble paying for medicines?: No Do you have trouble getting transportation to medical appointments?: No Do you have trouble paying your heating and electricity bill?: No Do you have trouble taking care of your child, family member or friend?: No Do you have trouble with day-to-day activities such as bathing, preparing meals, shopping, managing finances, etc.?: No Are you currently unemployed and looking for a job?: No Are you interested in more education?: No Please select the resources that you would like help with: None Currently or been in a relationship where the following occur: No concerns reported THRIVE Score: 0 AUDIT C Alcohol Use Questionnaire (AUDIT-C) 1. How often do you have a drink containing alcohol?: Never Total Score: 0 AYAN-7 AMB Questionnaire AYAN-7 Date AYAN - 7 assessed: 04/09/25 Feeling nervous, anxious, or on edge: 0 = Not at all Not being able to stop or control worryin = Not at all Worrying too much about different things: 0 = Not at all Trouble relaxin = Not at all Being so restless that it is hard to sit still: 0 = Not at all Becoming easily annoyed or irritable: 0 = Not at all Feeling afraid as if something awful might happen: 0 = Not at all Total AYAN-7 score (0-4 normal; 5-9 mild; 10-14 moderate; 15-21 severe): 0 Source: Developed by Drs. Karan Davidson, Crista Nguyen, Sunday Ashley and colleagues, with an educational sukhi from [employer]. Physical exam (Primary Care) Vital Signs: Last Vital Signs Pulse 81 04/09/25 09:18 BP 130/88 04/09/25 09:18 Pulse Ox 96 04/09/25 09:18 Oxygen Delivery Method Room Air 04/09/25 09:18 BMI result Body Mass Index 38.7 Tobacco/Smoking Status: Tobacco use Status Tobacco use date assessed 04/09/25 04/09/25 09:35 Patient Tobacco Use Status Never used Tobacco 04/09/25 09:35 Tobacco use type Cigarette 04/09/25 09:35 e-Cigarette/Vaping Use Never Used 04/09/25 09:35 PHQ-9: PHQ-9 Score PHQ-9: Total score 0 04/09/25 09:54 Depression Screening Interpretation: Negative Thrive Assessment: Date of Thrive Assessment Date Thrive assessed 04/09/25 04/09/25 09:35 Currently or been in a relationship where the following occur: No concerns reported Const General: alert; No acute distress Eyes Conjunctivae: conjunctivae normal Resp Auscultation: clear to auscultation bilaterally Cardio Rate: regular rate Rhythm: regular rhythm GI Inspection: Yes normal to inspection Extrem General: Yes normal to inspection and No edema Coding Level of Care Code Est Pt Level 4 (10983) Complex EM visit Add On G2211 Diagnoses Type 2 diabetes mellitus with hyperglycemia, without long-term current use of insulin 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.65 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: without shelter use Class 2 severe obesity due to excess calories with serious comorbidity and body mass index (BMI) of 36.0 to 36.9 in adult E66.01; Z68.36 Body mass index: BMI 36.0-36.9 Obesity classification: adult class 2 (BMI 35 - 39.9) Obesity type: due to excess calories Serious obesity comorbidity presence: with serious comorbidity Chronic kidney disease, unspecified CKD stage N18.9 Chronic kidney disease stage: unspecified stage Essential hypertension I10 Atherosclerotic cardiovascular disease I25.10 Persistent atrial fibrillation I48.19 BPH w urinary obs/LUTS N40.1; N13.8 Assessment & Plan Assessment & Plan (1) Type 2 diabetes mellitus with hyperglycemia: Comment: EYE Dr. 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 Patient has seen endocrinology and will continue with the glipizide and metformin and Januvia as well as diet control n (2) Obesity: Code(s): E66.9 - Obesity, unspecified Category: Medical Qualifiers: Body mass index: BMI 36.0-36.9 Obesity classification: adult class 2 (BMI 35 - 39.9) Obesity type: due to excess calories Serious obesity comorbidity presence: with serious comorbidity Qualified Code(s): E66.01 - Morbid (severe) obesity due to excess calories; Z68.36 - Body mass index [BMI] 36.0-36.9, adult Plan: Diet and exercise (3) CKD (chronic kidney disease): Code(s): N18.9 - Chronic kidney disease, unspecified Category: Medical Qualifiers: Chronic kidney disease stage: unspecified stage Qualified Code(s): N1 8.9 - Chronic kidney disease, unspecified Plan: Keep well hydrated avoid NSAIDs continue to control blood pressure medication and increased by Nephrology 2.2 twice a day of clonidine (4) Essential hypertension: Code(s): I10 - Essential (primary) hypertension Category: Medical Plan: Continue with blood pressure medication. Decrease salt intake and exercise patient is on clonidine spironolactone metoprolol 150 mg once a day lisinopril 40 isosorbide mononitrate 60 mg once a day and amlodipine 10 mg once a day (5) Atherosclerotic cardiovascular disease: Code(s): I25.10 - Atherosclerotic heart disease of [place] coronary artery without angina pectoris Category: Medical Plan: Control the cholesterol, weight, blood pressure, diabetes continue with anticoagulation (6) Persistent atrial fibrillation: Code(s): I48.19 - Other persistent atrial fibrillation Category: Medical Plan: Continue with anticoagulation on Xarelto (7) BPH w urinary obs/LUTS: Code(s): N40.1 - Benign prostatic hyperplasia with lower urinary tract symptoms; N13.8 - Other obstructive and reflux uropathy Category: Medical Plan: Patient follows up with urology on imipramine and tamsulosin Plan History of Present Illness The patient is a 74-year-old male presenting with follow-up for multiple chronic health conditions. The patient has a significant medical history that includes atrial fibrillation, atherosclerotic cardiovascular disease, hypertension, chronic kidney disease, hypercholesterolemia, obstructive sleep apnea, diabetes mellitus, cervical spondylosis, congestive heart failure, and a pancreatic mass. The patient noted an 8-pound weight loss since his last visit, which occurred in December. His medical regimen has been challenging due to the cost and nature of medications, yet he has refused injectable medications and has struggled with the adverse side effects of certain oral medications, such as Jardiance. He follows an active lifestyle, engaging in activities like gardening, although he experiences some limitations in mobility. The patient reported a stable blood sugar with an HbA1c of 7.0 with the use of glipizide and metformin. His hypercholesterolemia is currently managed, evidenced by a low LDL level of 55. He experiences symptoms associated with benign prostatic hyperplasia, managed with imipramine and tamsulosin. The patient also has a history of osteoarthritis and experiences significant joint pain mainly localized to the knees and hips, with prior imaging indicating degenerative changes. Notably, there is a family history of serious complications arising from diabetes and kidney disease; his sister suffered significant kidney impairment leading to dialysis due to diabetes. Health Maintenance - Advised continuation of diabetes management with glipizide and metformin. - Recommended dietary consultation set for May 24 to aid in further weight management and diabetes control. - Encouraged continued lifestyle modifications including diet and exercise. - Blood pressure management with increased clonidine (0.2 mg twice daily) as per nephrology recommendation. - Cholesterol management with LDL reported at 55, maintained with medication adherence. - Vitamin B12 supplementation recommended due to low levels (246). Social History - Engages in moderate physical activity despite limitations (e.g., gardening). - Lives in a setting where he manages various personal responsibilities. - Family history includes serious complications of diabetes. Review of Systems - Cardiovascular: Reports weight loss. - Endocrine: Denies any issues since on metformin and glipizide. - Musculoskeletal: Reports pain in the knees and hip. - Renal: Denies change in urination pattern aside from BPH symptoms. - General: Reports overall feeling of better health with recent weight loss. Physical Exam Results - Labs: Hemoglobin A1c at 7.0; LDL at 55; Vitamin B12 low at 246. - Renal: Most recent creatinine at 1.17. - Recent blood work also shows normal blood count and electrolytes. Plan 1. 2 mg twice daily as per nephrology recommendation. Continuation of Xarelto for atrial fibrillation is advised. Osteoarthritis pain management remains in place, and a follow-up on evaluating uric acid for potential gout is needed. BPH symptoms are monitored under current medication. Vitamin supplementation is required due to identified deficiency: . Patient was informed and verbally consented to the use of an ambient scribe for clinic note documentation during this visit. Discussion Notes During the conversation, I emphasized the importance of maintaining current therapeutic regimens for managing obesity, diabetes, hypertension, and cholesterol levels. Discussions included the risks associated with improper management of these chronic conditions, particularly emphasizing the importance of medication adherence and lifestyle interventions. Dietary consultations were advocated to better manage the patient?s weight and glucose levels. The continuation of his anticoagulation therapy was consented to manage atrial fibrillation and reduce the risk of thromboembolic events. Vitamin B12 supplementation has been discussed due to current low levels impacting metabolic functions. Patient Instructions - Continue glipizide and metformin for diabetes. - Increase clonidine to 0.2 mg twice daily as directed. 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 - Maintain current exercise routine to support weight management. - Ensure intake of prescribed vitamin B12 supplements. - Monitor for any changes in symptoms and report concerns. - Follow up as needed with urology and nephrology appointments. - Seek medical attention if experiencing unusual symptoms or significant changes in health. Orders: Orders B Type Natriuretic Peptide 3 Months I50.32 - Chronic diastolic (congestive) heart failure Free T4 (Free Thyroxine) 3 Months I50.32 - Chronic diastolic (congestive) heart failure Uric Acid 3 Months I50.32 - Chronic diastolic (congestive) heart failure Prostate Specific Antigen Scr 3 Months I50.32 - Chronic diastolic (congestive) heart failure Complete Blood Count Auto Diff 3 Months I50.32 - Chronic diastolic (congestive) heart failure Comprehensive Met. Panel 3 Months I50.32 - Chronic diastolic (congestive) heart failure Lipid Panel 3 Months E78.00 - Pure hypercholesterolemia, unspecified, I50.32 - Chronic diastolic (congestive) heart failure Vitamin B12 and Folate 3 Months I50.32 - Chronic diastolic (congestive) heart failure Hemoglobin A1c 3 Months I50.32 - Chronic diastolic (congestive) heart failure Medications: Changed From clonidine HCl 0.1 mg PO BID 180 tabs 3RF R79.89 - Other specified abnormal findings of blood chemistry To clonidine HCl 0.2 mg PO BID R79.89 - Other specified abnormal findings of blood chemistry Refilled sitagliptin phosphate (Januvia) 100 mg PO DAILY 90 tabs 2RF E11.65 - Type 2 diabetes mellitus with hyperglycemia
--- OUTSIDE RECORDS SUMMARY | 2025-04-09 09:50 | XMS_ITS | Clinical Summary ---
Author Organization [facility] Address [address] [phone] Phone Care Team Providers Care Sulfide Head Operator Name Role Phone Victor M Allan MD Primary Care Provider [phone] Allergies Active Allergy Reactions Criticality Noted Date Comments Empagliflozin Dermatitis High 01/04/2025 Nifedipine 09/25/2023 Warfarin 09/25/2023 Medications ALPRAZolam (XANAX) 0.25 MG tablet Take 1 tablet by mouth every night Active isosorbide mononitrate (IMDUR) 30 MG 24 hr tablet Take 60 mg by mouth 1 (one) time each day Active metFORMIN (GLUCOPHAGE) 850 MG tablet Take 1 tablet by mouth 1 (one) time each day Active pravastatin (PRAVACHOL) 40 MG tablet Take 1 tablet by mouth 1 (one) time each day Active rivaroxaban (Xarelto) 20 MG tablet Take 20 mg by mouth 1 (one) time each day with dinner Active metoprolol succinate XL (TOPROL-XL) 100 MG 24 hr tablet Take 150 mg by mouth 1 (one) time each day Take 50 mg in am, and 100 mg qhs Active glipiZIDE (GLUCOTROL XL) 5 MG 24 [...] mouth 1 (one) time each day Active cloNIDine (CATAPRES) 0.2 MG tabletIndication s:Hypertension Take 1 tablet (0.2 mg total) by mouth in the morning and 1 tablet (0.2 mg total) in the evening. 60 tablet 5 5 08/16/20 25 Active Active Problems Problem Noted Date Diagnosed Date Nephrolithiasis 01/04/2025 Vitamin D deficiency, not otherwise specified Obstructive sleep apnea of adult 09/24/2023 09/24/2023 Hypertension 09/24/2023 09/24/2023 Morbid obesity 09/24/2023 09/24/2023 Type 2 diabetes mellitus 09/24/2023 023 Encounters Date Type Department Care Team Description 02/17/2025 8:45 AM EDT Office Visit [facility] [address] [phone] Monica Canela ARNP Hypertension (Primary Dx); Nephrolithiasis; [...] Sign Reading Time Taken Comments Blood Pressure 144/86 02/17/2025 8:36 AM EDT Pulse 96 02/17/2025 8:36 AM EDT Temperature - - Respiratory Rate - - Oxygen Saturation 98% 02/17/2025 8:36 AM EDT Inhaled Oxygen Concentration - - Weight 121 kg (266 lb) 02/17/2025 8:36 AM EDT Height 172.7 cm (5' 8 ) 09/25/2023 2:36 PM EST Body Mass Index 40.45 09/25/2023 2:36 PM EST Plan of Treatment Upcoming Encounters Date Type Department Care Team (Late st Contact Info) Description 04/19/2025 8:00 AM EDT Office Visit [facility] [address] [phone] Monica Canela ARNP [address] [phone] 01/04/2026 9:15 AM EST Office Visit [facility] [address] [phone] Monica Canela ARNP [address] [facility] [address] [place] [address] Health Maintenance Due Date Last Done Comments Pneumococcal Vaccine: 50+ Ye ars (1 of 2 - PCV) 1971 Colorectal Cancer Screening: Annual FOBT 2001 Colorectal Cancer Screening: Colonoscopy 2001 Colorectal Cancer Screening: Sigmoidoscopy 2001 Diabetes: Hemoglobin A1C 12/04/2020 Diabetes: Ophthalmology Exam 12/04/2020 Diabetes: Pedal Pulse Checked 12/04/2020 Diabetes: Sensory Foot Exam 12/04/2020 Diabetes: Visual Foot Exam 12/04/2020 Influenza Vaccine (Season Ended) 2025 Hepatitis B Vaccine Aged Out No longe r eligible based on patient's age to complete this topic Insurance Medicare [facility] Medicare [facility] Care Teams Sulfide Head Operator Relationship Specialty Start Date End Date Victor M Allan MD [id number] [place] PCP - General 11/14/20
== END 2025-04-09 10:16 | disposition home or self-care (01) ==
LOC: HO.HMCH 09:18
PROVIDERS: PCP Nurse Practitioner Family; Visit Provider Internal Medicine
DX: I12.9 Hypertensive chronic kidney disease with stage 1 through stage 4 chronic kidney disease, or unspecified chronic kidney disease (principal); E11.65 Type 2 diabetes mellitus with hyperglycemia; E66.01 Morbid (severe) obesity due to excess calories; I48.19 Other persistent atrial fibrillation; N18.9 Chronic kidney disease, unspecified; Z68.36 Body mass index [BMI] 36.0-36.9, adult; I25.10 Atherosclerotic heart disease of native coronary artery without angina pectoris; N40.1 Benign prostatic hyperplasia with lower urinary tract symptoms; N13.8 Other obstructive and reflux uropathy

== ENCOUNTER → 2025-04-09 09:17 | Outpatient (BNVA) | payer MEDICARE, SELFPAY | PROVIDERS: PCP Nurse Practitioner Family; Visit Provider Internal Medicine | DX: E11.65 Type 2 diabetes mellitus with hyperglycemia (principal); E66.01 Morbid (severe) obesity due to excess calories; Z68.36 Body mass index [BMI] 36.0-36.9, adult; I12.9 Hypertensive chronic kidney disease with stage 1 through stage 4 chronic kidney disease, or unspecified chronic kidney disease; E11.22 Type 2 diabetes mellitus with diabetic chronic kidney disease; N18.9 Chronic kidney disease, unspecified; I25.10 Atherosclerotic heart disease of native coronary artery without angina pectoris; I48.19 Other persistent atrial fibrillation; N40.1 Benign prostatic hyperplasia with lower urinary tract symptoms; N13.8 Other obstructive and reflux uropathy | CPT/HCPCS: 99212 ==

== ENCOUNTER 2025-04-13 15:43 | Outpatient (REF) | payer MEDICARE, SELFPAY ==
--- NOTE | ~2025-04-13 | XR_ITS ---
EXAMINATION: XR CERVICAL SPINE CLINICAL INFORMATION: CERVICAL DISC DISEASE COMPARISON: October 11, 2021. TECHNIQUE: 3 views of the cervical spine were obtained. FINDINGS: Craniocervical junction is intact. Marginal osteophyte formation and endplate sclerosis, decreased intervertebral disc height at C5-6 and to a lesser extent C3-4, C4-5 and C6-7 levels. Grade 1 retrolisthesis C4-5 and C5-6 levels. No acute cortical disruption. No lytic or blastic lesions. Upper airway is patent. XR/XR cervical spine 3V IMPRESSION: Multilevel cervical spondylosis C3 C7 more pronounced at C5-6. Electronically signed by: Livan Aguilar MD 04/14/2025 07:12 AM EDT
--- NOTE | ~2025-04-13 | XR_ITS ---
EXAMINATION: XR THORACIC SPINE CLINICAL INFORMATION: THORACIC DISC DISEASE COMPARISON: June 15, 2020 TECHNIQUE: 3 views of the thoracic spine were obtained in standing position. FINDINGS: Multilevel marginal osteophyte formation and endplate sclerosis. S-shaped curvature of the thoracolumbar spine. No acute cortical disruption. No gross malalignment, thoracic spine. No lytic or blastic lesions. Vascular complications, aorta. XR/XR thoracic spine 2V IMPRESSION: Multilevel spondylosis, cervical thoracic spine. Mild scoliosis. No gross change. Electronically signed by: Livan Aguilar MD 04/14/2025 07:40 AM EDT
--- NOTE | ~2025-04-13 | XR_ITS ---
EXAMINATION: XR LUMBOSACRAL SPINE CLINICAL INFORMATION: LUMBAR DISC DISEASE COMPARISON: October 03, 2015 TECHNIQUE: Three views of the lumbosacral spine. FINDINGS: Syndesmophyte formation and marginal osteophyte formation with endplate sclerosis and decreased intervertebral disc height at L4-5 L5-S1 and T10-11 and T11-12 levels. No acute cortical disruption. No gross malalignment. No lytic or blastic lesions. Facet joint hypertrophy at L4-5 and L5-S1. Vascular complications, aorta. Mild degenerative changes in the coxofemoral joints and symphysis pubis. XR/XR lumbar spine 2-3V IMPRESSION: Multilevel lower thoracic and lower lumbar spondylosis, progressed since prior exam. Electronically signed by: Livan Aguilar MD 04/14/2025 07:38 AM EDT
--- OUTSIDE RECORDS SUMMARY | 2025-04-13 18:46 | XMS_ITS | Clinical Summary ---
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 Operator Name Role Phone Victor M Allan MD Primary Care Provider [phone] Allergies Active Allergy Reactions Criticality Noted Date [...] Office Visit [facility] [address] [phone] Monica Canela ARNP Hypertension (Primary Dx); Nephrolithiasis; [...] Visit [facility] [address] [phone] Monica Canela ARNP [address] [phone] 01/04/2026 9:15 AM EST Office Visit [facility] [address] [phone] Monica Canela ARNP [address] [facility] [address] [place] [address] Health Maintenance Due Date Last Done Comments [...] HOSPITAL Medicare [facility] Care Teams Electric Crane Operator Relationship Specialty Start Date End Date Victor M Allan MD [id number] [place] PCP - General 11/14/20
== END 2025-04-13 15:44 | disposition home or self-care (01) ==
LOC: HO.XRAY 15:43
PROVIDERS: PCP Internal Medicine; Visit Provider Registered Nurse
DX: M51.9 Unspecified thoracic, thoracolumbar and lumbosacral intervertebral disc disorder (principal); M50.90 Cervical disc disorder, unspecified, unspecified cervical region
CPT/HCPCS: 72040; 72070; 72100

== ENCOUNTER → 2025-04-13 16:15 | Outpatient (BNV) | payer MEDICARE, SELFPAY | PROVIDERS: PCP Internal Medicine; Visit Provider Radiology Diagnostic Radiology | DX: M47.815 Spondylosis without myelopathy or radiculopathy, thoracolumbar region (principal); M47.812 Spondylosis without myelopathy or radiculopathy, cervical region; M47.813 Spondylosis without myelopathy or radiculopathy, cervicothoracic region | CPT/HCPCS: 72040; 72070; 72100 ==

== ENCOUNTER 2025-05-24 09:27 | Outpatient (AMB) | payer MEDICARE, SELFPAY ==
[2025-05-24 09:34] VITALS: BMI 39.2
--- NOTE | 2025-05-24 09:34 | MHC.AMNUTRGE ---
VS Expanded 05/24/25 09:34 05/24/25 09:42 Height 5 ft 8 in 5 ft 8 in Weight 258 lb 2.581 oz 258 lb BMI 39.2 39.2 Intake Visit Reasons: Type 2 diabetes mellitus with hyperglycemia Allergies warfarin Allergy (Intermediate, Verified 04/09/25 09:29) sweats, dry mouth,elevated BP naproxen Allergy (Unknown, Verified 04/09/25 09:29) face got red nifedipine (NIFEDIPINE) Allergy (Unknown, Verified 04/09/25 09:29) GI SIDE EFFECTS, stomach upset, GI empagliflozin (From Jardiance) Adverse Reaction (Intermediate, Verified 04/09/25:29) testicular swelling Nutrition Presentation Details: Pt presents for MNT for T2DM with hyperglycemia Typical meal intake eats out 3 x/wk B: now having oatmeal with fruit and coffee with no sugar added L: pasta/chicken/bread or soup and salad, water or soda dinner: meatball and spaghetti, soup snack: yogurt fruit, chips physical activity: ADL etoh/smoking:denies food frequency fruits: 0-1/d ve-3 x/wk dairy 2 /d fish : 0-1/wk snack++ etoh occ choosing non alcolic smoking denies BS Monitoring Most Recent Diabetes Results: Cholesterol, (<200) 114 mg/dL 03/26/25 HDL Cholesterol, (>40) 35 mg/dL L 03/26/25 Triglycerides, (<150) 122 mg/dL 03/26/25 Creatinine, (0.5-1.4) 0.99 mg/dL 03/26/25 BUN, (9-16) 18 mg/dL H 03/26/25 Sodium, (135-145) 143 mmol/L 03/26/25 Potassium, (3.3-5.1) 4.6 mmol/L 03/26/25 Chloride, (96-108) 104 mmol/L 03/26/25 Carbon Dioxide, (22-29) 30 mmol/L H 03/26/25 Calcium, (8.4-10.2) 9.7 mg/dL 03/26/25 AST, (5-37) 26 U/L 03/26/25 ALT, (0-40) 31 U/L 03/26/25 Total Protein, (6.5-8.0) 7.1 g/dL 03/26/25 Albumin, (3.5-5.0) 4.6 g/dL 03/26/25 BZG-Ldypkls-Zg.Jeor Equation Height: 5 ft 8 in Weight: 258 lb Resting Metabolic Rate: 1899.36 Calculated Activity Level: Sedentary Calories Needed to Maintain Weight: 2279.23 Diagnosis Nutrition problem #1: excessive energy intake As related to (etiology) #1: diagnosis As evidenced by (sign/symptom) #1: knowledge deficit of diet Learning/Education Readiness to learn: good Stages of change: contemplation Educational materials provided: Yes (meal planning 2000 andreas (60-80 g carb per meal )) PFSH Medical History (Updated 05/24/25 @ 09:38 by Vani Ramos, RD, LDN) Gastritis Low libido Nocturia more than twice per night Verruca COVID-19 virus infection Trigger finger, left ring finger Flexor tenosynovitis of finger SOB (shortness of breath) Fibromyalgia Rheumatoid factor positive Knee pain, bilateral Bilateral carpal tunnel syndrome Pancreatic cyst Cervico-occipital neuralgia Cervical spondylosis without myelopathy Obstructive sleep apnea hypopnea, severe Carpal tunnel syndrome Degenerative disc disease, cervical GERD (gastroesophageal reflux disease) Hypercholesterolemia CKD (chronic kidney disease) Overactive bladder Hypogonadism Pancreatic mass Essential hypertension Atherosclerotic cardiovascular disease Persistent atrial fibrillation Surgical History History of cataract surgery Optional surgery Hx of tonsillectomy H/O lumbar discectomy History of heart artery stent (~04/2018) Family History Father Cancer Mother Diabetes Cardiovascular disease Social History Housing: House Alcohol intake: never Patient Tobacco Use Status: Never used Tobacco Tobacco use type: Cigarette e-Cigarette/Vaping Use: Never Used Second Hand Smoke Exposure: No service: No Current occupational status: retired 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 Cognitive needs: No Hearing needs: No Vision needs: Yes Assessment & Plan Assessment & Plan (1) Type 2 diabetes mellitus with hyperglycemia: Code(s): E11.65 - Type 2 diabetes mellitus with hyperglycemia Category: Medical Qualifiers: Diabetes mellitus 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 insulin use: without 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 use Qualified Code(s): E11.65 - Type 2 diabetes mellitus with hyperglycemia Plan: Wt: 117 Kg ( 05/28 ) Est kcal needs as per MSJ: 2300 (40% carb, 30% protein/fat) Est fluid needs as per 25-30 ml/d: 3500 Est prot per day as per 1 g/kg bw: 120 Recommend fiber intake : 8-10 g per day and gradually increase to 25-28 g per day for women and 35-38 g for men or as tolerated Recommend sodium intake per day : less than 2300 mg Educated patient on: ( R = reviewed V = verbalizes understanding N/R = needs review N/A = not applicable Food sources of carbohydrate, adequate serving sizes and its role in various health conditions: R V N/R Differences between complex carbohydrates a simple carbohydrates, role of fiber in diet: R Lean protein sources of foods: R Differences between types of fats and role in diet (mono on saturated fat fatty acids, saturated fatty acids, trans fats): R V N/R Food sources of sodium in salt and healthy modifications for heart health in kidney health: R V R/V Vitamins and minerals: R V N/R Healthy plate method concept: R V N/R Physical activity: Benefits a precaution: R V N/R Hypoglycemia protocol (rule of 15): R V N/R Dietary prevention of Hyperglycemia: R Patient Instructions: Choose a smaller plate , follow healthy plate method reducing total carbs to 60-80 g of carbrohydrate or less chooose low sugar beverages Coding Level of Care Code Nutr Indiv Intake (65499) Diagnoses Type 2 diabetes mellitus with hyperglycemia, without long-term current use of insulin E11.65 Diabetes mellitus prison insulin use: without 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 use Time Spent (min) 40
[2025-05-24 09:42] VITALS: BMI 39.2
--- OUTSIDE RECORDS SUMMARY | 2025-05-24 09:58 | XMS_ITS | Clinical Summary ---
Author Organization [facility] Address [address] [address] Phone Care Team Providers Care Change Management Consultant Name Role Phone Victor M Allan MD Primary Care Provider [phone] Allergies Active Allergy Reactions Criticality Noted Date [...] 90 tablet 3 4 06/02/20 25 Active cloNIDine (CATAPRES) 0.2 MG tabletIndication s:Hypertension [...] Encounters Date Type Department Care Team Description 04/14/2025 8:15 AM EDT Office Visit [facility] [address] [phone] Monica Canela ARNP Hypertension (Primary Dx); Nephrolithiasis; [...] Sign Reading Time Taken Comments Blood Pressure 110/66 04/14/2025 8:19 AM EDT Pulse 76 04/14/2025 8:19 AM EDT Temperature - - Respiratory Rate - - Oxygen Saturation 98% 02/17/2025 8:36 AM EDT Inhaled Oxygen Concentration - - Weight 118 kg (261 lb) 04/14/2025 8:19 AM EDT Height 172.7 cm (5' 8 ) 09/25/2023 2:36 PM EST Body Mass Index 39.68 09/25/2023 2:36 PM EST Plan of Treatment Upcoming Encounters Date Type Department Care Team (Late st Contact Info) Description 01/04/2026 9:15 AM EST Office Visit [facility] [address] [phone] Monica Canela ARNP [address] [phone] Health Maintenance Due Date Last Done Comments Pneumococcal Vaccine: 50+ Ye ars (1 of 2 - PCV) 1971 Colorectal Cancer Screening: Annual FOBT 2001 Colorectal Cancer Screening: Colonoscopy 2001 Colorectal Cancer Screening: Sigmoidoscopy 2001 Diabetes: Hemoglobin A1C 12/04/2020 Diabetes: Ophthalmology Exam 12/04/2020 Diabetes: Pedal Pulse Checked 12/04/2020 Diabetes: Sensory Foot Exam 12/04/2020 Diabetes: Visual Foot Exam 12/04/2020 Influenza Vaccine (#1) 2025 Hepatitis B Vaccine Aged Out No longe r eligible based on patient's age to complete this topic Insurance Medicare [facility] Medicare [facility] Care Teams Change Management Consultant Relationship Specialty Start Date End Date Victor M Allan MD [address] [place], [place] PCP - General 11/14/20
--- OUTSIDE RECORDS SUMMARY | 2025-05-24 09:58 | XMS_ITS | Clinical Summary ---
Author Organization [email or web address] Address [address] [facility] [address] [place] [address] Care Team Providers Care Engineering Designer Name Role Phone Unavailable Primary Care Provider [...] um Nitrate 1.1-5 % pasteIndications :Dental caries [place] teeth for 2 minutes, morning and night. Spit, do not rinse. Do not eat or drink anything for 30 minutes following brushing. 112 g 3 4 Active tamsulosin (Flomax) 0.4 MG 24 hr capsule Take 0.4 mg by mouth Once per day. Active Active Problems Problem Noted Date Diagnosed Date Apnea, sleep 10/06/2024 Chronic low back pain 10/06/2024 Hypercholesterolemia 10/06/2024 Osteoarthritis (arthritis due to wear and tear o f joints) 10/06/2024 Polyneuropathy due to type 1 diabetes mellitus 1 12/07/2023 Essential hypertension 09/24/2023 Morbid obesity 09/24/2023 Obstructive sleep apnea of adult 09/24/2023 Type 2 diabetes mellitus 09/24/2023 Pancreatic cyst 04/28/2012 Social History Tobacco Use Types Packs/Day Years [...] Sign Reading Time Taken Comments Blood Pressure 132/88 02/04/2025 9:02 AM EDT Pulse 60 08/03/2024 9:12 AM EDT Temperature - - Respiratory Rate - - Oxygen Saturation - - Inhaled Oxygen Concentration - - Weight - - Height - - Body Mass Index - - Plan of Treatment Upcoming Encounters Date Type Department Care Team (Late st Contact Info) Description 08/09/2025 9:00 AM EDT Office Visit [facility] [address] [place] [address] Milli Jacobs Health Maintenance Due Date Last [...] DTaP/Tdap/Td Vaccines (1 - Tdap) 09/10/2024 09/09/2024 Influenza Vaccine (#1) 2025 , 09/20/2023, 08/27/2022, Additional history exists Dental X-Ray: Bitewings 08/04/2025 08/03/20 24, 01/08/2017, 05/16/2016, Additional history exists Dental Oral Exam 08/07/2025 02/04/2025, , 01/08/2017, Additional history exists Dental Prophylaxis 08/07/2025 02/04/2025, 0 08/03/2024, 12/04/2016, Additional history exists Tobacco Screening 02/04/2026 02/04/2025 RSV Patients and Patients Aged 60 years or older (1 - 1-dose 75+ series) 2027 Dental X-Ray: Full Mouth 08/04/2027 08/03/2024, 12/06 Pneumococcal Vaccine: 50+ Years Completed 08/07/2021, 10/17/2018, 09/16/2016 HIB Vaccines Aged Out No longer eligi [...] patient's age to complete this topic Meningococcal B Vaccine Aged Out No l onger eligible based on patient's age to complete [...] Procedure Name Priority Date/Time Associated Diagnosis Comments PROPHYLAXIS - ADULT Routine 02/04/2025 9 :00 AM EDT PERIODIC ORAL EVALUATION - ESTABLISHED PATIENT Routine 02/04/2025 9:00 AM EDT INTRAORAL - COMPLETE SERIES OF RADIOGRAPHIC IMAGES Routine 08/03/2024 9:00 AM EDT Dental calculus Dental caries Defective dental evangelical with open interproximal contact from Last 3 Months or Most Recently Relevant to Health Maintenance Insurance DENTAL - HSN FULL (MEDICAID)
--- OUTSIDE RECORDS SUMMARY | 2025-05-24 09:58 | XMS_ITS | Patient Health Record ---
Author Organization [facility] Address [address] [facility] [place] [address] Care Team Providers Care Custodial Worker Name Role Phone Victor M Allan Primary Care Provider UnavailNat Adkins Unavailable [phone] Reed Mccabe Unavailable [phone] Carlos Irwin Unavailable [phone] Allergies Allergen (clinical drug ingredient) Drug/Non Drug Allergy documented on EMR Reaction Allergy Type Onset Date Status empagliflozin Jardiance Bad reaction Drug Allergy Active nifedipine Nifedipine constipation Drug Allergy Ac tive warfarin Warfarin sweats Drug Allergy Active Results Component Value Reference Range Notes HEMOGLOBIN A1C (GLYCOHEMOGLO BIN) Reviewed date:09/18/2024 01:11:20 PM Interpretation: Performing Lab: Notes/Report: TOTAL HEMOGLOBIN (HGBA1C) 7.2 HEMOGLOBIN A1C (GLYCOHEMOGLO BIN) Reviewed date:12/10/2024 09:28:36 AM Interpretation: Performing Lab: Notes/Report: HEMOGLOBIN A1C % (HH) 7.2 HEMOGLOBIN A1C (GLYCOHEMOGLO BIN) Reviewed date:03/19/2025 09:10:25 AM Interpretation: Performing Lab: Notes/Report: HEMOGLOBIN A1C % (HH) 7.5 Reason For Referral No Information Medications Medication SIG (Take, Route, Frequency, Duration) Notes Start Date End Date Status Omeprazole 20 MG 1 capsule 30 minutes before morning meal Orally Once a day; Duration: 30 day(s) Active Nitroglycerin 0.4 MG as directed Sublingual Active metFORMIN HCl 850 MG 1 tablet with a jose l Orally Once a day; Duration: 30 day(s) Active Lisinopril 40 MG 1 tablet Orally Once a day; Duration: 30 day(s) Active Januvia 100 MG 1 tablet Orally Once a day Active Isosorbide Mononitrate 60 MG 1 tablet in the morning Orally Once a day; Duration: 30 day(s) Active Xarelto 20 MG 1 tablet with food Orally Once a day; Duration: 30 day(s) Active glipiZIDE 5 MG 2 tablets Orally twi ce daily Active Voltaren 1 % as directed Externally Active Gabapentin 300 MG 1 capsule Orally Onc e a day; Duration: 30 day(s) Active Tylenol Active cloNIDine HCl 0.1 MG 1 tablet Orally Onc e a day; Duration: 30 day(s) Active Tamsulosin HCl 0.4 MG as directed Orally Active amLODIPine Besylate 10 MG 1 tablet Orall y Once a day; Duration: 30 day(s) Active Spironolactone 25 MG 1 tablet Orally; Duration: 30 day(s) Active ALPRAZolam 0.25 MG 1 tablet Orally Twic e a day Active Pravastatin Sodium 40 MG 1 tablet Orally Once a day; Duration: 30 day(s) Active Social History Tobacco Use: Social History [...] Problem Acquired hammer toe of right foot (1208597716018753 ) Other hammer toe(s) (acquired), right foot (M20.41) Active confirmed Problem Acquired hammer toe of left foot ([id number] ) Other hammer toe(s) (acquired), left foot (M20.42) Active confirmed Problem Polyneuropathy due to type 2 diabetes mellitus (240728484) Type 2 diabetes mellitus with diabetic polyneuropathy (E11.42) Active confirmed Vital Signs Blood pressure diastolic 84 mm Hg 03/19/2025 Height 5ft 8in in 03/19/2025 Blood pressure systolic 134 mm Hg 03/19/2025 Weight 265 lbs 03/19/2025 BMI 40.29 kg/m2 03/19/2025 Procedures Procedure Date Ordered Date Performed Result Body Sit e 28429-SDNXKEV NAIL, 6 OR MORE 09/18/2024 N/A 82005-EPBS SKIN LESIONS, 2 TO 4 09/18/2024 N/A 04316-JACBTEA NAIL, 6 OR MORE 12/10/2024 N/A 03107-ANIQ SKIN LESIONS, 2 TO 4 12/10/2024 N/A Encounters Encounter Location Date Provider Diagnosis [address] [phone] 06/26/2024 Reed Mccabe Type 2 diabetes mellitus with diabetic polyneuropathy E11.42 ; Pain in right toe(s) M79.674 ; Pain in left toe(s) M79.675 ; Tinea unguium B35.1 ; Metatarsalgia, left foot M77.42 and Primary osteoarthritis, left ankle and foot M19.[address] [phone] 09/18/2024 Nat Beard Type 2 diabetes mellitus with diabetic polyneuropathy E11.42 and Tinea unguium B35.[address] [phone] 12/10/2024 Carlos Irwin Type 2 diabetes mellitus with diabetic polyneuropathy E11.42 ; Tinea unguium B35.1 ; Other hammer toe(s) (acquired), right foot M20.41 and Other hammer toe(s) (acquired), left foot M20.[address] [address] 03/19/2025 Nat Beard Type 2 diabetes mellitus with diabetic polyneuropathy E11.42 and Tinea unguium B35.[address] [address] 01/28/2025 Nat Beard Assessments Encounter Date Diagnosis (ICD Code) Assessment Notes Treatment Notes Treatment Clinical Notes Section Notes 06/26/2024 Type 2 diabetes mellitus with diabetic polyneuropathy (ICD-10 - E11.42) 09/18/2024 Type 2 diabetes mellitus with diabetic polyneuropathy (ICD-10 - E11.42) 09/18/2024 Tinea unguium (ICD-10 - B35.1) 12/10/2024 Type 2 diabetes mellitus with diabetic polyneuropathy (ICD-10 - E11.42) 12/10/2024 Tinea unguium (ICD-10 - B35.1) 03/19/2025 Type 2 diabetes mellitus with diabetic polyneuropathy (ICD-10 - E11.42) 03/19/2025 Tinea unguium (ICD-10 - B35.1) 12/10/2024 Other hammer toe(s) (acquired), right foot (ICD-10 - M20.41) Patient Educated with: DIABETIC FOOT CARE INSTRUCTIONS. pdf (DIABETIC FOOT CARE INSTRUCTIONS. pdf) 06/26/2024 Pain in right toe(s) (ICD-10 - M79.674) 06/26/2024 Pain in left toe(s) (ICD-10 - M79.675) 12/10/2024 Other hammer toe(s) (acquired), left foot (ICD-10 - M20.42) 06/26/2024 Tinea unguium (ICD-10 - B35.1) 06/26/2024 Metatarsalgia, left foot (ICD-10 - M77.42) 06/26/2024 Primary osteoarthritis, left ankle and foot (ICD-10 - M19.072) Plan Of Treatment Pending Test Test Name Order Date X ray : Foot, left 3V 01/03/2024 87532-KSWXLUU NAIL, 6 OR MORE 09/18/2024 55241-TBVPQRE NAIL, 6 OR MORE 12/10/2024 41959-AAAC SKIN LESIONS, 2 TO 4 12/10/19 25 16574-JNBK SKIN LESIONS, 2 TO 4 09/18/20 24 98312-JERU SKIN LESIONS, 2 TO 4 01/03/20 24 78954-XWLY SKIN LESIONS, 2 TO 4 04/03/20 24 Next Appt Details Provider Name:Nat Nova cat, 06/22/2025 09:00:00 AM, [address] [facility], [place] [address], [place], [phone], Insurance Providers Payer Name Payer Address Payer Phone Subscriber Number Group Number Insured Name Patient Relationship to Insured Coverage Start Date Coverage End Date Medicare National [employer] [address] [place] [address] [id number] Pipo Springer Self - patient is the insured [employer] [facility] [address] [place] [address] [phone] [id number] Pipo Springer Self - patient is the insured Medical (General) History Medical History History ICD Code Arthritis Back,Hip,and Knee pain covid-19 Diabetic Headaches/Migraines Heart disease High blood pressure Kidney disease Psoriasis/eczema Reflux Surgical History Surgery Date(Month/Year) back surgery 1984
== END 2025-05-24 10:20 | disposition home or self-care (01) ==
LOC: HO.ENCR 09:28
PROVIDERS: PCP Internal Medicine; Visit Provider Dietitian, Registered
DX: E11.65 Type 2 diabetes mellitus with hyperglycemia (principal)

== ENCOUNTER → 2025-05-24 09:27 | Outpatient (BNVA) | payer MEDICARE, SELFPAY | PROVIDERS: PCP Internal Medicine; Visit Provider Dietitian, Registered | DX: E11.65 Type 2 diabetes mellitus with hyperglycemia (principal) | CPT/HCPCS: 97802 ==

== ENCOUNTER 2025-05-26 09:54 | Outpatient (AMB) | payer MEDICARE, SELFPAY ==
[2025-05-26 10:13] VITALS: BP 116/66; PULSE 80; BMI 39.2
--- NOTE | 2025-05-26 10:13 | A.OFFVIS_ITS ---
Vital Signs 05/26/25 10:13 Height 5 ft 8 in Weight 257 lb 15.053 oz BMI 39.2 BP 116/66 Blood Pressure Location Lt brachial Position Sitting Pulse 80 Pulse Source Monitor Intake Visit Reasons: 6m follow up Allergies warfarin Allergy (Intermediate, Verified 04/09/25 09:29) sweats, dry mouth,elevated BP naproxen Allergy (Unknown, Verified 04/09/25 09:29) face got red nifedipine (NIFEDIPINE) Allergy (Unknown, Verified 04/09/25 09:29) GI SIDE EFFECTS, stomach upset, GI empagliflozin (From Jardiance) Adverse Reaction (Intermediate, Verified 04/09/25 09:29) testicular swelling Medication List - Last Reconciled 05/26/25 by Onesimo Kulkarni MD acetaminophen ER (Tylenol Arthritis Pain) 650 mg PO Q12H alprazolam 1 mg (4 x 0.25 mg) PO DAILY PRN amlodipine 10 mg PO DAILY betamethasone, augmented 0.05 % 1 appl topical BID blood sugar diagnostic As directed blood sugar diagnostic (Winster Ultra Test strips) As directed check the blood sugar once a day clonidine HCl 0.2 mg PO BID diclofenac sodium 1% (Voltaren Arthritis Pain) 2 grams topical QID gabapentin 300 mg PO BID glipizide ER Take 2 tablets in the morning and 2 tablet in the evening PO; imipramine HCl 25 mg PO BEDTIME 90 days isosorbide mononitrate ER 60 mg PO QAM lisinopril 40 mg PO DAILY metformin 1,000 mg PO BID 90 days metoprolol succinate ER 50 mg PO QAM metoprolol succinate ER 100 mg PO QPM 90 days nitroglycerin 0.4 mg sublingual Q5M PRN 90 days omeprazole 20 mg PO DAILY pravastatin 40 mg PO DAILY rivaroxaban (Xarelto) 20 mg PO DAILY sitagliptin phosphate (Januvia) 100 mg PO DAILY tamsulosin 0.4 mg PO QDAY HPI Comments Details: Arnie returns for follow-up regarding coronary disease, hypertension and atrial fibrillation. Overall, he is doing good. No clear-cut symptoms like angina PFSH Medical History (Updated 05/24/25 @ 09:38 by Vani Ramos, RD, LDN) Gastritis Low libido Nocturia more than twice per night Verruca COVID-19 virus infection Trigger finger, left ring finger Flexor tenosynovitis of finger SOB (shortness of breath) Fibromyalgia Rheumatoid factor positive Knee pain, bilateral Bilateral carpal tunnel syndrome Pancreatic cyst Cervico-occipital neuralgia Cervical spondylosis without myelopathy Obstructive sleep apnea hypopnea, severe Carpal tunnel syndrome Degenerative disc disease, cervical GERD (gastroesophageal reflux disease) Hypercholesterolemia CKD (chronic kidney disease) Overactive bladder Hypogonadism Pancreatic mass Essential hypertension Atherosclerotic cardiovascular disease Persistent atrial fibrillation Surgical History History of cataract surgery Optional surgery Hx of tonsillectomy H/O lumbar discectomy History of heart artery stent (~04/2018) Family History Father Cancer Mother Diabetes Cardiovascular disease Social History Housing: House Alcohol intake: never Patient Tobacco Use Status: Never used Tobacco Tobacco use type: Cigarette e-Cigarette/Vaping Use: Never Used Second Hand Smoke Exposure: No service: No Current occupational status: retired 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 Cognitive needs: No Hearing needs: No Vision needs: Yes Review of Systems Const Denies weakness ENT Denies dizziness Card Denies chest pain, Denies chest pain with activity, Denies syncope, Denies rapid heart rate, Denies pedal edema, Denies edema, Denies leg edema, Denies lightheadedness, Denies palpitations, Denies dyspnea, Denies dyspnea on exertion and Denies orthopnea Resp Denies cough, Denies dyspnea and Denies dyspnea on exertion GI Denies hematochezia and Denies change in stool character Musc Denies abnormal gait, Denies muscle cramps, Denies muscle weakness, Denies numbness, Denies radiating pain into limb and Denies tingling Neuro Denies abnormal gait, Denies dizziness, Denies syncope, Denies numbness, Denies tingling and Denies weakness Endo Denies palpitations Physical Exam Vital Signs: Last Vital Signs Pulse 80 05/26/25 10:13 BP 116/66 05/26/25 10:13 BMI result Body Mass Index 39.2 Const General: comfortable and no acute distress Orientation/consciousness: patient oriented x3 HEENT Other: Unremarkable Head: Yes normal to inspection Neck Neck: Yes normal visual inspection Chest Chest palpation & inspection: normal inspection of the chest Resp Auscultation: clear to auscultation bilaterally Cardio Palpation: normal PMI Heart sounds: S1 normal heart sound present, S2 normal heart sound present, no gallops, no murmurs and no rubs GI Palpation (GI): Soft to palpation Back/Spine/Pelvis Other: unremarkable Skin General skin exam: no rashes or lesions noted Neuro General: patient oriented x3 Extrem General: Yes normal to inspection Psych Mental Status: mental status grossly normal Office Procedures EKG Details: EKG with atrial fibrillation at 80/Min; rightward axis; no ischemic changes. 64600-Dufiktjjpvahyhlht, Complete Assessment & Plan Assessment & Plan (1) Persistent atrial fibrillation: Code(s): I48.19 - Other persistent atrial fibrillation Category: Medical Plan: Remains on beta-blockers. Continue anticoagulation. (2) Atherosclerotic cardiovascular disease: Code(s): I25.10 - Atherosclerotic heart disease of [place] coronary artery without angina pectoris Category: Medical Plan: Last cardiac catheterization with disease in the circumflex, when he underwent drug-eluting stent to 2nd obtuse marginal. Mild disease in the left main. No significant disease in the LAD. About 70% stenosis in the right coronary artery but not intervened. Not willing to take high-dose statins as his had side effects from the same. Hence on lower dose pravastatin. Last LDL 55 mg/dL. Last stress test from January/2021 without any significant perfusion defects. Clinically, absolutely no angina. (3) Chronic diastolic (congestive) heart failure: Code(s): I50.32 - Chronic diastolic (congestive) heart failure Category: Medical Plan: Suspected diastolic heart failure related to obesity, coronary disease, hypertension, untreated sleep apnea. Stable. Not listed to be on regular diuretics. (4) Essential hypertension: Code(s): I10 - Essential (primary) hypertension Category: Medical Plan: Current list includes amlodipine, clonidine, isosorbide, lisinopril, metoprolol. Spironolactone no longer in his list. Many changes in the past but none recently. He has had some issues with Hydralazine as well in the past. (5) Obstructive sleep apnea hypopnea, severe: Comment: Can not tolerate CPAP Code(s): G47.33 - Obstructive sleep apnea (adult) (pediatric) Category: Medical Plan: Sleep study from 2017-moderately severe obstructive sleep apnea. However he does not want use CPAP. Has been discussed many times. Plan Discussion Notes During the visit, I discussed with the patient the importance of maintaining his current medication regimen for hypertension and atrial fibrillation. We reviewed the effectiveness of Rivaroxaban in atrial fibrillation and the stability of his blood pressure readings. I advised the patient to continue monitoring his blood pressure and to follow up in six months for reassessment. Patient was informed and verbally consented to the use of an ambient scribe for clinic note documentation during this visit. Patient Instructions: - Continue current medication regimen for hypertension and atrial fibrillation. - Monitor blood pressure regularly. - Follow up in six months for reassessment. Coding Level of Care Code Est Pt Level 4 (10388) Complex EM visit Add On G2211 Diagnoses Persistent atrial fibrillation I48.19 Atherosclerotic cardiovascular disease I25.10 Chronic diastolic (congestive) heart failure I50.32 Essential hypertension I10 Obstructive sleep apnea hypopnea, severe G47.33 CPT Codes EKG - CPT: 52178-Dqtjcjqifxhhajitm, Complete ([id number])
--- OUTSIDE RECORDS SUMMARY | 2025-05-26 10:38 | XMS_ITS | Clinical Summary ---
Author Organization [facility] Address [address] [address] Phone Care Team Providers Care Clinical Research Manager Name Role Phone Victor M Allan MD Primary Care Provider [phone] Allergies Active Allergy Reactions Criticality Noted Date [...] Office Visit [facility] [address] [phone] Monica Canela ARNP Hypertension (Primary Dx); Nephrolithiasis; [...] Office Visit [facility] [address] [phone] Monica Canela ARNP [address] [phone] Health Maintenance Due Date Last Done Comments [...] age to complete this topic Insurance Medicare [facility] Medicare [facility] Care Teams Clinical Research Manager Relationship Specialty Start Date End Date Victor M Allan MD [address] [place], [place] PCP - General 11/14/20
--- OUTSIDE RECORDS SUMMARY | 2025-05-26 10:38 | XMS_ITS | Patient Health Record ---
Author Organization [facility] Address [address] [place] [address] Care Team Providers Care Dredge Pumper Name Role Phone Victor M Allan Primary Care Provider UnavailNat Adkins Unavailable [phone] Reed Mccabe Unavailable [phone] Carlos Irwin Unavailable [phone] Allergies Allergen (clinical drug ingredient) Drug/Non Drug [...] Problem Acquired hammer toe of right foot (2639308647279970 ) Other hammer toe(s) (acquired), right foot (M20.41) Active confirmed Problem Acquired hammer toe of left foot ([id number] ) Other hammer toe(s) (acquired), left foot (M20.42) Active confirmed Problem Polyneuropathy due to type 2 diabetes mellitus (308952610) Type 2 diabetes mellitus with diabetic polyneuropathy (E11.42) Active confirmed Vital Signs Blood pressure diastolic 84 mm Hg 03/19/2025 Height 5ft 8in in 03/19/2025 Blood pressure systolic 134 mm Hg 03/19/2025 Weight 265 lbs 03/19/2025 BMI 40.29 kg/m2 03/19/2025 Procedures Procedure Date Ordered Date Performed Result Body Sit e 35079-AZHFSMQ NAIL, 6 OR MORE 09/18/2024 N/A 87118-CTTP SKIN LESIONS, 2 TO 4 09/18/2024 N/A 82002-HREOHYJ NAIL, 6 OR MORE 12/10/2024 N/A 68765-TZOP SKIN LESIONS, 2 TO 4 12/10/2024 N/A Encounters Encounter Location Date Provider Diagnosis [address] [address] 06/26/2024 Reed Mccabe Type 2 diabetes mellitus with diabetic polyneuropathy E11.42 ; Pain in right toe(s) M79.674 ; Pain in left toe(s) M79.675 ; Tinea unguium B35.1 ; Metatarsalgia, left foot M77.42 and Primary osteoarthritis, left ankle and foot M19.[address] [address] 09/18/2024 Nat Beard Type 2 diabetes mellitus with diabetic polyneuropathy E11.42 and Tinea unguium B35.[address] [address] 12/10/2024 Carlos Irwin Type 2 diabetes mellitus with diabetic polyneuropathy E11.42 ; Tinea unguium B35.1 ; Other hammer toe(s) (acquired), right foot M20.41 and Other hammer toe(s) (acquired), left foot M20.[address] [address] 03/19/2025 Nat Beard Type 2 diabetes mellitus with diabetic polyneuropathy E11.42 and Tinea unguium B35.[address] [address] 01/28/2025 Nat Beard Assessments Encounter Date Diagnosis [...] X ray : Foot, left 3V 01/03/2024 48040-IZQNEFP NAIL, 6 OR MORE 09/18/2024 57745-TJUIFVM NAIL, 6 OR MORE 12/10/2024 14141-GAFG SKIN LESIONS, 2 TO 4 12/10/19 25 87046-XNDV SKIN LESIONS, 2 TO 4 09/18/20 24 56521-FQJS SKIN LESIONS, 2 TO 4 01/03/20 24 41300-RZSE SKIN LESIONS, 2 TO 4 04/03/20 24 Next Appt Details Provider Name:Nat Nova cat, 06/22/2025 09:00:00 AM, [address] [facility], [place] [address], [place], [address], Insurance Providers Payer Name Payer Address Payer Phone Subscriber Number Group Number Insured Name Patient Relationship to Insured Coverage Start Date Coverage End Date Medicare [employer] [address] [place] [address] [id number] Pipo Springer Self - patient is the insured [employer] [facility] [address] [place] [address] [id number] Pipo Springer Self - patient is the insured Medical (General) History Medical History History ICD Code Arthritis Back,Hip,and Knee pain covid-19 Diabetic Headaches/Migraines Heart disease High blood pressure Kidney disease Psoriasis/eczema Reflux Surgical History Surgery Date(Month/Year) back surgery 1984
--- OUTSIDE RECORDS SUMMARY | 2025-05-26 10:39 | XMS_ITS | Clinical Summary ---
Author Organization [employer] Address [address] [facility] [address] [place] [address] Care Team Providers Care Gold Leaf Layer Name Role Phone Unavailable Primary Care Provider [...] um Nitrate 1.1-5 % pasteIndications :Dental caries [place] teeth for 2 minutes, morning and night. [...] Description 08/09/2025 9:00 AM EDT Office Visit [facility] [address] [place] [address] Milli Jacobs Health Maintenance Due Date Last [...] EDT Dental calculus Dental caries Defective dental religion with open interproximal contact from Last 3 Months or Most Recently Relevant to Health Maintenance Insurance DENTAL - HSN FULL (MEDICAID)
== END 2025-05-26 10:35 | disposition home or self-care (01) ==
LOC: HO.HCS 09:55
PROVIDERS: PCP Nurse Practitioner Family; Visit Provider Internal Medicine
DX: I48.19 Other persistent atrial fibrillation (principal); I25.10 Atherosclerotic heart disease of native coronary artery without angina pectoris; I50.32 Chronic diastolic (congestive) heart failure; I10 Essential (primary) hypertension; G47.33 Obstructive sleep apnea (adult) (pediatric)
CPT/HCPCS: 93010; 99214; G2211

== ENCOUNTER → 2025-05-26 09:54 | Outpatient (BNVA) | payer MEDICARE, SELFPAY | PROVIDERS: PCP Nurse Practitioner Family; Visit Provider Internal Medicine | DX: I48.19 Other persistent atrial fibrillation (principal); I25.10 Atherosclerotic heart disease of native coronary artery without angina pectoris; I11.0 Hypertensive heart disease with heart failure; I50.32 Chronic diastolic (congestive) heart failure; G47.33 Obstructive sleep apnea (adult) (pediatric) | CPT/HCPCS: 93005; 99212 ==

== ENCOUNTER 2025-06-21 08:48 | Outpatient (AMB) | payer MEDICARE, SELFPAY ==
--- NOTE | 2025-06-21 08:50 | A.OFFVIS_ITS ---
Vital Signs 06/21/25 08:51 Height 5 ft 8 in Weight 255 lb 11.779 oz BMI 38.9 BP 100/70 Blood Pressure Location Rt brachial Position Sitting Pulse 80 Pulse Source Pulse Oximeter Pulse Oximetry (%) 96 Oxygen Delivery Method Room Air Intake Visit Reasons: dm Intake Note: Patient present today for Type 2 Diabetes Mellitus Last Diabetic eye exam: October 2024 Last Podiatry Visit: March 2025 Random Glucose: 106 mg/dL HgA1C: 6.8% 06/21/2025 Jacket Changer Required: No Accompanied by: Self / Same As Patient Allergies warfarin Allergy (Intermediate, Verified 06/21/25 09:02) sweats, dry mouth,elevated BP naproxen Allergy (Unknown, Verified 06/21/25 09:02) face got red nifedipine (NIFEDIPINE) Allergy (Unknown, Verified 06/21/25 09:02) GI SIDE EFFECTS, stomach upset, GI empagliflozin (From Jardiance) Adverse Reaction (Intermediate, Verified 06/21/25 09:02) testicular swelling HPI HPI dm: Details: Patient is a 74-year-old male with a significant past medical history of AFib, hypertension, chronic kidney disease, CAD, complex pancreatic cyst, hyperlipidemia and type 2 diabetes presenting today for consultation regarding his diabetes. Endo: Dm-he was diagnosed with type 2 diabetes around 2014. He previously followed with [facility] endocrinology. His previous a1c was 7 and today it is 6.8. He is currently managed on Januvia 100 mg, metformin 1000 mg twice a day, Glipizide 5- 10 mg BID. -Januvia is very expensive -Wants off of metformin but is okay currently taking this -Does not want any injections (refuses insulin) -does not want any GPL1s -Jardiance caused testicular swelling, nonstop urination -he is scheduled diabetic Education in a week. CV: Blood pressure today in the office is 100/70. He is currently on metoprolol 150 mg daily, lisinopril 40 mg daily, isosorbide 60 mg daily, amlodipine 10 mg daily, spironolactone 25 mg, clonidine 0.1 mg twice a day. He is on Xarelto daily. Cholesterol is managed with pravastatin 40 mg. Last LDL 55 and lfts wnl. GI: Diagnosed with pancreatic cyst/mass in 2021. He did have consultation with General surgery and at the time decided to hold on a further workup and excision. It was imaged in 10/26 and recommended GI eval and he states he thinks this was done but ultimately does not want to do anything with this. Nephro: [facility] . [facility] Medical History (Updated 05/24/25 @ 09:38 by Vani Ramos, RD, LDN) Gastritis Low libido Nocturia more than twice per night Verruca COVID-19 virus infection Trigger finger, left ring finger Flexor tenosynovitis of finger SOB (shortness of breath) Fibromyalgia Rheumatoid factor positive Knee pain, bilateral Bilateral carpal tunnel syndrome Pancreatic cyst Cervico-occipital neuralgia Cervical spondylosis without myelopathy Obstructive sleep apnea hypopnea, severe Carpal tunnel syndrome Degenerative disc disease, cervical GERD (gastroesophageal reflux disease) Hypercholesterolemia CKD (chronic kidney disease) Overactive bladder Hypogonadism Pancreatic mass Essential hypertension Atherosclerotic cardiovascular disease Persistent atrial fibrillation Surgical History History of cataract surgery Optional surgery Hx of tonsillectomy H/O lumbar discectomy History of heart artery stent (~04/2018) Family History Father Cancer Mother Diabetes Cardiovascular disease Social History Housing: House Alcohol intake: never Patient Tobacco Use Status: Never used Tobacco Tobacco use type: Cigarette e-Cigarette/Vaping Use: Never Used Second Hand Smoke Exposure: No service: No Current occupational status: retired 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 Cognitive needs: No Hearing needs: No Vision needs: Yes Physical Exam Vital Signs: Last Vital Signs Pulse 80 06/21/25 08:51 BP 100/70 06/21/25 08:51 Pulse Ox 96 06/21/25 08:51 Oxygen Delivery Method Room Air 06/21/25 08:51 BMI result Body Mass Index 38.9 Const Orientation/consciousness: patient oriented x3 Neck Neck: Yes no lymphadenopathy Thyroid: Thyroid normal Carotids: no bruits Resp Auscultation: clear to auscultation bilaterally Cardio Rate: regular rate Rhythm: regular rhythm Heart sounds: S1 normal heart sound present and S2 normal heart sound present Peripheral pulses: dorsalis pedis present Neuro General: patient oriented x3, gait normal and no focal motor deficits Extrem Other: Monofilament sensation diminished on the dorsum of the feet bilaterally. Monofilament sensation present on the plantar aspect bilaterally. Vibratory sensation no present bilaterally. Skin intact. General: Yes normal to inspection Results AMB Hemoglobin A1c AMB Hemoglobin A1c 6.8 % Last Edit by ROSA Santoyo on 06/21/25 09:21 Results Reviewed Results Reviewed: Laboratory Tests 03/26/25 08:03 Creatinine 0.99 Estimated GFR > 60 Hemoglobin A1c % 7.0 H AST 26 ALT 31 Triglycerides 122 Cholesterol 114 LDL Cholesterol, Calc 55 HDL Cholesterol 35 L Assessment & Plan Assessment & Plan (1) Type 2 diabetes mellitus with hyperglycemia: Code(s): E11.65 - Type 2 diabetes mellitus with hyperglycemia Category: Medical Qualifiers: Diabetes mellitus half-way insulin use: without terminal worker use Qualified Code(s): E11.65 - Type 2 diabetes mellitus with hyperglycemia Plan: continue current plan He was provided a sensor today in the office so he can monitor his diet and lifestyle. I applied it for him today and I helped him download the mona and paired the device. Follow up in 3 months. Sooner if needed. (2) Essential hypertension: Code(s): I10 - Essential (primary) hypertension Category: Medical Plan: wnl continue current plan (3) Hypercholesterolemia: Code(s): E78.00 - Pure hypercholesterolemia, unspecified Category: Medical Plan: Well-controlled Orders: Orders AMB Hemoglobin A1c Today E11.65 - Type 2 diabetes mellitus with hyperglycemia Coding Level of Care Code Est Pt Level 4 (08033) Complex EM visit Add On G2211 Diagnoses Type 2 diabetes mellitus with hyperglycemia, without long-term current use of insulin E11.65 Diabetes mellitus terminal worker insulin use: without half-way use Essential hypertension I10 Hypercholesterolemia E78.00
[2025-06-21 08:51] VITALS: BP 100/70; PULSE 80; O2SAT 96; BMI 38.9
--- OUTSIDE RECORDS SUMMARY | 2025-06-21 09:15 | XMS_ITS | Clinical Summary ---
Author Organization [facility] Address [address] [facility] [address] [place] [address] Phone Care Team Providers Care Floor Coverings Salesperson Name Role Phone Victor M Allan MD Primary Care Provider [phone] Allergies Active Allergy Reactions Criticality Noted Date [...] 60 tablet 5 5 08/16/20 25 Active Cholecalciferol (Vitamin D3) 50 MCG (1999 UT) tabletIndication s:Vitamin D deficiency, not otherwise specified Take 2,000 Units by mouth 1 (one) time each day 90 tablet 3 4 06/02/20 25 Active Problems Problem Noted Date Diagnosed Date Nephrolithiasis 01/04/2025 Vitamin D deficiency, not otherwise specified Obstructive sleep apnea of adult 09/24/2023 09/24/2023 Hypertension 09/24/2023 09/24/2023 Morbid obesity 09/24/2023 09/24/2023 Type 2 diabetes mellitus 09/24/2023 023 Encounters Date Type Department Care Team Description 04/14/2025 8:15 AM EDT Office Visit [facility] [address]. [address] [phone] Monica Canela ARNP Hypertension (Primary Dx); Nephrolithiasis; [...] Visit [facility] [address]. [address] [phone] Monica Canela ARNP [address] [phone] Health Maintenance Due Date Last Done Comments [...] age to complete this topic Insurance Medicare [facility] Medicare [facility] Care Teams Floor Coverings Salesperson Relationship Specialty Start Date End Date Victor M Allan MD [address] [place], [place] PCP - General 11/14/20
--- OUTSIDE RECORDS SUMMARY | 2025-06-21 09:15 | XMS_ITS | Clinical Summary ---
Author Organization [employer] Address [address] [facility] [address] [place] [address] Care Team Providers Care Director Of Mobile Marketing Name Role Phone Unavailable Primary Care Provider [...] by mouth 2 times daily. 4 Active Diclofenac Sodium 1 % gel Apply [...] um Nitrate 1.1-5 % pasteIndications :Dental caries [employer] teeth for 2 minutes, morning and night. Spit, do not rinse. Do not eat or drink anything for 30 minutes following brushing. 112 g 3 4 Active tamsulosin (Flomax) 0.4 MG 24 hr capsule Take 0.4 mg by mouth Once per day. Active cholecalciferol (Vitamin D-3) 50 MCG (2000 UT) tablet Take 2,000 Units by mouth Once per day. 4 06/02/20 25 Active Problems Problem Noted [...] Description 08/09/2025 9:00 AM EDT Office Visit [facility] [address] [place] [address] Milli Jacobs Health Maintenance Due Date Last [...] EDT Dental calculus Dental caries Defective dental mormonism with open interproximal contact from Last 3 Months or Most Recently Relevant to Health Maintenance Insurance DENTAL - HSN FULL (MEDICAID)
--- OUTSIDE RECORDS SUMMARY | 2025-06-21 09:15 | XMS_ITS | Patient Health Record ---
Author Organization [facility] Address [address] [facility] [place] [address] Care Team Providers Care Econometrician Name Role Phone Victor M Allan Primary Care Provider UnavailNat Adkins Unavailable [phone] Reed Mccabe Unavailable [phone] Carlos Irwin Unavailable [phone] Allergies Allergen (clinical drug ingredient) Drug/Non Drug [...] Problem Acquired hammer toe of right foot (5109190522583483 ) Other hammer toe(s) (acquired), right foot (M20.41) Active confirmed Problem Acquired hammer toe of left foot (5079377485228785 ) Other hammer toe(s) (acquired), left foot (M20.42) Active confirmed Problem Polyneuropathy due to type 2 diabetes mellitus (696065914) Type 2 diabetes mellitus with diabetic polyneuropathy (E11.42) Active confirmed Vital Signs Blood pressure diastolic 84 mm Hg 03/19/2025 Height 5ft 8in in 03/19/2025 Blood pressure systolic 134 mm Hg 03/19/2025 Weight 265 lbs 03/19/2025 BMI 40.29 kg/m2 03/19/2025 Procedures Procedure Date Ordered Date Performed Result Body Sit e 12894-DUWDRWX NAIL, 6 OR MORE 09/18/2024 N/A 30770-FNNY SKIN LESIONS, 2 TO 4 09/18/2024 N/A 08984-BJDNDGC NAIL, 6 OR MORE 12/10/2024 N/A 92498-MNQI SKIN LESIONS, 2 TO 4 12/10/2024 N/A Encounters Encounter Location Date Provider Diagnosis [address] [address] 06/26/2024 Reed Mccabe Type 2 diabetes mellitus with diabetic polyneuropathy E11.42 ; Pain in right toe(s) M79.674 ; Pain in left toe(s) M79.675 ; Tinea unguium B35.1 ; Metatarsalgia, left foot M77.42 and Primary osteoarthritis, left ankle and foot M19.[address] [address] 09/18/2024 Nat Beard Type 2 diabetes mellitus with diabetic polyneuropathy E11.42 and Tinea unguium B35.[address] [address] 12/10/2024 Carlos Irwin Type 2 diabetes mellitus with diabetic polyneuropathy E11.42 ; Tinea unguium B35.1 ; Other hammer toe(s) (acquired), right foot M20.41 and Other hammer toe(s) (acquired), left foot M20.[address] [address] 03/19/2025 Nat Beard Type 2 diabetes mellitus with diabetic polyneuropathy E11.42 and Tinea unguium B35.[address] [address] 01/28/2025 Nat Beard Assessments Encounter Date Diagnosis [...] X ray : Foot, left 3V 01/03/2024 32596-QSFDRBR NAIL, 6 OR MORE 09/18/2024 97054-XCRRIVN NAIL, 6 OR MORE 12/10/2024 61557-LKZG SKIN LESIONS, 2 TO 4 12/10/19 25 29536-TNOJ SKIN LESIONS, 2 TO 4 09/18/20 24 03300-NQUZ SKIN LESIONS, 2 TO 4 01/03/20 24 73858-UABI SKIN LESIONS, 2 TO 4 04/03/20 24 Next Appt Details Provider Name:Nat Nova cat, 06/22/2025 09:00:00 AM, [address] [facility], [place] [address], [place], [address], Insurance Providers Payer Name Payer Address Payer Phone Subscriber Number Group Number Insured Name Patient Relationship to Insured Coverage Start Date Coverage End Date Medicare National Govt Svcs Inc [address] [place] [address] [id number] Pipo Springer Self - patient is the insured [employer] [facility] [address] [place] [address] [id number] Pipo Springer Self - patient is the insured Medical (General) History Medical History History ICD Code Arthritis Back,Hip,and Knee pain covid-19 Diabetic Headaches/Migraines Heart disease High blood pressure Kidney disease Psoriasis/eczema Reflux Surgical History Surgery Date(Month/Year) back surgery 1984
[2025-06-21 09:16] LABS: Glucose, Whole Blood 106 mg/dL (60-115)
== END 2025-06-21 09:28 | disposition home or self-care (01) ==
LOC: HO.ENCR 08:49
PROVIDERS: PCP Internal Medicine; Visit Provider Physician Assistant
DX: E11.65 Type 2 diabetes mellitus with hyperglycemia (principal); I10 Essential (primary) hypertension; E78.00 Pure hypercholesterolemia, unspecified

== ENCOUNTER 2025-06-21 08:48 | Outpatient (REF) | payer MEDICARE, SELFPAY ==
[2025-06-21 11:58] LABS: Anion Gap 12 (12-20); Blood Urea Nitrogen 15 mg/dL (9-16); Calcium 9.6 mg/dL (8.4-10.2); Carbon Dioxide 32 mmol/L (22-29); Chloride 103 mmol/L (96-108); Estimated Glomerular Filt Rate > 60; Potassium 5.1 mmol/L (3.3-5.1); Sodium 142 mmol/L (135-145)
[2025-06-21 12:07] LABS: Microalbum/Creatinine Ratio Ur 89.8 ug/mg cr (<30)
== END 2025-06-21 08:49 | disposition home or self-care (01) ==
LOC: HO.LAB 08:48
PROVIDERS: PCP Internal Medicine; Visit Provider Physician Assistant
DX: E11.65 Type 2 diabetes mellitus with hyperglycemia (principal); I12.9 Hypertensive chronic kidney disease with stage 1 through stage 4 chronic kidney disease, or unspecified chronic kidney disease; N18.9 Chronic kidney disease, unspecified; E78.00 Pure hypercholesterolemia, unspecified; Z79.84 Long term (current) use of oral hypoglycemic drugs; Z79.01 Long term (current) use of anticoagulants; Z79.899 Other long term (current) drug therapy
CPT/HCPCS: 36415; 80048; 82043; 82570; 82947; 83036; 99212

== ENCOUNTER 2025-07-12 09:11 | Outpatient (AMB) | payer MEDICARE, SELFPAY ==
--- OUTSIDE RECORDS SUMMARY | 2024-12-11 06:00 | XMS_ITS ---
Author Organization [facility] Address [address] [facility] [place] [address] Care Team Providers Care Ball Shagger Name Role Phone Victor M Allan Primary Care Provider Nat Diehl Unavailable [phone] Encounters Encounter Location Date Provider Diagnosis [address] [address] 12/11/2024 Nat Beard Plan Of Treatment Next Appt Details Provider Name:Nat Nova ker, 09/21/2025 09:00:00 AM, [address] [place] [address], [phone], Progress Notes * Pipo BECKDOB: 2 (74 yo M)Acc No.[id number]:12/11/2024 Progress Note Patient: N Clemente RODASius Provider: Jo-Ann Beard DPM :1950 A ge:74 Y S ex:Male Date:12/11/2024 Address:[address] [phone] Pcp:Victor M Allan Subjective: * Chief Complaints: [...] DPM Date: 0 12/11/2024 Generated for Rolly crook/Martine/Amadeo on: 0 07/12/2025 10:21 AM EDT
--- NOTE | 2025-07-12 09:25 | MHC.OFFVIS ---
Vital Signs 07/12/25 09:26 Height 5 ft 8 in Intake Visit Reasons: 3 Months Allergies warfarin Allergy (Intermediate, Verified 06/21/25 09:02) sweats, dry mouth,elevated BP naproxen Allergy (Unknown, Verified 06/21/25 09:02) face got red nifedipine (NIFEDIPINE) Allergy (Unknown, Verified 06/21/25 09:02) GI SIDE EFFECTS, stomach upset, GI empagliflozin (From Jardiance) Adverse Reaction (Intermediate, Verified 06/21/25 09:02) testicular swelling Medication List - Last Reconciled 07/12/25 by Anju Evans, DEQUAN acetaminophen ER (Tylenol Arthritis Pain) 650 mg PO Q12H alprazolam 1 mg (4 x 0.25 mg) PO DAILY PRN amlodipine 10 mg PO DAILY betamethasone, augmented 0.05 % 1 appl topical BID blood sugar diagnostic As directed blood sugar diagnostic (Zocere Ultra Test strips) As directed check the blood sugar once a day clonidine HCl 0.2 mg PO BID diclofenac sodium 1% (Voltaren Arthritis Pain) 2 grams topical QID gabapentin 300 mg PO BID glipizide ER Take 2 tablets in the morning and 2 tablet in the evening PO; imipramine HCl 25 mg PO BEDTIME 90 days isosorbide mononitrate ER 60 mg PO QAM lisinopril 40 mg PO DAILY metformin 1,000 mg PO BID 90 days metoprolol succinate ER 50 mg PO QAM metoprolol succinate ER 100 mg PO QPM 90 days nitroglycerin 0.4 mg sublingual Q5M PRN 90 days omeprazole 20 mg PO DAILY pravastatin 40 mg PO DAILY rivaroxaban (Xarelto) 20 mg PO DAILY sitagliptin phosphate (Januvia) 100 mg PO DAILY sumatriptan succinate take 1 tab at onset of headache; if no relief may repeat 1 tab after at least 2 hrs; max = 4 tabs/24 hr PO tamsulosin 0.4 mg PO QDAY HPI Comments Details: 74 yo man with Type II DM, atrial fibb, CAD, HTN, osteoarthritis, CTS, and migraine. He was doing okay. No significant migraines and he has not had to use sumatriptan. He had a few mild headaches that were relieved with Tylenol. He started taking both doses of gabapentin at bedtime and was no longer kicking in his sleep. He continues to follow with rheumatology for arthritis. [facility] Medical History Gastritis Low libido Nocturia more than twice per night Verruca COVID-19 virus infection Trigger finger, left ring finger Flexor tenosynovitis of finger SOB (shortness of breath) Fibromyalgia Rheumatoid factor positive Knee pain, bilateral Bilateral carpal tunnel syndrome Pancreatic cyst Cervico-occipital neuralgia Cervical spondylosis without myelopathy Obstructive sleep apnea hypopnea, severe Carpal tunnel syndrome Degenerative disc disease, cervical GERD (gastroesophageal reflux disease) Hypercholesterolemia CKD (chronic kidney disease) Overactive bladder Hypogonadism Pancreatic mass Essential hypertension Atherosclerotic cardiovascular disease Persistent atrial fibrillation Surgical History History of cataract surgery Optional surgery Hx of tonsillectomy H/O lumbar discectomy History of heart artery stent (~04/2018) Family History Father Cancer Mother Diabetes Cardiovascular disease Social History Housing: House Alcohol intake: never Patient Tobacco Use Status: Never used Tobacco Tobacco use type: Cigarette e-Cigarette/Vaping Use: Never Used Second Hand Smoke Exposure: No service: No Current occupational status: retired 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 Cognitive needs: No Hearing needs: No Vision needs: Yes Review of Systems Const Denies chills, Denies daytime sleepiness, Reports difficulty sleeping, Denies fatigue, Denies fever(s), Denies frequent falls, Reports headache(s), Denies increased appetite, Denies poor appetite, Denies snoring, Denies weakness, Denies weight gain and Denies weight loss Eyes Denies loss of vision ENT Denies vertigo, Denies dizziness and Reports headache(s) Card Denies chest pain at rest, Denies chest pain with activity, Denies syncope, Denies leg edema and Denies palpitations Resp Denies snoring GI Denies constipation, Denies heartburn, Denies diarrhea and Denies nausea Denies urinary frequency, Denies urinary incontinence and Denies urinary urgency Musc Denies abnormal gait, Denies numbness and Denies tingling Skin/Breast Denies dry skin and Denies rash Neuro Denies abnormal gait, Denies vertigo, Denies dizziness, Denies syncope, Denies frequent falls, Reports headache(s), Denies lack of coordination, Denies loss of vision, Denies memory loss, Denies numbness, Denies restless legs, Denies seizure-like activity, Denies tingling, Denies paresthesias, Denies tremor(s) and Denies weakness Psych Denies anxiety, Denies depression, Denies auditory hallucinations, Denies memory loss, Denies visual hallucinations and Denies suicidal ideation Endo Denies fatigue and Denies palpitations Physical Exam Const Other: General Appearance:? normal, in no acute distress. R subconjuctival hemorrhage. Skin:? no rashes, no significant birthmarks. Heart:? S1, S2 normal, no murmurs. Lungs:? clear anteriorly and posteriorly. Extremities:? no edema. Psych:? alert, oriented, cognitive function intact, cooperative with exam. Neuro Other: Mental Status:?Normal attention, orientation, memory and affect.? Cranial Nerves:?Pupils are equal, round and reactive to light. External occular muscles are intact. Visual toscano are full. Face is symmetrical. Facial sensations are normal. Tongue is midline. Palate elevates symmetrically. Shoulder shrugging is normal. Hearing to bedside conversation is normal. Sensory Exam:?....? Coordination:?No ataxia,?no titubation.? Gait Exam: Slow and cautious Extrapyramidal System:?No tremor, rigidity with normal facial expressions.? Pronator Drift:?Not present.? Involuntary Movements:?No tremors seen.? Speech:?Normal.? Results Reviewed Results Reviewed: [address] [address] XRay Report Signed Patient: Arnie Springer MR#: [id number] : 1950 Acct:[id number] Age/Sex: 74 / M ADM Date: 04/13/25 Loc: [facility] Attending Dr: Anju Evans CNP Ordering Physician: Anju Evans CNP Date of Service: 04/13/25 Procedure(s): XR thoracic spine 2V Accession Number(s): [id number] cc: Victor M Allan MD; Rondinelli,Anju HOSPITAL SUPERVISOR~ EXAMINATION: XR THORACIC SPINE CLINICAL INFORMATION: THORACIC DISC DISEASE COMPARISON: June 15, 2020 TECHNIQUE: 3 views of the thoracic spine were obtained in standing position. FINDINGS: Multilevel marginal osteophyte formation and endplate sclerosis. S-shaped curvature of the thoracolumbar spine. No acute cortical disruption. No gross malalignment, thoracic spine. No lytic or blastic lesions. Vascular complications, aorta. XR/XR thoracic spine 2V IMPRESSION: Multilevel spondylosis, cervical thoracic spine. Mild scoliosis. No gross change. Electronically signed by: Livan Aguilar MD 04/14/2025 07:40 AM EDT [address] [address] XRay Report Signed Patient: Arnie Springer MR#: [id number] : 1950 Acct:[id number] Age/Sex: 74 / M ADM Date: 04/13/25 Loc: [facility] Attending Dr: Anju Evans HOSPITAL SUPERVISOR Ordering Physician: Anju Evans CNP Date of Service: 04/13/25 Procedure(s): XR lumbar spine 2-3V Accession Number(s): [id number] cc: Victor M Allan MD; Anju Evans CNP~ EXAMINATION: XR LUMBOSACRAL SPINE CLINICAL INFORMATION: LUMBAR DISC DISEASE COMPARISON: October 03, 2015 TECHNIQUE: Three views of the lumbosacral spine. FINDINGS: Syndesmophyte formation and marginal osteophyte formation with endplate sclerosis and decreased intervertebral disc height at L4-5 L5-S1 and T10-11 and T11-12 levels. No acute cortical disruption. No gross malalignment. No lytic or blastic lesions. Facet joint hypertrophy at L4-5 and L5-S1. Vascular complications, aorta. Mild degenerative changes in the coxofemoral joints and symphysis pubis. XR/XR lumbar spine 2-3V IMPRESSION: Multilevel lower thoracic and lower lumbar spondylosis, progressed since prior exam. Electronically signed by: Livan Aguilar MD 04/14/2025 07:38 AM EDT RP [address] [address] XRay Report Signed Patient: Arnie Springer MR#: [id number] : 1950 Acct:[id number] Age/Sex: 74 / M ADM Date: 04/13/25 Loc: [facility] Attending Dr: Anju Evans CNP Ordering Physician: Anju Evans CNP Date of Service: 04/13/25 Procedure(s): XR cervical spine 3V Accession Number(s): [id number] cc: Victor M Allan MD; Anju Evans CNP~ EXAMINATION: XR CERVICAL SPINE CLINICAL INFORMATION: CERVICAL DISC DISEASE COMPARISON: October 11, 2021. TECHNIQUE: 3 views of the cervical spine were obtained. FINDINGS: Craniocervical junction is intact. Marginal osteophyte formation and endplate sclerosis, decreased intervertebral disc height at C5-6 and to a lesser extent C3-4, C4-5 and C6-7 levels. Grade 1 retrolisthesis C4-5 and C5-6 levels. No acute cortical disruption. No lytic or blastic lesions. Upper airway is patent. XR/XR cervical spine 3V IMPRESSION: Multilevel cervical spondylosis C3 C7 more pronounced at C5-6. Electronically signed by: Livan Aguilar MD 04/14/2025 07:12 AM EDT Laboratory Tests 06/21/25 06/21/25 09:19 10:10 Sodium 142 Potassium 5.1 Chloride 103 Carbon Dioxide 32 H Anion Gap 12 BUN 15 Creatinine 1.06 Estimated GFR > 60 Random Glucose 106 Hgb A1c (Clinic) 6.8 H Calcium 9.6 Assessment & Plan Assessment & Plan (1) Migraine: Code(s): G43.909 - Migraine, unspecified, not intractable, without status migrainosus Category: Medical Qualifiers: Intractability: not intractable Migraine type: unspecified Status migrainosus presence: without status migrainosus Qualified Code(s): G43.909 - Migraine, unspecified, not intractable, without status migrainosus Plan: Continue sumatriptan 50mg 1 tablet as needed for migraine. (2) REM sleep behavior disorder: Code(s): G47.52 - REM sleep behavior disorder Category: Medical Plan: Gabapentin 300mg 2 capsules at bedtime was helping. (3) Degenerative disc disease, cervical: Code(s): M50.30 - Other cervical disc degeneration, unspecified cervical region Category: Medical Plan: XR results reviewed, continue with arthritis specialist (4) Degenerative disc disease, lumbar: Code(s): M51.369 - Other intervertebral disc degeneration, lumbar region without mention of lumbar back pain or lower extremity pain Category: Medical Qualifiers: Disc-related pain type: unspecified whether pain present Qualified Code(s): M51.369 - Other intervertebral disc degeneration, lumbar region without mention of lumbar back pain or lower extremity pain Plan: XR results reviewed, continue with arthritis specialist (5) Degenerative disc disease, thoracic: Code(s): M51.34 - Other intervertebral disc degeneration, thoracic region Category: Medical Plan: XR results reviewed, continue with arthritis specialist Coding Level of Care Code Est Pt Level 4 (46787) Diagnoses Migraine without status migrainosus, not intractable, unspecified migraine type G43.909 Intractability: not intractable Migraine type: unspecified Status migrainosus presence: without status migrainosus REM sleep behavior disorder G47.52 Degenerative disc disease, cervical M50.30 Degeneration of intervertebral disc of lumbar region, unspecified whether pain present M51.369 Disc-related pain type: unspecified whether pain present Degenerative disc disease, thoracic M51.34
--- OUTSIDE RECORDS SUMMARY | 2025-07-12 10:21 | XMS_ITS | Patient Health Record ---
Author Organization [facility] Address [address] [place] [address] Care Team Providers Care Fountain Waitress/Waiter Name Role Phone Victor M Allan Primary Care Provider Nat Diehl Unavailable [phone] Carlos Irwin Unavailable [phone] Allergies Allergen (clinical drug ingredient) Drug/Non Drug [...] (HH) 7.5 HEMOGLOBIN A1C (GLYCOHEMOGLO BIN) Reviewed date:06/22/2025 09:09:46 AM Interpretation: Performing Lab: Notes/Report: HEMOGLOBIN A1C % (HH) 6.8 Reason For Referral No Information Medications Medication SIG (Take, Route, Frequency, Duration) Notes Start Date End Date Status metFORMIN HCl 850 MG 1 tablet with [...] tablet Orally Twic e a day Active Omeprazole 20 MG 1 capsule 30 minutes before morning meal Orally Once a day; Duration: 30 day(s) Active Nitroglycerin 0.4 MG as directed Sublingual Active Immunizations Vaccine Route Administration Date Status Comme nts Influenza Unknown 07/06/2024 Administered Social History Tobacco Use: Social History Observation [...] Problem Acquired hammer toe of right foot (8313049858635887 ) Other hammer toe(s) (acquired), right foot (M20.41) Active confirmed Problem Acquired hammer toe of left foot (9148004958277934 ) Other hammer toe(s) (acquired), left foot (M20.42) Active confirmed Problem Polyneuropathy due to type 2 diabetes mellitus (200195247) Type 2 diabetes mellitus with diabetic polyneuropathy (E11.42) Active confirmed Vital Signs Blood pressure diastolic 84 mm Hg 06/22/2025 Height 5ft 8in in 06/22/2025 Blood pressure systolic 134 mm Hg 06/22/2025 Weight 253 lbs 06/22/2025 BMI 38.46 kg/m2 06/22/2025 Procedures Procedure Date Ordered Date Performed Result Body Sit e 63542-WNANRQI NAIL, 6 OR MORE 09/18/2024 N/A 04291-OJJK SKIN LESIONS, 2 TO 4 09/18/2024 N/A 36501-NJAVNDM NAIL, 6 OR MORE 12/10/2024 N/A 40480-TWIU SKIN LESIONS, 2 TO 4 12/10/2024 N/A Encounters Encounter Location Date Provider Diagnosis [address] [address] 09/18/2024 Nat Beard Type 2 diabetes mellitus with diabetic polyneuropathy E11.42 and Tinea unguium B35.[address] [address] 12/10/2024 Carlos Irwin Type 2 diabetes mellitus with diabetic polyneuropathy E11.42 ; Tinea unguium B35.1 ; Other hammer toe(s) (acquired), right foot M20.41 and Other hammer toe(s) (acquired), left foot M20.[address] [address] 03/19/2025 Nat Beard Type 2 diabetes mellitus with diabetic polyneuropathy E11.42 and Tinea unguium B35.[address] [address] 06/22/2025 Nat Beard Type 2 diabetes mellitus with diabetic polyneuropathy E11.42 and Tinea unguium B35.[address] [address] 01/28/2025 Nat Beard Assessments Encounter Date Diagnosis [...] E11.42) 03/19/2025 Tinea unguium (ICD-10 - B35.1) 06/22/2025 Type 2 diabetes mellitus with diabetic polyneuropathy (ICD-10 - E11.42) 06/22/2025 Tinea unguium (ICD-10 - B35.1) 12/10/2024 Other hammer toe(s) (acquired), right foot (ICD-10 - M20.41) Patient Educated with: DIABETIC FOOT CARE INSTRUCTIONS. pdf (DIABETIC FOOT CARE INSTRUCTIONS. pdf) 12/10/2024 Other hammer toe(s) (acquired), left foot (ICD-10 - M20.42) Plan Of Treatment Pending Test Test Name Order Date X ray : Foot, left 3V 01/03/2024 58291-FQIIWWR NAIL, 6 OR MORE 09/18/2024 68850-YHNBMFF NAIL, 6 OR MORE 12/10/2024 48264-GZDL SKIN LESIONS, 2 TO 4 12/10/19 25 09197-RJZV SKIN LESIONS, 2 TO 4 09/18/20 24 57741-HFGK SKIN LESIONS, 2 TO 4 01/03/20 24 40328-ILPE SKIN LESIONS, 2 TO 4 04/03/20 24 Next Appt Details Provider Name:Nat Nova cat, 09/21/2025 09:00:00 AM, [address] [facility], [facility] [address], [place], [address], Insurance Providers Payer Name Payer Address Payer Phone Subscriber Number Group Number Insured Name Patient Relationship to Insured Coverage Start Date Coverage End Date Medicare National Govt Svcs Inc [address] [place] [address] [id number] Pipo Springer Self - patient is the insured [facility] [address] [place] [address] [phone] [id number] Pipo Springer Self - patient is the insured Medical (General) History Medical History History ICD Code Arthritis Back,Hip,and Knee pain covid-19 Diabetic Headaches/Migraines Heart disease High blood pressure Kidney disease Psoriasis/eczema Reflux Surgical History Surgery Date(Month/Year) back surgery 1984
--- OUTSIDE RECORDS SUMMARY | 2025-07-12 10:21 | XMS_ITS | Clinical Summary ---
Author Organization [facility] Address [address] [facility] [address] [place] [address] Phone Care Team Providers Care Melangeur Operator Name Role Phone Victor M Allan MD Primary Care Provider [phone] Allergies Active Allergy Reactions Criticality Noted Date [...] [facility] [address] [address] Monica Canela ARNP Hypertension (Primary Dx); Nephrolithiasis; [...] and [facility] [address] [address] Monica Canela ARNP [address] [id number] Health Maintenance Due Date Last Done Comments [...] age to complete this topic Insurance Medicare [facility] Medicare [facility] Care Teams Melangeur Operator Relationship Specialty Start Date End Date Victor M Allan MD [address] [place], [place] PCP - General 11/14/20
--- OUTSIDE RECORDS SUMMARY | 2025-07-12 10:22 | XMS_ITS | Clinical Summary ---
Author Organization [employer] Address [address] [facility] [address] [place] [address] Care Team Providers Care Blocking Machine Tender Name Role Phone Unavailable Primary Care Provider [...] um Nitrate 1.1-5 % pasteIndications :Dental caries [place] teeth for 2 minutes, morning and night. [...] 9:00 AM EDT Office Visit [facility] [address] [place] [address] Alexis Smith Health Maintenance Due Date Last Done Comments [...] 1971 Zoster Vaccines (1 of 2) 2002 DTaP/Tdap/Td Vaccines (1 - Tdap) 09/10/2024 09/09/2024 COVID-19 Vaccine (3 - season) 2025 03/20/2021, 02/20/2021 Influenza Vaccine (#1) 2025 , 09/20/2023, 08/27/2022, Additional history exists Dental X-Ray: Bitewings 08/04/2025 08/03/20, 01/08/2017, 05/16/2016, Additional history exists Dental Oral [...] EDT Dental calculus Dental caries Defective dental sikh with open interproximal contact from Last 3 Months or Most Recently Relevant to Health Maintenance Insurance DENTAL - HSN FULL (MEDICAID)
== END 2025-07-12 10:03 | disposition home or self-care (01) ==
LOC: HO.HSM 09:12
PROVIDERS: PCP Internal Medicine; Referring Provider Internal Medicine; Visit Provider Registered Nurse
DX: G43.909 Migraine, unspecified, not intractable, without status migrainosus (principal); G47.52 REM sleep behavior disorder; M50.30 Other cervical disc degeneration, unspecified cervical region; M51.369 Other intervertebral disc degeneration, lumbar region without mention of lumbar back pain or lower extremity pain; M51.34 Other intervertebral disc degeneration, thoracic region
CPT/HCPCS: 99214

== ENCOUNTER → 2025-07-12 09:11 | Outpatient (BNVA) | payer MEDICARE, SELFPAY | PROVIDERS: PCP Internal Medicine; Referring Provider Internal Medicine; Visit Provider Registered Nurse | DX: G43.909 Migraine, unspecified, not intractable, without status migrainosus (principal); G47.52 REM sleep behavior disorder; M50.30 Other cervical disc degeneration, unspecified cervical region; M51.369 Other intervertebral disc degeneration, lumbar region without mention of lumbar back pain or lower extremity pain; M51.34 Other intervertebral disc degeneration, thoracic region; I10 Essential (primary) hypertension | CPT/HCPCS: 99212 ==

== ENCOUNTER 2025-07-20 08:44 | Outpatient (AMB) | payer MEDICARE, SELFPAY ==
--- OUTSIDE RECORDS SUMMARY | 2024-12-11 06:00 | XMS_ITS ---
Author Organization [facility] Address [address] [facility] [place] [address] Care Team Providers Care Registration Clerk Name Role Phone Victor M Allan Primary Care Provider Nat Diehl Unavailable [phone] Encounters Encounter Location Date Provider Diagnosis [address] [address] 12/11/2024 Nat Beard Plan Of Treatment Next Appt Details Provider Name:Nat Nova ker, 09/21/2025 09:00:00 AM, [address] [place] [address], [phone], Progress Notes * Pipo BECKDOB: 2 (74 yo M)Acc No.[id number]:12/11/2024 Progress Note Patient: N Clemente RODASius Provider: Jo-Ann Beard DPM :1950 A ge:74 Y S ex:Male Date:12/11/2024 Address:[address] [phone] Pcp:Victor M Allan Subjective: * Chief Complaints: [...] 12/11/2024 Generated for Rolly crook/Martine/Amadeo on: 0 07/20/2025 10:33 AM EDT
--- NOTE | 2025-07-20 09:29 | MHC.AMDMED ---
Intake Intake Visit Reasons: T2DM Credit And Collection Manager Required: No Accompanied by: Self / Same As Patient Allergies warfarin Allergy (Intermediate, Verified 06/21/25 09:02) sweats, dry mouth,elevated BP naproxen Allergy (Unknown, Verified 06/21/25 09:02) face got red nifedipine (NIFEDIPINE) Allergy (Unknown, Verified 06/21/25 09:02) GI SIDE EFFECTS, stomach upset, GI empagliflozin (From Jardiance) Adverse Reaction (Intermediate, Verified 06/21/25 09:02) testicular swelling HPI Comprehensive Diabetes Asmnt Most Recent Diabetes Results: Microalb/Creat Ratio, (<30) 89.8 ug/mg cr H 06/21/25 Cholesterol, (<200) 114 mg/dL 03/26/25 HDL Cholesterol, (>40) 35 mg/dL L 03/26/25 Triglycerides, (<150) 122 mg/dL 03/26/25 Creatinine, (0.5-1.4) 1.06 mg/dL 06/21/25 BUN, (9-16) 15 mg/dL 06/21/25 Sodium, (135-145) 142 mmol/L 06/21/25 Potassium, (3.3-5.1) 5.1 mmol/L 06/21/25 Chloride, (96-108) 103 mmol/L 06/21/25 Carbon Dioxide, (22-29) 32 mmol/L H 06/21/25 Calcium, (8.4-10.2) 9.6 mg/dL 06/21/25 AST, (5-37) 26 U/L 03/26/25 ALT, (0-40) 31 U/L 03/26/25 Total Protein, (6.5-8.0) 7.1 g/dL 03/26/25 Albumin, (3.5-5.0) 4.6 g/dL 03/26/25 [facility] Medical History Gastritis Low libido Nocturia more than twice per night Verruca COVID-19 virus infection Trigger finger, left ring finger Flexor tenosynovitis of finger SOB (shortness of breath) Fibromyalgia Rheumatoid factor positive Knee pain, bilateral Bilateral carpal tunnel syndrome Pancreatic cyst Cervico-occipital neuralgia Cervical spondylosis without myelopathy Obstructive sleep apnea hypopnea, severe Carpal tunnel syndrome Degenerative disc disease, cervical GERD (gastroesophageal reflux disease) Hypercholesterolemia CKD (chronic kidney disease) Overactive bladder Hypogonadism Pancreatic mass Essential hypertension Atherosclerotic cardiovascular disease Persistent atrial fibrillation Surgical History History of cataract surgery Optional surgery Hx of tonsillectomy H/O lumbar discectomy History of heart artery stent (~04/2018) Family History Father Cancer Mother Diabetes Cardiovascular disease Social History Housing: House Alcohol intake: never Patient Tobacco Use Status: Never used Tobacco Tobacco use type: Cigarette e-Cigarette/Vaping Use: Never Used Second Hand Smoke Exposure: No service: No Current occupational status: retired 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 Cognitive needs: No Hearing needs: No Vision needs: Yes Assessment & Plan Assessment & Plan (1) Type 2 diabetes mellitus with hyperglycemia: Code(s): E11.65 - Type 2 diabetes mellitus with hyperglycemia Qualifiers: Diabetes mellitus termination clerk insulin use: without mcfp use Qualified Code(s): E11.65 - Type 2 diabetes mellitus with hyperglycemia Plan: Diabetes self-management education and support participation record Assessment/scale: 1= needs instructed? 2= needs review? 3= comprehend keep point? 4= demonstrates understanding/ competent? NC= Not Covered Topics Learning Objective: Initial visit Initial or post srvc Initial or post srvc Initial or post srvc Initial or post srvc Initial or post srvc Post srvc Comments Pre Edu-assessment/plan Outcome or reassess Outcome or reassess Outcome or reassess Outcome or reassess Outcome or reassess Outcome or reassess Diabetes pathophysiology 1 Healthy eating 1 Being active 1 Taking medication 2 Monitoring glucose 1 Acute complication 1 Chronic complicated 1 Lifestyle and healthy coping 1 Diabetes distress in support 1 ?Diabetes pathophysiology: ?Defined diabetes med identify own type of diabetes; list 3 options for treating diabetes Healthy eating: ?Described effect of type, amount and ?timing of food on blood glucose; list 3 methods for planning meal Being active: ?State effect of exercise on blood glucose level Taking medication: ?State effect of diabetes medications on diabetes; name diabetes medications taking, action and side effects Monitoring glucose: ?Identify recommended blood glucose targets and personal target Acute complication: ?List symptoms and treatment of hyper and hypoglycemia, DKA, sick day guidelines and guidelines for severe weather or situations of crisis and diabetes supply manage Chronic complication: ?To find the relationship of blood glucose levels to long-term complications of diabetes in screening and preventative measures Lifestyle and healthy coping: ?Described lifestyle and healthy coping strategies to rule out diabetes self-management Diabetes to stress and support: ?Recognize Diabetes to stress and be able to identified support options Learning objectives: The patient was provided with verbal and written education on the following topics as outlined below. The patient met all learning objectives and was able to verbalize understanding and provide teach back of education topics discussed . The patient was provided with the opportunity to ask questions and all questions were answered. Patient Assessment Assess patient education level/literacy/barriers, patient's last A1c on 06/21/2025 8.6% At visit with provider patient was given sample Syl 3 sensor with phone mona. after review of 2 weeks sensor data it appeared that patient has been having multiple episodes of overnight hypoglycemia Patient is currently taking metformin 1000 mg Glipizide ER 5 mg 2 tabs BID Januvia 100 mg daily Recommended to Pt he hold evening dose of Glipizide ER for the next 2 week. we put another sample sensor to monitor overnight glucose levels Patient questions/concerns What is Diabetes? Pathophysiology How the body produces and uses insulin Identify type of DM Risk factors Signs of Diabetes Brief overview of Diabetes Management Monitoring blood sugar Following a meal plan Regular exercise Maintaining a healthy weight Taking medication as needed Members of the care team (PCP, RN, MA, RD, CDE, database tester) Blood glucose monitoring When/how often to test Target blood sugar ranges Patient has glucometer but has been wearing sample Syl 3+ sensor with smart phone up Introduction to Nutrition Importance of healthy diet in managing DM Diet is personalized to individual preference Review patient?s regular diet/food preferences Who prepares meals/does food shopping/ Dining out?/ Barriers? How diet effects glucose Eating 3 balanced meals a day with small, healthy snacks between meals Review food groups Carbohydrates: What is a carbohydrate/Which food/food groups are considered carbohydrates Effect of carbohydrates on blood glucose Portion sizes Reading food labels Basic carb counting (if applicable per nursing assessment) Plate method Meal planning Recommendations: Follow plate method, consistent carbs and read nutritional labels. Smart Goal: Use rule of 15s to treat hypoglycemia Educational Materials: The patient was provided with the following written educational materials: Planning Healthy Meals, hypoglycemic Handouts Patient Response to instructions: Comprehension of Instructions: Fair Readiness to make changes: Contemplation How confident they feel about making changes: Positive Portions of this note were created using voice recognition software, please excuse any words or phrases that may have been misinterpreted. Patient Instructions: Hold evening Glipizide ER until next visit Follow up with diabetes education nurse in 2 weeks Coding Level of Care Code Est Pt Level 1 (26465) Diagnoses Type 2 diabetes mellitus with hyperglycemia, without long-term current use of insulin E11.65 Diabetes mellitus termination clerk insulin use: without mcfp use
--- OUTSIDE RECORDS SUMMARY | 2025-07-20 10:33 | XMS_ITS | Patient Health Record ---
Author Organization [facility] Address [address] [place] [address] Care Team Providers Care Building Architectural Designer Name Role Phone Victor M Allan Primary Care Provider Nat Diehl Unavailable [phone] Carlos Irwin Unavailable [phone] Allergies Allergen (clinical drug ingredient) Drug/Non Drug [...] Problem Acquired hammer toe of right foot (9591611662055428 ) Other hammer toe(s) (acquired), right foot (M20.41) Active confirmed Problem Acquired hammer toe of left foot (7297294853686366 ) Other hammer toe(s) (acquired), left foot (M20.42) Active confirmed Problem Polyneuropathy due to type 2 diabetes mellitus (531489956) Type 2 diabetes mellitus with diabetic polyneuropathy (E11.42) Active confirmed Vital Signs Blood pressure diastolic 84 mm Hg 06/22/2025 Height 5ft 8in in 06/22/2025 Blood pressure systolic 134 mm Hg 06/22/2025 Weight 253 lbs 06/22/2025 BMI 38.46 kg/m2 06/22/2025 Procedures Procedure Date Ordered Date Performed Result Body Sit e 77455-ZIHZCKZ NAIL, 6 OR MORE 09/18/2024 N/A 28500-GDFE SKIN LESIONS, 2 TO 4 09/18/2024 N/A 61023-IYYTUFZ NAIL, 6 OR MORE 12/10/2024 N/A 41132-YTSQ SKIN LESIONS, 2 TO 4 12/10/2024 N/A Encounters Encounter Location Date Provider Diagnosis [address] [address] 09/18/2024 Nat Beard Type 2 diabetes mellitus with diabetic polyneuropathy E11.42 and Tinea unguium B35.[address] [address] 12/10/2024 Carlos Irwin Type 2 diabetes mellitus with diabetic polyneuropathy E11.42 ; Tinea unguium B35.1 ; Other hammer toe(s) (acquired), right foot M20.41 and Other hammer toe(s) (acquired), left foot M20.[address] [address] 03/19/2025 Nat Beard Type 2 diabetes mellitus with diabetic polyneuropathy E11.42 and Tinea unguium B35.[address] [address] 06/22/2025 Nat Beard Type 2 diabetes mellitus with diabetic polyneuropathy E11.42 and Tinea unguium B35.[address] [address] 01/28/2025 Nat Beard Assessments Encounter Date Diagnosis [...] X ray : Foot, left 3V 01/03/2024 74676-[id number] NAIL, 6 OR MORE 09/18/2024 18729-DNGBGKA NAIL, 6 OR MORE 12/10/2024 40322-SQII SKIN LESIONS, 2 TO 4 12/10/19 25 50230-KRNX SKIN LESIONS, 2 TO 4 09/18/20 24 71461-UCVK SKIN LESIONS, 2 TO 4 01/03/20 24 91413-AEOA SKIN LESIONS, 2 TO 4 04/03/20 24 Next Appt Details Provider Name:Nat Nova cat, 09/21/2025 09:00:00 AM, [address] [facility], [facility] [address], [place], [address], Insurance Providers Payer Name Payer Address Payer Phone Subscriber Number Group Number Insured Name Patient Relationship to Insured Coverage Start Date Coverage End Date Medicare [employer] [address] [place] [address] [id number] Pipo Springer Self - patient is the insured [facility] [address] [place] [address] [phone] [id number] Pipo Springer Self - patient is the insured Medical (General) History Medical History History ICD Code Arthritis Back,Hip,and Knee pain covid-19 Diabetic Headaches/Migraines Heart disease High blood pressure Kidney disease Psoriasis/eczema Reflux Surgical History Surgery Date(Month/Year) back surgery 1984
--- OUTSIDE RECORDS SUMMARY | 2025-07-20 10:33 | XMS_ITS | Clinical Summary ---
Author Organization [facility] Address [address] [facility] [address] [place] [address] Phone Care Team Providers Care Hand Laminator Name Role Phone Victor M Allan MD Primary Care Provider [phone] Allergies Active Allergy Reactions Criticality Noted Date [...] Office Visit [facility] [address] [address] Monica Canela ARNP [address] [address] Health Maintenance Due Date Last Done [...] to complete this topic Insurance Medicare [facility] Medicare [facility] Care Teams Hand Laminator Relationship Specialty Start Date End Date Victor M Allan MD [facility] [place] [address] [place] PCP - General 11/14/20
--- OUTSIDE RECORDS SUMMARY | 2025-07-20 10:33 | XMS_ITS | Clinical Summary ---
Author Organization [employer] Address [address] [facility] [address] [place] [address] Care Team Providers Care Wig Maker Name Role Phone Unavailable Primary Care Provider [...] um Nitrate 1.1-5 % pasteIndications :Dental caries [place] teeth for 2 minutes, morning and night. [...] Team (Late st Contact Info) Description 08/09/2025 8:45 AM EDT Office Visit [facility] [address] [place] [address] Alexis Smith Health Maintenance Due Date Last [...] EDT Dental calculus Dental caries Defective dental uatsdin with open interproximal contact from Last 3 Months or Most Recently Relevant to Health Maintenance Insurance DENTAL - HSN FULL (MEDICAID)
== END 2025-07-20 09:50 | disposition home or self-care (01) ==
LOC: HO.ENCR 08:45
PROVIDERS: PCP Internal Medicine; Visit Provider Registered Nurse Diabetes Educator
DX: E11.65 Type 2 diabetes mellitus with hyperglycemia (principal)

== ENCOUNTER → 2025-07-20 08:44 | Outpatient (BNVA) | payer MEDICARE, SELFPAY | PROVIDERS: PCP Internal Medicine; Visit Provider Registered Nurse Diabetes Educator | DX: E11.65 Type 2 diabetes mellitus with hyperglycemia (principal) | CPT/HCPCS: 99211 ==

== ENCOUNTER 2025-08-04 08:40 | Outpatient (AMB) | payer MEDICARE, SELFPAY ==
--- OUTSIDE RECORDS SUMMARY | 2024-12-11 06:00 | XMS_ITS ---
Author Organization [facility] Address [address] [facility] [place] [address] Care Team Providers Care Director Post Name Role Phone Victor M Allan Primary Care Provider Nat Diehl Unavailable [phone] Encounters Encounter Location Date Provider Diagnosis [address] [address] 12/11/2024 Nat Beard Plan Of Treatment Next Appt Details Provider Name:Nat Nova ker, 09/21/2025 09:00:00 AM, [address] [place] [address], [phone], Progress Notes * Pipo BECKDOB: 2 (75 yo M)Acc No.[id number]:12/11/2024 Progress Note Patient: N Clemente RODASius Provider: Jo-Ann Beard DPM :1950 A ge:74 Y S ex:Male Date:12/11/2024 Address:[address] [phone] Pcp:Victor M Allan Subjective: * Chief Complaints: [...] 0 12/11/2024 Generated for Rolly crook/Martine/Amadeo on: 1 09:12 AM EDT
--- NOTE | 2025-08-04 08:55 | A.OFFPC_ITS ---
Vital Signs 08/04/25 08:56 Height 5 ft 8 in Weight 257 lb 6 oz BMI 39.1 BP 120/70 Blood Pressure Location Rt brachial Position Sitting Pulse 88 Pulse Source Pulse Oximeter Temp 97.1 F Temp Source Temporal Artery Scan Pulse Oximetry (%) 96 Oxygen Delivery Method Room Air Intake Visit Reasons: A fib Intake Note: Patient is here to follow up on AFib. Superintendent Overhead Distribution Required: No General Warehouse Associate: Not Required per policy Accompanied by: Self / Same As Patient Allergies warfarin Allergy (Intermediate, Verified 08/04/25 08:55) sweats, dry mouth,elevated BP naproxen Allergy (Unknown, Verified 08/04/25 08:55) face got red nifedipine (NIFEDIPINE) Allergy (Unknown, Verified 08/04/25 08:55) GI SIDE EFFECTS, stomach upset, GI empagliflozin (From Jardiance) Adverse Reaction (Intermediate, Verified 08/04/25 08:55) testicular swelling Tobacco use date assessed: 08/04/25 Fall risk assessment: No Falls in past year Last assessed Fall Risk: 08/04/25 Dental Screening Dental Screen Date: 04/09/25 HPI A fib HPI Details follow up with DM , on the CGM and had hypoglycemia at [facility] and was taken off glipizide [facility] Medical History Gastritis Low libido Nocturia more than twice per night Verruca COVID-19 virus infection Trigger finger, left ring finger Flexor tenosynovitis of finger SOB (shortness of breath) Fibromyalgia Rheumatoid factor positive Knee pain, bilateral Bilateral carpal tunnel syndrome Pancreatic cyst Cervico-occipital neuralgia Cervical spondylosis without myelopathy Obstructive sleep apnea hypopnea, severe Carpal tunnel syndrome Degenerative disc disease, cervical GERD (gastroesophageal reflux disease) Hypercholesterolemia CKD (chronic kidney disease) Overactive bladder Hypogonadism Pancreatic mass Essential hypertension Atherosclerotic cardiovascular disease Persistent atrial fibrillation Surgical History History of cataract surgery Optional surgery Hx of tonsillectomy H/O lumbar discectomy History of heart artery stent (~04/2018) Family History Father Cancer Mother Diabetes Cardiovascular disease Social History (Reviewed 08/04/25 @ 08:55 by NICKOLAS Bustamante Housing: House Alcohol intake: never Patient Tobacco Use Status: Never used Tobacco Tobacco use type: Cigarette e-Cigarette/Vaping Use: Never Used Second Hand Smoke Exposure: No service: No Current occupational status: retired 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 Cognitive needs: No Hearing needs: No Vision needs: Yes Questionnaire Thrive Questionnaire Date Thrive assessed: 04/09/25 AYAN-7 AMB Questionnaire AYAN-7 Date AYAN - 7 assessed: 04/09/25 Source: Developed by Drs. Karan Davidson, Crista Nguyen, Sunday Ashley and colleagues, with an educational sukhi from [employer]. Physical exam (Primary Care) Vital Signs: Last Vital Signs Temp 97.1 F 08/04/25 08:56 Pulse 88 08/04/25 08:56 BP 120/70 08/04/25 08:56 Pulse Ox 96 08/04/25 08:56 Oxygen Delivery Method Room Air 08/04/25 08:56 BMI result Body Mass Index 39.1 Tobacco/Smoking Status: Tobacco use Status Tobacco use date assessed 08/04/25 08/04/25 09:04 Patient Tobacco Use Status Never used Tobacco 08/04/25 09:04 Tobacco use type Cigarette 08/04/25 09:04 e-Cigarette/Vaping Use Never Used 08/04/25 09:04 Thrive Assessment: Date of Thrive Assessment Date Thrive assessed 04/09/25 08/04/25 09:04 Const General: alert; No acute distress Eyes Conjunctivae: conjunctivae normal Resp Auscultation: clear to auscultation bilaterally Cardio Rate: regular rate Rhythm: regular rhythm GI Inspection: Yes normal to inspection Extrem Other: 2 + edema General: Yes edema Coding Level of Care Code Est Pt Level 4 (42666) Complex EM visit Add On G2211 Diagnoses Type 2 diabetes mellitus with hyperglycemia, without long-term current use of insulin E11.65 Diabetes mellitus 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 harvesting supervisor insulin use: without watermelon harvesting supervisor use Persistent atrial fibrillation I48.19 Atherosclerotic cardiovascular disease I25.10 Essential hypertension I10 Hypercholesterolemia E78.00 Chronic diastolic (congestive) heart failure I50.32 Class 2 severe obesity due to excess calories with serious comorbidity and body mass index (BMI) of 36.0 to 36.9 in adult E66.01; Z68.36 Body mass index: BMI 36.0-36.9 Obesity classification: adult class 2 (BMI 35 - 39.9) Obesity type: due to excess calories Serious obesity comorbidity presence: with serious comorbidity Chronic kidney disease, unspecified CKD stage N18.9 Chronic kidney disease stage: unspecified stage BPH w urinary obs/LUTS N40.1; N13.8 Primary osteoarthritis of both knees M17.0 Laterality: bilateral Osteoarthritis type: primary Degenerative disc disease, cervical M50.30 Obstructive sleep apnea hypopnea, severe G47.33 Peripheral vascular disease I73.9 Assessment & Plan Assessment & Plan (1) Type 2 diabetes mellitus with hyperglycemia: Code(s): E11.65 - Type 2 diabetes mellitus with hyperglycemia Category: Medical Qualifiers: Diabetes mellitus watermelon harvesting supervisor insulin use: without longterm use Qualified Code(s): E11.65 - Type 2 diabetes mellitus with hyperglycemia Plan: Decrease the amount of carbohydrate intake, pasta, bread, rice and potatoes are all sugar and that is aside from all the sweet stuff, remember that fruits are good but they are Sweet also. Hemoglobin A1c goal of less than 7.0 patient is at goal on glipizide metformin and Januvia (2) Persistent atrial fibrillation: Code(s): I48.19 - Other persistent atrial fibrillation Category: Medical Plan: Continue with anticoagulation with Xarelto continue to follow-up renal function (3) Atherosclerotic cardiovascular disease: Code(s): I25.10 - Atherosclerotic heart disease of [place] coronary artery without angina pectoris Category: Medical Plan: Control the cholesterol, weight, blood pressure, diabetes on anticoagulation (4) Essential hypertension: Code(s): I10 - Essential (primary) hypertension Category: Medical Plan: Continue with blood pressure medication. Decrease salt intake and exercise takes amlodipine 10 mg once a day clonidine 0.2 mg twice a day isosorbide mononitrate 60 mg once a day lisinopril 40 mg once a day metoprolol 150 mg once a day (5) Hypercholesterolemia: Code(s): E78.00 - Pure hypercholesterolemia, unspecified Category: Medical Plan: Avoid fried foods, chicken skin, eggs, butter margarine, pastries and meat. Be it pork or beef they have a lot of cholesterol on pravastatin 40 mg once a day declines to be on high-dose statins. (6) Chronic diastolic (congestive) heart failure: Code(s): I50.32 - Chronic diastolic (congestive) heart failure Category: Medical Plan: Continue weighing self and has diuretics as needed (7) Obesity: Code(s): E66.9 - Obesity, unspecified Category: Medical Qualifiers: Body mass index: BMI 36.0-36.9 Obesity classification: adult class 2 (BMI 35 - 39.9) Obesity type: due to excess calories Serious obesity comorbidity presence: with serious comorbidity Qualified Code(s): E66.01 - Morbid (severe) obesity due to excess calories; Z68.36 - Body mass index [BMI] 36.0-36.9, adult Plan: Diet and exercise (8) CKD (chronic kidney disease): Code(s): N18.9 - Chronic kidney disease, unspecified Category: Medical Qualifiers: Chronic kidney disease stage: unspecified stage Qualified Code(s): N18.9 - Chronic kidney disease, unspecified Plan: Keep well hydrated avoid NSAIDs (9) BPH w urinary obs/LUTS: Code(s): N40.1 - Benign prostatic hyperplasia with lower urinary tract symptoms; N13.8 - Other obstructive and reflux uropathy Category: Medical Plan: Continue with tamsulosin. (10) Knee osteoarthritis: Code(s): M17.10 - Unilateral primary osteoarthritis, unspecified knee Category: Medical Qualifiers: Laterality: bilateral Osteoarthritis type: primary Qualified Code(s): M17.0 - Bilateral primary osteoarthritis of knee Plan: Continue to be active and try his best to lose the weight (11) Degenerative disc disease, cervical: Code(s): M50.30 - Other cervical disc degeneration, unspecified cervical region Category: Medical Plan: Continue to be active (12) Obstructive sleep apnea hypopnea, severe: Comment: Can not tolerate CPAP Code(s): G47.33 - Obstructive sleep apnea (adult) (pediatric) Category: Medical Plan: Discussed importance of CPAP use (13) Peripheral vascular disease: Code(s): I73.9 - Peripheral vascular disease, unspecified Category: Medical Plan History of Present Illness The patient is a 75-year-old male presenting for follow-up on his chronic conditions including cardiovascular and kidney diseases, and diabetes management. He has been managing his cardiovascular disease and atrial fibrillation with anticoagulation and antihypertensive therapies following cardi ac stent placement. His hypertensive regimen includes amlodipine, clonidine, lisinopril, and metoprolol. Chronic kidney disease management involves hydration and NSAID avoidance, with recent labs showing stable renal function. The patient's type 2 diabetes is monitored with oral hypoglycemics, with recent adjustments aimed at avoiding hypoglycemia. Despite hypercholesterolemia, he opts for pravastatin instead of higher doses due to personal reasons. The patient struggles with CPAP therapy for obstructive sleep apnea and experiences mild migraines, for which neurology input is awaited. B12 levels are low due to certain medications and supplements have been recommended. Health Maintenance - Continue monitoring blood pressure and hemoglobin A1c levels. - Maintain regular endocrinology consultations for pancreatic mass management. - Follow-up with neurology for migraine evaluation. - Regular renal function assessment advised due to chronic kidney disease. - Flu vaccination is planned for the current season. - Consideration of shingles vaccination has been discussed. Social History - Engages regularly with dieticians for diabetes management and weight control. - Has reported no recent significant weight changes; home weights stabilized around 254 lbs. - Follows a typical routine with ongoing health management activities and engagement with various health specialists. Review of Systems - Cardiac: Reports an irregular heartbeat, no chest pain or palpitations. - Respiratory: Denies cough or difficulty breathing. - Neurological: Reports mild migraines. - Gastrointestinal: Reports low blood sugar incidents with adjustments to diabetic medication. - Skin: Reports eczema on legs. Physical Exam - Cardiovascular- Noted irregular heartbeat. - Respiratory- No adventitious breath sounds noted upon deep breathing examination. Results - Labs: Creatinine 1.06 mg/dL, blood sugar 106 mg/dL, hemoglobin A1c 6.8%, LDL 55 mg/dL, triglycerides 122 mg/dL, low vitamin B12. - Imaging: Thoracic spine x-ray shows multilevel spondylosis and mild scoliosis. Plan Patient was informed and verbally consented to the use of an ambient scribe for clinic note documentation during this visit. 1. Atherosclerotic Cardiovascular Disease Managed with anticoagulation therapy and multiple antihypertensive medications. Acknowledgement of wood casket assembler's recommendation for stronger statin has been noted, patient prefers continuation of current statin therapy. 2. Diabetes Mellitus Adjustment in glipizide dosage to prevent nocturnal hypoglycemia. Maintain current treatment for optimal glucose management. 3. Chronic Kidney Disease Continued recommendation for hydration and NSAID avoidance. B12 supplementation suggested for deficiency management. 4. Hypercholesterolemia Acceptance of patient preference for pravastatin remains, despite recommendation for stronger statin therapy. 5. Obstructive Sleep Apnea The patient remains non-compliant with CPAP therapy due to discomfort, supervise for potential future adjustments. 6. Thoracolumbar Spondylosis No new interventions required, monitor for any changes or exacerbations. 7. History Of Pancreatic Mass Ongoing follow-up with endocrinology planned to monitor condition. 8. Migraines Neurology consultation scheduled for further evaluation. Discussion Notes During our discussion, the patient was advised on the importance of continuing his prescribed medication regimen, particularly for managing cardiovascular health and diabetes. We reviewed recent laboratory findings that indicate stable renal function. The benefits and potential side effects of adjusting glipizide to prevent low blood sugar episodes were explained. I reiterated the importance of B12 supplementation due to current low levels and involvement of medications. Despite previous recommendations for stronger statin therapy, the patient opts to continue current medication. We discussed the ineffectiveness of CPAP due to intolerance, acknowledging the need for alternative interventions. The necessity of maintaining a healthy lifestyle and adherence to medical follow-ups with endocrinology, neurology, and dietary management were stressed. Vaccination options, including influenza and shingles, were also mentioned for consideration. Patient Instructions - Keep taking medications as prescribed. - Stay hydrated and avoid NSAIDs to protect kidneys. - Begin B12 supplements, as suggested. - Follow up with endocrinology and neurology as planned. - Monitor blood glucose regularly and note any signs of low blood sugar. - Consider vaccinations, including the flu and shingles shots. - Maintain a healthy diet and lifestyle as discussed with dietitian. - Notify the office with any concerns or worsening of symptoms. Medications: Changed From glipizide ER Take 2 tablets in the morning and 2 tablet in the evening PO; 360 tabs 2RF E11.65 - Type 2 diabetes mellitus with hyperglycemia To glipizide ER 10 mg (2 x 5 mg) PO DAILY 180 tabs 2RF 90 days E11.65 - Type 2 diabetes mellitus with hyperglycemia Refilled blood sugar diagnostic (OneTouch Ultra Test strips) As directed check the blood sugar once a day 100 ea 3RF E11.65 - Type 2 diabetes mellitus with hyperglycemia
[2025-08-04 08:56] VITALS: BP 120/70; PULSE 88; TEMP 36.2; O2SAT 96; BMI 39.1
--- OUTSIDE RECORDS SUMMARY | 2025-08-04 09:13 | XMS_ITS | Patient Health Record ---
Author Organization [facility] Address [address] [place] [address] Care Team Providers Care Elementary Educator Name Role Phone Victor M Allan Primary Care Provider Nat Diehl Unavailable [phone] Carlos Irwin Unavailable [phone] Allergies Allergen (clinical drug ingredient) Drug/Non Drug [...] Problem Acquired hammer toe of right foot ([id number] ) Other hammer toe(s) (acquired), right foot (M20.41) Active confirmed Problem Acquired hammer toe of left foot ([id number] ) Other hammer toe(s) (acquired), left foot (M20.42) Active confirmed Problem Polyneuropathy due to type 2 diabetes mellitus (881521335) Type 2 diabetes mellitus with diabetic polyneuropathy (E11.42) Active confirmed Vital Signs Blood pressure diastolic 84 mm Hg 06/22/2025 Height 5ft 8in in 06/22/2025 Blood pressure systolic 134 mm Hg 06/22/2025 Weight 253 lbs 06/22/2025 BMI 38.46 kg/m2 06/22/2025 Procedures Procedure Date Ordered Date Performed Result Body Sit e 81150-GZNBDFJ NAIL, 6 OR MORE 09/18/2024 N/A 36635-AWYW SKIN LESIONS, 2 TO 4 09/18/2024 N/A 19932-KNFYVWI NAIL, 6 OR MORE 12/10/2024 N/A 06632-KZVR SKIN LESIONS, 2 TO 4 12/10/2024 N/A Encounters Encounter Location Date Provider Diagnosis [address] [address] 09/18/2024 Nat Beard Type 2 diabetes mellitus with diabetic polyneuropathy E11.42 and Tinea unguium B35.[address] [address] 12/10/2024 Carlos Irwin Type 2 diabetes mellitus with diabetic polyneuropathy E11.42 ; Tinea unguium B35.1 ; Other hammer toe(s) (acquired), right foot M20.41 and Other hammer toe(s) (acquired), left foot M20.[address] [address] 03/19/2025 Nat Beard Type 2 diabetes mellitus with diabetic polyneuropathy E11.42 and Tinea unguium B35.[address] [address] 06/22/2025 Nat Beard Type 2 diabetes mellitus with diabetic polyneuropathy E11.42 and Tinea unguium B35.[address] [address] 01/28/2025 Nat Beard Assessments Encounter Date Diagnosis [...] X ray : Foot, left 3V 01/03/2024 33752-MEZCHKP NAIL, 6 OR MORE 09/18/2024 84188-XGJPYBU NAIL, 6 OR MORE 12/10/2024 19314-IRST SKIN LESIONS, 2 TO 4 12/10/19 25 77984-CYCY SKIN LESIONS, 2 TO 4 09/18/20 24 26531-FMRW SKIN LESIONS, 2 TO 4 01/03/20 24 20997-KRAY SKIN LESIONS, 2 TO 4 04/03/20 24 Next Appt Details Provider Name:Nat Nova cat, 09/21/2025 09:00:00 AM, [address] [facility] [facility] [address], [place], [address], Insurance Providers Payer Name Payer Address Payer Phone Subscriber Number Group Number Insured Name Patient Relationship to Insured Coverage Start Date Coverage End Date Medicare National [employer] [address] [place] [address] [id number] Pipo Springer Self - patient is the insured [facility] [address] [place] [address] [id number] Pipo Springer Self - patient is the insured Medical (General) History Medical History History ICD Code Arthritis Back,Hip,and Knee pain covid-19 Diabetic Headaches/Migraines Heart disease High blood pressure Kidney disease Psoriasis/eczema Reflux Surgical History Surgery Date(Month/Year) back surgery 1984
--- OUTSIDE RECORDS SUMMARY | 2025-08-04 09:13 | XMS_ITS | Clinical Summary ---
Author Organization [employer] Address [address] [facility] [address] [place] [address] Care Team Providers Care Information Technology Project Manager Name Role Phone Unavailable Primary Care Provider [...] um Nitrate 1.1-5 % pasteIndications :Dental caries [place] teeth for 2 minutes, morning and night. [...] 1 12/07/2023 Essential hypertension 09/24/2023 Morbid obesity (CMS/HCC) 09/24/2023 Obstructive sleep apnea of adult 09/24/2023 [...] Description 08/09/2025 8:45 AM EDT Office Visit [facility] [address] [place] [address] Alexis Smith Health Maintenance Due Date Last [...] EDT Dental calculus Dental caries Defective dental holiness with open interproximal contact from Last 3 Months or Most Recently Relevant to Health Maintenance Insurance DENTAL - HSN FULL (MEDICAID)
--- OUTSIDE RECORDS SUMMARY | 2025-08-04 09:13 | XMS_ITS | Clinical Summary ---
Author Organization [facility] Address [address] [facility] [address] [place] [address] Phone Care Team Providers Care Open Hearth Helper Name Role Phone Victor M Allan MD Primary Care Provider [phone] Allergies Active Allergy Reactions Criticality Noted Date [...] Visit [facility] [address] [address] Monica Canela ARNP [address] [address] Health Maintenance Due Date Last [...] age to complete this topic Insurance Medicare [facility] Medicare [facility] Care Teams Open Hearth Helper Relationship Specialty Start Date End Date Victor M Allan MD [facility] MS [address] [place] PCP - General 11/14/20
== END 2025-08-04 09:39 | disposition home or self-care (01) ==
LOC: HO.HMCH 08:41
PROVIDERS: PCP Nurse Practitioner Family; Visit Provider Internal Medicine
DX: I12.9 Hypertensive chronic kidney disease with stage 1 through stage 4 chronic kidney disease, or unspecified chronic kidney disease (principal); E11.65 Type 2 diabetes mellitus with hyperglycemia; I48.19 Other persistent atrial fibrillation; I50.32 Chronic diastolic (congestive) heart failure; E66.01 Morbid (severe) obesity due to excess calories; I25.10 Atherosclerotic heart disease of native coronary artery without angina pectoris; E78.00 Pure hypercholesterolemia, unspecified; Z68.36 Body mass index [BMI] 36.0-36.9, adult; N18.9 Chronic kidney disease, unspecified; N40.1 Benign prostatic hyperplasia with lower urinary tract symptoms; N13.8 Other obstructive and reflux uropathy; M17.0 Bilateral primary osteoarthritis of knee

== ENCOUNTER → 2025-08-04 08:40 | Outpatient (BNVA) | payer MEDICARE, SELFPAY | PROVIDERS: PCP Nurse Practitioner Family; Visit Provider Internal Medicine | DX: E11.65 Type 2 diabetes mellitus with hyperglycemia (principal); E11.51 Type 2 diabetes mellitus with diabetic peripheral angiopathy without gangrene; E11.22 Type 2 diabetes mellitus with diabetic chronic kidney disease; I13.0 Hypertensive heart and chronic kidney disease with heart failure and stage 1 through stage 4 chronic kidney disease, or unspecified chronic kidney disease; I50.32 Chronic diastolic (congestive) heart failure; N18.9 Chronic kidney disease, unspecified; I48.91 Unspecified atrial fibrillation; I25.10 Atherosclerotic heart disease of native coronary artery without angina pectoris; E78.00 Pure hypercholesterolemia, unspecified; E66.01 Morbid (severe) obesity due to excess calories; N40.1 Benign prostatic hyperplasia with lower urinary tract symptoms; N13.8 Other obstructive and reflux uropathy; M17.0 Bilateral primary osteoarthritis of knee; M50.30 Other cervical disc degeneration, unspecified cervical region; G47.33 Obstructive sleep apnea (adult) (pediatric); M47.815 Spondylosis without myelopathy or radiculopathy, thoracolumbar region; G43.909 Migraine, unspecified, not intractable, without status migrainosus; Z68.36 Body mass index [BMI] 36.0-36.9, adult; Z99.89 Dependence on other enabling machines and devices | CPT/HCPCS: 99211; 99212 ==

== ENCOUNTER 2025-08-04 09:52 | Outpatient (AMB) | payer MEDICARE, SELFPAY ==
--- NOTE | 2025-08-04 10:20 | MHC.AMDMED ---
Intake Intake Visit Reasons: 30 mins Agronomy Specialist Required: No Accompanied by: Self / Same As Patient Allergies warfarin Allergy (Intermediate, Verified 08/04/25 08:55) sweats, dry mouth,elevated BP naproxen Allergy (Unknown, Verified 08/04/25 08:55) face got red nifedipine (NIFEDIPINE) Allergy (Unknown, Verified 08/04/25 08:55) GI SIDE EFFECTS, stomach upset, GI empagliflozin (From Jardiance) Adverse Reaction (Intermediate, Verified 08/04/25 08:55) testicular swelling HPI Comprehensive Diabetes Asmnt Most Recent Diabetes Results: Microalb/Creat Ratio, (<30) 89.8 ug/mg cr H 06/21/25 Cholesterol, (<200) 114 mg/dL 03/26/25 HDL Cholesterol, (>40) 35 mg/dL L 03/26/25 Triglycerides, (<150) 122 mg/dL 03/26/25 Creatinine, (0.5-1.4) 1.06 mg/dL 06/21/25 BUN, (9-16) 15 mg/dL 06/21/25 Sodium, (135-145) 142 mmol/L 06/21/25 Potassium, (3.3-5.1) 5.1 mmol/L 06/21/25 Chloride, (96-108) 103 mmol/L 06/21/25 Carbon Dioxide, (22-29) 32 mmol/L H 06/21/25 Calcium, (8.4-10.2) 9.6 mg/dL 06/21/25 AST, (5-37) 26 U/L 03/26/25 ALT, (0-40) 31 U/L 03/26/25 Total Protein, (6.5-8.0) 7.1 g/dL 03/26/25 Albumin, (3.5-5.0) 4.6 g/dL 03/26/25 [facility] Medical History Gastritis Low libido Nocturia more than twice per night Verruca COVID-19 virus infection Trigger finger, left ring finger Flexor tenosynovitis of finger SOB (shortness of breath) Fibromyalgia Rheumatoid factor positive Knee pain, bilateral Bilateral carpal tunnel syndrome Pancreatic cyst Cervico-occipital neuralgia Cervical spondylosis without myelopathy Obstructive sleep apnea hypopnea, severe Carpal tunnel syndrome Degenerative disc disease, cervical GERD (gastroesophageal reflux disease) Hypercholesterolemia CKD (chronic kidney disease) Overactive bladder Hypogonadism Pancreatic mass Essential hypertension Atherosclerotic cardiovascular disease Persistent atrial fibrillation Surgical History History of cataract surgery Optional surgery Hx of tonsillectomy H/O lumbar discectomy History of heart artery stent (~04/2018) Family History Father Cancer Mother Diabetes Cardiovascular disease Social History Housing: House Alcohol intake: never Patient Tobacco Use Status: Never used Tobacco Tobacco use type: Cigarette e-Cigarette/Vaping Use: Never Used Second Hand Smoke Exposure: No service: No Current occupational status: retired 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 Cognitive needs: No Hearing needs: No Vision needs: Yes Assessment & Plan Assessment & Plan (1) Type 2 diabetes mellitus with hyperglycemia: Code(s): E11.65 - Type 2 diabetes mellitus with hyperglycemia Qualifiers: Diabetes mellitus terminal gauger supervisor insulin use: without shelter use Qualified Code(s): E11.65 - Type 2 diabetes mellitus with hyperglycemia Plan: Personal Continuous Glucose Monitor: Patients CGM information reviewed, Pt uses CueSongs 3+ sensors with smart phone mona Patient has been holding 5 mg glipizide tabs in the evening, this seems to have resolved his overnight hypoglycemia. Patient also reports that he no longer is sweating at night which can be attributed to reductions in diabetes medications to prevent hypoglycemia. Patient is still has several episodes of morning and mid day hypoglycemia. Patient would benefit from having CGM to alert him to hypoglycemic events. Reviewed the following: Hypoglycemia or blood glucose under 70 use the rule of 15's: If you have your blood glucose meter test your blood glucose, if you do not have your meter still follow below instruction: Keep quick-sugar foods with you at all times.? Take 15 grams of fast acting carbohydrates. Examples are 4 ounces of fruit juice or regular soda pop, 8 ounces fat-free milk, 1 tablespoon of table sugar, honey or corn syrup, jam, one miniature box of raisins, 7-8 gumdrops or Life Savers candy, 4 glucose tablets, and glucose gel.? Retest blood glucose in 15 minutes, if blood glucose is still under 80 ,repeat rule of 15's. If blood glucose is under 50, take 30 grams of fast acting carbohydrates If you are having hypoglycemia, or insulin reaction, more that a few times a week, call MD or visual educator F/U BG check Patient reports he is getting cortisone injection for left shoulder pain on 09/02/2025 Discuss the effects that cortisone can have on glucose levels. Encourage patient he is experiencing hyperglycemia, to increase non carbohydrate fluids, and if appropriate increase physical activity. At today's visit we inserted another sample Syl 3+ sensor, with skin tac for better adhesion Portions of this note were created using voice recognition software, please excuse any words or phrases that may have been misinterpreted. Patient Instructions: Follow-up with diabetes education in 10 weeks Coding Level of Care Code Est Pt Level 1 (78282) Diagnoses Type 2 diabetes mellitus with hyperglycemia, without long-term current use of insulin E11.65 Diabetes mellitus terminal gauger supervisor insulin use: without terminal gauger supervisor use
--- OUTSIDE RECORDS SUMMARY | 2025-08-04 10:54 | XMS_ITS ---
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 He was seen on April 30, 2025, at which time the following treatment recommendations were given:Continue the following treatments: - - Ketoconazole 2% topical cream BID (eyebrows) - Ketoconazole 2% shampoo 2-3x wkly.The patient presents for further evaluation and management.Interval History: Ptreports the betamethasone cream is not working for his legs Allergies, Adverse Reactions, Alerts Substance RxNorm Reaction(s) Severity Status Start Da te warfarin unspecified active Medications Medication Generic Name RxNorm Strength Strength Unit Route Dose Dose Form Frequency Date Started Date Ended Status Indication Sig betamethaso ne, augmented betameth asone, augmente d 313348 0.05 % Topica l 1 cream bid/prn 03/20/20 24 suspend ed Appl y spar ingl y to ecze ma twic e a day for 1-2 week s, then take a one week lulu k. Repe at if need ed. clonidine HCl 449532 0.1 mg Oral 1 table t daily active gabapentin gabapent in 300 mg Oral 1 capsu le daily active glipizide 178954 5 mg Oral 1 Table t, Exten ded Relea se 24 hr daily active imipramine HCl imiprami ne HCl 25 mg Oral 1 table t daily active isosorbide mononitrate isosorbi de mononitr ate 60 mg Oral 1 table t exten ded relea se 24 hr daily active lisinopril lisinopr il 40 mg Oral 1 table t daily active metformin 921201 1,000 mg Oral 1 table t bid active metoprolol succinate 741771 50 mg Oral 1 Table t, Exten ded Relea se 24 hr am active metoprolol succinate 184879 100 mg Oral 1 Table t, Exten ded Relea se 24 hr pm active pravastatin pravasta tin 40 mg Oral 1 table t daily active tamsulosin tamsulos in 0.4 mg Oral 1 capsu le daily active Problems Problem Code Type Status Date of Diagnosis Date of Resolution Inflamed seborrheic keratosis (disorder) 976893476(SN OMED) Diagnosis active 08/02/2025 Seborrheic dermatitis (disorder) 73929347(SNO MED) Diagnosis active 08/02/2025 Peripheral venous insufficiency (disorder) 64979187(SNO MED) Diagnosis active 08/02/2025 Seborrheic dermatitis (disorder) 48931934(SNO MED) Diagnosis active 04/30/2025 Melanocytic nevus (disorder) 882021452(SN OMED) Diagnosis active 04/30/2025 Intertrigo (disorder) 84082351(SNO MED) Diagnosis active 04/30/2025 Seborrheic keratosis (disorder) 755360045(SN OMED) Diagnosis active 04/30/2025 Nummular eczema (disorder) 88114809(SNO MED) Diagnosis active 04/30/2025 Disorder of pigmentation (disorder) 637991890(SN OMED) Diagnosis active 04/30/2025 Hemangioma of skin and subcutaneous tissue (disorder) 600270474(SN OMED) Diagnosis active 04/30/2025 Psoriasis vulgaris (disorder) 746921173(SN OMED) Diagnosis active 04/30/2025 Benign neoplasm of skin of trunk (disorder) 35118580(SNO MED) Diagnosis active 04/30/2025 Patient encounter status (finding) 865003077(SN OMED) Diagnosis active 04/30/2025 Neoplasm of uncertain behavior of skin (disorder) 59640592(SNO MED) Diagnosis active 02/15/2025 Surgical follow-up (finding) 729845038(SN OMED) Diagnosis active 02/15/2025 Epidermoid cyst of skin (disorder) 573013982(SN OMED) Diagnosis active 02/03/2025 Nummular eczema (disorder) 47731392(SNO MED) Diagnosis active 02/03/2025 Epidermoid cyst of skin (disorder) 929838561(SN OMED) Diagnosis active 11/17/2024 Nummular eczema (disorder) 81667903(SNO MED) Diagnosis active 10/21/2024 Other pruritus L29.89(ICD-1 0) Diagnosis active 10/21/2024 Surgical follow-up (finding) 383711877(SN OMED) Diagnosis active 08/24/2024 Asteatosis cutis (disorder) 55078473(SNO MED) Diagnosis active 08/17/2024 Inflamed seborrheic keratosis (disorder) 260533368(SN OMED) Diagnosis active 08/17/2024 Surgical follow-up (finding) 884032282(SN OMED) Diagnosis active 08/17/2024 Epidermoid cyst of skin (disorder) 093372252(SN OMED) Diagnosis active 08/12/2024 Seborrheic dermatitis (disorder) 83609886(SNO MED) Diagnosis active 05/22/2024 Seborrheic keratosis (disorder) 324764297(SN OMED) Diagnosis active 05/22/2024 Disorder of pigmentation (disorder) 902303713(SN OMED) Diagnosis active 05/22/2024 Hemangioma of skin and subcutaneous tissue (disorder) 192343705(SN OMED) Diagnosis active 05/22/2024 Epidermoid cyst of skin (disorder) 299480591(SN OMED) Diagnosis active 05/22/2024 Psoriasis vulgaris (disorder) 780268368(SN OMED) Diagnosis active 05/22/2024 Inflammatory dermatosis (disorder) 006953726(SN OMED) Diagnosis active 05/22/2024 Neoplasm of uncertain behavior of skin (disorder) 71434019(SNO MED) Diagnosis active 05/22/2024 Patient encounter status (finding) 786294004(SN OMED) Diagnosis active 05/22/2024 Psoriasis vulgaris (disorder) 948985716(SN OMED) Diagnosis active 03/20/2024 Asteatosis cutis (disorder) 09356874(SNO MED) Diagnosis active 03/20/2024 Idiopathic urticaria (disorder) 50614244(SNO MED) Diagnosis active 03/20/2024 Seborrheic dermatitis (disorder) 37944518(SNO MED) Diagnosis active 01/13/2024 Disorder of skin (disorder) 57679865(SNO MED) Diagnosis active 01/13/2024 Melanocytic nevus of face (disorder) 707733647(SN OMED) Diagnosis active 01/13/2024 Psoriasis vulgaris (disorder) 464683484(SN OMED) Diagnosis active 01/13/2024 Itching of skin (finding) 858254803(SN OMED) Diagnosis active 01/13/2024 Asteatosis cutis (disorder) 93053301(SNO MED) Diagnosis active 01/13/2024 Disorder of skin (disorder) 59538209(SNO MED) Diagnosis active 10/23/2023 Seborrheic dermatitis (disorder) 16214651(SNO MED) Diagnosis active 10/23/2023 Psoriasis vulgaris (disorder) 018929676(SN OMED) Diagnosis active 10/23/2023 Asteatosis cutis (disorder) 48541847(SNO MED) Diagnosis active 10/23/2023 Epidermoid cyst of skin (disorder) 804099292(SN OMED) Diagnosis active 08/27/2022 Psoriasis (disorder) 1641402(SNOM ED) Diagnosis active 08/27/2022 Epidermoid cyst of skin (disorder) 563489911(SN OMED) Diagnosis active 08/15/2022 Disorder of skin and/or subcutaneous tissue (disorder) 39502179(SNO MED) Diagnosis active 07/27/2022 Seborrheic dermatitis (disorder) 71624017(SNO MED) Diagnosis active 07/27/2022 Disorder of skin and/or subcutaneous tissue (disorder) 03107807(SNO MED) Diagnosis active 07/16/2022 Seborrheic dermatitis (disorder) 53180852(SNO MED) Diagnosis active 07/16/2022 Seborrheic dermatitis (disorder) 40283603(SNO MED) Diagnosis active 04/16/2022 Inflammatory dermatosis (disorder) 048753990(SN OMED) Diagnosis active 04/16/2022 Epidermoid cyst of skin (disorder) 963595124(SN OMED) Diagnosis active 04/16/2022 Seborrheic dermatitis (disorder) 04240975(SNO MED) Diagnosis active 10/09/2021 Inflammatory dermatosis (disorder) 091795490(SN OMED) Diagnosis active 10/09/2021 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) 92460752(SNO MED) Diagnosis active 10/09/2021 Disorder of skin (disorder) 83442249(SNO MED) Diagnosis active 10/09/2021 Seborrheic dermatitis (disorder) 98322537(SNO MED) Diagnosis active 07/14/2021 Inflammatory dermatosis (disorder) 947655195(SN OMED) Diagnosis active 07/14/2021 Seborrheic dermatitis (disorder) 31350322(SNO MED) Diagnosis active 04/05/2021 Atopic dermatitis (disorder) 46230163(SNO MED) Diagnosis active 04/05/2021 Disorder of skin (disorder) 21716440(SNO MED) Diagnosis active 04/05/2021 Neoplasm of uncertain behavior of skin (disorder) 97893794(SNO MED) Diagnosis active 02/03/2021 Seborrheic dermatitis (disorder) 00980882(SNO MED) Diagnosis active 02/03/2021 Disorder of skin (disorder) 77822960(SNO MED) Diagnosis active 02/03/2021 Scar conditions and fibrosis of skin (disorder) 568584578(SN OMED) Diagnosis active 02/03/2021 Paresthesia (finding) 09139017(SNO MED) Diagnosis active 02/03/2021 Atopic dermatitis (disorder) 11344915(SNO MED) Diagnosis active 02/03/2021 Raynaud's phenomenon (finding) 320470306(SN OMED) Problem active Arthritis (disorder) 9715428(SNOM ED) Problem active Atrial fibrillation (disorder) 99043490(SNO MED) Problem active Cervico-occipital neuralgia (disorder) 34867574(SNO MED) Problem active Chronic kidney disease (disorder) 299738768(SN OMED) Problem active Diabetes mellitus (disorder) 54108811(SNO MED) Problem active Generalized atherosclerosis (disorder) 50943114(SNO MED) Problem active History of hypertension (situation) 329272953(SN OMED) Problem active History of obesity (situation) 608344655(SN OMED) Problem active History of gastritis (situation) 729373908605 103(SNOMED) Problem active Obstructive sleep apnea of adult (disorder) 310207484034 3(SNOMED) Problem active Osteoarthritis of knee (disorder) 860664057(SN OMED) Problem active Overactive urinary bladder (disorder) 765414480(SN OMED) Problem active Eczema (disorder) 19524585(SNO MED) Problem active Results No data Encounters Service provided at [facility], [address] [place] [address], [address], [place], [place] [id number]. Office phonenumber is [phone]. Office fax number is [phone]. Encounter Diagnosis Location Date / Time Type Irritated Seborrheic Keratos es (L82.0)Seborrheic Dermatitis (L21.8)Stasis Dermatitis (I87.2) [facility] 08/02/2025 13:00:00 UTC [id number] Reason For Referral No data Procedures Procedure Date Documentation of current medications (pr ocedure) 08/02/2025 12:00 am UTC Cryotherapy of skin lesion with liquid n itrogen (procedure) 08/02/2025 12:00 am UTC Documentation of current medications (pr ocedure) 04/30/2025 12:00 am UTC Documentation of current medications (pr ocedure) 02/15/2025 12:00 am UTC Cryotherapy of skin lesion with liquid n itrogen (procedure) 02/15/2025 12:00 am UTC Removal of suture (procedure) 02/15/2025 12:00 am UTC Documentation of current medications (pr ocedure) 02/03/2025 12:00 am UTC Excision (procedure) 02/03/2025 12:00 am UTC Removal of suture (procedure) 08/24/2024 12:00 am UTC Cryotherapy of skin lesion with liquid n itrogen (procedure) 08/17/2024 12:00 am UTC Excision (procedure) 08/12/2024 12:00 am UTC Cryotherapy of skin lesion with liquid n itrogen (procedure) 05/22/2024 12:00 am UTC Excision (procedure) 08/15/2022 12:00 am UTC Shave biopsy (procedure) 02/03/2021 12:0 0 am UTC Documentation of past medical history (p rocedure) Documentation of past medical history (p rocedure) Documentation of past medical history (p rocedure) Documentation of past medical history (p rocedure) Documentation of past medical history (p rocedure) Documentation of past medical history (p rocedure) Documentation of past medical history (p rocedure) Documentation of past medical history (p rocedure) Documentation of past medical history (p rocedure) Documentation of past medical history (p rocedure) Documentation of past medical history (p rocedure) Documentation of past medical history (p rocedure) Documentation of past medical history (p rocedure) Documentation of past medical history (p rocedure) Documentation of past medical history (p rocedure) Documentation of past medical history (p rocedure) Documentation of past medical history (p rocedure) Documentation of past medical history (p rocedure) Documentation of past medical history (p rocedure) Documentation of past medical history (p rocedure) Documentation of past medical history (p rocedure) Documentation of past medical history (p rocedure) Documentation of past medical history (p rocedure) null Review Of Systems Provider reviewed on Aug 02, 2025.A focused review of systems was performed including Hematologic /Lymphatic and Integumentary and was notable for problems with bleeding.No Problems With Healing AndNo Problems With Scarring (hypertrophic Or Keloid). Assessment 1.Irritated Seborrheic Keratoses, Status: Inadequately ControlledCounselingLiquid Nitrogen: left upper arm; left forearm; Application Tool - Cry-AC; Medical Necessity Justification (varies by insurance carrier and by region) - irritated, itchy, inflamed, and at risk for and/or subject to recurrent physical trauma as a result of lesion type and location with history of the same; Duration of freezethaw-cycle (seconds) - 10; Number of freeze-thaw Cycles - 1 freeze-thaw cycle.Additional Notes2.Seborrheic Dermatitis, Status: Well ControlledCounselingPrescription Medication Management: Continue Regimen - - - Ketoconazole 2% topical cream BID (eyebrows) - Ketoconazole 2% shampoo 2-3x wkly.;.3.Stasis Dermatitis, Status: StableCounselingPrescription Medication Management: Plan - -- compression stockings; Discontinue Regimen - -- triamcinolone; Continue Regimen - -- Betamethasone, augmented 0.05% topical cream (Apply to itchy rash on the legs twice a day as needed)- Gentle cleansers and moisturizers;. Plan of Care Future visit for 11/22/2025 - Follow up in 4 months for: Focused Visit - 15 minutes. Other Instructions: For [facility] and Stasis Dermatitis f/u. Other Instructions: For [facility] D[facility] and Stasis Dermatitisf/u. Future visit for 04/11/2026 - Follow up in 9 months for: Skin Check - 15 minutes (as previously scheduled). Other Instructions: Annual CSE (April 2026). Other Instructions: Annual CSE (April 2026). Code Detail Instructions 465628 betamethasone, augme nted 0.05 % topical cream Apply sparingly to itchy bumps on legs twice a day for 1-2 weeks, then take a one week break. Repeat if needed. 516260 betamethasone, augme nted 0.05 % topical cream Apply sparingly to eczema twice a day for 1-2 weeks, then take a one week break. Repeat if needed. 884808 mupirocin 2 % topical ointment A pply to wound once daily with dressing change until healed. 587228 cephalexin 500 mg tablet Take on e capsule by mouth twice a day with food for 7 days. 269662 ketoconazole 2 % shampoo Shampoo 2-3x weekly for maintenance. 118006 ketoconazole 2 % topical cream A pply to affected areas on face twice daily for maintenance 522220 betamethasone, augme nted 0.05 % topical cream Apply sparingly to eczema twice a day for 1-2 weeks, then take a one week break. Repeat if needed. 411239 betamethasone, augme nted 0.05 % topical cream Apply sparingly to eczema twice a day for 1-2 weeks, then take a one week break. Repeat if needed. 451850 calcipotriene 0.005 % topical cr eam Apply to affected areas twice a day 2780104 triamcinolone aceton sandi 0.1 % topical cream Apply twice daily on areas of rash on elbows for up to 2 weeks. Take one week off. Repeat until clear. Avoid using on face, armpits and genitals 9727846 Zoryve 0.3 % topical cream Apply to affected areas once daily for Psoriasis 5666731 Zoryve 0.3 % topical cream Apply to affected areas once daily for Psoriasis 968060 ketoconazole 2 % topical cream A pply to affected areas on face twice daily for maintenance 078819 ketoconazole 2 % shampoo Shampoo 2-3x weekly. let sit for 5-10 minutes before washing out. Mix in head and shoulders or other antifungal shampoos for best results. 173692 ketoconazole 2 % topical cream A pply to red scaly rash on face twice daily for maintenance. 556534 ketoconazole 2 % shampoo Shampoo 2-3x weekly. let sit for 5-10 minutes before washing out. Mix in head and shoulders or other antifungal shampoos for best results. 203929 ciclopirox 1 % shampoo Shampoo 2 -3 times weekly for maintenance. 904773 benzoyl peroxide 10 % topical cl eanser apply to skin daily in shower, let sit 5-10 minutes before washing off. may cause bleaching of towels or clothes 2709972 triamcinolone aceton sandi 0.1 % topical cream apply twice daily on areas of rash for up to 2 weeks. take one week off using OTC cream alone. repeat until clear. avoid using on face and genitals 786396 clobetasol 0.05 % topical cream Apply to elbows twice a day as needed. 3089847 fluocinolone 0.01 % topical solu tion Apply to eyebrows twice a day as needed for redness, scaling and itch. 434531 clobetasol 0.05 % topical cream Apply sparingly to eczema on thick skin twice daily as needed for 1-2 weeks. Avoid face and thin skin. 866841 betamethasone valerate 0.1 % lot ion Apply to scaling on mustache and in ears twice daily as needed. 356894 clobetasol 0.05 % topical cream Apply sparingly to eczema on thick skin on legs twice daily as needed for 1-2 weeks. Avoid face and thin skin. 263576 alclometasone 0.05 % topical cre am Apply sparingly to eyebrows twice daily for 7-10 days at a time for seborrheic dermatitis. (Pt will be using GoodRx coupon) 732015 ciclopirox 1 % shampoo Shampoo 2 -3 times weekly for maintenance. (Pt will be using a goodRx coupon) 817484 ciclopirox 1 % shampoo Shampoo 2 -3 times weekly for maintenance. 561602 alclometasone 0.05 % topical cre am Apply sparingly to eyebrows twice daily for 7-10 days at a time for seborrheic dermatitis. 406677 ciclopirox 1 % shampoo Shampoo o nce daily until improved. Leave in for several minutes, then rinse out. 191795 clobetasol 0.05 % topical cream Apply sparingly to eczema on thick skin on legs twice daily as needed for 1-2 weeks. Avoid face and thin skin. 292519 clobetasol 0.05 % shampoo Shampo o once daily until improved. Leave in for several minutes, then rinse out. 507144 alclometasone 0.05 % topical cre am Apply sparingly to eyebrows twice daily for 7-10 days at a time for seborrheic dermatitis. Instructions * I counseled the patient regarding the following:Skin Care: Irritated Seborrheic Keratoses can be removed with cryotherapy.Expectations: Irritated Seborrheic Keratoses are benign growths that become inflamed, itchy, tender, traumatized, caught on clothing, or exhibit bleeding or crusting. Because the are symptomatic, they can be treated with cryotherapy.Contact Office if: If Irritated Seborrheic Keratoses fail to resolve despite treatment, or if you develop a side effect from therapy, such as unbearable crusting, scabbing, redness and tenderness. * I counseled the patient regarding the following:Expectations: Seborrheic Dermatitis is chronic in nature with periods of remissions and flares.Contact office if: Seborrheic dermatitis worsens, or fails to improve despite several months of treatment. * I counseled the patient regarding the following:Skin care: Patient should bathe using lukewarm water with a mild cleanser and moisturize immediately after. Emollients should be applied at least 2-3 times daily.Expectations: The patient is aware that eczema is chronic in nature and can improve with m oisturizers and topical steroids and worsen with stress, scented soaps, detergents, scratching, dryskin, changes in weather and skin infections.Contact office if: Eczema worsens or fails to improve despite several weeks of treatment.I recommended the following: Cleansers - Dove or similar gentle cleanser.Moisturizers - CeraVe Social History Code Activity Start Date End Date [id number] (SNOMED) Never smoker Sex male Sexual orientation Unspecified Gender identity Unspecified Vital Signs No data
== END 2025-08-04 10:36 | disposition home or self-care (01) ==
LOC: HO.ENCR 09:53
PROVIDERS: PCP Internal Medicine; Visit Provider Registered Nurse Diabetes Educator
DX: E11.65 Type 2 diabetes mellitus with hyperglycemia (principal)

== ENCOUNTER 2025-08-19 10:40 | Outpatient (AMB) | payer MEDICARE, SELFPAY ==
[2025-08-19 10:59] VITALS: BMI 38.7
--- NOTE | 2025-08-19 10:59 | MHC.AMNUTRGE ---
VS Expanded 08/19/25 10:59 Height 5 ft 8 in Weight 254 lb 6.2 oz BMI 38.7 Intake Visit Reasons: T2DM Allergies warfarin Allergy (Intermediate, Verified 08/04/25 08:55) sweats, dry mouth,elevated BP naproxen Allergy (Unknown, Verified 08/04/25 08:55) face got red nifedipine (NIFEDIPINE) Allergy (Unknown, Verified 08/04/25 08:55) GI SIDE EFFECTS, stomach upset, GI empagliflozin (From Jardiance) Adverse Reaction (Intermediate, Verified 08/04/25 08:55) testicular swelling Nutrition Presentation Details: Pt presents for MNT f/u for T2DM Pt reports working on reducing portions sizes beet juice (beets/carrots/apple celery, apple cider vinegar , rachel ) and coffee L: soup and salad, milk dinner: pork/sweet potato/broccoli, water snack : fruits/yogurt sometimes cookies physical activity : ADL PFSH Medical History Gastritis Low libido Nocturia more than twice per night Verruca COVID-19 virus infection Trigger finger, left ring finger Flexor tenosynovitis of finger SOB (shortness of breath) Fibromyalgia Rheumatoid factor positive Knee pain, bilateral Bilateral carpal tunnel syndrome Pancreatic cyst Cervico-occipital neuralgia Cervical spondylosis without myelopathy Obstructive sleep apnea hypopnea, severe Carpal tunnel syndrome Degenerative disc disease, cervical GERD (gastroesophageal reflux disease) Hypercholesterolemia CKD (chronic kidney disease) Overactive bladder Hypogonadism Pancreatic mass Essential hypertension Atherosclerotic cardiovascular disease Persistent atrial fibrillation Surgical History History of cataract surgery Optional surgery Hx of tonsillectomy H/O lumbar discectomy History of heart artery stent (~04/2018) Family History Father Cancer Mother Diabetes Cardiovascular disease Social History Housing: House Alcohol intake: never Patient Tobacco Use Status: Never used Tobacco Tobacco use type: Cigarette e-Cigarette/Vaping Use: Never Used Second Hand Smoke Exposure: No service: No Current occupational status: retired 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 Cognitive needs: No Hearing needs: No Vision needs: Yes Assessment & Plan Assessment & Plan (1) Type 2 diabetes mellitus with hyperglycemia: Code(s): E11.65 - Type 2 diabetes mellitus with hyperglycemia Category: Medical Qualifiers: Diabetes mellitus long term acute care registered nurse insulin use: without long term acute care registered nurse use Qualified Code(s): E11.65 - Type 2 diabetes mellitus with hyperglycemia Plan: Wt: 117 Kg ( 05/28 ), 115kg(08/28) Est kcal needs as per MSJ: 2300 (40% carb, 30% protein/fat) Est fluid needs as per 25-30 ml/d: 3500 Est prot per day as per 1 g/kg bw: 120 Recommend fiber intake : 8-10 g per day and gradually increase to 25-28 g per day for women and 35-38 g for men or as tolerated Recommend sodium intake per day : less than 2300 mg Educated patient on: ( R = reviewed V = verbalizes understanding N/R = needs review N/A = not applicable Food sources of carbohydrate, adequate serving sizes and its role in various health conditions: R Differences between complex carbohydrates a simple carbohydrates, role of fiber in diet: R Lean protein sources of foods: R Differences between types of fats and role in diet (mono on saturated fat fatty acids, saturated fatty acids, trans fats): R V N/R Food sources of sodium in salt and healthy modifications for heart health in kidney health: R Vitamins and minerals: R V N/R Healthy plate method concept: R Physical activity: Benefits a precaution: R V N/R Hypoglycemia protocol (rule of 15): R V Dietary prevention of Hyperglycemia: R Patient Instructions: Choose low sodium options (no added salt, reduce on cheese , keep sauces on the side to reduce on amount reduce on , cookies/pastries Coding Level of Care Code Nutr Indiv Subseq (93210) Diagnoses Type 2 diabetes mellitus with hyperglycemia, without long-term current use of insulin E11.65 Diabetes mellitus long term acute care registered nurse insulin use: without long term acute care registered nurse use Time Spent (min) 30
== END 2025-08-19 11:28 | disposition home or self-care (01) ==
LOC: HO.ENCR 10:41
PROVIDERS: PCP Internal Medicine; Visit Provider Dietitian, Registered
DX: E11.65 Type 2 diabetes mellitus with hyperglycemia (principal)

== ENCOUNTER → 2025-08-19 10:40 | Outpatient (BNVA) | payer MEDICARE, SELFPAY | PROVIDERS: PCP Internal Medicine; Visit Provider Dietitian, Registered | DX: E11.65 Type 2 diabetes mellitus with hyperglycemia (principal); Z71.3 Dietary counseling and surveillance | CPT/HCPCS: 97803 ==

== ENCOUNTER 2025-08-20 10:46 | Outpatient (REF) | payer MEDICARE, SELFPAY ==
[2025-08-20 13:31] LABS: MANUAL DIFF FLAG NO
[2025-08-20 13:35] LABS: Hematocrit 40.3 % (42.0-52.0); Hemoglobin 13.3 g/dl (14.0-18.0); Imm Gran Abs Auto 0.03 X10*3/uL (0.00-0.03); Imm Gran Pct Auto 0.4 % (0.0-0.4); Lymphocytes Absolute Auto 1.5 X10*3/uL (1.2-4.9); Mean Corpuscular HGB Conc 33.0 g/dl (31.0-36.0); Mean Corpuscular Hemoglobin 30.0 pg (27.0-33.0); Mean Corpuscular Volume 90.8 fL (80.0-98.0); NRBC Abs Auto 0.000 X10*3/uL (0.0-0.012); NRBC Pct Auto 0.0 /100WBC (0.0-0.2); Platelet Count 170 X10*3/uL (160-400); Red Blood Count 4.44 X10*6/uL (4.60-5.80); White Blood Count 7.2 X10*3/uL (4.8-10.8)
[2025-08-20 16:13] LABS: Alanine Aminotransferase 28 U/L (0-40); Albumin Level 4.4 g/dL (3.5-5.0); Alkaline Phosphatase 113 U/L (39-117); Anion Gap 15 (12-20); Aspartate Amino Transferase 22 U/L (5-37); Blood Urea Nitrogen 18 mg/dL (9-16); Calcium 9.2 mg/dL (8.4-10.2); Carbon Dioxide 28 mmol/L (22-29); Chloride 105 mmol/L (96-108); Estimated Glomerular Filt Rate 58; Potassium 4.7 mmol/L (3.3-5.1); Sodium 143 mmol/L (135-145); Total Protein 6.9 g/dL (6.5-8.0); Uric Acid 5.9 mg/dL (3.4-7.0)
== END 2025-08-20 10:47 | disposition home or self-care (01) ==
LOC: HO.HMGCLDS 10:46
PROVIDERS: PCP Internal Medicine; Visit Provider Student in an Organized Health Care Education/Training Program
DX: M15.9 Polyosteoarthritis, unspecified (principal)
CPT/HCPCS: 36415; 80053; 84550; 85025; 85652; 86140

== ENCOUNTER 2025-08-24 10:15 | Outpatient (AMB) | payer MEDICARE, SELFPAY ==
--- NOTE | 2025-08-24 10:53 | A.OFFVIS_ITS ---
Vital Signs 08/24/25 11:00 Height 5 ft 8 in Weight 254 lb 3.088 oz BMI 38.6 BP 134/80 Blood Pressure Location Rt brachial Position Sitting Pulse 74 Pulse Source Pulse Oximeter Pulse Oximetry (%) 98 Oxygen Delivery Method Room Air Intake Visit Reasons: OA Intake Note: Patient presents for OA follow up. Allergies warfarin Allergy (Intermediate, Verified 08/24/25 10:59) sweats, dry mouth,elevated BP naproxen Allergy (Unknown, Verified 08/24/25 10:59) face got red nifedipine (NIFEDIPINE) Allergy (Unknown, Verified 08/24/25 10:59) GI SIDE EFFECTS, stomach upset, GI empagliflozin (From Jardiance) Adverse Reaction (Intermediate, Verified 08/24/25 10:59) testicular swelling Medication List - Last Reconciled 08/24/25 by Zully Orosco MD acetaminophen ER (Tylenol Arthritis Pain) 650 mg PO Q12H alprazolam 1 mg (4 x 0.25 mg) PO DAILY PRN amlodipine 10 mg PO DAILY betamethasone, augmented 0.05 % 1 appl topical BID blood sugar diagnostic As directed blood sugar diagnostic (What the TrendTouch Ultra Test strips) As directed check the blood sugar once a day blood-glucose sensor ([address] Syl 3 Plus Sensor device) Use daily As directed to monitor glucose clonidine HCl 0.2 mg PO BID diclofenac sodium 1% (Voltaren Arthritis Pain) 2 grams topical QID gabapentin 400 mg PO BID 90 days glipizide ER 10 mg (2 x 5 mg) PO DAILY 90 days imipramine HCl 25 mg PO BEDTIME 90 days isosorbide mononitrate ER 60 mg PO QAM lisinopril 40 mg PO DAILY metformin 1,000 mg PO BID 90 days metoprolol succinate ER 50 mg PO QAM metoprolol succinate ER 100 mg PO QPM 90 days nitroglycerin 0.4 mg sublingual Q5M PRN 90 days omeprazole 20 mg PO DAILY pravastatin 40 mg PO DAILY rivaroxaban (Xarelto) 20 mg PO DAILY sitagliptin phosphate (Januvia) 100 mg PO DAILY sumatriptan succinate take 1 tab at onset of headache; if no relief may repeat 1 tab after at least 2 hrs; max = 4 tabs/24 hr PO tamsulosin 0.4 mg PO QDAY HPI Comments Details: Patient is a 75-year-old male with DM c/b neuropathy, HLD c/b CAD, HTN, GERD, BPH, Afib on Xarelto, and osteoarthritis involving cervical spine, lumbar spine, hands and knees. Interval History: Last seen with 02/22/25 with me. - On gabapentin 300mg bid and topical diclofenac - Today patient reports feeling well overall. Still with some bilateral knee pain but is able to perform his acts of daily living. Notes he had some shoulder pain for which she received intra-articular steroids with improvement. Denies prolonged morning stiffness. Denies any history of monoarticular arthritis - Since that visit patient has been stable. Did not try the glucosamine or chondroitin that we discussed at the last visit Today - On gabapentin 300mg bid and topical diclofenac - Doing well overall - Seeing ortho for knee and shoulder. Has appointment at the end of the month - Tried the glucosamine but has not been taking it as recommended - Knees still painful, following up with ortho. Does not want to do a replacement - Stiffness in the hands extending to the base of the 1st CMC bilaterally Rheumatologic History: Polyarticular OA He has had corticosteroid injections with transient benefit in the knees. There was a trial with gel injections for both knees. This did not work out with increased pain the day after the injection and then not that much improvement a few weeks later. He still does not want to do PT. He takes gabapentin in the morning 300 mg and that seems to be somewhat helpful for pain Current Rheumatology Medication(s): Gabapentin 300mg bid Topical diclofenac PFSH Medical History Gastritis Low libido Nocturia more than twice per night Verruca COVID-19 virus infection Trigger finger, left ring finger Flexor tenosynovitis of finger SOB (shortness of breath) Fibromyalgia Rheumatoid factor positive Knee pain, bilateral Bilateral carpal tunnel syndrome Pancreatic cyst Cervico-occipital neuralgia Cervical spondylosis without myelopathy Obstructive sleep apnea hypopnea, severe Carpal tunnel syndrome Degenerative disc disease, cervical GERD (gastroesophageal reflux disease) Hypercholesterolemia CKD (chronic kidney disease) Overactive bladder Hypogonadism Pancreatic mass Essential hypertension Atherosclerotic cardiovascular disease Persistent atrial fibrillation Surgical History History of cataract surgery Optional surgery Hx of tonsillectomy H/O lumbar discectomy History of heart artery stent (~04/2018) Family History (Updated 08/24/25 @ 11:00 by SKYLA Pack) Father Cancer Mother Diabetes Cardiovascular disease Sister Diabetes Social History Housing: House Alcohol intake: never Patient Tobacco Use Status: Never used Tobacco Tobacco use type: Cigarette e-Cigarette/Vaping Use: Never Used Second Hand Smoke Exposure: No service: No Current occupational status: retired 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 Cognitive needs: No Hearing needs: No Vision needs: Yes Review of Systems Narrative Review of Systems Constitutional: Denies fever, chills, weight loss ENT: Denies vision changes, eye pain or eye redness, dental caries, dry mouth GI: Denies nausea, vomiting, diarrhea, abdominal pain, change in BM Pulm: Denies SOB, MACE, hemoptysis, wheezing Cards: Denies chest pain, palpitations Skin: Denies Raynaud's, rash, nail changes, photosensitivity, 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 Well appearing and in no apparent painful distress MSK Hands * Right Hand: Able to make a fist. No swelling or tenderness to palpation of the MCPs, PIPs or DIPs. * Left Hand: Able to make a fist. No swelling or tenderness to palpation of the MCPs, PIPs or DIPs. * Herbedens nodes noted bilaterally * Positive grind test at the 1st CMC bilaterally Wrists * Right Wrist: Full ROM to flexion and extension. No swelling or TTP * Left Wrist: Full ROM to flexion and extension. No swelling or TTP Elbows * Right Elbow: Full ROM. No swelling or TTP. No TTP of the medial epicondyle. No TTP of the lateral epicondyle * Left Elbow: Full ROM. No swelling or TTP. No TTP of the medial epicondyle. No TTP of the lateral epicondyle Shoulders * Right shoulder: Full ROM. No swelling noted. No TTP of the AC joint. No TTP of the subacromial bursa. No TTP of the posterior shoulder * Left shoulder: Full ROM. No swelling noted. No TTP of the AC joint. No TTP of the subacromial bursa. No TTP of the posterior shoulder Knees * Right knee: Full ROM. No swelling noted. No TTP of the knee joint line. No TTP of pes anserine bursa * Left knee: Full ROM. No swelling noted. No TTP of the knee joint line. No TTP of pes anserine bursa. * Crepitations felt bilaterally Ankles * Right ankle: Good ankle dorsiflexion and plantar flexion. No swelling. No TTP of the ankle joint * Left ankle: Good ankle dorsiflexion and plantar flexion. No swelling. No TTP of the ankle joint Feet * Right foot: Negative squeeze test * Left foot: Negative squeeze test Tender points? * No tenderness to palpation of the bilateral trapezius, supraspinatus, anterior costochondral junctions, bilateral suboccipital muscle insertions SKIN No rashes Vital Signs: Last Vital Signs Pulse 74 08/24/25 11:00 BP 134/80 08/24/25 11:00 Pulse Ox 98 08/24/25 11:00 Oxygen Delivery Method Room Air 08/24/25 11:00 BMI result Body Mass Index 38.6 Results Reviewed Results Reviewed: Laboratory Tests 08/20/25 10:50 WBC 7.2 RBC 4.44 L Hgb 13.3 L Hct 40.3 L Plt Count 170 ESR 32 H Sodium 143 Potassium 4.7 Chloride 105 Carbon Dioxide 28 BUN 18 H Creatinine 1.23 AST 22 ALT 28 C-Reactive Protein 0.20 Assessment & Plan Assessment & Plan (1) Osteoarthritis: Code(s): M19.90 - Unspecified osteoarthritis, unspecified site Qualifiers: Osteoarthritis location: multiple joints Osteoarthritis type: primary Qualified Code(s): M15.9 - Polyosteoarthritis, unspecified Plan: #Polyarticular OA Patient is a 75 year old patient with polyarticular osteoarthritis. Today patient is stable. Complaining of knee pain and neuropathy Plan - Increase gabapentin 400mg bid - Stop glucosamine - Continue diclofenac topical gel - Follow up with ortho - Consider alpha lipoic acid at next visit - RTC 6 months (2) Hyperuricemia without signs inflammatory arthritis/tophaceous disease: Code(s): E79.0 - Hyperuricemia without signs of inflammatory arthritis and tophaceous disease Plan: #Hyperuricemia Patient with hyperuricemia without signs or symptoms of gout. Patient does have CKD so we will monitor for signs and symptoms of gout developing. Plan I spent 20 minutes reviewing the record and labs, seeing the patient, discussing the treatment plan and documenting in the medical record Medications: New gabapentin 400 mg PO BID 180 caps 1RF 90 days M79.7 - Fibromyalgia Discontinued gabapentin Discontinued Reason: Doctor's Order 300 mg PO BID 60 caps 2RF M79.7 - Fibromyalgia Coding Level of Care Code Est Pt Level 3 (51844) Complex EM visit Add On G2211 Diagnoses Primary osteoarthritis involving multiple joints M15.9 Osteoarthritis location: multiple joints Osteoarthritis type: primary Hyperuricemia without signs inflammatory arthritis/tophaceous disease E79.0
[2025-08-24 11:00] VITALS: BP 134/80; PULSE 74; O2SAT 98; BMI 38.6
== END 2025-08-24 11:41 | disposition home or self-care (01) ==
LOC: HO.RHES 10:16
PROVIDERS: PCP Internal Medicine; Visit Provider Student in an Organized Health Care Education/Training Program
DX: M15.9 Polyosteoarthritis, unspecified (principal); E79.0 Hyperuricemia without signs of inflammatory arthritis and tophaceous disease
CPT/HCPCS: 99213; G2211

== ENCOUNTER → 2025-08-24 10:15 | Outpatient (BNVA) | payer MEDICARE, SELFPAY | PROVIDERS: PCP Internal Medicine; Visit Provider Student in an Organized Health Care Education/Training Program | DX: M15.9 Polyosteoarthritis, unspecified (principal); E79.0 Hyperuricemia without signs of inflammatory arthritis and tophaceous disease; E11.40 Type 2 diabetes mellitus with diabetic neuropathy, unspecified; Z79.84 Long term (current) use of oral hypoglycemic drugs; Z79.899 Other long term (current) drug therapy | CPT/HCPCS: 99212 ==

== ENCOUNTER 2025-09-02 08:31 | Outpatient (AMB) | payer OTHER, MEDICARE, SELFPAY ==
--- OUTSIDE RECORDS SUMMARY | 2024-09-18 06:15 | XMS_ITS ---
Author Organization [facility] Address [address] [place] [address] Care Team Providers Care Funeral Home Manager Name Role Phone Victor M Allan Primary Care Provider Nat Diehl [phone] Medications Medication SIG (Take, Route, Frequency, Duration) [...] Active Encounters Encounter Location Date Provider Diagnosis [facility] [place] [address] [place] [phone] 09/18/2024 Nat Beard Plan Of Treatment Next Appt Details Provider Name:Nat Avtar shelton, 09/21/2025 09:00:00 AM, [address] [facility], [place] [address], [place], [phone], Progress Notes * Pipo BECKDOB: 2 (75 yo M)Acc No.[id number]:09/18/2024 Progress Note Patient: John CLARK Pipo Provider: Jo-Ann Beard DPM :1950 A ge:74 Y S ex:Male Date:09/18/2024 Address:[address] [place] [address], [facility], [id number] Pcp:Victor M Allan Subjective: * Chief Complaints: [...] Date: 11/18/2023 Generated for Rolly crook/Martine/Amadeo on: 09:16 AM EDT
--- OUTSIDE RECORDS SUMMARY | 2024-12-11 06:00 | XMS_ITS ---
Author Organization [facility] Address [address] [facility] [place] [address] Care Team Providers Care Insurance Law Specialist Name Role Phone Victor M Allan Primary Care Provider Nat Diehl Unavailable [phone] Encounters Encounter Location Date Provider Diagnosis [address] [address] 12/11/2024 Nat Beard Plan Of Treatment Next Appt Details Provider Name:Nat Nova ker, 09/21/2025 09:00:00 AM, [address] [place] [address], [phone], Progress Notes * Pipo BECKDOB: 2 (75 yo M)Acc No.[id number]:12/11/2024 Progress Note Patient: N Clemente RODASius Provider: Jo-Ann Beard DPM :1950 A ge:74 Y S ex:Male Date:12/11/2024 Address:[address] [phone] Pcp:Victor M Allan Subjective: * Chief Complaints: [...] 0 12/11/2024 Generated for Rolly crook/Martine/Amadeo on: 09:16 AM EDT
[2025-09-02 08:33] VITALS: BMI 38.6
--- NOTE | 2025-09-02 08:33 | A.OFFVIS_ITS ---
Vital Signs 09/02/25 08:33 Height 5 ft 8 in Weight 254 lb BMI 38.6 Intake Visit Reasons: Inj-B/L knee cortisone inj-last 06/23/21 Intake Note: Arnie is a 75 year old male who presents today for a follow up of his Bilateral Knee OA. He was last seen in 2020 where he had Gel Injections. Patient reports that the gel injections were not helpful - the gel injections increased his pain, he was unable to walk. He is interested in cortisone injections today. Allergies warfarin Allergy (Intermediate, Verified 08/24/25 10:59) sweats, dry mouth,elevated BP naproxen Allergy (Unknown, Verified 08/24/25 10:59) face got red nifedipine (NIFEDIPINE) Allergy (Unknown, Verified 08/24/25 10:59) GI SIDE EFFECTS, stomach upset, GI empagliflozin (From Jardiance) Adverse Reaction (Intermediate, Verified 08/24/25 10:59) testicular swelling HPI HPI Inj-B/L knee cortisone inj-last 06/23/21: Details: 75-year-old gentleman with bilateral knee osteoarthritis. He is diabetic but has tolerated injections in the past and comes in today continuing to complain of bilateral knee pain. He has difficulty walking comfortably. He has difficulty standing from a seated position. Describes mostly medial-sided bilateral knee pain and swelling. [facility] Medical History Gastritis Low libido Nocturia more than twice per night Verruca COVID-19 virus infection Trigger finger, left ring finger Flexor tenosynovitis of finger SOB (shortness of breath) Fibromyalgia Rheumatoid factor positive Knee pain, bilateral Bilateral carpal tunnel syndrome Pancreatic cyst Cervico-occipital neuralgia Cervical spondylosis without myelopathy Obstructive sleep apnea hypopnea, severe Carpal tunnel syndrome Degenerative disc disease, cervical GERD (gastroesophageal reflux disease) Hypercholesterolemia CKD (chronic kidney disease) Overactive bladder Hypogonadism Pancreatic mass Essential hypertension Atherosclerotic cardiovascular disease Persistent atrial fibrillation Surgical History History of cataract surgery Optional surgery Hx of tonsillectomy H/O lumbar discectomy History of heart artery stent (~04/2018) Family History (Updated 08/24/25 @ 11:00 by SKYLA Pack) Father Cancer Mother Diabetes Cardiovascular disease Sister Diabetes Social History Housing: House Alcohol intake: never Patient Tobacco Use Status: Never used Tobacco Tobacco use type: Cigarette e-Cigarette/Vaping Use: Never Used Second Hand Smoke Exposure: No service: No Current occupational status: retired 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 Cognitive needs: No Hearing needs: No Vision needs: Yes Physical Exam Exam Exam: Status palpation medial compartment bilateral knees. Positive gait antalgia. 5-120 degrees of motion bilaterally Vital Signs: BMI result Body Mass Index 38.6 Office Procedures Joint Inj/Aspir; Non-Pain Clin Joint Injection/Drain Details: Injected 1 mL of Decadron and 3 mL 1% lidocaine and 3 mL of 0.25% Marcaine. Site was prepped using aseptic technique. Patient tolerated the procedure well. Shoulders, Hips, Knees, Knee Large Joint Injection : Bilateral Knee Coding Procedure code (CPT) selection complete Assessment & Plan Assessment & Plan (1) Knee osteoarthritis: Code(s): M17.10 - Unilateral primary osteoarthritis, unspecified knee Category: Medical Qualifiers: Osteoarthritis type: primary Laterality: bilateral Qualified Code(s): M17.0 - Bilateral primary osteoarthritis of knee Plan: 75-year-old diabetic with bilateral knee osteoarthritis. He has had injections that have had minimal impact in his blood sugar in the past and I recommend steroid injections. I injected bilateral knees today. He tolerated this well. (2) Type 2 diabetes mellitus with hyperglycemia: Code(s): E11.65 - Type 2 diabetes mellitus with hyperglycemia Category: Medical Qualifiers: Diabetes mellitus longterm insulin use: without longterm use Qualified Code(s): E11.65 - Type 2 diabetes mellitus with hyperglycemia Plan: I informed him of the hyperglycemic effects of steroids. He expressed understanding. 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
--- OUTSIDE RECORDS SUMMARY | 2025-09-02 09:16 | XMS_ITS | Clinical Summary ---
Author Organization [facility] Address [address] [place] [address] Phone Care Team Providers Care Shale Miner Name Role Phone iVctor M Allan MD Primary Care Provider [phone] Allergies Active Allergy Reactions Criticality Noted Date [...] each day Active cloNIDine (CATAPRES) 0.2 MG tabletIndicatio ns:Hypertension TAKE ONE TABLET TWICE DAILY IN THE MORNING AND EVENING 60 tablet 5 08/23/20 25 Active cloNIDine (CATAPRES) 0.2 MG tabletIndicatio ns:Hypertension Take 1 tablet (0.2 mg total) by mouth in the morning and 1 tablet (0.2 mg total) in the evening. 60 tablet 5 02/18/20 25 025 Discontinued Active Problems Problem Noted Date Diagnosed Date Nephrolithiasis 01/04/2025 Vitamin D deficiency, not otherwise specified Obstructive sleep apnea of adult 09/24/2023 09/24/2023 Hypertension 09/24/2023 09/24/2023 Morbid obesity 09/24/2023 09/24/2023 Type 2 diabetes mellitus 09/24/2023 023 Encounters Date Type Department Care Team Description 08/23/2025 Refill [facility] [address] [id number] Monica Canela ARNP Hypertension from Last 3 Months Family History Medical [...] Office Visit [facility] [address] [address] Monica Canela ARNP [address] [id number] Health Maintenance Due Date Last Done Comments [...] age to complete this topic Insurance Medicare [facility] Medicare [facility] Care Teams Shale Miner Relationship Specialty Start Date End Date Victor M Allan MD [address] [place], [place] PCP - General 11/14/20
--- OUTSIDE RECORDS SUMMARY | 2025-09-02 09:16 | XMS_ITS | Patient Health Record ---
Author Organization [facility] Address [address] [place] [address] Care Team Providers Care Fashion Editor Name Role Phone Victor M Allan Primary Care Provider Nat Diehl Unavailable [phone] Carlos Irwin Unavailable [phone] Allergies Allergen (clinical drug ingredient) Drug/Non Drug [...] Problem Acquired hammer toe of right foot ([id number] ) Other hammer toe(s) (acquired), right foot (M20.41) Active confirmed Problem Acquired hammer toe of left foot ([id number] ) Other hammer toe(s) (acquired), left foot (M20.42) Active confirmed Problem Polyneuropathy due to type 2 diabetes mellitus (402520405) Type 2 diabetes mellitus with diabetic polyneuropathy (E11.42) Active confirmed Vital Signs Blood pressure diastolic 84 mm Hg 06/22/2025 Height 5ft 8in in 06/22/2025 Blood pressure systolic 134 mm Hg 06/22/2025 Weight 253 lbs 06/22/2025 BMI 38.46 kg/m2 06/22/2025 Procedures Procedure Date Ordered Date Performed Result Body Sit e 87493-JBHWOSD NAIL, 6 OR MORE 09/18/2024 N/A 39114-JEZE SKIN LESIONS, 2 TO 4 09/18/2024 N/A 82262-KHIZCHQ NAIL, 6 OR MORE 12/10/2024 N/A 01361-MUUS SKIN LESIONS, 2 TO 4 12/10/2024 N/A Encounters Encounter Location Date Provider Diagnosis [address] [address] 09/18/2024 Nat Beard Type 2 diabetes mellitus with diabetic polyneuropathy E11.42 and Tinea unguium B35.[address] [address] 12/10/2024 Carlos Irwin Type 2 diabetes mellitus with diabetic polyneuropathy E11.42 ; Tinea unguium B35.1 ; Other hammer toe(s) (acquired), right foot M20.41 and Other hammer toe(s) (acquired), left foot M20.[address] [address] 03/19/2025 Nat Beard Type 2 diabetes mellitus with diabetic polyneuropathy E11.42 and Tinea unguium B35.[address] [address] 06/22/2025 Nat Beard Type 2 diabetes mellitus with diabetic polyneuropathy E11.42 and Tinea unguium B35.[address] [address] 01/28/2025 Nat Beard Assessments Encounter Date Diagnosis [...] X ray : Foot, left 3V 01/03/2024 63257-JRHYZAG NAIL, 6 OR MORE 09/18/2024 98472-VRDNLNE NAIL, 6 OR MORE 12/10/2024 99396-MEAW SKIN LESIONS, 2 TO 4 12/10/19 25 95890-CTCQ SKIN LESIONS, 2 TO 4 09/18/20 24 12612-AXPS SKIN LESIONS, 2 TO 4 01/03/20 24 26499-EIQZ SKIN LESIONS, 2 TO 4 04/03/20 24 Next Appt Details Provider Name:Nat Nova cat, 09/21/2025 09:00:00 AM, [address] [facility] [facility] [address], [place], [address], Insurance Providers Payer Name Payer Address Payer Phone Subscriber Number Group Number Insured Name Patient Relationship to Insured Coverage Start Date Coverage End Date Medicare [employer] [address] [place] [address] [id number] Pipo Springer Self - patient is the insured [facility] [address] [place] [address] [id number] Pipo Springer Self - patient is the insured Medical (General) History Medical History History ICD Code Arthritis Back,Hip,and Knee pain covid-19 Diabetic Headaches/Migraines Heart disease High blood pressure Kidney disease Psoriasis/eczema Reflux Surgical History Surgery Date(Month/Year) back surgery 1984
--- OUTSIDE RECORDS SUMMARY | 2025-09-02 09:17 | XMS_ITS | Clinical Summary ---
Author Organization [employer] Address [address] [facility] [address] [place] [address] Care Team Providers Care Atmospheric Chemist Name Role Phone Unavailable Primary Care Provider [...] um Nitrate 1.1-5 % pasteIndications :Dental caries [place] teeth for 2 minutes, morning and night. Spit, do not rinse. Do not eat or drink anything for 30 minutes following brushing. 112 g 3 4 Active tamsulosin (Flomax) 0.4 MG 24 hr capsule Take 0.4 mg by mouth Once per day. 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 12/07/2023 Surgical follow-up care 08/17/2024 Disorder of pigmentation 05/22/2024 Inflamed seborrheic keratosis 05/22/2024 Idiopathic urticaria 03/20/2024 Asteatosis cutis 10/23/2023 Nummular eczema 10/23/2023 Essential hypertension 09/24/2023 Morbid obesity ([facility]) 09/24/2023 Obstructive sleep apnea of adult 09/24/2023 Type 2 diabetes mellitus 09/24/2023 Psoriasis vulgaris 08/27/2022 Atrial fibrillation ([facility]) 07/16/2022 Cervico-occipital neuralgia 07/16/2022 Chronic kidney disease 07/16/2022 Generalized atherosclerosis 07/16/2022 Hemangioma of skin and subcutaneous tissue 07/16 History of gastritis 07/16/2022 History of hypertension 07/16/2022 History of obesity 07/16/2022 Overactive bladder 07/16/2022 Epidermoid cyst of skin 04/16/2022 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 10/09/2021 Atopic dermatitis 02/03/2021 Disorder of skin 02/03/2021 Neoplasm of uncertain behavior of skin Paresthesia 02/03/2021 Raynaud's phenomenon 02/03/2021 Pancreatic cyst 04/28/2012 Encounters Date Type Department Care Team Description 08/26/2025 2:00 PM EDT Office Visit [facility] [address] [place] [address] Hayder Velasquez DMD Dental caries (Primary Dx) 08/18/2025 9:00 AM EDT Office Visit [facility] [address] [place] [address] Hayder Velasquez DMD Dental caries (Primary Dx) 08/09/2025 8:45 AM EDT Office Visit [facility] [address] [place] [address] Alexis Smith Dental caries (Primary Dx); Full coverage crown needed for tooth at risk for fracture; Dental calculus from Last 3 Months Social History Tobacco [...] Sign Reading Time Taken Comments Blood Pressure 126/78 08/26/2025 2:12 PM EDT Pulse 70 08/09/2025 8:58 AM EDT Temperature - - Respiratory Rate - - Oxygen Saturation - - Inhaled Oxygen Concentration - - Weight - - Height - - Body Mass Index - - Plan of Treatment Upcoming Encounters Date Type Department Care Team (Late st Contact Info) Description 09/15/2025 8:00 AM EST Office Visit [facility] [address] [place] [address] Hayder Velasquez, DMD [address] [place] [address] 02/08/2026 10:15 AM EDT Office Visit [facility] [address] [place] [address] Alexis Smith Health Maintenance Due Date Last Done Comments CT Colonography 1952 Colonoscopy 1952 Colorectal Cancer Screening 1952 Depression Screening 1952 Diabetes: Hemoglobin A1C 1952 FIT DNA/Cologuard 1952 FIT 1952 FOBT 1952 Lipid Panel 1952 SDOH Screening 1952 Sigmoidoscopy 1952 Derm Melanoma Skin Check 01/23/1953 Diabetes: Foot Exam 1962 Eye Exam 1962 Alcohol/Substance Use Screening 1964 Hepatitis C Screening 1970 Diabetes: Urine Protein Screening 1971 Zoster Vaccines (1 of 2) 2002 DTaP/Tdap/Td Vaccines (1 - Tdap) 09/10/2024 09/09/2024 COVID-19 Vaccine (3 - season) 2025 03/20/2021, 02/20/2021 Dental Oral Exam 02/08/2026 08/09/2025, 01/2025, 08/03/2024, Additional history exists Dental Prophylaxis 02/08/2026 08/09/2025, 0 02/04/2025, 08/03/2024, Additional history exists Dental X-Ray: Bitewings 08/10/2026 08/09/20 25, 08/03/2024, 01/08/2017, Additional history exists Tobacco Screening 08/26/2026 08/26/2025 RSV Patients and Patients Aged 60 years or older (1 - 1-dose 75+ series) 2027 Dental X-Ray: Full Mouth 08/04/2027 08/03/2024, 12/06 Pneumococcal Vaccine: 50+ Years Completed 08/07/2021, 10/17/2018, 09/16/2016 Influenza Vaccine Completed 08/11/2025, , 09/20/2023, Additional history exists HIB Vaccines Aged Out [...] topic Meningococcal Vaccine Aged Out No richi sreenity eligible based on patient's age to complete this topic RSV under 20 months Aged Out No longe r eligible based on patient's age to complete this topic Rotavirus Vaccines Aged Out No longer eligible based on patient's age to complete this topic Procedures Procedure Name Priority Date/Time Associated Diagnosis Comments CASE PRESENTATION, DETAILED AND EXTENSIVE TREATMENT PLANNING Routine 08/26/2025 2:00 PM EDT Dental caries 31 DO RESIN-BASED COMPOSITE - 2 SURF, POSTERIOR Routine 08/26/2025 2:00 PM EDT Dental caries 29 DO RESIN-BASED COMPOSITE - 2 SURF, POSTERIOR Routine 08/26/2025 2:00 PM EDT Dental caries CASE PRESENTATION, DETAILED AND EXTENSIVE TREATMENT PLANNING Routine 08/18/2025 9:00 AM EDT Dental caries 13 MOD RESIN-BASED COMPOSITE - 3 SURF, POSTERIOR Routine 08/18/2025 9:00 AM EDT Dental caries 21 B(V) RESIN-BASED COMPOSITE - 1 SURF, POSTERIOR Routine 08/18/2025 9:00 AM EDT Dental caries INTRAORAL - PERIAPICAL FIRST RADIOGRAPHIC IMAGE Routine 08/09/2025 8:45 AM EDT BITEWINGS - 4 RADIOGRAPHIC IMAGES Routine 08/09/2025 8:45 AM EDT CASE PRESENTATION, DETAILED AND EXTENSIVE TREATMENT PLANNING Routine 08/09/2025 8:45 AM EDT ORAL HYGIENE INSTRUCTIONS Routine 08/09/2025 8:45 AM EDT PROPHYLAXIS - ADULT Routine 08/09/2025 8 :45 AM EDT INTRAORAL - PERIAPICAL EACH ADDITIONAL RADIOGRAPHIC IMAGE Routine 08/09/2025 8:45 AM EDT PERIODIC ORAL EVALUATION - ESTABLISHED PATIENT Routine 08/09/2025 8:45 AM EDT Dental caries Full coverage crown needed for tooth at risk for fracture INTRAORAL - COMPLETE SERIES OF RADIOGRAPHIC IMAGES Routine 08/03/2024 9:00 AM EDT Dental calculus Dental caries Defective dental shinto with open interproximal contact from Last 3 Months or Most Recently Relevant to Health Maintenance Insurance DENTAL - HSN FULL (MEDICAID)
== END 2025-09-02 09:19 | disposition home or self-care (01) ==
LOC: HO.HOS 08:31
PROVIDERS: PCP Internal Medicine; Visit Provider Orthopaedic Surgery
DX: M17.0 Bilateral primary osteoarthritis of knee (principal); E11.65 Type 2 diabetes mellitus with hyperglycemia
CPT/HCPCS: 20610; 99214

== ENCOUNTER → 2025-09-02 08:31 | Outpatient (BNVA) | payer OTHER, MEDICARE, SELFPAY | PROVIDERS: PCP Internal Medicine; Visit Provider Orthopaedic Surgery | DX: M17.0 Bilateral primary osteoarthritis of knee (principal); E11.65 Type 2 diabetes mellitus with hyperglycemia | CPT/HCPCS: 20610; J0665; J1100; J2003 ==

== ENCOUNTER 2025-09-09 10:21 | Outpatient (AMB) | payer OTHER, MEDICARE, SELFPAY ==
--- OUTSIDE RECORDS SUMMARY | 2024-09-18 05:15 | XMS_ITS ---
Author Organization [facility] Address [address] [place] [address] Care Team Providers Care Apparatus Engineering Technologist Name Role Phone Victor M Allan Primary Care Provider Nat Diehl [phone] Medications Medication SIG (Take, Route, Frequency, Duration) Notes Start Date End Date Status Spironolactone 25 MG 1 tablet Orally; Duration: 30 day(s) Active Pravastatin Sodium 40 MG 1 tablet Orally Once a day; Duration: 30 day(s) Active Omeprazole 20 MG 1 capsule 30 minutes before morning meal Orally Once a day; Duration: 30 day(s) Active Nitroglycerin 0.4 MG as directed Sublingual Active metFORMIN HCl 850 MG 1 tablet with a jose l Orally Once a day; Duration: 30 day(s) Active Isosorbide Mononitrate 60 MG 1 tablet in the morning Orally Once a day; Duration: 30 day(s) Active glipiZIDE 5 MG 2 tablets Orally twi ce daily Active Gabapentin 300 MG 1 capsule Orally Onc e a day; Duration: 30 day(s) Active Lisinopril 40 MG 1 tablet Orally Once a day; Duration: 30 day(s) Active Januvia 100 MG 1 tablet Orally Once a day Active Xarelto 20 MG 1 tablet with food Orally Once a day; Duration: 30 day(s) Active cloNIDine HCl 0.1 MG 1 tablet Orally Onc e a day; Duration: 30 day(s) Active amLODIPine Besylate 10 MG 1 tablet Orall y Once a day; Duration: 30 day(s) Active ALPRAZolam 0.25 MG 1 tablet Orally Twic e a day Active Extra Depth Diabetic Shoes with 3 Pair Custom heat-molded multi-density innersoles for 1 year Dx: 01/03/2024 Active Voltaren 1 % as directed Externally Active Tylenol Active Tamsulosin HCl 0.4 MG as directed Orally Active Encounters Encounter Location Date Provider Diagnosis [facility] [place] [address] [place] [phone] 09/18/2024 Nat Beard Plan Of Treatment Next Appt Details Provider Name:Nat Avtar shelton, 09/21/2025 09:00:00 AM, [address] [facility], [place] [address], [place], [phone], Progress Notes * Pipo BECKDOB: 2 (75 yo M)Acc No.[id number]:09/18/2024 Progress Note Patient: John CLARK Pipo Provider: Jo-Ann Beard DPM :1950 A ge:74 Y S ex:Male Date:09/18/2024 Address:[address] [place] [address], [facility], [id number] Pcp:Victor M Allan Subjective: * Chief Complaints: * * Medical History: * Medications: T aking ALPRAZolam 0.25 MG Tablet 1 tablet Orally Twice a day , Taking amLODIPine Besylate 10 MG Tablet 1 tablet Orally Once a day , Taking cloNIDine HCl 0.1 MG Tablet 1 tablet Orally Once a day , Taking Gabapentin 300 MG Capsule 1 capsule Orally Once a day , Taking glipiZIDE 5 MG Tablet 2 tablets Orally twice daily , Taking Isosorbide Mononitrate 60 MG Tablet Extended Release 24 Hour 1 tablet in the morning Orally Once a day , Taking Januvia 100 MG Tablet 1 tablet Orally Once a day , Taking Lisinopril 40 MG Tablet 1 tablet Orally Once a day , Taking metFORMIN HCl 850 MG Tablet 1 tablet with a meal Orally Once a day , Taking Nitroglycerin 0.4 MG Tablet Sublingual as directed Sublingual , Taking Omeprazole 20 MG Capsule Delayed Release 1 capsule 30 minutes before morning meal Orally Once a day , Taking Pravastatin Sodium 40 MG Tablet 1 tablet Orally Once a day , Taking Spironolactone 25 MG Tablet 1 tablet Orally , Taking Tamsulosin HCl 0.4 MG Capsule Extended Release as directed Orally , Taking Tylenol , Taking Voltaren 1 % Gel as directed Externally , Taking Xarelto 20 MG Tablet 1 tablet with food Orally Once a day , Taking Extra Depth Diabetic Shoes with 3 Pair Custom heat-molded multi-density innersoles for 1 year Dx: Objective: * Vitals: Assessment: Plan: * Treatment: * Images: * The named appointment provid er may or may not be the originator of this progress note, and it is not deemed complete until electronically signed by the appointment provider. Sign off status: Pending * Provider: Jo-Ann Beard DPM Date: 11/18/2023 Generated for Rolly crook/Martine/Amadeo on: 11/09/2024 12:08 PM EST
--- OUTSIDE RECORDS SUMMARY | 2024-12-11 05:00 | XMS_ITS ---
Author Organization [facility] Address [address] [facility] [place] [address] Care Team Providers Care Tile Sorter Name Role Phone Victor M Allan Primary Care Provider Nat Diehl Unavailable [phone] Encounters Encounter Location Date Provider Diagnosis [address] [address] 12/11/2024 Nat Beard Plan Of Treatment Next Appt Details Provider Name:Nat Nova ker, 09/21/2025 09:00:00 AM, [address] [place] [address], [phone], Progress Notes * Pipo BECKDOB: 2 (75 yo M)Acc No.[id number]:12/11/2024 Progress Note Patient: N Clemente RODASius Provider: Jo-Ann Beard DPM :1950 A ge:74 Y S ex:Male Date:12/11/2024 Address[place] [phone] Pcp:Victor M Allan Subjective: * Chief Complaints: * * Medical History: Objective: * Vitals: Assessment: Plan: * Treatment: * Images: * The named appointment provid er may or may not be the originator of this progress note, and it is not deemed complete until electronically signed by the appointment provider. Sign off status: Pending * Provider: Jo-Ann Beard DPM Date: 0 12/11/2024 Generated for Rolly Alvarez/Amadeo on: 11/09/2024 12:08 PM EST
--- NOTE | 2025-09-09 10:23 | A.OFFVIS_ITS ---
Intake Visit Reasons: New Prob-Left shoulder Pain Intake Note: Arnie is a 75 year old right hand dominant male who presents today for a New Problem Visit with complaints of Left Shoulder Pain. Patient reports that he has had history of cortisone injection in the left shoulder about 4-5 years ago , which was very helpful. He would like to repeat the cortisone injection today. He would like to make an appointment for the Right shoulder to have it injected but due to diabetes he would like to schedule this out as the last injection did increase his sugars. Allergies warfarin Allergy (Intermediate, Verified 09/20/25 08:59) sweats, dry mouth,elevated BP naproxen Allergy (Unknown, Verified 09/20/25 08:59) face got red nifedipine (NIFEDIPINE) Allergy (Unknown, Verified 09/20/25 08:59) GI SIDE EFFECTS, stomach upset, GI empagliflozin (From Jardiance) Adverse Reaction (Intermediate, Verified 09/20/25 08:59) testicular swelling HPI HPI New Prob-Left shoulder Pain: Details: Arnie is a 75 year old right hand dominant male who presents today for a New Problem Visit with complaints of Left Shoulder Pain. Patient reports that he has had history of cortisone injection in the left shoulder about 4-5 years ago , which was very helpful. He would like to repeat the cortisone injection today. He would like to make an appointment for the Right shoulder to have it injected but due to diabetes he would like to schedule this out as the last injection did increase his sugars. [facility] Medical History Gastritis Low libido Nocturia more than twice per night Verruca COVID-19 virus infection Trigger finger, left ring finger Flexor tenosynovitis of finger SOB (shortness of breath) Fibromyalgia Rheumatoid factor positive Knee pain, bilateral Bilateral carpal tunnel syndrome Pancreatic cyst Cervico-occipital neuralgia Cervical spondylosis without myelopathy Obstructive sleep apnea hypopnea, severe Carpal tunnel syndrome Degenerative disc disease, cervical GERD (gastroesophageal reflux disease) Hypercholesterolemia CKD (chronic kidney disease) Overactive bladder Hypogonadism Pancreatic mass Essential hypertension Atherosclerotic cardiovascular disease Persistent atrial fibrillation Surgical History History of cataract surgery Optional surgery Hx of tonsillectomy H/O lumbar discectomy History of heart artery stent (~04/2018) Family History Father Cancer Mother Diabetes Cardiovascular disease Sister Diabetes Social History Housing: House Alcohol intake: never Patient Tobacco Use Status: Never used Tobacco Tobacco use type: Cigarette e-Cigarette/Vaping Use: Never Used Second Hand Smoke Exposure: No service: No Current occupational status: retired 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 Cognitive needs: No Hearing needs: No Vision needs: Yes Physical Exam Exam Exam: left shoulder with 30/90/130/s1 + H/N 4+/5 ec skin c/d/i Office Procedures Joint Inj/Aspir; Non-Pain Clin Joint Injection/Drain Details: Injected 1 mL of Decadron and 3 mL 1% lidocaine and 3 mL of 0.25% Marcaine. Site was prepped using aseptic technique. Patient tolerated the procedure well. Shoulders, Hips, Knees, Shoulder Injection Large joint : Left Shoulder Coding Procedure code (CPT) selection complete Assessment & Plan Assessment & Plan (1) Bursitis of left shoulder: Code(s): M75.52 - Bursitis of left shoulder Category: Medical Plan: This is a 75 yo with left shoulder bursitis. He has pain at night and with overhead activity,. He is diabetic but feels he cannot tolerate the pain. I recommend PT but he is not interested in that at this time. I injected his left shoulder today. I explained the hyperglycemic effects of steroids. (2) Type 2 diabetes mellitus with hyperglycemia: Code(s): E11.65 - Type 2 diabetes mellitus with hyperglycemia Category: Medical Qualifiers: Diabetes mellitus buttermaker continuous churn insulin use: without chcf use Qualified Code(s): E11.65 - Type 2 diabetes mellitus with hyperglycemia Plan: I explained the hyperglycemic effects of steroids. Coding Level of Care Code Est Pt Level 4 (72323) Diagnoses Bursitis of left shoulder M75.52 Type 2 diabetes mellitus with hyperglycemia, without long-term current use of insulin E11.65 Diabetes mellitus chcf insulin use: without chcf use CPT Codes Shoulders, Hips, Knees, - Shoulder Injection Large joint : Left Shoulder ([id number])
--- OUTSIDE RECORDS SUMMARY | 2025-09-09 12:08 | XMS_ITS | Clinical Summary ---
Author Organization [employer] Address [address] [facility] [address] [place] [address] Care Team Providers Care Sweeper Brush Maker Machine Name Role Phone Unavailable Primary Care Provider [...] um Nitrate 1.1-5 % pasteIndications :Dental caries [place] teeth for 2 minutes, morning and night. [...] eczema 10/23/2023 Essential hypertension 09/24/2023 Morbid obesity ([facility]) 09/24/2023 Obstructive sleep apnea of adult 09/24/2023 Type 2 diabetes mellitus 09/24/2023 Psoriasis vulgaris 08/27/2022 Atrial fibrillation ([facility]) 07/16/2022 Cervico-occipital neuralgia 07/16/2022 Chronic kidney disease [...] Description 08/26/2025 2:00 PM EDT Office Visit [facility] [address] [place] [address] Hayder Velasquez DMD Dental caries (Primary Dx) 08/18/2025 9:00 AM EDT Office Visit [facility] [address] [place] [address] Hayder Velasquez DMD Dental caries (Primary Dx) 08/09/2025 8:45 AM EDT Office Visit [facility] [address] [place] [address] Alexis Smith Dental caries (Primary Dx); Full [...] Description 09/15/2025 8:00 AM EST Office Visit [facility] [address] [place] [address] Hayder Velasquez, DMD [address] [place] [address] 02/08/2026 10:15 AM EDT Office Visit [facility] [address] [place] [address] Alexis Smith Health Maintenance Due Date Last [...] EDT Dental calculus Dental caries Defective dental mandaeism with open interproximal contact from Last 3 Months or Most Recently Relevant to Health Maintenance Insurance DENTAL - HSN FULL (MEDICAID)
--- OUTSIDE RECORDS SUMMARY | 2025-09-09 12:08 | XMS_ITS | Patient Health Record ---
Author Organization [facility] Address [address] [place] [address] Care Team Providers Care Rectification Printer Name Role Phone Victor M Allan Primary Care Provider Nat Diehl Unavailable [phone] Carlos Irwin Unavailable [phone] Allergies Allergen (clinical drug ingredient) Drug/Non Drug Allergy documented on EMR Reaction Allergy Type Onset Date Status empagliflozin Jardiance Bad reaction Drug Allergy Active nifedipine Nifedipine constipation Drug Allergy Ac tive warfarin Warfarin sweats Drug Allergy Active Results Component Value Reference Range Notes HEMOGLOBIN A1C (GLYCOHEMOGLO BIN) Reviewed date:12/10/2024 09:28:36 [...] Problem Acquired hammer toe of right foot (8812623167644587 ) Other hammer toe(s) (acquired), right foot (M20.41) Active confirmed Problem Acquired hammer toe of left foot ([id number] ) Other hammer toe(s) (acquired), left foot (M20.42) Active confirmed Problem Polyneuropathy due to type 2 diabetes mellitus (210086894) Type 2 diabetes mellitus with diabetic polyneuropathy (E11.42) Active confirmed Vital Signs Blood pressure diastolic 84 mm Hg 06/22/2025 Height 5ft 8in in 06/22/2025 Blood pressure systolic 134 mm Hg 06/22/2025 Weight 253 lbs 06/22/2025 BMI 38.46 kg/m2 06/22/2025 Procedures Procedure Date Ordered Date Performed Result Body Sit e 17548-FCYEDAS NAIL, 6 OR MORE 09/18/2024 N/A 15703-MINR SKIN LESIONS, 2 TO 4 09/18/2024 N/A 38551-ETAMCGR NAIL, 6 OR MORE 12/10/2024 N/A 74149-CYKV SKIN LESIONS, 2 TO 4 12/10/2024 N/A Encounters Encounter Location Date Provider Diagnosis [address] [address] 09/18/2024 Nat Beard Type 2 diabetes mellitus with diabetic polyneuropathy E11.42 and Tinea unguium B35.[address] [address] 12/10/2024 Carlos Irwin Type 2 diabetes mellitus with diabetic polyneuropathy E11.42 ; Tinea unguium B35.1 ; Other hammer toe(s) (acquired), right foot M20.41 and Other hammer toe(s) (acquired), left foot M20.[address] [address] 03/19/2025 Nat Beard Type 2 diabetes mellitus with diabetic polyneuropathy E11.42 and Tinea unguium B35.[address] [address] 06/22/2025 Nat Beard Type 2 diabetes mellitus with diabetic polyneuropathy E11.42 and Tinea unguium B35.[address] [address] 01/28/2025 Nat Beard Assessments Encounter Date Diagnosis [...] X ray : Foot, left 3V 01/03/2024 99414-BWTCFEK NAIL, 6 OR MORE 09/18/2024 43580-JGLYLNX NAIL, 6 OR MORE 12/10/2024 53400-FGBO SKIN LESIONS, 2 TO 4 12/10/19 25 25730-BJHB SKIN LESIONS, 2 TO 4 09/18/20 24 61671-WBLG SKIN LESIONS, 2 TO 4 01/03/20 24 03433-FWXD SKIN LESIONS, 2 TO 4 04/03/20 24 Next Appt Details Provider Name:Nat shelton, 09/21/2025 09:00:00 AM, [address] [facility], [place] [address], [place], [address], Insurance Providers Payer Name Payer Address Payer Phone Subscriber Number Group Number Insured Name Patient Relationship to Insured Coverage Start Date Coverage End Date Medicare National [employer]t [employer] [address] [facility] [place] [address] [id number] Pipo Springer Self - patient is the insured [facility] [address] [place] [address] [phone] [id number] Pipo Springer Self - patient is the insured Medical (General) History Medical History History ICD Code Arthritis Back,Hip,and Knee pain covid-19 Diabetic Headaches/Migraines Heart disease High blood pressure Kidney disease Psoriasis/eczema Reflux Surgical History Surgery Date(Month/Year) back surgery 1984
== END 2025-09-09 10:56 | disposition home or self-care (01) ==
LOC: HO.HOS 10:21
PROVIDERS: PCP Internal Medicine; Visit Provider Orthopaedic Surgery
DX: M75.52 Bursitis of left shoulder (principal); E11.65 Type 2 diabetes mellitus with hyperglycemia
CPT/HCPCS: 20610; 99214

== ENCOUNTER → 2025-09-09 10:21 | Outpatient (BNVA) | payer OTHER, MEDICARE, SELFPAY | PROVIDERS: PCP Internal Medicine; Visit Provider Orthopaedic Surgery | DX: M75.52 Bursitis of left shoulder (principal) | CPT/HCPCS: 20610; J0665; J1100; J2003 ==

== ENCOUNTER 2025-09-20 08:52 | Outpatient (AMB) | payer MEDICARE, SELFPAY ==
--- OUTSIDE RECORDS SUMMARY | 2024-09-18 05:15 | XMS_ITS ---
[facility] Organization [facility] Address [address] [place] [address] Care Team Providers Care Meal Cook Name Role Phone Victor M Allan Primary Care Provider Nat Diehl [phone] Medications Medication SIG (Take, Route, Frequency, Duration) [...] Active Encounters Encounter Location Date Provider Diagnosis [facility] [place] [address] [place] [phone] 09/18/2024 Nat Beard Plan Of Treatment Next Appt Details Provider Name:Nat Avtar shelton, 09/21/2025 09:00:00 AM, [address] [facility], [place] [address], [place], [phone], Progress Notes * Pipo BECKDOB: 2 (75 yo M)Acc No.[id number]:09/18/2024 Progress Note Patient: John CLARK Pipo Provider: Jo-Ann Beard DPM :1950 A ge:74 Y S ex:Male Date:09/18/2024 Address:[address] [place] [address], [facility], [id number] Pcp:Victor M Allan Subjective: * Chief Complaints: [...] Date: 11/18/2023 Generated for Rolly crook/Martine/Amadeo on: 11/20/2024 01:29 PM EST
--- OUTSIDE RECORDS SUMMARY | 2024-12-11 05:00 | XMS_ITS ---
Author Organization [facility] Address [address] [facility] [place] [address] Care Team Providers Care Inseam Trimmer Name Role Phone Victor M Allan Primary Care Provider Nat Diehl Unavailable [phone] Encounters Encounter Location Date Provider Diagnosis [address] [address] 12/11/2024 Nat Beard Plan Of Treatment Next Appt Details Provider Name:Nat Nova ker, 09/21/2025 09:00:00 AM, [address] [place] [address], [phone], Progress Notes * Pipo BECKDOB: 2 (75 yo M)Acc No.[id number]:12/11/2024 Progress Note Patient: N Clemente RODASius Provider: Jo-Ann Beard DPM :1950 A ge:74 Y S ex:Male Date:12/11/2024 Address:[address] [phone] Pcp:Victor M Allan Subjective: * Chief Complaints: [...] 0 12/11/2024 Generated for Rolly Alvarez/Amadeo on: 11/20/2024 01:29 PM EST
--- OUTSIDE RECORDS SUMMARY | 2025-09-15 08:00 | XMS_ITS | Encounter Summary ---
Author Organization [employer] Address [address] [place] [address] [address] [place] [address] Care Team Providers Care Salesperson Jewelry Name Role Phone Unavailable Primary Care Provider Unavailabl e Reason for Visit * Reason Comments Filling Encounter Details Date Type Department Care Team ([facility] st Contact Info) Description 09/15/2025 8:00 AM EST Office Visit [facility] [address] [place], [place] [phone] Hayder Velasquez DMD [address] [place], [place] [phone] Secondary dental caries associated with failed or defective dental presybeterian (Primary Dx) Social History Tobacco Use Types Packs/Day Years Used Date Smoking Tobacco: Never Smokeless Tobacco: Never Alcohol Use Standard Drinks/Week Comments Not Currently 0 (1 standard drink = 0.6 oz pur e alcohol) Sex and Gender Information Value Date Recorded Sex Assigned at Male 09/03/2022 10:18 AM EDT Legal Sex Male 10:18 AM EDT Gender Identity Male 01/10/2024 2:06 PM EST Sexual Orientation Straight 01/10/2024 2: 06 PM EST documented as of this encounter Last Filed Vital Signs Vital Sign Reading Time Taken Comments Blood Pressure 130/78 09/15/2025 8:06 AM EST Pulse - - Temperature - - Respiratory Rate - - Oxygen Saturation - - Inhaled Oxygen Concentration - - Weight - - Height - - Body Mass Index - - documented in this encounter Progress Notes * Hayder Velasquez DMD - 09/15/2025 8:00 AM EST Patient ID: Arnie Springer is a 75 y.o. male. Time Out: Timeout Date: 09/15/25, Timeout Time: 805 (filling) Location: [facility] Tooth: #18 Procedure: Lutheran Verified the above with patient, promotions assistant, and provider. Confirmed via patient's chart, intraorally and by radiographs. Medical Language Specialist: not applicable Chief Complaint Patient presents with Filling Medical Hx: Vitals: Blood pressure 130/78. Medications, Med Hx reviewed with patient and updated in chart. Consent Obtained: The risks, benefits, indications, potential complications, and alternatives were explained to the patient and informed consent was obtained with good understanding. Treatment Provided: Dental procedures in this visit D2394 - RESIN-BASED COMPOSITE - 4+ SURF, POSTERIOR 18 MODL (Completed) Service provider: Hayder Velasquez DMD Billing provider: Hayder Velasquez DMD D9450 - CASE PRESENTATION, DETAILED AND EXTENSIVE TREATMENT PLANNING (Completed) Service provider: Hayder Velasquez DMD Billing provider: Hayder Velasquez DMD Discussion: Pt originally in office for jannet #4 Previously planned for #3,4 crown due to large existing presybeterian and fracture risk Pt is not ready to proceed with crowns at this time Clinically #4 amalgam is very large, thin remaining enamel tena. Cavosurface margins sealed. Pt asymptomatic. - upon further consideration, do not advise removing existing presybeterian unless prepping for crown - pt expressed understanding. Pt aware of fracture risk Pt notes sensitivity to temperature in LL, points to #18 Clinically large MODL amalgam with defective margins DL cusp not present - majority of occlusal table is amalgam Also recommend full coverage presybeterian here due to loss of tooth structure Given that pt is symptomatic, recommend removing existing presybeterian and ultimately placing crown Pt expressed understanding and agreement with plan Diagnosis: #18-MODL recurrent decay Topical: 20% Benzocaine Anesthesia: 2% Lidocaine (Xylocaine) w/ 1:100,000 epinephrine and 4% Septocaine (Articaine) w/ 1:200,000 epinephrine Number of Cartridges: 1 Injection Type: Buccal infiltration, Inferior alveolar nerve block, and Intrapapillary injection Confirmed profound anesthesia. Isolation: cotton rolls, high speed suction, and cheek guard Prep: All caries removed, Existing presybeterian removed, and Preparation finalized Upon removal of existing amalgam, thin ML cusp fractured off completely (fracture was likely contributing to pt's symptoms) - approx 75% of tooth, including L cusps, have been lost - full coverage crown advised - pin retained core BU would be ideal here, but clinic does not have these supplies - elected to place 1 mm deep pot holes for increased retention Matrix: Tofflemire and wedge Etch: 37% Phosphoric Acid Etch Desensitizer: Gluma Liner/Base: None Bernard: I-Bernard Lutheran Material: Voco Grandioso Packable Shade: A3 Again reviewed recommendation for full coverage crown. Pt expressed understanding and would like torevisit conversation at next recare appt Pt aware of fracture risk Polished. Occlusion & contacts verified. Patient satisfied with comfort and esthetics. Patient tolerated procedure well. Post-operative instructions were given. Patient departed alert, oriented, and in stable condition. NV: Recare Meat Service Team Member: Olga Ramos Dentist: Hayder Velasquez DMD documented in this encounter Plan of Treatment Upcoming Encounters Date Type Department Care Team (Late st Contact Info) Description 02/08/2026 10:15 AM EDT Office Visit [facility] [address] [place] [address] Alexis Smith Scheduled Orders Name Type Priority Associated Diagnoses Orde r Schedule 18 18 CROWN - PORCELAIN/CERAMIC Dental Routine 1 Occurrences starting 09/15/2025 documented as of this encounter Procedures Procedure Name Priority Date/Time Associated Diagnosis Comments 18 MODL RESIN-BASED COMPOSITE - 4+ SURF, POSTERIOR Routine 09/15/2025 8:00 AM EST Secondary dental caries associated with failed or defective dental presybeterian CASE PRESENTATION, DETAILED AND EXTENSIVE TREATMENT PLANNING Routine 09/15/2025 8:00 AM EST Secondary dental caries associated with failed or defective dental presybeterian 18 L AMALGAM FILLING Routine 09/15/2025 12:00 AM EST 18 M AMALGAM FILLING Routine 09/15/2025 12:00 AM EST documented in this encounter Visit Diagnoses Diagnosis Secondary dental caries associated with failed or defective dental presybeterian- Primary documented in this encounter
--- NOTE | 2025-09-20 08:53 | MHC.OFFVIS ---
Vital Signs 09/20/25 08:54 Height 5 ft 8 in Weight 262 lb 9.129 oz BMI 39.9 BP 140/80 H Blood Pressure Location Lt brachial Position Sitting Pulse 57 Pulse Source Pulse Oximeter Pulse Oximetry (%) 94 Oxygen Delivery Method Room Air Intake Visit Reasons: T2DM Intake Note: Patient present today for Type 2 Diabetes Mellitus Last Diabetic eye exam: Last exam was on 10/27/24 by [facility]. Last Podiatry Visit: Patient has an upcoming appt 09/21/25 Random Glucose: 161 mg/dl HgA1C: 7.6% Pressure Tester Required: No Accompanied by: Self / Same As Patient Allergies warfarin Allergy (Intermediate, Verified 09/20/25 08:59) sweats, dry mouth,elevated BP naproxen Allergy (Unknown, Verified 09/20/25 08:59) face got red nifedipine (NIFEDIPINE) Allergy (Unknown, Verified 09/20/25 08:59) GI SIDE EFFECTS, stomach upset, GI empagliflozin (From Jardiance) Adverse Reaction (Intermediate, Verified 09/20/25 08:59) testicular swelling Medication List - Last Reconciled 09/20/25 by Nataly Tai PA-C acetaminophen ER (Tylenol Arthritis Pain) 650 mg PO Q12H alprazolam 1 mg (4 x 0.25 mg) PO DAILY PRN amlodipine 10 mg PO DAILY betamethasone, augmented 0.05 % 1 appl topical BID blood sugar diagnostic As directed blood sugar diagnostic (ClaritureTouch Ultra Test strips) As directed check the blood sugar once a day blood-glucose sensor (RelayRidesStyle Syl 3 Plus Sensor device) Use daily As directed to monitor glucose clonidine HCl 0.2 mg PO BID diclofenac sodium 1% (Voltaren Arthritis Pain) 2 grams topical QID gabapentin 400 mg PO BID 90 days glipizide ER 10 mg (2 x 5 mg) PO DAILY 90 days imipramine HCl 25 mg PO BEDTIME 90 days isosorbide mononitrate ER 60 mg PO QAM lisinopril 40 mg PO DAILY metoprolol succinate ER 50 mg PO QAM metoprolol succinate ER 100 mg PO QPM 90 days mirabegron ER (Myrbetriq) 50 mg PO DAILY nitroglycerin 0.4 mg sublingual Q5M PRN 90 days omeprazole 20 mg PO DAILY pravastatin 40 mg PO DAILY rivaroxaban (Xarelto) 20 mg PO DAILY sitagliptin phosphate (Januvia) 100 mg PO DAILY sumatriptan succinate take 1 tab at onset of headache; if no relief may repeat 1 tab after at least 2 hrs; max = 4 tabs/24 hr PO tamsulosin 0.4 mg PO QDAY HPI HPI T2DM: Details: Patient is a 75-year-old male with a significant past medical history of AFib, hypertension, chronic kidney disease, CAD, complex pancreatic cyst, hyperlipidemia and type 2 diabetes presenting today for consultation regarding his diabetes. Endo: Dm-he was diagnosed with type 2 diabetes around 2014. He previously followed with [facility] endocrinology. His previous a1c was 6.8 and today it is 7.6. He states it was high for about a month due to multiple cortisone injections. He is currently managed on Januvia 100 mg, metformin 1000 mg twice a day, Glipizide 5-10 mg BID. cgm-average glucose 133, G mi 6.5%, variability 23%. Very hyperglycemic 0%, hyperglycemic 10%, in range 90%, hypoglycemic 0% -Januvia is very expensive, states will need a new pa -Wants off of metformin and states he is changing his dosing on his own and taking metformin 1000 mg bid every other day. He is trying ot get his weight down on his own. We did discuss that he has gained weight. -Does not want any injections (refuses insulin) -does not want any GPL1s- still does not want this. we spent significant time today discussing this and benefits. -Jardiance caused testicular swelling, nonstop urination -he has been following with diabetic education and has found this helpful. CV: Blood pressure today in the office is 140/80. He is currently on metoprolol 150 mg daily, lisinopril 40 mg daily, isosorbide 60 mg daily, amlodipine 10 mg daily, spironolactone 25 mg, clonidine 0.1 mg twice a day. He is on Xarelto daily. Cholesterol is managed with pravastatin 40 mg. Last LDL 55 and lfts wnl. Nephro: [facility] . [facility] Medical History Gastritis Low libido Nocturia more than twice per night Verruca COVID-19 virus infection Trigger finger, left ring finger Flexor tenosynovitis of finger SOB (shortness of breath) Fibromyalgia Rheumatoid factor positive Knee pain, bilateral Bilateral carpal tunnel syndrome Pancreatic cyst Cervico-occipital neuralgia Cervical spondylosis without myelopathy Obstructive sleep apnea hypopnea, severe Carpal tunnel syndrome Degenerative disc disease, cervical GERD (gastroesophageal reflux disease) Hypercholesterolemia CKD (chronic kidney disease) Overactive bladder Hypogonadism Pancreatic mass Essential hypertension Atherosclerotic cardiovascular disease Persistent atrial fibrillation Surgical History History of cataract surgery Optional surgery Hx of tonsillectomy H/O lumbar discectomy History of heart artery stent (~04/2018) Family History (Updated 08/24/25 @ 11:00 by SKYLA Pack) Father Cancer Mother Diabetes Cardiovascular disease Sister Diabetes Social History Housing: House Alcohol intake: never Patient Tobacco Use Status: Never used Tobacco Tobacco use type: Cigarette e-Cigarette/Vaping Use: Never Used Second Hand Smoke Exposure: No service: No Current occupational status: retired 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 Cognitive needs: No Hearing needs: No Vision needs: Yes Physical Exam Vital Signs: Last Vital Signs Pulse 57 09/20/25 08:54 BP 140/80 H 09/20/25 08:54 Pulse Ox 94 09/20/25 08:54 Oxygen Delivery Method Room Air 09/20/25 08:54 BMI result Body Mass Index 39.9 Const Orientation/consciousness: patient oriented x3 HEENT Ears: hearing grossly normal bilaterally Neck Thyroid: Thyroid normal Lymphatic: no lymphadenopathy noted Resp Auscultation: clear to auscultation bilaterally Cardio Rate: regular rate Rhythm: regular rhythm Heart sounds: S1 normal heart sound present and S2 normal heart sound present Skin General skin exam: no rashes or lesions noted Neuro General: patient oriented x3, gait normal and no focal motor deficits Results AMB Hemoglobin A1c AMB Hemoglobin A1c 7.6 % Last Edit by ROSA Tee on 09/20/25 09:12 Results Reviewed Results Reviewed: Laboratory Last Values Glucose (Clinic) 161 mg/dL (60-115) H 09/20/25 09:02 Laboratory Tests 03/26/25 06/21/25 06/21/25 08:03 09:19 10:03 Creatinine Estimated GFR Random Glucose Hgb A1c (Clinic) 6.8 H AST ALT Triglycerides 122 Cholesterol 114 LDL Cholesterol, Calc 55 HDL Cholesterol 35 L Urine Creatinine 252.68 Urine Microalbumin 227.0 Microalb/Creat Ratio 89.8 H 08/20/25 10:50 Creatinine 1.23 Estimated GFR 58 Random Glucose 128 H Hgb A1c (Clinic) AST 22 ALT 28 Triglycerides Cholesterol LDL Cholesterol, Calc HDL Cholesterol Urine Creatinine Urine Microalbumin Microalb/Creat Ratio Assessment & Plan Assessment & Plan (1) Type 2 diabetes mellitus with hyperglycemia: Code(s): E11.65 - Type 2 diabetes mellitus with hyperglycemia Category: Medical Qualifiers: Diabetes mellitus windows server administrator insulin use: without skilled nursing use Qualified Code(s): E11.65 - Type 2 diabetes mellitus with hyperglycemia Plan: continue current plan. does not want to make any changes today. encouraged to take metformin daily continue januvia and glipizide He is aware of the weight gain and my recommendation to start a glp1-i wrote down the medications for him to do his research today. He states he will let me know if he changes his mind. we reviewed risks and benefits and adverse effects at length. Follow up in 3 months. Sooner if needed. (2) Essential hypertension: Code(s): I10 - Essential (primary) hypertension Category: Medical Plan: wnl continue current plan (3) Hypercholesterolemia: Code(s): E78.00 - Pure hypercholesterolemia, unspecified Category: Medical Plan: Well-controlled Orders: Orders AMB Hemoglobin A1c Today E11.65 - Type 2 diabetes mellitus with hyperglycemia, Z13.9 - Encounter for screening, unspecified Medications: New metformin ER (Glucophage XR) 1,000 mg (2 x 500 mg) PO DAILY 180 tabs 3RF 90 days Refilled sitagliptin phosphate (Januvia) 100 mg PO DAILY 90 tabs 2RF E11.65 - Type 2 diabetes mellitus with hyperglycemia glipizide ER 10 mg (2 x 5 mg) PO DAILY 180 tabs 2RF 90 days E11.65 - Type 2 diabetes mellitus with hyperglycemia Coding Level of Care Code Est Pt Level 4 (72204) Complex EM visit Add On G2211 Diagnoses Type 2 diabetes mellitus with hyperglycemia, without long-term current use of insulin E11.65 Diabetes mellitus windows server administrator insulin use: without windows server administrator use Essential hypertension I10 Hypercholesterolemia E78.00
[2025-09-20 08:54] VITALS: BP 140/80; PULSE 57; O2SAT 94; BMI 39.9
[2025-09-20 09:07] LABS: Glucose, Whole Blood 161 mg/dL (60-115)
--- OUTSIDE RECORDS SUMMARY | 2025-09-20 13:29 | XMS_ITS | Patient Health Record ---
Author Organization [facility] Address [address] [place] [address] Care Team Providers Care Supervisor Varnish Name Role Phone Victor M Allan Primary Care Provider Nat Diehl Unavailable [phone] Carlos Irwin Unavailable [phone] Allergies Allergen (clinical drug ingredient) Drug/Non Drug [...] HCl 850 MG 1 tablet with a ojse l Orally Once a day; Duration: 30 [...] Problem Acquired hammer toe of right foot (9340134503690501 ) Other hammer toe(s) (acquired), right foot (M20.41) Active confirmed Problem Acquired hammer toe of left foot ([id number] ) Other hammer toe(s) (acquired), left foot (M20.42) Active confirmed Problem Polyneuropathy due to type 2 diabetes mellitus (820484786) Type 2 diabetes mellitus with diabetic polyneuropathy (E11.42) Active confirmed Vital Signs Blood pressure diastolic 84 mm Hg 06/22/2025 Height 5ft 8in in 06/22/2025 Blood pressure systolic 134 mm Hg 06/22/2025 Weight 253 lbs 06/22/2025 BMI 38.46 kg/m2 06/22/2025 Procedures Procedure Date Ordered Date Performed Result Body Sit e 45991-BOCPYEK NAIL, 6 OR MORE 12/10/2024 N/A 19467-PTAR SKIN LESIONS, 2 TO 4 12/10/2024 N/A Encounters Encounter Location Date Provider Diagnosis [address] [address] 12/10/2024 Carlosjina BegumAlida Type 2 diabetes mellitus with diabetic polyneuropathy E11.42 ; Tinea unguium B35.1 ; Other hammer toe(s) (acquired), right foot M20.41 and Other hammer toe(s) (acquired), left foot M20.[address] [address] 03/19/2025 Nat Beard Type 2 diabetes mellitus with diabetic polyneuropathy E11.42 and Tinea unguium B35.[address] [address] 06/22/2025 Nat Beard Type 2 diabetes mellitus with diabetic polyneuropathy E11.42 and Tinea unguium B35.[address] [address] 01/28/2025 Nat Beard Assessments Encounter Date Diagnosis [...] X ray : Foot, left 3V 01/03/2024 09492-TJZDBQG NAIL, 6 OR MORE 09/18/2024 38734-MKNSRNV NAIL, 6 OR MORE 12/10/2024 81616-JDZK SKIN LESIONS, 2 TO 4 12/10/19 25 99780-ITNW SKIN LESIONS, 2 TO 4 09/18/20 24 99114-KEZH SKIN LESIONS, 2 TO 4 01/03/20 24 53345-HVGK SKIN LESIONS, 2 TO 4 04/03/20 24 Next Appt Details Provider Name:Nat Nova cat, 09/21/2025 09:00:00 AM, [address] [facility], [facility] [address], [place], [address], Insurance Providers Payer Name Payer Address Payer Phone Subscriber Number Group Number Insured Name Patient Relationship to Insured Coverage Start Date Coverage End Date Medicare National [employer]t [employer] [address] [facility] [place] [address] [id number] Pipo Springer Self - patient is the insured [facility] [address] [place] [address] [id number] Pipo Springer Self - patient is the insured Medical (General) History Medical History History ICD Code Arthritis Back,Hip,and Knee pain covid-19 Diabetic Headaches/Migraines Heart disease High blood pressure Kidney disease Psoriasis/eczema Reflux Surgical History Surgery Date(Month/Year) back surgery 1984
--- OUTSIDE RECORDS SUMMARY | 2025-09-20 13:29 | XMS_ITS | Clinical Summary ---
Author Organization [facility] Address [address] [facility] [address] [place] [address] Phone Care Team Providers Care Switchboard Inspector Name Role Phone Victor M Allan MD Primary Care Provider [phone] Allergies Active Allergy Reactions Criticality Noted Date [...] 08/23/2025 Refill [facility]. [address] [phone] Monica Canela ARNP Hypertension from Last 3 [...] Office Visit [facility]. [address] [address] Monica Canela ARNP [address] [phone] Health Maintenance Due Date Last Done Comments [...] age to complete this topic Insurance Medicare [facility] Medicare [facility] Care Teams Switchboard Inspector Relationship Specialty Start Date End Date Victor M Allan MD [address] [place], [place] PCP - General 11/14/20
--- OUTSIDE RECORDS SUMMARY | 2025-09-20 13:30 | XMS_ITS | Clinical Summary ---
Author Organization [employer] Address [address] [facility] [address] [place] [address] Care Team Providers Care Firefighter Type One Name Role Phone Unavailable Primary Care Provider [...] um Nitrate 1.1-5 % pasteIndications :Dental caries [place] teeth for 2 minutes, morning and night. [...] eczema 10/23/2023 Essential hypertension 09/24/2023 Morbid obesity ([facility]) 09/24/2023 Obstructive sleep apnea of adult 09/24/2023 Type 2 diabetes mellitus 09/24/2023 Psoriasis vulgaris 08/27/2022 Atrial fibrillation ([facility]) 07/16/2022 Cervico-occipital neuralgia 07/16/2022 Chronic kidney disease 07/16/2022 Generalized atherosclerosis 07/16/2022 Hemangioma of skin and subcutaneous tissue 07/16 History of gastritis 07/16/2022 History of hypertension 07/16/2022 History of obesity 07/16/2022 Overactive bladder 07/16/2022 Epidermoid cyst of skin 04/16/2022 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/09/2021 Atopic dermatitis 02/03/2021 Disorder of skin 02/03/2021 Neoplasm of uncertain behavior of skin Paresthesia 02/03/2021 Raynaud's phenomenon 02/03/2021 Pancreatic cyst 04/28/2012 Encounters Date Type Department Care Team Description 09/15/2025 8:00 AM EST Office Visit [facility] [address] [place] [address] Hayder Velasquez DMD 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 (Primary Dx) 08/26/2025 2:00 PM EDT Office Visit [facility] [address] [place] [address] Hayder Velasquez DMD Dental caries (Primary Dx) 08/18/2025 9:00 AM EDT Office Visit [facility] [address] [place] [address] Hayder Velasquez DMD Dental caries (Primary Dx) 08/09/2025 8:45 AM EDT Office Visit [facility] [address] [place] [address] Alexis Smith Dental caries (Primary Dx); Full [...] Pressure 130/78 09/15/2025 8:06 AM EST Pulse 70 08/09/2025 8:58 AM EDT Temperature - - Respiratory Rate - - Oxygen Saturation - - Inhaled Oxygen Concentration - - Weight - - Height - - Body Mass Index - - Plan of Treatment Upcoming Encounters Date Type Department Care Team (Late st Contact Info) Description 02/08/2026 10:15 AM EDT Office Visit [facility] [address] [place] [address] Alexis Smith Health Maintenance Due Date Last [...] Tdap) 09/10/2024 09/09/2024 COVID-19 Vaccine (3 - 2024- season) 2025 03/20/2021, 02/20/2021 Dental Oral Exam 02/08/2026 08/09/2025, 01/2025, 08/03/2024, Additional history exists Dental Prophylaxis 02/08/2026 08/09/2025, 0 02/04/2025, 08/03/2024, Additional history exists Dental X-Ray: Bitewings 08/10/2026 08/09/20, 08/03/2024, 01/08/2017, Additional history exists Tobacco Screening 09/15/2026 09/15/2025 RSV Patients and Patients Aged 60 years [...] caries associated with failed or defective dental pentecostalism 18 MODL RESIN-BASED COMPOSITE - 4+ SURF, POSTERIOR Routine 09/15/2025 8:00 AM EST 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
== END 2025-09-20 09:34 | disposition home or self-care (01) ==
LOC: HO.ENCR 08:53
PROVIDERS: PCP Internal Medicine; Visit Provider Physician Assistant
DX: E11.65 Type 2 diabetes mellitus with hyperglycemia (principal); I10 Essential (primary) hypertension; E78.00 Pure hypercholesterolemia, unspecified; Z13.9 Encounter for screening, unspecified

== ENCOUNTER → 2025-09-20 08:52 | Outpatient (BNVA) | payer MEDICARE, SELFPAY | PROVIDERS: PCP Internal Medicine; Visit Provider Physician Assistant | DX: E11.65 Type 2 diabetes mellitus with hyperglycemia (principal); I10 Essential (primary) hypertension; E78.00 Pure hypercholesterolemia, unspecified | CPT/HCPCS: 82947; 83036; 99212 ==

== ENCOUNTER 2025-10-11 09:23 | Outpatient (AMB) | payer OTHER, MEDICARE, SELFPAY ==
--- NOTE | 2025-10-11 09:34 | A.OFFVIS_ITS ---
Intake Visit Reasons: Inj-Right shoulder inj. Intake Note: Arnie is a 75 year old right hand dominant male who presents today for an injection in the right shoulder. At his last visit we injected the Left shoulder but due to Diabetes we chose to wait to inject the Right side. Allergies warfarin Allergy (Intermediate, Verified 09/20/25 08:59) sweats, dry mouth,elevated BP naproxen Allergy (Unknown, Verified 09/20/25 08:59) face got red nifedipine (NIFEDIPINE) Allergy (Unknown, Verified 09/20/25 08:59) GI SIDE EFFECTS, stomach upset, GI empagliflozin (From Jardiance) Adverse Reaction (Intermediate, Verified 09/20/25 08:59) testicular swelling HPI HPI Inj-Right shoulder inj.: Details: Arnie is a 75 year old right hand dominant male who presents today for an injection in the right shoulder. At his last visit we injected the Left shoulder but due to Diabetes we chose to wait to inject the Right side. [facility] Medical History Gastritis Low libido Nocturia more than twice per night Verruca COVID-19 virus infection Trigger finger, left ring finger Flexor tenosynovitis of finger SOB (shortness of breath) Fibromyalgia Rheumatoid factor positive Knee pain, bilateral Bilateral carpal tunnel syndrome Pancreatic cyst Cervico-occipital neuralgia Cervical spondylosis without myelopathy Obstructive sleep apnea hypopnea, severe Carpal tunnel syndrome Degenerative disc disease, cervical GERD (gastroesophageal reflux disease) Hypercholesterolemia CKD (chronic kidney disease) Overactive bladder Hypogonadism Pancreatic mass Essential hypertension Atherosclerotic cardiovascular disease Persistent atrial fibrillation Surgical History History of cataract surgery Optional surgery Hx of tonsillectomy H/O lumbar discectomy History of heart artery stent (~04/2018) Family History Father Cancer Mother Diabetes Cardiovascular disease Sister Diabetes Social History Housing: House Alcohol intake: never Patient Tobacco Use Status: Never used Tobacco Tobacco use type: Cigarette e-Cigarette/Vaping Use: Never Used Second Hand Smoke Exposure: No service: No Current occupational status: retired 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 Cognitive needs: No Hearing needs: No Vision needs: Yes Physical Exam Exam Exam: no acute distress. Left shoulder with positive Mariscal and Neer. Can get his hand to the back his head full overhead motion. Office Procedures Joint Inj/Aspir; Non-Pain Clin Joint Injection/Drain Details: Injected 1 mL of Decadron and 3 mL 1% lidocaine and 3 mL of 0.25% Marcaine. Site was prepped using aseptic technique. Patient tolerated the procedure well. Shoulders, Hips, Knees, Shoulder Injection Large joint : Right Shoulder Coding Procedure code (CPT) selection complete Assessment & Plan Assessment & Plan (1) Bursitis of right shoulder: Code(s): M75.51 - Bursitis of right shoulder Category: Medical Plan: Injected right shoulder today. (2) Type 2 diabetes mellitus with hyperglycemia: Code(s): E11.65 - Type 2 diabetes mellitus with hyperglycemia Category: Medical Qualifiers: Diabetes mellitus skilled nursing insulin use: without intermission coordinator use Qualified Code(s): E11.65 - Type 2 diabetes mellitus with hyperglycemia Plan: Informed of the hyperglycemic effects of steroids Coding Level of Care Code Est Pt Level 4 (99062) Diagnoses Bursitis of right shoulder M75.51 Type 2 diabetes mellitus with hyperglycemia, without long-term current use of insulin E11.65 Diabetes mellitus skilled nursing insulin use: without intermission coordinator use CPT Codes Shoulders, Hips, Knees, - Shoulder Injection Large joint : Right Shoulder ([id number])
== END 2025-10-11 09:47 | disposition home or self-care (01) ==
LOC: HO.HOS 09:24
PROVIDERS: PCP Internal Medicine; Visit Provider Orthopaedic Surgery
DX: M75.51 Bursitis of right shoulder (principal); E11.65 Type 2 diabetes mellitus with hyperglycemia
CPT/HCPCS: 20610; 99214

== ENCOUNTER → 2025-10-11 09:23 | Outpatient (BNVA) | payer OTHER, MEDICARE, SELFPAY | PROVIDERS: PCP Internal Medicine; Visit Provider Orthopaedic Surgery | DX: M75.51 Bursitis of right shoulder (principal); E11.65 Type 2 diabetes mellitus with hyperglycemia; Z79.4 Long term (current) use of insulin | CPT/HCPCS: 20610; J0665; J1100; J2003 ==